=== PATIENT | male | born 1955 | race Hispanic/Latino ===

== ENCOUNTER 2025-07-05 17:42 | Inpatient (IN) | payer OTHER, MEDICARE ==
[~2025-07-05] VITALS: Ht 175.3 cm; Wt 87.3 kg
[2025-07-05] VITALS (20 sets, daily range): BP systolic 104–138; BP diastolic 53–109; PULSE 77–96; RESP 14–35; TEMP 98.8; O2SAT 96–97
--- NOTE | 2025-07-05 20:00 | HP ---
History of Present Illness Reason for Visit: transfer from [place] for pericardial effusion History of Present Illness Mr. Chowdhury is 70 year old male that was seen and examined today on 07/05/25. Patient is a good historian of personal health patient was transfered from [facility] after being accepted by Dr. Jeff Weir. At [facility] patient was diagnosed with pericardial effusion with tamponade. Patient is also hypotensive and requiring vasopressor support. Patient has a history of hypertension, Diabetes mellitius type2, and melanoma with metastasis, most recently on Pembrolizumab (last dose 06/24/25). Who presented with a generalized weakness/fatigue, of five weeks' duration. The symptoms began in the setting of immune therapy, and over the last five weeks progressively worsened. The symptoms were constant, occurred on a daily basis, and were present throughout the day. The symptoms were exacerbated by physical activity and not alleviated by anything. The symptoms culminated in a mechanical fall, which occurred on 07/04/2025, and prompted the patient to come to the hospital for further evaluation and treatment. In the emergency department the patient was found to be hyponatremic, and with a lactic acid of 4.24. He was admitted to the floor and within 24 hours decompensated and went into shock, requiring ionotropic/chronotropic support with IV norepinephrine and vasopressin. He was subsequently transferred to the ICU and underwent an echocardiogram which identified a moderate size pericardial effusion measuring 1.1-1.5 cm, the mitral valve inspiratory variation of 40% and early diastolic collapse of the right ventricle and the late diastolic collapse of the right atrium and a dilated IVC. The findings confirmed the diagnosis of cardiac tamponade, causing obstructive shock. Cardiology was consulted for treatment recommendations regarding this issue. At the time of Cardiology evaluation the patient continued to complaint of generalized weakness/fatigue but denied any other active complaints including headache, dizziness, syncope, chest pain, chest pressure, palpitations, shortness of breath, abdominal pain or lower extremity swelling/edema. Past Medical History ADDITIONAL PAST MEDICAL HISTORY: [Diabetes, hypertension, melanoma] SOCIAL HISTORY: [Negative for smoking, alcohol use, drug use. ] SURGICAL HISTORY: [IR PICC line placement] Review of Systems General: No Fever, No Chills, No Night Sweats, No Fatigue, No Malaise, No Appetite, No Other HEENT: No Head Aches, No Visual Changes, No Eye Pain, No Ear Pain, No Dysphasia, No Sinus Congestion, No Post Nasal Drip, No Sore Throat, No Other Pulmonary: No Dyspnea, No Cough, No Pleuritic Chest Pain, No Other Cardiovascular: Chest Pain; No: Palpitations, Orthopnea, Paroxysmal Noc. Dyspn ea, Edema, Lt Headedness, Other Gastrointestinal: No: Nausea, Vomiting, Abdominal Pain, Diarrhea, Constipation, Melena, Hematochezia, Other Genitourinary: No Dysuria, No Frequency, No Incontinence, No Hematuria, No Retention, No Other Musculoskeletal: No: other, neck pain, shoulder pain, arm pain, back pain, hand pain, leg pain, foot pain Skin: No Urticaria, No Rash, No Other Neurological: No: Weakness, Numbness, Incoordination, Change in speech, Confusion, Seizures, Other Allergies: Coded Allergies: No Known Drug Allergies (Unverified Allergy, Unknown, 07/05/25) Scheduled Amlodipine Besylate (Amlodipine Besylate), 1 TAB PO DAILY, (Reported) Atorvastatin Calcium (Lipitor), 40 MG PO DAILY, (Reported) Empagliflozin (Jardiance), 1 TAB PO DAILY, (Reported) Olmesartan Medoxomil (Olmesartan Medoxomil), 40 MG PO DAILY, (Reported) Semaglutide (Rybelsus), 7 MG PO DAILY, (Reported) Scheduled PRN Ondansetron (Ondansetron Odt), 1 TAB PO Q8hprn PRN for NAUSEA/VOMITING, (Reported) Exam General Appearance: Alert, Oriented X3, Cooperative, moderate distress, Other (Generally ill-appearing) HEENT: Atraumatic Respiratory: Other (Diminished air entry to bilateral lower lobes) Cardiovascular: Regular rate, Regular rhythm, Normal S1, Normal S2 Abdominal: Normal bowel sounds, Soft, No tenderness Extremities: No edema Skin: No significant lesion Neuro: Normal speech, Strength at 5/5 X4 ext, Sensation intact, Cranial nerves 3-12 NL Psych/Mental Status: Mental status NL, Mood NL, Thoughts/Content NL Assessment/Plan ASSESSMENT: [ Obstructive shock, POA Hypotension, POA Cardiac tamponade, POA Melanoma with metastasis, POA Diabetes mellitius type2 Hypertension] PLAN: [ Admit patient to intensive care unit. Place patient on telemetry monitoring. Patient will be followed by critical care team. Patient will be followed by cardiovascular surgery Service, Dr. Vizcarra. Patient will be followed by cardiology service, Dr. Marquis. Keep patient NPO. Check preprocedure labs, CBC, BMP, magnesium, phosphorus, PTT, UA, type and screen, EKG, CXR Requested for compact discs with imaging is to be uploaded to EMR Continue vasopressor support per critical Care recommendations Have patient follow up in the outpatient setting for management of his melanoma. Rhino Check hemoglobin A1c in a.m. Glucometer checks a.c. and HS 1800 ADA diet once patient is no longer NPO Humulin R sliding scale Avoid blood pressure medicine at this time given hypotension. GI prophylaxis, famotidine DVT prophylaxis, Raheem's and SCDs avoid anticoagulation at this time due to pending cardiovascular surgery evaluation. Critical Care Time: I spent ___51___ minutes of critical care time with the patient. I reviewed lab work, change the patient's medication, and coordinated protocol in the event of tachycardia or desaturation. The patient status remains unchanged ADVANCED CARE PLANNING 1. Which of the following were discussed? Hospice Care - Yes Therapeutic options - yes Advance Directives - Yes - patient states he does not have any advance directives in place at this time, however his sister, Molly Desai can make decisions for him if he becomes unable. Other discussions - patient wishes to remain a full code 2. Discussed with who? Patient 3. Voluntary nature of this service was explained to the patient? Yes 4. Amount of time spent - ___16 minutes____ 5. Reviewed by Physician? (if this service was performed by NPP) Yes This document was generated in part using voice recognition software, occasional wrong word or sound alike substitutions may have occurred due to the inherent limitations of voice recognition software. Read the chart carefully and recognize using context, where the substitutions have occurred. Although every effort was made to edit the content, keg inspector and typing errors may occur ATTESTATION BY PHYSICIAN I have seen and examined the patient. I reviewed the documentation, medical decision making, and treatment plan as noted by the mid-level provider above. I agree with the findings and plan of care. NEFTALI WINSTON PRESS SETTER Jul 05, 2025 20:00
[2025-07-05 20:35] LABS: IMMATURE GRANULOCYTE ABSOLUTE 0.07 K/uL (0-1); NUCLEATED RED BLOOD CELLS 0.0 % (0.0-0.19); PLATELET COUNT (AUTO) 202 K/uL (130-400); RED BLOOD CELL COUNT(AUTO) 3.97 MIL/uL (4.50-6.20); RED CELL DISTRIBUTION WIDTH 12.8 % (11.0-15.5); WHITE BLOOD COUNT (AUTO) 13.6 K/uL (4.8-10.8)
[2025-07-05 20:45] LABS: INR 1.25 (0.85-1.15)
[2025-07-05] MEDS: NOREPINEPHRIN 8MG/250ML NS 250 ML IV PRN (21:12)
[2025-07-05 21:19] LABS: PHOSPHORUS 8.0 mg/dL (2.5-4.9)
[2025-07-05 21:20] LABS: APPEARANCE,URINE CLOUDY (CLEAR); GLUCOSE, URINE (UA) >=1000 mg/dL (NEGATIVE); LEUKOCYTE ESTERASE ,URINE NEGATIVE Leu/uL (NEGATIVE); NITRATE,URINE NEGATIVE (NEGATIVE); OCCULT BLOOD,URINE SMALL (NEGATIVE)
[2025-07-05 21:21] LABS: ADD UA MICROSCOPIC YES
[2025-07-05 21:24] LABS: SQUAMOUS EPITHELIAL CELL,UR FEW /HPF (0-2)
--- NOTE | 2025-07-05 22:02 | NUR ---
Paged Steam Tunnel Feeder Paged Dr. Sampson Marquis for new consultation at 21:40. Pending call back.
--- NOTE | 2025-07-05 22:51 | CONS ---
[facility] CONSULTATION NOTE Date Patient Seen: Jul 05, 2025 Time of Visit: 22:51 Supervising Physician: Dr. Bailey Reason for Consultation: ICU management Primary Care Physician: PCP: (Cannot recall name) Outpatient Specialists: [ ] Inpatient Consults: [ ] PROBLEM LIST: Obstructive shock requiring vasopressor therapy POA. Hypotension Pericardial effusion with tamponade physiology per 2D echo done at [facility] POA. Hypertension. Diabetes mellitus type 2. Melanoma with metastasis most recently on Pembrolizumab (last dose 06/24/25) Anxiety. HPI: This is a 70-year-old male patient who has a past medical history that is significant for hypertension, diabetes mellitus type 2, anxiety and melanoma with metastasis most recently on Pembrolizumab (last dose 06/24/25). Per the sister who was present at the bedside, she made mention regarding worsening generalized weakness and fatigue over the past week. Per her report, the symptoms began in the setting of immune therapy for his melanoma. Also, she made mention that the patient was experiencing recurring falls at home with his last fall approximately 2 days ago. Considering the worsening functional decline, the patient was brought in to the emergency department for further evaluation and management of his condition. The patient was initially seen at [facility]. Workup there was significant for a pericardial effusion with tamponade physiology and obstructive shock requiring pressor therapy. The patient was transferred here to [facility] for further management of his condition and cardiothoracic surgery evaluation. Since admission, workup showed unremarkable vital signs. Laboratory data here showed a slightly increased WBC of 13.6 H&H and platelet count were stable. Chemistry panel showed a phosphorus of 8.0 and a mag of 2.10. Patient had a PT of 13.0, INR of 1.25 and a PTT of 29.9. Urinalysis showed cloudy urine with negative nitrates, negative leukocyte esterase and no bacteria. The patient was brought into the ICU and currently continues on vasopressor therapy with levo and vaso. No acute events since admission. No other complaint. PAST MEDICAL HX: see above PAST SURGICAL HX: noncontributory SOCIAL HISTORY: No tobacco, ETOH, or illicit drug use Coded Allergies: No Known Drug Allergies (Unverified Allergy, Unknown, 07/05/25) REVIEW OF SYSTEMS: 12 point ROS reviewed with patient. Pertinent positives mentioned above. Otherwise negative. PHYSICAL EXAM: GENERAL: alert, weak, awake oriented x 3 HEENT: EOMI, Sclera non icteric, moist mucosa NECK: Supple, no JVD, trachea midline LUNGS: Clear breath sounds bilaterally. No wheezes HEART: Regular rate and rhythm. Normal S1 and S2, without murmurs ABD: Abdomen soft, nontender. Bowel sounds present EXT: No clubbing cyanosis or edema NEURO: Alert and oriented to person, follows commands Vital Signs (last 8hr) Date Time Temp Pulse Resp B/P (MAP) Pulse Ox O2 Delivery O2 Flow Rate FiO2 07/05/25 22:15 80 28 111/56 (74) 96 07/05/25 22:00 83 27 135/109 (118) 95 60 07/05/25 21:45 94 21 129/63 (85) 96 07/05/25 21:30 83 19 128/65 (86) 94 07/05/25 21:15 80 18 117/56 (76) 95 07/05/25 21:12 123/67 07/05/25 21:00 80 29 117/67 (84) 95 60 07/05/25 20:45 79 28 123/67 (85) 96 07/05/25 20:30 93 20 123/60 (81) 97 07/05/25 20:15 79 24 119/65 (83) 95 07/05/25 20:00 98.8 96 28 112/56 (74) 96 60 07/05/25 20:00 98.8 N/C High Flow System 12.0 60 07/05/25 19:45 91 22 128/67 (87) 96 07/05/25 19:30 79 31 130/67 (88) 96 07/05/25 19:15 80 35 129/58 (81) 96 07/05/25 19:00 82 27 138/90 (106) 97 60 LABS: Hematology Labs: Test 07/05/25 20:20 Range/Units White Blood Count 13.6 H 4.8-10.8 K/uL Red Blood Count 3.97 L 4.50-6.20 MIL/uL Hemoglobin 11.7 L 14.0-18.0 g/dL Hematocrit 36.0 L 42-54 % Mean Corpuscular Volume 90.7 79-99 fL Mean Corpuscular Hemoglobin 29.5 27.0-33.0 pg Mean Corpuscular Hemoglobin Concent 32.5 32.0-36.0 g/dL Red Cell Distribution Width 12.8 11.0-15.5 % Platelet Count 202 130-400 K/uL Mean Platelet Volume 9.9 7.5-10.5 fL Immature Granulocyte % (Auto) 0.5 0-1 % Neutrophils (%) (Auto) 86.6 H 40.0-77.0 % Lymphocytes (%) (Auto) 7.7 L 21.0-51.0 % Monocytes (%) (Auto) 4.9 3.0-13.0 % Eosinophils (%) (Auto) 0.0 0.0-8.0 % Basophils (%) (Auto) 0.3 0.0-5.0 % Neutrophils # (Auto) 11.8 H 1.8-7.7 K/uL Lymphocytes # (Auto) 1.1 1.0-4.8 K/uL Monocytes # (Auto) 0.7 0.1-1.0 K/uL Eosinophils # (Auto) 0.00 0.00-0.70 K/uL Basophils # (Auto) 0.04 0.00-0.20 K/uL Absolute Immature Granulocyte (auto 0.07 0-1 K/uL Nucleated Red Blood Cells 0.0 0.0-0.19 % White Cell Morphology Comment See comments Chemistry Labs: Test 07/05/25 21:09 Range/Units Phosphorus Level 8.0 H 2.5-4.9 mg/dL Magnesium Level 2.10 1.80-2.40 mg/dL Coagulation Labs: Test 07/05/25 20:20 Range/Units Prothrombin Time 13.0 H 9.6-11.6 SEC Prothromb Time International Ratio 1.25 H 0.85-1.15 Activated Partial Thromboplast Time 29.9 26.3-35.5 SEC DIAGNOSTICS / RADIOLOGY RESULTS: [ ] PLAN Critical care consultation requested. Continue with vasopressor therapy and adjust as necessary to maintain MAP above 65 mmHg. Consult cardiothoracic surgery. Consult cardiology. Will monitor the patient's progress and response to management. Continue current pain management. Will repeat surveillance labs in the morning. Continue to provide general supportive care, GI and DVT prophylaxis. Further orders per attending MD and hospital course. NEURO: Minimize central acting medications as possible. Fall Precautions. Well lighted room through the day and minimize interruptions through the night to prevent acute delirium. PULMONARY: Supplemental 02 as needed Titrate Fio2 to keep Spo2 > or = 90% DuoNebs and CPT as needed IS hourly while awake for pulmonary hygiene Out of bed to chair as tolerated VAP Bundle Vent/BIPAP Settings: [ ] CARDIOVASCULAR: Follow hemodynamics. Titrate vasopressor to keep MAP >65 or systolic blood pressure >95mmHg DIPS: Levo and vaso. LINES: PIV's GI & NUTRITION: Continue nutritional support Aspirations precautions Prokinetic agents and laxatives as needed KIDNEYS & ELECTROLYTES: Strict monitoring of intake and output Daily weights Avoid nephrotoxic agents Monitor electrolytes and replace as needed Goal urine output of 30mL/hr or 0.5mL/kg/hr Urine output: [ ] Fluid Balance: [ ] ENDOCRINE: Maintain blood glucose between 100-180 at all times. Insulin sliding scale for blood glucose management INFECTIOUS DISEASE: Trend temperature. Wood-culture if febrile. Micro: [ ] Antibiotics: [ ] HEMATOLOGY & COAGULATION: Monitor H&H. Keep Hgb > 7 Transfuse 1 unit of PRBC for Hgb < 7 Transfuse 1 pack of platelets of platelets < 20, 000 Watch for any signs and symptoms of bleeding SKIN: Pressure ulcer prevention per facility protocol Rehab: PT/OT Prophylaxis: GI: [ ] DVT: [ ] Code Status: Full Resuscitation Disposition: ICU Other: I personally spent 40 minutes of critical care time in treatment of this patient. This includes patient management, time at bedside, time reviewing tests, labs, appropriate images and studies, documentation, and patient care coordination. This time excludes separately billable procedures. Case was discussed and seen with my supervising physician. The above plan was formulated and agreed upon. ADALID LARES NP Jul 05, 2025 22:51
[2025-07-05] MEDS ORDERED: OLME40TA18 PO (22:52)
[2025-07-05] MEDS ORDERED: ONDA-245 PO (23:09)
[2025-07-05] MEDS ORDERED: SEMA7TAB2 PO (23:19)
[2025-07-05] MEDS ORDERED: AMLO-258 PO (23:20)
[2025-07-05] MEDS ORDERED: ATOR40TA69 PO (23:21)
[2025-07-05] MEDS ORDERED: EMPA25TA PO (23:21)
[2025-07-06] VITALS (70 sets, daily range): BP systolic 96–149; BP diastolic 41–84; PULSE 77–96; RESP 17–41; TEMP 97.8–98.6; O2SAT 95–97
[2025-07-06] MEDS: VASOpressin 20 UNITS/ML 1ML Vi 20 UNITS in 0.9%NACL 100ML 99 ML IV PRN (00:51)
--- NOTE | 2025-07-06 02:29 | NUR ---
Radiology Discs Left [facility] radiology discs at the radiology department for upload at 00:30. Radiology department will drop off when doing AM rounds.
[2025-07-06 04:47] LABS: NUCLEATED RED BLOOD CELLS 0.0 % (0.0-0.19); PLATELET COUNT (AUTO) 223.0 K/uL (130-400); RED BLOOD CELL COUNT(AUTO) 3.91 MIL/uL (4.50-6.20); RED CELL DISTRIBUTION WIDTH 12.7 % (11.0-15.5); WHITE BLOOD COUNT (AUTO) 13.8 K/uL (4.8-10.8)
[2025-07-06 05:03] LABS: ASPARTATE AMINOTRANSFERASE 62.0 U/L (10-37); CREATININE 2.1 mg/dL (0.5-1.3); GLOMERULAR FILTR. RATE CALC 33.0 mL/min (>90); GLUCOSE,RANDOM 185.0 mg/dL (70-105); PHOSPHORUS 7.2 mg/dL (2.5-4.9); SODIUM SERUM 135.0 mmol/L (136-145); TOTAL PROTEIN, SERUM 6.5 g/dL (6.0-8.3); UREA NITROGEN, BLOOD 34.0 mg/dL (7-18)
[2025-07-06 07:22] LABS: ABG BASE EXCESS -9.4 mmol/L (-2.0-3.0); ABG HCO3 16.5 mmol/L (21.0-28.0); ABG OXYGEN SATURATION 96.2 % (94.0-98.0); ABG PCO2 36 mmHg (35-48); ABG PH 7.282 (7.350-7.450); CARBON MONOXIDE 0.3 % (0.5-1.5); DEVICE COMMENT LR; PO2, ARTERIAL BG 94.3 mmHg (83.0-108.0); TEMPERATURE, CELSIUS BG 37.0 CELSIUS (35.5-37.0); VENT MODE, BG OXIMIZER, CARLA (ROOM AIR)
--- NOTE | 2025-07-06 08:03 | PN ---
[facility] PROGRESS NOTE Date of Service: Jul 06, 2025 Time of Service: 07:59 SUBJECTIVE: 07/06 70-year-old male, history of hypertension, diabetes mellitus type 2, and melanoma with metastases, most recently on Pembrolizumab (last dose 06/24/25), transferred from [facility] after the patient was found to have moderate size pericardial effusion with tamponade, measuring 1.1-1.5 cm, the mitral valve inspiratory variation of 40% and early diastolic collapse of the right ventricle and the late diastolic collapse of the right atrium and a dilated IVC. Patient hypotensive, requiring vasopressor support. Consultation with Cardiology and Cardiothoracic surgeon requested, follow input and recommendations. REVIEW OF SYSTEMS CONSTITUTIONAL: Denies fevers, chills, or night sweats. No unintentional weight loss reported. NEUROLOGICAL: Denies headache, amaurosis fugax, motor weakness, sensory deficit, vertigo/spinning sensation, gait abnormalities, or tremors. ENT: No hearing loss, otalgia, otorrhea, rhinitis, rhinorrhea, hoarseness, or sore throat. CARDIOVASCULAR: Denies any exertional angina, dyspnea on exertion, orthopnea, paroxysmal nocturnal dyspnea, palpitations, life-threatening arrhythmias, claudication. PULMONARY: Denies any shortness of breath, cough, phlegm/sputum, hemoptysis, pleuritic chest pain. SLEEP: Denies morning headaches, daytime somnolence or napping. Denies difficulty falling asleep, staying asleep, waking from sleep. Denies knowledge of snoring. GASTROINTESTINAL: Denies any type of dysphagia to either liquids or solids. Denies nausea, vomiting, pyrosis, early satiety, abdominal pain, diarrhea, constipation, or changes in stool consistency or caliber. Denies coffee-ground emesis, hematemesis, hematochezia, or melanotic stools. GENITOURINARY: Denies frequency, urgency, nocturia, hematuria or incontinence (Storage/Irritative symptoms.) Low urinary stream, straining to void, urinary intermittency or hesitancy, splitting of the voiding stream, terminal dribbling. ENDOCRINOLOGIC: Denies polyuria, polydipsia, polyphagia or heat/cold intolerances. HEMATOLOGIC: Denies thrombophilia/previous clots, or coagulopathy/bleeding disorders. ONCOLOGIC: Denies personal history of malignancy. DERMATOLOGIC: Denies rashes or pruritus. PSYCHIATRIC: Denies any suicidal or homicidal ideation. Denies hallucinations. PHYSICAL EXAM GENERAL APPEARANCE: The patient is awake, alert, and oriented, in no acute cardiopulmonary distress. NEUROLOGICAL: Cranial nerves II-XII grossly intact. Motor is 5/5 in bilateral upper and lower extremities proximal to distal. No sensory deficits. HEENT: Face is symmetric. Pupils are equal and reactive. Extraocular movements are intact. NECK: Supple. No JVD. No thyromegaly. No submental, submandibular, pre- /postauricular, occipital or supraclavicular lymphadenopathy. CHEST: Normal chest expansion. No Telemetry. LUNGS: Absence of any rales, rhonchi or any wheezing. CARDIOVASCULAR: Regular. S1 and S2 normal. No appreciable rubs, murmurs or gallops. ABDOMEN: Soft, nontender, and nondistended. There is no rebound, voluntary guarding, or rigidity. : Deferred. No Orozco. EXTREMITIES: Non-edematous and not cyanotic. No clubbing. Good capillary refill. SKIN: No skin breakdown. Vital Signs (last 8hr) Date Time Temp Pulse Resp B/P (MAP) Pulse Ox O2 Delivery O2 Flow Rate FiO2 07/06/25 07:12 86 19 N/Cannula Oximizer Hi LPM 12.0 60 07/06/25 07:00 80 29 111/64 (80) 97 07/06/25 06:45 80 26 109/60 (76) 97 07/06/25 06:30 84 33 119/63 (81) 96 07/06/25 06:15 83 23 106/61 (76) 98 07/06/25 06:00 81 21 111/61 (78) 98 60 07/06/25 05:45 82 24 106/61 (76) 97 07/06/25 05:30 85 22 106/55 (72) 98 07/06/25 05:15 80 24 113/62 (79) 97 07/06/25 05:00 86 25 104/59 (74) 97 60 07/06/25 04:45 95 17 128/72 (90) 95 07/06/25 04:30 88 20 137/60 (85) 95 07/06/25 04:15 82 20 122/64 (83) 98 07/06/25 04:00 98.2 80 18 119/61 (80) 97 60 07/06/25 04:00 98.2 N/C High Flow System 12.0 60 07/06/25 04:00 96 N/C Oxymizer Hi LPM* 12 N/A 07/06/25 03:45 80 19 112/60 (77) 96 07/06/25 03:30 81 26 111/63 (79) 96 07/06/25 03:15 84 19 109/59 (76) 98 07/06/25 03:00 88 22 96/57 (70) 97 60 07/06/25 02:45 86 25 109/57 (74) 96 07/06/25 02:30 80 32 126/64 (84) 97 07/06/25 02:15 82 27 117/60 (79) 95 07/06/25 02:00 80 20 116/57 (76) 96 60 07/06/25 01:45 79 22 113/61 (78) 97 07/06/25 01:30 78 26 109/58 (75) 98 07/06/25 01:15 81 24 111/58 (75) 97 07/06/25 01:00 91 17 111/56 (74) 98 60 07/06/25 00:45 80 25 111/61 (78) 97 07/06/25 00:30 79 22 112/56 (74) 97 07/06/25 00:15 79 29 108/48 (68) 97 07/06/25 00:00 97 N/C Oxymizer Hi LPM* 12 N/A 07/06/25 00:00 98.6 77 23 106/53 (70) 96 60 07/06/25 00:00 98.6 N/C High Flow System 12.0 60 LABS: Laboratory: Test 07/06/25 07:20 07/06/25 04:13 07/05/25 21:01 07/05/25 20:20 Range/Units Blood Gas Specimen Type Arterial Arterial Blood pH 7.282 L 7.350-7.450 Arterial Blood Partial Pressure CO2 36 35-48 mmHg Arterial Blood Partial Pressure O2 94.3 83.0-108.0 mmHg Arterial Blood HCO3 16.5 L 21.0-28.0 mmol/L Arterial Blood Oxygen Saturation 96.2 94.0-98.0 % Arterial Blood Base Excess -9.4 L -2.0-3.0 mmol/L Hemoglobin (Blood Gas) 12.0 L 13.5-17.5 g/dL Sodium (Blood Gas) 130 L 136-145 MMOL/L Bedside Potassium (Blood Gas) 4.5 3.4-4.5 MMOL/L Bedside Chloride (Blood Gas) 102 98-107 MMOL/L Bedside Glucose (Blood Gas) 176 H 65-95 MG/DL Bedside Ionized Calcium (Blood Gas) 1.23 1.15-1.33 MMOL/L Bedside Lactic Acid (Blood Gas) 0.86 H 0.36-0.75 MMOL/L Blood Gas Temperature 37.0 35.5-37.0 CELSIUS Blood Gas Flow-by 12.00 0.00-15.00 L/min Blood Gas Vent Mode OXIMIZER, STEFAN ROOM AIR FiO2 68.0 % Blood Gas Specimen Comment LR White Blood Count 13.8 H 4.8-10.8 K/uL Red Blood Count 3.91 L 4.50-6.20 MIL/uL Hemoglobin 11.6 L 14.0-18.0 g/dL Hematocrit 35.2 L 42-54 % Mean Corpuscular Volume 90.0 79-99 fL Mean Corpuscular Hemoglobin 29.7 27.0-33.0 pg Mean Corpuscular Hemoglobin Concent 33.0 32.0-36.0 g/dL Red Cell Distribution Width 12.7 11.0-15.5 % Platelet Count 223 130-400 K/uL Mean Platelet Volume 9.8 7.5-10.5 fL Nucleated Red Blood Cells 0.0 0.0-0.19 % Sodium Level 135 L 136-145 mmol/L Potassium Level 4.8 3.5-5.1 mmol/L Chloride Level 100 L 101-111 mmol/L Carbon Dioxide Level 17 L 21-32 mmol/L Blood Urea Nitrogen 34 H 7-18 mg/dL Creatinine 2.1 H 0.5-1.3 mg/dL Glomerular Filtration Rate Calc 33 >90 mL/min Random Glucose 185 H 70-105 mg/dL Hemoglobin A1c 6.6 H 4.0-6.0 % Estimated Average Glucose (eAG) 143 H 70-126 mg/dL Total Calcium 8.8 8.5-10.1 mg/dL Phosphorus Level 7.2 H 2.5-4.9 mg/dL Magnesium Level 2.20 1.80-2.40 mg/dL Total Bilirubin 0.9 0.2-1.0 mg/dL Aspartate Amino Transf (AST/SGOT) 62 H 10-37 U/L Alanine Aminotransferase (ALT/SGPT) 55 12-78 U/L Alkaline Phosphatase 74 50-136 U/L Total Protein 6.5 6.0-8.3 g/dL Albumin 2.3 L 3.5-5.0 g/dL Urine Color YELLOW YELLOW Urine Appearance CLOUDY H CLEAR Urine pH 5.0 5.0-8.0 Urine Specific [place] 1.018 1.001-1.031 Urine Protein 20 H NEGATIVE mg/dL Urine Glucose (UA) >=1000 H NEGATIVE mg/dL Urine Ketones 20 H NEGATIVE mg/dL Urine Occult Blood SMALL H NEGATIVE Urine Nitrate NEGATIVE NEGATIVE Urine Bilirubin NEGATIVE NEGATIVE mg/dL Urine Urobilinogen 0.2 0.2-1.0 mg/dL Urine Leukocyte Esterase NEGATIVE NEGATIVE [place]/uL Urine RBC 11-25 H 0-1 /HPF Urine WBC 0-1 0-1 /HPF Urine Squamous Epithelial Cells FEW 0-2 /HPF Urine Bacteria None None Seen /HPF Immature Granulocyte % (Auto) 0.5 0-1 % Neutrophils (%) (Auto) 86.6 H 40.0-77.0 % Lymphocytes (%) (Auto) 7.7 L 21.0-51.0 % Monocytes (%) (Auto) 4.9 3.0-13.0 % Eosinophils (%) (Auto) 0.0 0.0-8.0 % Basophils (%) (Auto) 0.3 0.0-5.0 % Neutrophils # (Auto) 11.8 H 1.8-7.7 K/uL Lymphocytes # (Auto) 1.1 1.0-4.8 K/uL Monocytes # (Auto) 0.7 0.1-1.0 K/uL Eosinophils # (Auto) 0.00 0.00-0.70 K/uL Basophils # (Auto) 0.04 0.00-0.20 K/uL Absolute Immature Granulocyte (auto 0.07 0-1 K/uL White Cell Morphology Comment See comments Prothrombin Time 13.0 H 9.6-11.6 SEC Prothromb Time International Ratio 1.25 H 0.85-1.15 Activated Partial Thromboplast Time 29.9 26.3-35.5 SEC Current Medications Medications (Trade) Dose Ordered Sig/Dejah Route PRN Reason Start Time Stop Time Status Last Admin Dose Admin Acetaminophen (TYLenol 650MG SUPPOSITORY) 650 mg Q6H PRN RC MILD PAIN (1-3) 07/05/25 20:30 08/04/25 20:29 Hydralazine HCl (APRESOLine 20MG INJ) 10 mg Q6H PRN IV For:SBP above 160;DBP above 90 07/05/25 20:30 07/06/25 01:04 DC Insulin Human Regular (humuLIN R 100 UNIT/ML 3ML) INSULIN SLIDING SCAL... ACHS SQ 07/06/25 07:30 08/05/25 07:29 Morphine Sulfate (morPHINE 2MG SYG) 2 mg Q4H PRN IVP SEVERE PAIN (7-10) 07/05/25 20:30 07/12/25 20:29 Norepinephrine Bitartrate 250 ml @ 0 mls/hr AD PRN IV TITRATE 07/05/25 21:00 08/04/25 20:59 07/05/25 21:12 59.33 MLS/HR Ondansetron HCl (zoFRAN 4MG INJ) 4 mg Q6H PRN IV NAUSEA/VOMITING 07/05/25 20:30 08/04/25 20:29 Pantoprazole Sodium (PROTonix 40MG INJ) 40 mg DAILY IV 07/06/25 09:00 08/05/25 08:59 Vasopressin 20 units/Sodium Chloride 100 ml @ 0 mls/hr AD PRN IV TITRATE 07/05/25 21:00 08/04/25 20:59 07/06/25 00:51 9 MLS/HR DIAGNOSTICS / RADIOLOGY: [ ] ASSESSMENT: Obstructive shock requiring vasopressor therapy POA. Hypotension Pericardial effusion with tamponade physiology per 2D echo done at [facility] POA. Hypertension. Diabetes mellitus type 2. Melanoma with metastasis most recently on Pembrolizumab (last dose 06/24/25) Anxiety. PLAN: NEURO: Minimize central acting medications as possible. Fall Precautions. Well lighted room through the day and minimize interruptions through the night to prevent acute delirium. PULMONARY: Supplemental 02 as needed BiPAP as necessary, for respiratory distress Titrate Fio2 to keep Spo2 > or = 90% DuoNebs and CPT as needed IS hourly while awake for pulmonary hygiene prn Out of bed to chair as tolerated Maintain aspiration precautions at all times CARDIOVASCULAR: Follow hemodynamics. Vital signs per facility protocol GI & NUTRITION: Continue nutritional support Aspirations precautions Prokinetic agents and laxatives as needed KIDNEYS & ELECTROLYTES: Strict monitoring of intake and output Daily weights Avoid nephrotoxic agents Monitor electrolytes and replace as needed Goal urine output of 30mL/hr or 0.5mL/kg/hr Medications to be dosed according to renal function. Avoid contrast if possible ENDOCRINE: Maintain blood glucose between 100-180 at all times. Insulin sliding scale for blood glucose management Hypoglycemia and hyperglycemia protocol in place INFECTIOUS DISEASE: Trend temperature, WBC and procalcitonin level Follow cultures, deescalate antibiotics as soon as possible. Panculture if new onset fever HEMATOLOGY & COAGULATION: Monitor H&H. Keep Hgb > 7 Transfuse 1 unit of PRBC for Hgb < 7 Transfuse 1 pack of platelets of platelets < 20, 000 Watch for any signs and symptoms of bleeding SKIN: Pressure ulcer prevention per facility protocol Specialty mattress as needed ORTHO/REHAB Continue PT/OT PRN: MEDICATIONS Tylenol 650 mg po every 4 hrs for fever zofran 4 mg IV every 6 hrs for n/v Hydralazine 5 mg IV every 4 hrs systolic pressure > 160 bowel regiment: lactulose 20 gm PO BID PRN constipation Supportive measures: Continue GI and DVT prophylaxis Disposition: Pending improvement in clinical condition All questions answered time spent: > 35 min STEFANI SMILEY MD Jul 06, 2025 08:03
--- NOTE | 2025-07-06 08:15 | NUR ---
Paged dr broussard Message left with administrative assistant receptionist, did not get the name of the lady
--- NOTE | 2025-07-06 08:24 | NUR ---
dr broussard returned page at this informed about patient with episodes of confusion, on 2 vasopressors, and ABG results as per dr broussard patient to have icu management to correct acidosis keep patient npo and will contact cardiothoracic surgeon
--- NOTE | 2025-07-06 08:25 | NUR ---
recieved call from dr broussard voiced cardiothoracic surgeon has been made aware of patient status no new orders
[2025-07-06] MEDS: SODIUM BICARB 50MEQ 50ML VIAL IV ONE (08:34)
--- NOTE | 2025-07-06 08:36 | CONS ---
REASON FOR CONSULTATION: This is a 70-year-old gentleman, transferred from [place], with pericardial effusion. HISTORY OF PRESENT ILLNESS: A 70-year-old admitted to the hospital, was found to have a pericardial effusion and is recommended for drainage. I had the opportunity to review the films, review the medical record, and had discussed with the patient the indications for surgery as well as the potential complications of the operation including, but not limited to, postoperative bleeding, infection, stroke, and/or . He understands this as well as associated morbidity and mortality of procedure as it relates to his own comorbidities and wishes to proceed with pericardial window. PLAN: Continue antibiotics. Plan for pericardial window. TID: [id number] RECEIPT: [id number]
--- NOTE | 2025-07-06 09:15 | NUR ---
CONSWENT COLLECT FROM DAUGHTER DAYANA PURCELL AT BEDSIDE FOR PERICARDIAL WINDOW, PLACED IN CHART.
[2025-07-06] MEDS ORDERED: ETOMIDATE 20MG VIAL ONE (09:35)
--- NOTE | 2025-07-06 10:40 | HMCIMG ---
CHEST 1VW REASON: preop COMPARISON: Chest radiograph from 07/04/2025 is available. FINDINGS: The study demonstrate mild cardiomegaly. There is mild pulmonary venous congestion. There is a small granuloma seen in the left upper lung. There is suggestion of a small left-sided pleural effusion. There is a right-sided PIC catheter with tip in superior vena cava. The bony thorax demonstrate no gross of mammography. IMPRESSION: Cardiomegaly with mild interstitial pulmonary edema Small left-sided pleural effusion Right-sided PIC catheter with tip in superior vena cava.
--- NOTE | 2025-07-06 11:07 | NUR ---
Roscoe BRITT from OR came and took patient via bed to surgery patient is stabalized and vitals as charted patient is on 2 pressors; levophed/vasopressin both running at 0.03 patient is on 12L O2 oximizer
--- NOTE | 2025-07-06 11:08 | NUR ---
Dr powell rounded on patient dr powell was updated on patient status, saw patient as Roscoe Rn was taking patient via bed no new orders
--- NOTE | 2025-07-06 11:35 | PN ---
[facility] PROGRESS NOTE Date Patient Seen: Jul 06, 2025 Time of Visit: 11:32 Supervising Physician: Dr Bailey Primary Care Physician: PCP: (Cannot recall name) Outpatient Specialists: [ ] Inpatient Consults: [ ] PROBLEM LIST: Obstructive shock requiring vasopressor therapy POA. Hypotension Pericardial effusion with tamponade physiology per 2D echo done at [facility] POA. Hypertension. Diabetes mellitus type 2. Melanoma with metastasis most recently on Pembrolizumab (last dose 06/24/25) Anxiety INTERVAL HISTORY: Patient seen and examined, all labs imaging have been reviewed. Patient currently being prepped to be taken to the OR. Patient is confused, currently on mask at 12 L, continues on levo and vaso, INR is 1.25, patient's PH 7.28 and has received 100 and bicarb. Family updated at bedside. Anesthesia also in the room explaining procedure. All questions have been answered. Plan: Patient will be going to the OR, for a pericardial window We will follow the patient postoperatively Follow CT surgeon postop recs Telemetry Wean Pressors REVIEW OF SYSTEMS: 12 point ROS reviewed with patient. Pertinent positives mentioned above. Otherwise negative. PHYSICAL EXAM: GENERAL: alert, weak, awake oriented x 3 HEENT: EOMI, Sclera non icteric, moist mucosa NECK: Supple, no JVD, trachea midline LUNGS: Clear breath sounds bilaterally. No wheezes HEART: Regular rate and rhythm. Normal S1 and S2, without murmurs ABD: Abdomen soft, nontender. Bowel sounds present EXT: No clubbing cyanosis or edema NEURO: Alert and oriented to person, follows commands Vital Signs (last 8hr) Date Time Temp Pulse Resp B/P (MAP) Pulse Ox O2 Delivery O2 Flow Rate FiO2 07/06/25 11:11 105/61 07/06/25 09:45 82 33 112/62 (79) 96 07/06/25 09:30 83 28 115/52 (73) 95 07/06/25 09:15 84 26 113/61 (78) 96 07/06/25 09:00 83 27 120/66 (84) 97 07/06/25 08:45 82 25 111/58 (75) 94 07/06/25 08:30 85 19 115/60 (78) 94 07/06/25 08:15 84 24 113/57 (75) 97 07/06/25 08:00 96 N/C Oxymizer Hi LPM* 12 N/A 07/06/25 08:00 97.9 86 25 128/45 (72) 96 07/06/25 08:00 97.9 07/06/25 07:45 86 27 120/63 (82) 97 07/06/25 07:30 81 25 106/61 (76) 97 07/06/25 07:15 81 29 117/61 (79) 97 07/06/25 07:12 86 19 N/Cannula Oximizer Hi LPM 12.0 60 07/06/25 07:00 80 29 111/64 (80) 97 07/06/25 07:00 80 29 111/64 (80) 97 07/06/25 06:45 80 26 109/60 (76) 97 07/06/25 06:30 84 33 119/63 (81) 96 07/06/25 06:15 83 23 106/61 (76) 98 07/06/25 06:00 81 21 111/61 (78) 98 60 07/06/25 05:45 82 24 106/61 (76) 97 07/06/25 05:30 85 22 106/55 (72) 98 07/06/25 05:15 80 24 113/62 (79) 97 07/06/25 05:00 86 25 104/59 (74) 97 60 07/06/25 04:45 95 17 128/72 (90) 95 07/06/25 04:30 88 20 137/60 (85) 95 07/06/25 04:15 82 20 122/64 (83) 98 07/06/25 04:00 98.2 80 18 119/61 (80) 97 60 07/06/25 04:00 98.2 N/C High Flow System 12.0 60 07/06/25 04:00 96 N/C Oxymizer Hi LPM* 12 N/A 07/06/25 03:45 80 19 112/60 (77) 96 LABS: Hematology Labs: Test 07/06/25 04:13 07/05/25 20:20 Range/Units White Blood Count 13.8 H 4.8-10.8 K/uL Red Blood Count 3.91 L 4.50-6.20 MIL/uL Hemoglobin 11.6 L 14.0-18.0 g/dL Hematocrit 35.2 L 42-54 % Mean Corpuscular Volume 90.0 79-99 fL Mean Corpuscular Hemoglobin 29.7 27.0-33.0 pg Mean Corpuscular Hemoglobin Concent 33.0 32.0-36.0 g/dL Red Cell Distribution Width 12.7 11.0-15.5 % Platelet Count 223 130-400 K/uL Mean Platelet Volume 9.8 7.5-10.5 fL Nucleated Red Blood Cells 0.0 0.0-0.19 % Immature Granulocyte % (Auto) 0.5 0-1 % Neutrophils (%) (Auto) 86.6 H 40.0-77.0 % Lymphocytes (%) (Auto) 7.7 L 21.0-51.0 % Monocytes (%) (Auto) 4.9 3.0-13.0 % Eosinophils (%) (Auto) 0.0 0.0-8.0 % Basophils (%) (Auto) 0.3 0.0-5.0 % Neutrophils # (Auto) 11.8 H 1.8-7.7 K/uL Lymphocytes # (Auto) 1.1 1.0-4.8 K/uL Monocytes # (Auto) 0.7 0.1-1.0 K/uL Eosinophils # (Auto) 0.00 0.00-0.70 K/uL Basophils # (Auto) 0.04 0.00-0.20 K/uL Absolute Immature Granulocyte (auto 0.07 0-1 K/uL White Cell Morphology Comment See comments Chemistry Labs: Test 07/06/25 04:13 Range/Units Sodium Level 135 L 136-145 mmol/L Potassium Level 4.8 3.5-5.1 mmol/L Chloride Level 100 L 101-111 mmol/L Carbon Dioxide Level 17 L 21-32 mmol/L Blood Urea Nitrogen 34 H 7-18 mg/dL Creatinine 2.1 H 0.5-1.3 mg/dL Glomerular Filtration Rate Calc 33 >90 mL/min Random Glucose 185 H 70-105 mg/dL Hemoglobin A1c 6.6 H 4.0-6.0 % Estimated Average Glucose (eAG) 143 H 70-126 mg/dL Total Calcium 8.8 8.5-10.1 mg/dL Phosphorus Level 7.2 H 2.5-4.9 mg/dL Magnesium Level 2.20 1.80-2.40 mg/dL Total Bilirubin 0.9 0.2-1.0 mg/dL Aspartate Amino Transf (AST/SGOT) 62 H 10-37 U/L Alanine Aminotransferase (ALT/SGPT) 55 12-78 U/L Alkaline Phosphatase 74 50-136 U/L Total Protein 6.5 6.0-8.3 g/dL Albumin 2.3 L 3.5-5.0 g/dL Coagulation Labs: Test 07/05/25 20:20 Range/Units Prothrombin Time 13.0 H 9.6-11.6 SEC Prothromb Time International Ratio 1.25 H 0.85-1.15 Activated Partial Thromboplast Time 29.9 26.3-35.5 SEC DIAGNOSTICS / RADIOLOGY RESULTS: [ ] PLAN NEURO: Minimize central acting medications as possible. Fall Precautions. Well lighted room through the day and minimize interruptions through the night to prevent acute delirium. PULMONARY: Supplemental 02 as needed Titrate Fio2 to keep Spo2 > or = 90% DuoNebs and CPT as needed IS hourly while awake for pulmonary hygiene Out of bed to chair as tolerated VAP Bundle Vent/BIPAP Settings: [ ] CARDIOVASCULAR: Follow hemodynamics. Titrate vasopressor to keep MAP >65 or systolic blood pressure >95mmHg DIPS: Levo and vaso. LINES: PIV's GI & NUTRITION: Continue nutritional support Aspirations precautions Prokinetic agents and laxatives as needed KIDNEYS & ELECTROLYTES: Strict monitoring of intake and output Daily weights Avoid nephrotoxic agents Monitor electrolytes and replace as needed Goal urine output of 30mL/hr or 0.5mL/kg/hr Urine output: [ ] Fluid Balance: [ ] ENDOCRINE: Maintain blood glucose between 100-180 at all times. Insulin sliding scale for blood glucose management INFECTIOUS DISEASE: Trend temperature. Wood-culture if febrile. Micro: [ ] Antibiotics: [ ] HEMATOLOGY & COAGULATION: Monitor H&H. Keep Hgb > 7 Transfuse 1 unit of PRBC for Hgb < 7 Transfuse 1 pack of platelets of platelets < 20, 000 Watch for any signs and symptoms of bleeding SKIN: Pressure ulcer prevention per facility protocol Rehab: PT/OT Prophylaxis: GI: [ ] DVT: [ ] Code Status: Full Resuscitation Disposition: ICU Other: I personally spent 40 minutes of critical care time in treatment of this patient. This includes patient management, time at bedside, time reviewing tests, labs, appropriate images and studies, documentation, and patient care coordination. This time excludes separately billable procedures. Case was discussed and seen with my supervising physician. The above plan was formulated and agreed upon. JONO MANZO Jul 06, 2025 11:35
[2025-07-06] MEDS ORDERED: LIDOCAINE PF 100MG/5ML (2%) SYRINGE 5ML ONE (11:49)
--- NOTE | 2025-07-06 12:05 | HMCSR ---
APPROVED REPORT EXAM: Two-dimensional and M-mode echocardiogram with Doppler and color Doppler. Study Details: DM , HTN INDICATION ICD: pericardial effusion 2D Dimensions RVDd3.8 cmLVEF(%)73.1 (>50%)LVED Vol(simp.)135.8 mL IVSd0.9 (0.7-1.1cm)FS(%)42 %LVES Vol(simp.)47.9 mL LVDd5.0 (3.8-5.6cm)LA (2D)4.3 (1.6-4.0cm)LVEF(%, simp.)65 % PWd1.0 (0.7-1.1cm)Ao Root(2D)3.3 (2.0-3.7cm)LA ESV INDEX (BP)29.24 mL/m2 IVSs1.4 cmLVOT diam2.1 (1.8-2.4cm) LVDs2.9 (2.5-4.0cm)IVC diam2.6 cm PWs1.5 cm M-Mode Dimensions EPSS0.1 cm LA (MM)4.0 (1.6-4.0cm) Ao Root(MM)2.9 (2.0-3.7cm) Aortic Valve AoV Vmax1.7 m/Mariella Peak GR11.0 mmHgLVOT Vmax1.1 m/s AoV VTI0.3 mAo Mean GR6.5 mmHgLVOT VTI0.21 m YOANA (VMAX)2.36 cm2AVA (VTI) 2.6 cm2 Mitral Valve MV E Vmax87.2 cm/sDECEL Scfr543 ms MV A Vmax79.0 cm/sP 1/2 T58 ms E/A ratio1.1MVA (PHT)3.8 cm2 TDI E/E' Hhuzin79.4E/E' Pugnrip00.7 Medial E' Peak V7.68 cm/sLateral E' Peak V5.54 cm/s Pulmonary Valve PV Vmax1.0 m/sPV VTI0.22 mPV Mean GR2.7 mmHg PV Peak GR4.4 mmHg Left Ventricle The left ventricle is mildly dilated. Mild to moderate concentric left ventricular hypertrophy. LVEF is 60-65%. Stage II, diastolic dysfunction. Right Ventricle The right ventricle is normal size. The right ventricular systolic function is normal. Atria The left atrium is mildly dilated. The right atrium is severely dilated. Aortic Valve The aortic valve is mildly thickened. Aortic valve is trileaflet. No aortic regurgitation is present. There is no aortic valvular stenosis. Mitral Valve The mitral valve is normal in structure and function. There is no mitral valve regurgitation noted. T here is no mitral valve stenosis. Tricuspid Valve The tricuspid valve leaflets are mildly thickened. No tricuspid regurgitation. Pulmonic Valve The pulmonic valve is mildly thickened. There is no pulmonic valvular regurgitation. Great Vessels The aortic root is normal in size. The ascending aorta is normal in size. IVC is dilated and collapse s <50% with inspiration. Pericardium Small pericardial effusion. The diastolic compression of the right ventricle is suggestive of cardiac tamponade. Left pleural effusion. Conclusion Mild to moderate concentric left ventricular hypertrophy. LVEF is 60-65%. Stage II, diastolic dysfunction. Small pericardial effusion. The diastolic compression of the right ventricle is suggestive of cardiac tamponade.
--- NOTE | 2025-07-06 12:30 | NUR ---
Pt arrived from OR at this time patient alert patient on Non rebreather at 15L Patient with Left radial line present as well as a medistanial chest tube vitals as charted family at bedside
[2025-07-06 12:56] LABS: APPEARANCE BODY FLUID CLOUDY (CLEAR); COLOR,BODY FLUID RED (LT YELLOW); SPECIMENTYPE,BODY FLUID PERICARDIAL
[2025-07-06 12:57] LABS: PH, BODY FLUID 7.0; TOTAL VOLUME,BODY FLUID 35 mL
[2025-07-06 13:21] LABS: GLUCOSE,BODY FLUID 154 mg/dL (1-40); TOTAL PROTEIN,BODY FLUID 4.7 g/dL
--- NOTE | 2025-07-06 15:15 | PN ---
[facility] Cardiology Progress Note CARDIOLOGY PROGRESS NOTE JULY 06, 2025 Problems: 1. Pericardial effusion with tamponade requiring pressors status post emergent pericardial window 2. Metastatic melanoma 3. Diabetes mellitus type 2 4. Hypertension 5. Dyslipidemia Blood pressure is running 120-130 systolic. Heart rate is in the 90s. White count 97790 hemoglobin 11.6 platelet count [id number]. Potassium 4.8 BUN 34 creatinine 2.1. Chest x-ray shows cardiomegaly. The left costophrenic angle is obscured. The patient continues on insulin scale norepinephrine pantoprazole vasopressin. Preop echo showed moderate concentric LVH LV ejection fraction of 60-65% grade 2 diastolic left ventricular dysfunction small to moderate pericardial effusion with compression of the right ventricle in the subcostal views consistent with tamponade. The patient is still on pressors and we will titrate these off as tolerated. Family has noted some confusion postop. Nursing relates that he had some confusion prior to surgery but did receive some morphine prior to surgery. Coronary see no focal neurologic deficits he moves all extremities and follows commands. If symptoms persist as anesthesia wears off we will obtain a CT scan of the head. JONO HENDRIX MD Jul 06, 2025 15:14
--- NOTE | 2025-07-06 15:30 | NUR ---
dr. broussard at bedside, made aware of continued delirium ,hallucinations, as per dr. broussard if symptoms persists pt to have ct scan of head today.
[2025-07-06 15:46] LABS: BODY FLUID RBC 55676 /cu. mm.; BODY FLUID WBC 2229 /cu. mm.
--- NOTE | 2025-07-06 16:23 | NUR ---
DCP: INITIAL ASSESSMENT Patient lives alone. He has no home health but does have PHC with [facility] 25 hours a week. Patient has BPM at home. He is able to complete ADLs independently and drives. PCP is Dr. Jose Lafleur. Pharmacy is [facility] located on [address] in [place]. Patient voiced no safety concerns regarding returning home and states he has no difficulty with housing or buying food. DCP is home. Addendum: 07/06/25 at 1625 by ESTIVEN BROOKS SS Amended: Links added.
--- NOTE | 2025-07-06 16:25 | NUR ---
EMERGENCY CONTACTS DAYANA DARNELL (daughter) - [phone] Starr Loredo (daughter) - [phone]
[2025-07-06 16:41] LABS: BF LYMPHOCYTE 21 %; BF MACROPHAGE 10; BF NEUTROPHIL 69.0 %; BF TOTAL CELLS COUNTED 100
--- NOTE | 2025-07-06 17:08 | NUR ---
pt continues to argue with nonexistent person in room, per dr. broussard orders pt to have ct scan of head. ordered placed and family updated.
--- NOTE | 2025-07-06 19:02 | HMCIMG ---
EXAMINATION: CT Head Without IV contrast. CLINICAL HISTORY: Patient presents with delirium and hallucinations. TECHNIQUE: Axial computed tomography images of the head/brain without intravenous contrast. COMPARISON: Compared to prior MRI brain dated March 14, 2025. FINDINGS: BRAIN: Mild diffuse cerebral atrophy demonstrated by prominent cortical sulci and bilateral Sylvian fissures. Periventricular hypodensities concerning for chronic microangiopathic ischemic changes. No evidence of acute hemorrhage. No mass lesion. No CT evidence for acute territorial infarct. No midline shift or extra-axial collections. VENTRICLES: No hydrocephalus. ORBITS: The orbits are unremarkable. SINUSES AND MASTOIDS: The paranasal sinuses and mastoid air cells are clear. BONES: No fracture. SOFT TISSUES: Unremarkable. IMPRESSION: Chronic microangiopathic ischemic changes. Mild diffuse cerebral atrophy. No acute intracranial abnormality. /[place]
--- NOTE | 2025-07-06 20:27 | OP ---
DATE OF PROCEDURE: 07/06/2025 PREOPERATIVE DIAGNOSES: Metastatic melanoma, pericardial effusion, impending cardiac tamponade. PREOPERATIVE DIAGNOSES: Metastatic melanoma, pericardial effusion, impending cardiac tamponade. PROCEDURE PERFORMED: Pericardial window. SURGEON: Lito Vizcarra MD CNC MILLING MACHINIST: Tello. [facility] MANAGER FREELANCE: Sampson Marquis MD DISPOSITION: Stable. COMPLICATIONS: None. INDICATIONS: This a patient who was seen in [place] and was found with some difficulty breathing. An echocardiogram demonstrated some impending signs of cardiac tamponade. He was sent for a pericardial window. FINDINGS AT THE TIME OF SURGERY: 600 mL of fluid under pressure drained from the pericardium and the right pleura. The fluid sent for cytology, pericardial biopsy, and for culture. DRAINS: A #24 Carmelo. DESCRIPTION OF PROCEDURE IN DETAIL: With the patient in the supine position after the adequate induction of general anesthesia, preoperative intravenous antibiotics, percutaneous arterial and venous lines, surgeon directed timeout utilizing 2 patient identifiers followed by subxiphoid incision, dissection of the subxiphoid space. A generous rectangular portion of the pericardium was sent for biopsy, and the fluid was drained. A window was created to the right pleura, and then the tube was advanced from the pericardium through the window into the right chest. The wound was copiously irrigated with antibiotic solution and closed in layers with #1 Vicryl and 3-0 Monocryl. The patient was transferred in stable condition to the recovery room. TID: [id number] RECEIPT: [id number]
[2025-07-07] VITALS (18 sets, daily range): BP systolic 103–129; BP diastolic 42–68; PULSE 47–92; RESP 18–39; TEMP 97.9–98.5; O2SAT 92–97
[2025-07-07 03:58] LABS: IMMATURE GRANULOCYTE ABSOLUTE 0.06 K/uL (0-1); NUCLEATED RED BLOOD CELLS 0.0 % (0.0-0.19); PLATELET COUNT (AUTO) 198 K/uL (130-400); RED BLOOD CELL COUNT(AUTO) 3.44 MIL/uL (4.50-6.20); RED CELL DISTRIBUTION WIDTH 12.6 % (11.0-15.5); WHITE BLOOD COUNT (AUTO) 10.4 K/uL (4.8-10.8)
[2025-07-07 04:28] LABS: ASPARTATE AMINOTRANSFERASE 44.0 U/L (10-37); CREATININE 1.1 mg/dL (0.5-1.3); GLOMERULAR FILTR. RATE CALC 71.0 mL/min (>90); GLUCOSE,RANDOM 125.0 mg/dL (70-105); SODIUM SERUM 138.0 mmol/L (136-145); TOTAL PROTEIN, SERUM 6.1 g/dL (6.0-8.3); UREA NITROGEN, BLOOD 37.0 mg/dL (7-18)
--- NOTE | 2025-07-07 10:59 | HMCIMG ---
EXAM: CR Chest, 1 View. CLINICAL HISTORY: pp COMPARISON: Radiographs dated July 06, 2025 Findings: AP view of the chest is submitted. Right PICC terminates overlying the distal SVC. Mild bilateral perihilar and bibasilar airspace disease, unchanged. Small left effusion. No pneumothorax. Heart size is stable. Mild central pulmonary vascular congestion. IMPRESSION: 1. Bilateral perihilar and bibasilar airspace disease, unchanged, with small left pleural effusion and mild pulmonary vascular congestion. 2. Right PICC terminates in appropriate position overlying distal SVC. /[place]
--- NOTE | 2025-07-07 11:08 | PN ---
[facility] CARDIOLOGY PROGRESS NOTE Date Patient Seen: Jul 07, 2025 Time of Visit: 10:48 Interval History: This is a 70-year-old [place] male with a past medical history of hypertension, type 2 diabetes mellitus, melanoma with metastasis and more recent ly on pembrolizumab (last dose 06/24/2025) followed by Dr. Mae, initially presented to [facility] on 07/04/2025 with generalized weakness and fatigue of 5 days' duration. He sustained a mechanical fall on 07/04/2025 which prompted ER assessment. While at [facility], he developed hypotension requiring ICU transfer. He underwent a 2D echocardiogram on 07/05/2025 demonstrating a moderate size circumferential pericardial effusion with largest in diameter along the right ventricle free wall and measuring 2 cm. There was early diastolic collapse of the right ventricle and late diastolic collapse of the right atrium, the IVC was dilated and there was less than 50% inspiratory variation consistent with cardiac tamponade. He was transferred to [facility] for further management. The patient underwent a pericardial window with removal of 600 mL of fluid under pressure drained from the pericardium. Chest tube remains in place. He has developed confusion, possible delirium. Nursing reports he has not slept in [address] scan of the head 07/06/2025 demonstrated mild diffuse atrophy but no acute process. This morning, he is hemodynamically stable, intermittently confused and has sitter at the bedside and family is at the bedside. Serology from pericardiocentesis fluid is pending. Physical Examination: GENERAL: Confused, No acute distress. HEAD: Normal with no signs of head trauma. EYES: PERRLA, EOMI, conjunctiva and sclera normal. NECK: Supple without JVD. There is no tenderness, lymphadenopathy, or masses. No thyromegaly. Normal carotid upstrokes without bruits. LUNGS: Clear breath sounds anteriorly. No wheezes, or rhonchi. HEART: Normal rate and rhythm. Normal S1 and S2 without murmurs, gallop or rub. VASC: Peripheral pulses +2 bilaterally. EXT: No clubbing, cyanosis or edema. NEURO: Drowsy, opens his eyes but confused. No focal neurological deficits noted. Laboratory: Hematology Labs: Test 07/07/25 03:36 07/05/25 20:20 Range/Units White Blood Count 10.4 4.8-10.8 K/uL Red Blood Count 3.44 L 4.50-6.20 MIL/uL Hemoglobin 10.2 L 14.0-18.0 g/dL Hematocrit 30.2 L 42-54 % Mean Corpuscular Volume 87.8 79-99 fL Mean Corpuscular Hemoglobin 29.7 27.0-33.0 pg Mean Corpuscular Hemoglobin Concent 33.8 32.0-36.0 g/dL Red Cell Distribution Width 12.6 11.0-15.5 % Platelet Count 198 130-400 K/uL Mean Platelet Volume 9.8 7.5-10.5 fL Immature Granulocyte % (Auto) 0.6 0-1 % Neutrophils (%) (Auto) 78.8 H 40.0-77.0 % Lymphocytes (%) (Auto) 7.8 L 21.0-51.0 % Monocytes (%) (Auto) 12.7 3.0-13.0 % Eosinophils (%) (Auto) 0.0 0.0-8.0 % Basophils (%) (Auto) 0.1 0.0-5.0 % Neutrophils # (Auto) 8.2 H 1.8-7.7 K/uL Lymphocytes # (Auto) 0.8 L 1.0-4.8 K/uL Monocytes # (Auto) 1.3 H 0.1-1.0 K/uL Eosinophils # (Auto) 0.00 0.00-0.70 K/uL Basophils # (Auto) 0.01 0.00-0.20 K/uL Absolute Immature Granulocyte (auto 0.06 0-1 K/uL Nucleated Red Blood Cells 0.0 0.0-0.19 % White Cell Morphology Comment See comments Chemistry Labs: Test 07/07/25 03:36 07/06/25 20:24 07/06/25 04:13 Range/Units Sodium Level 138 136-145 mmol/L Potassium Level 4.2 3.5-5.1 mmol/L Chloride Level 103 101-111 mmol/L Carbon Dioxide Level 30 21-32 mmol/L Blood Urea Nitrogen 37 H 7-18 mg/dL Creatinine 1.1 0.5-1.3 mg/dL Glomerular Filtration Rate Calc 71 >90 mL/min Random Glucose 125 H 70-105 mg/dL Total Calcium 9.0 8.5-10.1 mg/dL Magnesium Level 2.20 1.80-2.40 mg/dL Total Bilirubin 0.6 # 0.2-1.0 mg/dL Aspartate Amino Transf (AST/SGOT) 44 H 10-37 U/L Alanine Aminotransferase (ALT/SGPT) 50 12-78 U/L Alkaline Phosphatase 68 50-136 U/L Total Protein 6.1 6.0-8.3 g/dL Albumin 2.1 L 3.5-5.0 g/dL Whole Blood Glucose 133 H 70-110 MG/DL Hemoglobin A1c 6.6 H 4.0-6.0 % Estimated Average Glucose (eAG) 143 H 70-126 mg/dL Phosphorus Level 7.2 H 2.5-4.9 mg/dL Coagulation Labs: Test 07/05/25 20:20 Range/Units Prothrombin Time 13.0 H 9.6-11.6 SEC Prothromb Time International Ratio 1.25 H 0.85-1.15 Activated Partial Thromboplast Time 29.9 26.3-35.5 SEC Diagnostics / Radiology: 2D echocardiogram 07/06/2025: Conclusion Mild to moderate concentric left ventricular hypertrophy. LVEF is 60-65%. Stage II, diastolic dysfunction. Small pericardial effusion. The diastolic compression of the right ventricle is suggestive of cardiac tamponade. Impression and Plan: Obstructive shock (initial presentation to [facility] 07/04/2025): Pericardial tamponade, status post pericardial window with removal of 600 mL of pericardial fluid on 07/06/[address] Lito Vizcarra: -continues with chest tube in place -serology/pericardial fluid analysis is currently pending Metastatic melanoma, currently on pembrolizumab: -we will continue to follow-up with Dr. Mae -per note ([place]), a prior PET scan demonstrated increased uptake in the right lower quadrant lymph nodes, likely follow-up as an outpatient for possible CT-guided biopsy Type 2 diabetes mellitus Hypertension PHYSICIAN ATTESTATION OF PHYSICIAN AGENT LICENSING CLERK DOCUMENTATION: I attest that I was physically present for the padron portions of the service and evaluated the patient with the Physician Alto Singer, and I reviewed and discussed the case with the Physician Alto Singer and made modifications to the Physician Alto Singer's findings and plans of care as documented above YOSSI ALEXANDRE [facility] Jul 07, 2025 11:08 BRITTANY MUHAMMAD MD Jul 07, 2025 12:53
--- NOTE | 2025-07-07 11:43 | PN ---
[facility] PROGRESS NOTE Date Patient Seen: Jul 07, 2025 Time of Visit: 11:39 Supervising Physician: Dr Franco Primary Care Physician: PCP: (Cannot recall name) Outpatient Specialists: [ ] Inpatient Consults: [ ] PROBLEM LIST: Obstructive shock requiring vasopressor therapy POA. Pericardial effusion with tamponade Status post pericardial window 07/06/2025 Hypotension Chronic Conditions: Hypertension. Diabetes mellitus type 2. Melanoma with metastasis most recently on Pembrolizumab (last dose 06/24/25) Anxiety INTERVAL HISTORY: Patient seen and examined, all labs imaging have been reviewed. Patient tolerated procedure well, chest x-ray is clear Patient remains confused, mittens, sitter at bedside, Patient on 9 L, good saturations Family at weaning area has been updated. Weaning pressors Plan: Follow CT surgeon postop recs Telemetry Wean Pressors Daily labs Monitor Hgb Sitter REVIEW OF SYSTEMS: 12 point ROS reviewed with patient. Pertinent positives mentioned above. Otherwise negative. PHYSICAL EXAM: GENERAL: alert, weak, awake oriented x 3 HEENT: EOMI, Sclera non icteric, moist mucosa NECK: Supple, no JVD, trachea midline LUNGS: Clear breath sounds bilaterally. No wheezes HEART: Regular rate and rhythm. Normal S1 and S2, without murmurs ABD: Abdomen soft, nontender. Bowel sounds present EXT: No clubbing cyanosis or edema NEURO: Alert and oriented to person, follows commands Vital Signs (last 8hr) Date Time Temp Pulse Resp B/P (MAP) Pulse Ox O2 Delivery O2 Flow Rate FiO2 07/07/25 10:00 84 20 124/46 95 N/C High Flow System 9.0 07/07/25 09:00 87 22 120/45 (70) 94 07/07/25 08:00 92 N/C Oxymizer Hi LPM* 9 N/A Non-Rebreather+ 07/07/25 08:00 98.4 87 24 114/44 (67) 92 07/07/25 07:00 91 20 116/47 (70) 92 07/07/25 06:42 91 24 N/Cannula Oximizer Hi LPM 8.0 52 07/07/25 04:00 94 N/C Oxymizer Hi LPM* 9 N/A Non-Rebreather+ 07/07/25 04:00 90 27 121/48 (72) 93 LABS: Hematology Labs: Test 07/07/25 03:36 07/05/25 20:20 Range/Units White Blood Count 10.4 4.8-10.8 K/uL Red Blood Count 3.44 L 4.50-6.20 MIL/uL Hemoglobin 10.2 L 14.0-18.0 g/dL Hematocrit 30.2 L 42-54 % Mean Corpuscular Volume 87.8 79-99 fL Mean Corpuscular Hemoglobin 29.7 27.0-33.0 pg Mean Corpuscular Hemoglobin Concent 33.8 32.0-36.0 g/dL Red Cell Distribution Width 12.6 11.0-15.5 % Platelet Count 198 130-400 K/uL Mean Platelet Volume 9.8 7.5-10.5 fL Immature Granulocyte % (Auto) 0.6 0-1 % Neutrophils (%) (Auto) 78.8 H 40.0-77.0 % Lymphocytes (%) (Auto) 7.8 L 21.0-51.0 % Monocytes (%) (Auto) 12.7 3.0-13.0 % Eosinophils (%) (Auto) 0.0 0.0-8.0 % Basophils (%) (Auto) 0.1 0.0-5.0 % Neutrophils # (Auto) 8.2 H 1.8-7.7 K/uL Lymphocytes # (Auto) 0.8 L 1.0-4.8 K/uL Monocytes # (Auto) 1.3 H 0.1-1.0 K/uL Eosinophils # (Auto) 0.00 0.00-0.70 K/uL Basophils # (Auto) 0.01 0.00-0.20 K/uL Absolute Immature Granulocyte (auto 0.06 0-1 K/uL Nucleated Red Blood Cells 0.0 0.0-0.19 % White Cell Morphology Comment See comments Chemistry Labs: Test 07/07/25 03:36 07/06/25 20:24 07/06/25 04:13 Range/Units Sodium Level 138 136-145 mmol/L Potassium Level 4.2 3.5-5.1 mmol/L Chloride Level 103 101-111 mmol/L Carbon Dioxide Level 30 21-32 mmol/L Blood Urea Nitrogen 37 H 7-18 mg/dL Creatinine 1.1 0.5-1.3 mg/dL Glomerular Filtration Rate Calc 71 >90 mL/min Random Glucose 125 H 70-105 mg/dL Total Calcium 9.0 8.5-10.1 mg/dL Magnesium Level 2.20 1.80-2.40 mg/dL Total Bilirubin 0.6 # 0.2-1.0 mg/dL Aspartate Amino Transf (AST/SGOT) 44 H 10-37 U/L Alanine Aminotransferase (ALT/SGPT) 50 12-78 U/L Alkaline Phosphatase 68 50-136 U/L Total Protein 6.1 6.0-8.3 g/dL Albumin 2.1 L 3.5-5.0 g/dL Whole Blood Glucose 133 H 70-110 MG/DL Hemoglobin A1c 6.6 H 4.0-6.0 % Estimated Average Glucose (eAG) 143 H 70-126 mg/dL Phosphorus Level 7.2 H 2.5-4.9 mg/dL Coagulation Labs: Test 07/05/25 20:20 Range/Units Prothrombin Time 13.0 H 9.6-11.6 SEC Prothromb Time International Ratio 1.25 H 0.85-1.15 Activated Partial Thromboplast Time 29.9 26.3-35.5 SEC DIAGNOSTICS / RADIOLOGY RESULTS: [ ] PLAN NEURO: Minimize central acting medications as possible. Fall Precautions. Well lighted room through the day and minimize interruptions through the night to prevent acute delirium. PULMONARY: Supplemental 02 as needed Titrate Fio2 to keep Spo2 > or = 90% DuoNebs and CPT as needed IS hourly while awake for pulmonary hygiene Out of bed to chair as tolerated VAP Bundle Vent/BIPAP Settings: [ ] CARDIOVASCULAR: Follow hemodynamics. Titrate vasopressor to keep MAP >65 or systolic blood pressure >95mmHg DIPS: Levo and vaso. LINES: PIV's GI & NUTRITION: Continue nutritional support Aspirations precautions Prokinetic agents and laxatives as needed KIDNEYS & ELECTROLYTES: Strict monitoring of intake and output Daily weights Avoid nephrotoxic agents Monitor electrolytes and replace as needed Goal urine output of 30mL/hr or 0.5mL/kg/hr Urine output: [ ] Fluid Balance: [ ] ENDOCRINE: Maintain blood glucose between 100-180 at all times. Insulin sliding scale for blood glucose management INFECTIOUS DISEASE: Trend temperature. Wood-culture if febrile. Micro: [ ] Antibiotics: [ ] HEMATOLOGY & COAGULATION: Monitor H&H. Keep Hgb > 7 Transfuse 1 unit of PRBC for Hgb < 7 Transfuse 1 pack of platelets of platelets < 20, 000 Watch for any signs and symptoms of bleeding SKIN: Pressure ulcer prevention per facility protocol Rehab: PT/OT Prophylaxis: GI: [ ] DVT: [ ] Code Status: Full Resuscitation Disposition: ICU Other: I personally spent 42 minutes of critical care time in treatment of this patient. This includes patient management, time at bedside, time reviewing tests, labs, appropriate images and studies, documentation, and patient care coordination. This time excludes separately billable procedures. Case was discussed and seen with my supervising physician. The above plan was formulated and agreed upon. JONO MANZO Jul 07, 2025 11:43
--- NOTE | 2025-07-07 13:32 | PN ---
[facility] PROGRESS NOTE Date of Service: Jul 07, 2025 Time of Service: 13:30 SUBJECTIVE: 07/06 70-year-old male, history of hypertension, diabetes mellitus type 2, and melanoma with metastases, most recently on Pembrolizumab (last dose 06/24/25), transferred from [facility] after the patient was found to have moderate size pericardial effusion with tamponade, measuring 1.1-1.5 cm, the mitral valve inspiratory variation of 40% and early diastolic collapse of the right ventricle and the late diastolic collapse of the right atrium and a dilated IVC. Patient hypotensive, requiring vasopressor support. Consultation with Cardiology and Cardiothoracic surgeon requested, follow input and recommendations. 07/07 70-year-old male, history of hypertension, diabetes mellitus type 2, and melanoma with metastases, most recently on Pembrolizumab (last dose 06/24/25), transferred from [facility] after the patient was found to have moderate size pericardial effusion with tamponade, measuring 1.1-1.5 cm, the mitral valve inspiratory variation of 40% and early diastolic collapse of the right ventricle and the late diastolic collapse of the right atrium and a dilated IVC. Patient hypotensive, requiring vasopressor support. Consultation with Cardiology and Cardiothoracic surgeon requested, underwent successful pericardial window 07/06/25, with the evacuation of 600 mL of fluid drained. At the time of my visit, comfortable, no acute events overnight per discussion with the RN. Chest tube in place. REVIEW OF SYSTEMS CONSTITUTIONAL: Denies fevers, chills, or night sweats. No unintentional weight loss reported. NEUROLOGICAL: Denies headache, amaurosis fugax, motor weakness, sensory deficit, vertigo/spinning sensation, gait abnormalities, or tremors. ENT: No hearing loss, otalgia, otorrhea, rhinitis, rhinorrhea, hoarseness, or sore throat. CARDIOVASCULAR: Denies any exertional angina, dyspnea on exertion, orthopnea, paroxysmal nocturnal dyspnea, palpitations, life-threatening arrhythmias, claudication. PULMONARY: Denies any shortness of breath, cough, phlegm/sputum, hemoptysis, pleuritic chest pain. SLEEP: Denies morning headaches, daytime somnolence or napping. Denies difficulty falling asleep, staying asleep, waking from sleep. Denies knowledge of snoring. GASTROINTESTINAL: Denies any type of dysphagia to either liquids or solids. Denies nausea, vomiting, pyrosis, early satiety, abdominal pain, diarrhea, constipation, or changes in stool consistency or caliber. Denies coffee-ground emesis, hematemesis, hematochezia, or melanotic stools. GENITOURINARY: Denies frequency, urgency, nocturia, hematuria or incontinence (Storage/Irritative symptoms.) Low urinary stream, straining to void, urinary intermittency or hesitancy, splitting of the voiding stream, terminal dribbling. ENDOCRINOLOGIC: Denies polyuria, polydipsia, polyphagia or heat/cold intolerances. HEMATOLOGIC: Denies thrombophilia/previous clots, or coagulopathy/bleeding disorders. ONCOLOGIC: Denies personal history of malignancy. DERMATOLOGIC: Denies rashes or pruritus. PSYCHIATRIC: Denies any suicidal or homicidal ideation. Denies hallucinations. PHYSICAL EXAM GENERAL APPEARANCE: The patient is awake, alert, and oriented, in no acute cardiopulmonary distress. NEUROLOGICAL: Cranial nerves II-XII grossly intact. Motor is 5/5 in bilateral upper and lower extremities proximal to distal. No sensory deficits. HEENT: Face is symmetric. Pupils are equal and reactive. Extraocular movements are intact. NECK: Supple. No JVD. No thyromegaly. No submental, submandibular, pre- /postauricular, occipital or supraclavicular lymphadenopathy. CHEST: Normal chest expansion. No Telemetry. LUNGS: Absence of any rales, rhonchi or any wheezing. CARDIOVASCULAR: Regular. S1 and S2 normal. No appreciable rubs, murmurs or gallops. ABDOMEN: Soft, nontender, and nondistended. There is no rebound, voluntary guarding, or rigidity. : Deferred. No Orozco. EXTREMITIES: Non-edematous and not cyanotic. No clubbing. Good capillary refill. SKIN: No skin breakdown. Vital Signs (last 8hr) Date Time Temp Pulse Resp B/P (MAP) Pulse Ox O2 Delivery O2 Flow Rate FiO2 07/07/25 12:30 96 N/C Oxymizer Hi LPM* 4 N/A Non-Rebreather+ 07/07/25 10:00 84 20 124/46 95 N/C High Flow System 9.0 07/07/25 09:00 87 22 120/45 (70) 94 07/07/25 08:00 92 N/C Oxymizer Hi LPM* 9 N/A Non-Rebreather+ 07/07/25 08:00 98.4 87 24 114/44 (67) 92 07/07/25 07:00 91 20 116/47 (70) 92 07/07/25 06:42 91 24 N/Cannula Oximizer Hi LPM 8.0 52 LABS: Laboratory: Test 07/07/25 12:04 07/07/25 03:36 07/06/25 12:00 07/06/25 07:20 Range/Units Whole Blood Glucose 104 70-110 MG/DL White Blood Count 10.4 4.8-10.8 K/uL Red Blood Count 3.44 L 4.50-6.20 MIL/uL Hemoglobin 10.2 L 14.0-18.0 g/dL Hematocrit 30.2 L 42-54 % Mean Corpuscular Volume 87.8 79-99 fL Mean Corpuscular Hemoglobin 29.7 27.0-33.0 pg Mean Corpuscular Hemoglobin Concent 33.8 32.0-36.0 g/dL Red Cell Distribution Width 12.6 11.0-15.5 % Platelet Count 198 130-400 K/uL Mean Platelet Volume 9.8 7.5-10.5 fL Immature Granulocyte % (Auto) 0.6 0-1 % Neutrophils (%) (Auto) 78.8 H 40.0-77.0 % Lymphocytes (%) (Auto) 7.8 L 21.0-51.0 % Monocytes (%) (Auto) 12.7 3.0-13.0 % Eosinophils (%) (Auto) 0.0 0.0-8.0 % Basophils (%) (Auto) 0.1 0.0-5.0 % Neutrophils # (Auto) 8.2 H 1.8-7.7 K/uL Lymphocytes # (Auto) 0.8 L 1.0-4.8 K/uL Monocytes # (Auto) 1.3 H 0.1-1.0 K/uL Eosinophils # (Auto) 0.00 0.00-0.70 K/uL Basophils # (Auto) 0.01 0.00-0.20 K/uL Absolute Immature Granulocyte (auto 0.06 0-1 K/uL Nucleated Red Blood Cells 0.0 0.0-0.19 % Sodium Level 138 136-145 mmol/L Potassium Level 4.2 3.5-5.1 mmol/L Chloride Level 103 101-111 mmol/L Carbon Dioxide Level 30 21-32 mmol/L Blood Urea Nitrogen 37 H 7-18 mg/dL Creatinine 1.1 0.5-1.3 mg/dL Glomerular Filtration Rate Calc 71 >90 mL/min Random Glucose 125 H 70-105 mg/dL Total Calcium 9.0 8.5-10.1 mg/dL Magnesium Level 2.20 1.80-2.40 mg/dL Total Bilirubin 0.6 # 0.2-1.0 mg/dL Aspartate Amino Transf (AST/SGOT) 44 H 10-37 U/L Alanine Aminotransferase (ALT/SGPT) 50 12-78 U/L Alkaline Phosphatase 68 50-136 U/L Total Protein 6.1 6.0-8.3 g/dL Albumin 2.1 L 3.5-5.0 g/dL Body Fluid Source PERICARDIAL Body Fluid Volume 35 mL Body Fluid Color RED H LT YELLOW Body Fluid pH 7.0 Body Fluid Supernatant Appearance CLOUDY H CLEAR Body Fluid WBC 2229 /cu. mm. Body Fluid RBC 65163 /cu. mm. Body Fluid Neutrophils 69.0 % Body Fluid Lymphocytes 21 % Body Fluid Macrophages (%) 10 Body Fluid Glucose 154 H 1-40 mg/dL Body Fluid Total Protein 4.7 g/dL Body Fluid Lactate Dehydrogenase 1833 U/L Body Fluid Amylase 28 U/L Blood Gas Specimen Type Arterial Arterial Blood pH 7.282 L 7.350-7.450 Arterial Blood Partial Pressure CO2 36 35-48 mmHg Arterial Blood Partial Pressure O2 94.3 83.0-108.0 mmHg Arterial Blood HCO3 16.5 L 21.0-28.0 mmol/L Arterial Blood Oxygen Saturation 96.2 94.0-98.0 % Arterial Blood Base Excess -9.4 L -2.0-3.0 mmol/L Hemoglobin (Blood Gas) 12.0 L 13.5-17.5 g/dL Sodium (Blood Gas) 130 L 136-145 MMOL/L Bedside Potassium (Blood Gas) 4.5 3.4-4.5 MMOL/L Bedside Chloride (Blood Gas) 102 98-107 MMOL/L Bedside Glucose (Blood Gas) 176 H 65-95 MG/DL Bedside Ionized Calcium (Blood Gas) 1.23 1.15-1.33 MMOL/L Bedside Lactic Acid (Blood Gas) 0.86 H 0.36-0.75 MMOL/L Blood Gas Temperature 37.0 35.5-37.0 CELSIUS Blood Gas Flow-by 12.00 0.00-15.00 L/min Blood Gas Vent Mode OXIMIZER, STEFAN ROOM AIR FiO2 68.0 % Blood Gas Specimen Comment LR Test 07/06/25 04:13 07/05/25 21:01 07/05/25 20:20 Range/Units Hemoglobin A1c 6.6 H 4.0-6.0 % Estimated Average Glucose (eAG) 143 H 70-126 mg/dL Phosphorus Level 7.2 H 2.5-4.9 mg/dL Urine Color YELLOW YELLOW Urine Appearance CLOUDY H CLEAR Urine pH 5.0 5.0-8.0 Urine Specific [place] 1.018 1.001-1.031 Urine Protein 20 H NEGATIVE mg/dL Urine Glucose (UA) >=1000 H NEGATIVE mg/dL Urine Ketones 20 H NEGATIVE mg/dL Urine Occult Blood SMALL H NEGATIVE Urine Nitrate NEGATIVE NEGATIVE Urine Bilirubin NEGATIVE NEGATIVE mg/dL Urine Urobilinogen 0.2 0.2-1.0 mg/dL Urine Leukocyte Esterase NEGATIVE NEGATIVE [place]/uL Urine RBC 11-25 H 0-1 /HPF Urine WBC 0-1 0-1 /HPF Urine Squamous Epithelial Cells FEW 0-2 /HPF Urine Bacteria None None Seen /HPF White Cell Morphology Comment See comments Prothrombin Time 13.0 H 9.6-11.6 SEC Prothromb Time International Ratio 1.25 H 0.85-1.15 Activated Partial Thromboplast Time 29.9 26.3-35.5 SEC Current Medications Medications (Trade) Dose Ordered Sig/Dejah Route PRN Reason Start Time Stop Time Status Last Admin Dose Admin Acetaminophen (TYLenol 650MG SUPPOSITORY) 650 mg Q6H PRN RC MILD PAIN (1-3) 07/05/25 20:30 08/04/25 20:29 Hydralazine HCl (APRESOLine 20MG INJ) 10 mg Q6H PRN IV For:SBP above 160;DBP above 90 07/05/25 20:30 07/06/25 01:04 DC Insulin Human Regular (humuLIN R 100 UNIT/ML 3ML) INSULIN SLIDING SCAL... ACHS SQ 07/06/25 07:30 08/05/25 07:29 Morphine Sulfate (morPHINE 2MG SYG) 2 mg Q4H PRN IVP SEVERE PAIN (7-10) 07/05/25 20:30 07/12/25 20:29 07/06/25 13:08 2 MG Norepinephrine Bitartrate 250 ml @ 0 mls/hr AD PRN IV TITRATE 07/05/25 21:00 08/04/25 20:59 07/06/25 11:11 0 MLS/HR Ondansetron HCl (zoFRAN 4MG INJ) 4 mg Q6H PRN IV NAUSEA/VOMITING 07/05/25 20:30 08/04/25 20:29 07/07/25 02:56 4 MG Pantoprazole Sodium (PROTonix 40MG INJ) 40 mg DAILY IV 07/06/25 09:00 08/05/25 08:59 07/06/25 08:34 40 MG Vasopressin 20 units/Sodium Chloride 100 ml @ 0 mls/hr AD PRN IV TITRATE 07/05/25 21:00 08/04/25 20:59 07/06/25 00:51 9 MLS/HR DIAGNOSTICS / RADIOLOGY: [ ] ASSESSMENT: Obstructive shock requiring vasopressor therapy POA. Hypotension Pericardial effusion with tamponade physiology per 2D echo done at [facility] POA. s/p successful pericardial window 07/06/25, with the evacuation of 600 mL of fluid drained. Hypertension. Diabetes mellitus type 2. Melanoma with metastasis most recently on Pembrolizumab (last dose 06/24/25) Anxiety. PLAN: NEURO: Minimize central acting medications as possible. Fall Precautions. Well lighted room through the day and minimize interruptions through the night to prevent acute delirium. PULMONARY: Supplemental 02 as needed BiPAP as necessary, for respiratory distress Titrate Fio2 to keep Spo2 > or = 90% DuoNebs and CPT as needed IS hourly while awake for pulmonary hygiene prn Out of bed to chair as tolerated Maintain aspiration precautions at all times CARDIOVASCULAR: Follow hemodynamics. Vital signs per facility protocol GI & NUTRITION: Continue nutritional support Aspirations precautions Prokinetic agents and laxatives as needed KIDNEYS & ELECTROLYTES: Strict monitoring of intake and output Daily weights Avoid nephrotoxic agents Monitor electrolytes and replace as needed Goal urine output of 30mL/hr or 0.5mL/kg/hr Medications to be dosed according to renal function. Avoid contrast if possible ENDOCRINE: Maintain blood glucose between 100-180 at all times. Insulin sliding scale for blood glucose management Hypoglycemia and hyperglycemia protocol in place INFECTIOUS DISEASE: Trend temperature, WBC and procalcitonin level Follow cultures, deescalate antibiotics as soon as possible. Panculture if new onset fever HEMATOLOGY & COAGULATION: Monitor H&H. Keep Hgb > 7 Transfuse 1 unit of PRBC for Hgb < 7 Transfuse 1 pack of platelets of platelets < 20, 000 Watch for any signs and symptoms of bleeding SKIN: Pressure ulcer prevention per facility protocol Specialty mattress as needed ORTHO/REHAB Continue PT/OT PRN: MEDICATIONS Tylenol 650 mg po every 4 hrs for fever zofran 4 mg IV every 6 hrs for n/v Hydralazine 5 mg IV every 4 hrs systolic pressure > 160 bowel regiment: lactulose 20 gm PO BID PRN constipation Supportive measures: Continue GI and DVT prophylaxis Disposition: Pending improvement in clinical condition All questions answered time spent: > 35 min STEFANI SMILEY MD Jul 07, 2025 13:32
--- NOTE | 2025-07-07 15:30 | NUR ---
pt alert, able to follow commands, restraints dc at this time. good capillary refill noted, bilateral radial pulses present, no distress noted. pt continues with 1:1 sitter at bedside, family at bedside.
--- NOTE | 2025-07-07 15:37 | NUR ---
report and care given to pina flood , all questions answered. pt alert and following commands, daughter at bedside and aware of pt transfer
--- NOTE | 2025-07-07 19:55 | NUR ---
Patient alert to name and . Patient is very drowsy. He is easily awoken with touch. Patient's respirations even and unlabored with the use of 4L of 02 via NC. Chest tube in place. Sitter at bedside.
--- NOTE | 2025-07-07 22:24 | PN ---
[facility] PROGRESS NOTE Date of Service: Jul 07, 2025 Time of Service: 22:24 SUBJECTIVE: 07/06 70-year-old male, history of hypertension, diabetes mellitus type 2, and melanoma with metastases, most recently on Pembrolizumab (last dose 06/24/25), transferred from [facility] after the patient was found to have moderate size pericardial effusion with tamponade, measuring 1.1-1.5 cm, the mitral valve inspiratory variation of 40% and early diastolic collapse of the right ventricle and the late diastolic collapse of the right atrium and a dilated IVC. Patient hypotensive, requiring vasopressor support. Consultation with Cardiology and Cardiothoracic surgeon requested, follow input and recommendations. 07/07 70-year-old male, history of hypertension, diabetes mellitus type 2, and melanoma with metastases, most recently on Pembrolizumab (last dose 06/24/25), transferred from [facility] after the patient was found to have moderate size pericardial effusion with tamponade, measuring 1.1-1.5 cm, the mitral valve inspiratory variation of 40% and early diastolic collapse of the right ventricle and the late diastolic collapse of the right atrium and a dilated IVC. Patient hypotensive, requiring vasopressor support. Consultation with Cardiology and Cardiothoracic surgeon requested, underwent successful pericardial window 07/06/25, with the evacuation of 600 mL of fluid drained. At the time of my visit, comfortable, no acute events overnight per discussion with the RN. Chest tube in place. REVIEW OF SYSTEMS CONSTITUTIONAL: Denies fevers, chills, or night sweats. No unintentional weight loss reported. NEUROLOGICAL: Denies headache, amaurosis fugax, motor weakness, sensory deficit, vertigo/spinning sensation, gait abnormalities, or tremors. ENT: No hearing loss, otalgia, otorrhea, rhinitis, rhinorrhea, hoarseness, or sore throat. CARDIOVASCULAR: Denies any exertional angina, dyspnea on exertion, orthopnea, paroxysmal nocturnal dyspnea, palpitations, life-threatening arrhythmias, claudication. PULMONARY: Denies any shortness of breath, cough, phlegm/sputum, hemoptysis, pleuritic chest pain. SLEEP: Denies morning headaches, daytime somnolence or napping. Denies difficulty falling asleep, staying asleep, waking from sleep. Denies knowledge of snoring. GASTROINTESTINAL: Denies any type of dysphagia to either liquids or solids. Denies nausea, vomiting, pyrosis, early satiety, abdominal pain, diarrhea, constipation, or changes in stool consistency or caliber. Denies coffee-ground emesis, hematemesis, hematochezia, or melanotic stools. GENITOURINARY: Denies frequency, urgency, nocturia, hematuria or incontinence (Storage/Irritative symptoms.) Low urinary stream, straining to void, urinary intermittency or hesitancy, splitting of the voiding stream, terminal dribbling. ENDOCRINOLOGIC: Denies polyuria, polydipsia, polyphagia or heat/cold intolerances. HEMATOLOGIC: Denies thrombophilia/previous clots, or coagulopathy/bleeding disorders. ONCOLOGIC: Denies personal history of malignancy. DERMATOLOGIC: Denies rashes or pruritus. PSYCHIATRIC: Denies any suicidal or homicidal ideation. Denies hallucinations. PHYSICAL EXAM GENERAL APPEARANCE: The patient is awake, alert, and oriented, in no acute cardiopulmonary distress. NEUROLOGICAL: Cranial nerves II-XII grossly intact. Motor is 5/5 in bilateral upper and lower extremities proximal to distal. No sensory deficits. HEENT: Face is symmetric. Pupils are equal and reactive. Extraocular movements are intact. NECK: Supple. No JVD. No thyromegaly. No submental, submandibular, pre- /postauricular, occipital or supraclavicular lymphadenopathy. CHEST: Normal chest expansion. No Telemetry. LUNGS: Absence of any rales, rhonchi or any wheezing. CARDIOVASCULAR: Regular. S1 and S2 normal. No appreciable rubs, murmurs or gallops. ABDOMEN: Soft, nontender, and nondistended. There is no rebound, voluntary guarding, or rigidity. : Deferred. No Orozco. EXTREMITIES: Non-edematous and not cyanotic. No clubbing. Good capillary refill. SKIN: No skin breakdown. Vital Signs (last 8hr) Date Time Temp Pulse Resp B/P (MAP) Pulse Ox O2 Delivery O2 Flow Rate FiO2 07/07/25 20:00 97 Nasal Cannula* 4 36 07/07/25 19:00 98.1 47 18 115/59 97 Room Air 07/07/25 18:33 84 24 N/Cannula Oximizer Hi LPM 4.0 36 07/07/25 15:40 95 Nasal Cannula* 4 36 07/07/25 15:39 87 20 125/68 96 N/C High Flow System 4.0 LABS: Laboratory: Test 07/07/25 19:37 07/07/25 03:36 07/06/25 12:00 07/06/25 07:20 Range/Units Whole Blood Glucose 89 70-110 MG/DL White Blood Count 10.4 4.8-10.8 K/uL Red Blood Count 3.44 L 4.50-6.20 MIL/uL Hemoglobin 10.2 L 14.0-18.0 g/dL Hematocrit 30.2 L 42-54 % Mean Corpuscular Volume 87.8 79-99 fL Mean Corpuscular Hemoglobin 29.7 27.0-33.0 pg Mean Corpuscular Hemoglobin Concent 33.8 32.0-36.0 g/dL Red Cell Distribution Width 12.6 11.0-15.5 % Platelet Count 198 130-400 K/uL Mean Platelet Volume 9.8 7.5-10.5 fL Immature Granulocyte % (Auto) 0.6 0-1 % Neutrophils (%) (Auto) 78.8 H 40.0-77.0 % Lymphocytes (%) (Auto) 7.8 L 21.0-51.0 % Monocytes (%) (Auto) 12.7 3.0-13.0 % Eosinophils (%) (Auto) 0.0 0.0-8.0 % Basophils (%) (Auto) 0.1 0.0-5.0 % Neutrophils # (Auto) 8.2 H 1.8-7.7 K/uL Lymphocytes # (Auto) 0.8 L 1.0-4.8 K/uL Monocytes # (Auto) 1.3 H 0.1-1.0 K/uL Eosinophils # (Auto) 0.00 0.00-0.70 K/uL Basophils # (Auto) 0.01 0.00-0.20 K/uL Absolute Immature Granulocyte (auto 0.06 0-1 K/uL Nucleated Red Blood Cells 0.0 0.0-0.19 % Sodium Level 138 136-145 mmol/L Potassium Level 4.2 3.5-5.1 mmol/L Chloride Level 103 101-111 mmol/L Carbon Dioxide Level 30 21-32 mmol/L Blood Urea Nitrogen 37 H 7-18 mg/dL Creatinine 1.1 0.5-1.3 mg/dL Glomerular Filtration Rate Calc 71 >90 mL/min Random Glucose 125 H 70-105 mg/dL Total Calcium 9.0 8.5-10.1 mg/dL Magnesium Level 2.20 1.80-2.40 mg/dL Total Bilirubin 0.6 # 0.2-1.0 mg/dL Aspartate Amino Transf (AST/SGOT) 44 H 10-37 U/L Alanine Aminotransferase (ALT/SGPT) 50 12-78 U/L Alkaline Phosphatase 68 50-136 U/L Total Protein 6.1 6.0-8.3 g/dL Albumin 2.1 L 3.5-5.0 g/dL Body Fluid Source PERICARDIAL Body Fluid Volume 35 mL Body Fluid Color RED H LT YELLOW Body Fluid pH 7.0 Body Fluid Supernatant Appearance CLOUDY H CLEAR Body Fluid WBC 2229 /cu. mm. Body Fluid RBC 44690 /cu. mm. Body Fluid Neutrophils 69.0 % Body Fluid Lymphocytes 21 % Body Fluid Macrophages (%) 10 Body Fluid Glucose 154 H 1-40 mg/dL Body Fluid Total Protein 4.7 g/dL Body Fluid Lactate Dehydrogenase 1833 U/L Body Fluid Amylase 28 U/L Blood Gas Specimen Type Arterial Arterial Blood pH 7.282 L 7.350-7.450 Arterial Blood Partial Pressure CO2 36 35-48 mmHg Arterial Blood Partial Pressure O2 94.3 83.0-108.0 mmHg Arterial Blood HCO3 16.5 L 21.0-28.0 mmol/L Arterial Blood Oxygen Saturation 96.2 94.0-98.0 % Arterial Blood Base Excess -9.4 L -2.0-3.0 mmol/L Hemoglobin (Blood Gas) 12.0 L 13.5-17.5 g/dL Sodium (Blood Gas) 130 L 136-145 MMOL/L Bedside Potassium (Blood Gas) 4.5 3.4-4.5 MMOL/L Bedside Chloride (Blood Gas) 102 98-107 MMOL/L Bedside Glucose (Blood Gas) 176 H 65-95 MG/DL Bedside Ionized Calcium (Blood Gas) 1.23 1.15-1.33 MMOL/L Bedside Lactic Acid (Blood Gas) 0.86 H 0.36-0.75 MMOL/L Blood Gas Temperature 37.0 35.5-37.0 CELSIUS Blood Gas Flow-by 12.00 0.00-15.00 L/min Blood Gas Vent Mode OXIMIZER, STEFAN ROOM AIR FiO2 68.0 % Blood Gas Specimen Comment LR Test 07/06/25 04:13 Range/Units Hemoglobin A1c 6.6 H 4.0-6.0 % Estimated Average Glucose (eAG) 143 H 70-126 mg/dL Phosphorus Level 7.2 H 2.5-4.9 mg/dL Current Medications Medications (Trade) Dose Ordered Sig/Dejah Route PRN Reason Start Time Stop Time Status Last Admin Dose Admin Acetaminophen (TYLenol 650MG SUPPOSITORY) 650 mg Q6H PRN RC MILD PAIN (1-3) 07/05/25 20:30 08/04/25 20:29 Enoxaparin Sodium (Lovenox) 30 mg DAILY SQ 07/08/25 09:00 08/07/25 08:59 Hydralazine HCl (APRESOLine 20MG INJ) 10 mg Q6H PRN IV For:SBP above 160;DBP above 90 07/05/25 20:30 07/06/25 01:04 DC Insulin Human Regular (humuLIN R 100 UNIT/ML 3ML) INSULIN SLIDING SCAL... ACHS SQ 07/06/25 07:30 08/05/25 07:29 Morphine Sulfate (morPHINE 2MG SYG) 2 mg Q4H PRN IVP SEVERE PAIN (7-10) 07/05/25 20:30 07/12/25 20:29 07/06/25 13:08 2 MG Norepinephrine Bitartrate 250 ml @ 0 mls/hr AD PRN IV TITRATE 07/05/25 21:00 08/04/25 20:59 07/06/25 11:11 0 MLS/HR Ondansetron HCl (zoFRAN 4MG INJ) 4 mg Q6H PRN IV NAUSEA/VOMITING 07/05/25 20:30 08/04/25 20:29 07/07/25 02:56 4 MG Pantoprazole Sodium (PROTonix 40MG INJ) 40 mg DAILY IV 07/06/25 09:00 08/05/25 08:59 07/06/25 08:34 40 MG Vasopressin 20 units/Sodium Chloride 100 ml @ 0 mls/hr AD PRN IV TITRATE 07/05/25 21:00 08/04/25 20:59 07/06/25 00:51 9 MLS/HR DIAGNOSTICS / RADIOLOGY: [ ] ASSESSMENT: Obstructive shock requiring vasopressor therapy POA. Hypotension Pericardial effusion with tamponade physiology per 2D echo done at [facility] POA. s/p successful pericardial window 07/06/25, with the evacuation of 600 mL of fluid drained. Hypertension. Diabetes mellitus type 2. Melanoma with metastasis most recently on Pembrolizumab (last dose 06/24/25) Anxiety. PLAN: NEURO: Minimize central acting medications as possible. Fall Precautions. Well lighted room through the day and minimize interruptions through the night to prevent acute delirium. PULMONARY: Supplemental 02 as needed BiPAP as necessary, for respiratory distress Titrate Fio2 to keep Spo2 > or = 90% DuoNebs and CPT as needed IS hourly while awake for pulmonary hygiene prn Out of bed to chair as tolerated Maintain aspiration precautions at all times CARDIOVASCULAR: Follow hemodynamics. Vital signs per facility protocol GI & NUTRITION: Continue nutritional support Aspirations precautions Prokinetic agents and laxatives as needed KIDNEYS & ELECTROLYTES: Strict monitoring of intake and output Daily weights Avoid nephrotoxic agents Monitor electrolytes and replace as needed Goal urine output of 30mL/hr or 0.5mL/kg/hr Medications to be dosed according to renal function. Avoid contrast if possible ENDOCRINE: Maintain blood glucose between 100-180 at all times. Insulin sliding scale for blood glucose management Hypoglycemia and hyperglycemia protocol in place INFECTIOUS DISEASE: Trend temperature, WBC and procalcitonin level Follow cultures, deescalate antibiotics as soon as possible. Panculture if new onset fever HEMATOLOGY & COAGULATION: Monitor H&H. Keep Hgb > 7 Transfuse 1 unit of PRBC for Hgb < 7 Transfuse 1 pack of platelets of platelets < 20, 000 Watch for any signs and symptoms of bleeding SKIN: Pressure ulcer prevention per facility protocol Specialty mattress as needed ORTHO/REHAB Continue PT/OT PRN: MEDICATIONS Tylenol 650 mg po every 4 hrs for fever zofran 4 mg IV every 6 hrs for n/v Hydralazine 5 mg IV every 4 hrs systolic pressure > 160 bowel regiment: lactulose 20 gm PO BID PRN constipation Supportive measures: Continue GI and DVT prophylaxis Disposition: Pending improvement in clinical condition All questions answered time spent: > 35 min LIBRADO FREED MD Jul 07, 2025 22:24
--- NOTE | 2025-07-07 22:28 | PN ---
[facility] PROGRESS NOTE Date Patient Seen: Jul 07, 2025 Time of Visit: 13:00 Supervising Physician: [Cabrera Franco MD ] Primary Care Physician: PCP: (Cannot recall name) Outpatient Specialists: [ ] Inpatient Consults: [ ] PROBLEM LIST: Obstructive shock requiring vasopressor therapy POA. Pericardial effusion with tamponade physiology, s/p pericardial window on 07/06/25 POD#1 (600 mL drained) Acute delirium, likely ICU-induced History of mechanical fall (07/07) Hypoalbuminemia / protein-calorie malnutrition (albumin 2.1) Chronic Conditions: Hypertension. Diabetes mellitus type 2. Melanoma with metastasis most recently on Pembrolizumab (last dose 06/24/25) Anxiety INTERVAL HISTORY: Patient seen and examined, all labs imaging have been reviewed. POD#1 s/p pericardial window and right pleural drainage by Dr. Vizcarra. Approximately 600 mL was removed intraoperatively; chest tube output has been 60 mL overnight, 110 mL total post-procedure. The patient experienced an acute episode of delirium characterized by agitation, visual hallucinations, and attempts to pull IV lines. His daughter reported he had not slept for the past 4 days, which likely contributed. No sedatives were administered; a 1:1 sitter was placed. Per sitter, he has since been resting and sleeping calmly since 9:00 AM. Hemodynamically, the patient remained stable overnight. Norepinephrine and vasopressin were discontinued. Arterial line has been removed. He is currently on high-flow nasal cannula with SpO2 95%. No new infectious concerns. Pericardial fluid Gram stain and anaerobic culture remain negative at 24 hours; blood cultures (07/05) remain negative. Laboratory data: WBC 10.4, hemoglobin 10.2, electrolytes within normal limits, BUN 37, creatinine improved to 1.1 (from 2.1), AST 44, albumin 2.1. Given stability, the patient is being considered for downgrade to PCCU. sina paul at bedside, Plan: Follow CT surgeon postop recs Telemetry Daily labs Monitor Hgb Sitter Downgrade to PCCU REVIEW OF SYSTEMS: 12 point ROS reviewed with patient. Pertinent positives mentioned above. Otherwise negative. PHYSICAL EXAM: GENERAL: Elderly male, resting in bed, calm, sitter at bedside. HEENT: EOMI, Sclera non icteric, moist mucosa NECK: Supple, no JVD, trachea midline LUNGS: Clear breath sounds bilaterally. No wheezes HEART: Regular rate and rhythm. Normal S1 and S2, without murmurs ABD: Abdomen soft, nontender. Bowel sounds present EXT: No clubbing cyanosis or edema Vital Signs (last 8hr) Date Time Temp Pulse Resp B/P (MAP) Pulse Ox O2 Delivery O2 Flow Rate FiO2 07/07/25 20:00 97 Nasal Cannula* 4 36 07/07/25 19:00 98.1 47 18 115/59 97 Room Air 07/07/25 18:33 84 24 N/Cannula Oximizer Hi LPM 4.0 36 07/07/25 15:40 95 Nasal Cannula* 4 36 07/07/25 15:39 87 20 125/68 96 N/C High Flow System 4.0 LABS: Hematology Labs: Test 07/07/25 03:36 Range/Units White Blood Count 10.4 4.8-10.8 K/uL Red Blood Count 3.44 L 4.50-6.20 MIL/uL Hemoglobin 10.2 L 14.0-18.0 g/dL Hematocrit 30.2 L 42-54 % Mean Corpuscular Volume 87.8 79-99 fL Mean Corpuscular Hemoglobin 29.7 27.0-33.0 pg Mean Corpuscular Hemoglobin Concent 33.8 32.0-36.0 g/dL Red Cell Distribution Width 12.6 11.0-15.5 % Platelet Count 198 130-400 K/uL Mean Platelet Volume 9.8 7.5-10.5 fL Immature Granulocyte % (Auto) 0.6 0-1 % Neutrophils (%) (Auto) 78.8 H 40.0-77.0 % Lymphocytes (%) (Auto) 7.8 L 21.0-51.0 % Monocytes (%) (Auto) 12.7 3.0-13.0 % Eosinophils (%) (Auto) 0.0 0.0-8.0 % Basophils (%) (Auto) 0.1 0.0-5.0 % Neutrophils # (Auto) 8.2 H 1.8-7.7 K/uL Lymphocytes # (Auto) 0.8 L 1.0-4.8 K/uL Monocytes # (Auto) 1.3 H 0.1-1.0 K/uL Eosinophils # (Auto) 0.00 0.00-0.70 K/uL Basophils # (Auto) 0.01 0.00-0.20 K/uL Absolute Immature Granulocyte (auto 0.06 0-1 K/uL Nucleated Red Blood Cells 0.0 0.0-0.19 % Chemistry Labs: Test 07/07/25 19:37 07/07/25 03:36 07/06/25 04:13 Range/Units Whole Blood Glucose 89 70-110 MG/DL Sodium Level 138 136-145 mmol/L Potassium Level 4.2 3.5-5.1 mmol/L Chloride Level 103 101-111 mmol/L Carbon Dioxide Level 30 21-32 mmol/L Blood Urea Nitrogen 37 H 7-18 mg/dL Creatinine 1.1 0.5-1.3 mg/dL Glomerular Filtration Rate Calc 71 >90 mL/min Random Glucose 125 H 70-105 mg/dL Total Calcium 9.0 8.5-10.1 mg/dL Magnesium Level 2.20 1.80-2.40 mg/dL Total Bilirubin 0.6 # 0.2-1.0 mg/dL Aspartate Amino Transf (AST/SGOT) 44 H 10-37 U/L Alanine Aminotransferase (ALT/SGPT) 50 12-78 U/L Alkaline Phosphatase 68 50-136 U/L Total Protein 6.1 6.0-8.3 g/dL Albumin 2.1 L 3.5-5.0 g/dL Hemoglobin A1c 6.6 H 4.0-6.0 % Estimated Average Glucose (eAG) 143 H 70-126 mg/dL Phosphorus Level 7.2 H 2.5-4.9 mg/dL DIAGNOSTICS / RADIOLOGY RESULTS: [place] [address] IMAGING REPORT Signed PATIENT: LEXI CUELLAR MR#: [id number] : 1955 SEX: M AGE: 70 LOCATION: [facility] ORDER 9 STATUS: ADM IN REPORT#: [id number] SERVICE 9 REASON: pp ORDERING PHYSICIAN: JONO MANZO PROCEDURE: CXR1VW - CHEST 1VW EXAM: CR Chest, 1 View. CLINICAL HISTORY: pp COMPARISON: Radiographs dated July 06, 2025 Findings: AP view of the chest is submitted. Right PICC terminates overlying the distal SVC. Mild bilateral perihilar and bibasilar airspace disease, unchanged. Small left effusion. No pneumothorax. Heart size is stable. Mild central pulmonary vascular congestion. IMPRESSION: 1. Bilateral perihilar and bibasilar airspace disease, unchanged, with small left pleural effusion and mild pulmonary vascular congestion. 2. Right PICC terminates in appropriate position overlying distal SVC. /[place] DICTATED BY: INNA PERAZA Jr., MD DATE: 07/07/251157 ELECTRONICALLY SIGNED BY: INNA PERAZA Jr., MD DATE: 07/07/251157 [place] [address] IMAGING REPORT Signed PATIENT: LEXI CUELLAR MR#: [id number] : 1955 SEX: M AGE: 70 LOCATION: [facility] ORDER 10 STATUS: ADM IN REPORT#: [id number] SERVICE 170 REASON: delirium/hallucinations ORDERING PHYSICIAN: JONO HENDRIX MD PROCEDURE: HEAD WO - CT HEAD/BRAIN W/O CONTRAST EXAMINATION: CT Head Without IV contrast. CLINICAL HISTORY: Patient presents with delirium and hallucinations. TECHNIQUE: Axial computed tomography images of the head/brain without intravenous contrast. COMPARISON: Compared to prior MRI brain dated March 14, 2025. FINDINGS: BRAIN: Mild diffuse cerebral atrophy demonstrated by prominent cortical sulci and bilateral Sylvian fissures. Periventricular hypodensities concerning for chronic microangiopathic ischemic changes. No evidence of acute hemorrhage. No mass lesion. No CT evidence for acute territorial infarct. No midline shift or extra-axial collections. VENTRICLES: No hydrocephalus. ORBITS: The orbits are unremarkable. SINUSES AND MASTOIDS: The paranasal sinuses and mastoid air cells are clear. BONES: No fracture. SOFT TISSUES: Unremarkable. IMPRESSION: Chronic microangiopathic ischemic changes. Mild diffuse cerebral atrophy. No acute intracranial abnormality. /[place] DICTATED BY: INNA PERAZA Jr., MD DATE: 07/06/252000 ELECTRONICALLY SIGNED BY: INNA PERAZA Jr., MD DATE: 07/06/252000 PLAN NEURO: Minimize central acting medications as possible. Fall Precautions. Well lighted room through the day and minimize interruptions through the night to prevent acute delirium. PULMONARY: Supplemental 02 as needed Titrate Fio2 to keep Spo2 > or = 90% DuoNebs and CPT as needed IS hourly while awake for pulmonary hygiene Out of bed to chair as tolerated CARDIOVASCULAR: Follow hemodynamics. Titrate vasopressor to keep MAP >65 or systolic blood pressure >95mmHg Monitor for recurrent effusion, bleeding, or arrhythmia. DIPS: No drips. LINES: PIV's GI & NUTRITION: Continue nutritional support Aspirations precautions Prokinetic agents and laxatives as needed KIDNEYS & ELECTROLYTES: Strict monitoring of intake and output Daily weights Avoid nephrotoxic agents Monitor electrolytes and replace as needed Goal urine output of 30mL/hr or 0.5mL/kg/hr. ENDOCRINE: Maintain blood glucose between 140-180 at all times. Insulin sliding scale for blood glucose management INFECTIOUS DISEASE: Trend temperature. Wood-culture if febrile. Antibiotics: None HEMATOLOGY & COAGULATION: Monitor H&H. Keep Hgb > 7 Transfuse 1 unit of PRBC for Hgb < 7 Transfuse 1 pack of platelets of platelets < 20, 000 Watch for any signs and symptoms of bleeding SKIN: Pressure ulcer prevention per facility protocol Rehab: PT/OT GI prophylaxis: Protonix 40 mg daily. Code Status: Full Resuscitation Disposition: PCCU Case was discussed and seen with my supervising physician. The above plan was formulated and agreed upon. ATTESTATION BY PHYSICIAN I have seen and examined the patient. I reviewed the documentation, medical decision making, and treatment plan as noted by the resident provider above. I agree with the findings and plan of care. Cabrera Franco MD, MANALI MD Jul 07, 2025 22:28
[2025-07-08] VITALS (11 sets, daily range): BP systolic 98–131; BP diastolic 59–67; PULSE 80–88; RESP 18–22; TEMP 98.5–98.9; O2SAT 92–96
[2025-07-08 03:41] LABS: IMMATURE GRANULOCYTE ABSOLUTE 0.02 K/uL (0-1); NUCLEATED RED BLOOD CELLS 0.0 % (0.0-0.19); PLATELET COUNT (AUTO) 201 K/uL (130-400); RED BLOOD CELL COUNT(AUTO) 3.60 MIL/uL (4.50-6.20); RED CELL DISTRIBUTION WIDTH 12.5 % (11.0-15.5); WHITE BLOOD COUNT (AUTO) 6.8 K/uL (4.8-10.8)
[2025-07-08 04:03] LABS: ASPARTATE AMINOTRANSFERASE 42.0 U/L (10-37); CREATININE 0.6 mg/dL (0.5-1.3); GLOMERULAR FILTR. RATE CALC 103.0 mL/min (>90); GLUCOSE,RANDOM 87.0 mg/dL (70-105); SODIUM SERUM 140.0 mmol/L (136-145); TOTAL PROTEIN, SERUM 5.9 g/dL (6.0-8.3); UREA NITROGEN, BLOOD 25.0 mg/dL (7-18)
--- NOTE | 2025-07-08 05:18 | NUR ---
orders Electrolyte replacement protocol orders given by Melissa Barry.
[2025-07-08] MEDS ORDERED: PoTASSium chl 10% ELIXIR 20MEQ 20 MEQ/15 ML UDCUP PO PRN (05:30)
[2025-07-08] MEDS: MAGNESIUM 2GM PREMIX 50ML 50 ML IV PRN (05:43)
--- NOTE | 2025-07-08 06:41 | PN ---
HISTORY OF PRESENT ILLNESS: This is a 70-year-old gentleman admitted to the hospital 2 days ago with metastatic melanoma and a potential malignant effusion and impending cardiac tamponade, underwent pericardial window yesterday. The patient is breathing comfortably this morning. OBJECTIVE: VITAL SIGNS: medical record. ABDOMEN: On physical examination, mini subxiphoid incision is healing. No hernias. No drainage. Chest tube in place, 110 mL over 24 hours. ASSESSMENT: Metastatic melanoma. * Oncology. Continue treatment as per Oncology recommendations. * Cardiac tamponade. This was drained. He has decreased heart sounds. Chest tube to suction. * Fluid overload, Lasix 20 mg once a day. * DVT prophylaxis. Initiate Lovenox and SCDs while in bed. TID: [id number] RECEIPT: [id number]
[2025-07-08] MEDS: ENOXAPARIN SODIUM 30 MG/0.3 ML SQ SCH (09:07)
--- NOTE | 2025-07-08 11:29 | PN ---
[facility] PROGRESS NOTE Date Patient Seen: Jul 08, 2025 Time of Visit: 11:26 Supervising Physician: Dr Tate Primary Care Physician: PCP: (Cannot recall name) Outpatient Specialists: [ ] Inpatient Consults: [ ] PROBLEM LIST: Obstructive shock requiring vasopressor therapy POA. Pericardial effusion with tamponade physiology, s/p pericardial window on 07/06/25 Acute delirium, likely ICU-induced History of mechanical fall (07/07) Hypoalbuminemia / protein-calorie malnutrition (albumin 2.1) Chronic Conditions: Hypertension. Diabetes mellitus type 2. Melanoma with metastasis most recently on Pembrolizumab (last dose 06/24/25) Anxiety INTERVAL HISTORY: Patient seen and examined, all labs imaging have been reviewed. Postop on pericardial window, patient with 40 cc out overnight, he is more alert, mittens have been removed, continues with sitter at bedside Following commands at times No distress, no obvious signs of discomfort Hemoglobin 10.5, platelets 200, INR 1.25, FABRICIO resolved, remains on 4 L nasal cannula Plan: Follow CT surgeon postop recs Telemetry Daily labs Monitor Hgb Sitter INOs REVIEW OF SYSTEMS: 12 point ROS reviewed with patient. Pertinent positives mentioned above. Otherwise negative. PHYSICAL EXAM: GENERAL: Elderly male, resting in bed, calm, sitter at bedside. HEENT: EOMI, Sclera non icteric, moist mucosa NECK: Supple, no JVD, trachea midline LUNGS: Clear breath sounds bilaterally. No wheezes HEART: Regular rate and rhythm. Normal S1 and S2, without murmurs ABD: Abdomen soft, nontender. Bowel sounds present EXT: No clubbing cyanosis or edema Vital Signs (last 8hr) Date Time Temp Pulse Resp B/P (MAP) Pulse Ox O2 Delivery O2 Flow Rate FiO2 07/08/25 10:52 81 22 N/Cannula Oximizer Hi LPM 4.0 36 07/08/25 08:16 98.8 82 20 125/67 95 Nasal Cannula 4.0 07/08/25 06:53 80 22 N/Cannula Oximizer Hi LPM 4.0 36 LABS: Hematology Labs: Test 07/08/25 03:21 Range/Units White Blood Count 6.8 # 4.8-10.8 K/uL Red Blood Count 3.60 L 4.50-6.20 MIL/uL Hemoglobin 10.5 L 14.0-18.0 g/dL Hematocrit 32.1 L 42-54 % Mean Corpuscular Volume 89.2 79-99 fL Mean Corpuscular Hemoglobin 29.2 27.0-33.0 pg Mean Corpuscular Hemoglobin Concent 32.7 32.0-36.0 g/dL Red Cell Distribution Width 12.5 11.0-15.5 % Platelet Count 201 130-400 K/uL Mean Platelet Volume 9.4 7.5-10.5 fL Immature Granulocyte % (Auto) 0.3 0-1 % Neutrophils (%) (Auto) 62.0 40.0-77.0 % Lymphocytes (%) (Auto) 21.4 21.0-51.0 % Monocytes (%) (Auto) 13.6 H 3.0-13.0 % Eosinophils (%) (Auto) 2.1 0.0-8.0 % Basophils (%) (Auto) 0.6 0.0-5.0 % Neutrophils # (Auto) 4.2 1.8-7.7 K/uL Lymphocytes # (Auto) 1.5 1.0-4.8 K/uL Monocytes # (Auto) 0.9 0.1-1.0 K/uL Eosinophils # (Auto) 0.14 0.00-0.70 K/uL Basophils # (Auto) 0.04 0.00-0.20 K/uL Absolute Immature Granulocyte (auto 0.02 0-1 K/uL Nucleated Red Blood Cells 0.0 0.0-0.19 % Chemistry Labs: Test 07/08/25 11:19 07/08/25 03:21 Range/Units Whole Blood Glucose 74 70-110 MG/DL Sodium Level 140 136-145 mmol/L Potassium Level 3.5 3.5-5.1 mmol/L Chloride Level 103 101-111 mmol/L Carbon Dioxide Level 33 H 21-32 mmol/L Blood Urea Nitrogen 25 H 7-18 mg/dL Creatinine 0.6 0.5-1.3 mg/dL Glomerular Filtration Rate Calc 103 >90 mL/min Random Glucose 87 70-105 mg/dL Total Calcium 8.7 8.5-10.1 mg/dL Magnesium Level 1.70 L 1.80-2.40 mg/dL Total Bilirubin 0.7 0.2-1.0 mg/dL Aspartate Amino Transf (AST/SGOT) 42 H 10-37 U/L Alanine Aminotransferase (ALT/SGPT) 48 12-78 U/L Alkaline Phosphatase 68 50-136 U/L Total Protein 5.9 L 6.0-8.3 g/dL Albumin 2.0 L 3.5-5.0 g/dL DIAGNOSTICS / RADIOLOGY RESULTS: [ ] PLAN NEURO: Minimize central acting medications as possible. Fall Precautions. Well lighted room through the day and minimize interruptions through the night to prevent acute delirium. PULMONARY: Supplemental 02 as needed Titrate Fio2 to keep Spo2 > or = 90% DuoNebs and CPT as needed IS hourly while awake for pulmonary hygiene Out of bed to chair as tolerated CARDIOVASCULAR: Follow hemodynamics. Titrate vasopressor to keep MAP >65 or systolic blood pressure >95mmHg Monitor for recurrent effusion, bleeding, or arrhythmia. DIPS: No drips. LINES: PIV's GI & NUTRITION: Continue nutritional support Aspirations precautions Prokinetic agents and laxatives as needed KIDNEYS & ELECTROLYTES: Strict monitoring of intake and output Daily weights Avoid nephrotoxic agents Monitor electrolytes and replace as needed Goal urine output of 30mL/hr or 0.5mL/kg/hr. ENDOCRINE: Maintain blood glucose between 140-180 at all times. Insulin sliding scale for blood glucose management INFECTIOUS DISEASE: Trend temperature. Wood-culture if febrile. Antibiotics: None HEMATOLOGY & COAGULATION: Monitor H&H. Keep Hgb > 7 Transfuse 1 unit of PRBC for Hgb < 7 Transfuse 1 pack of platelets of platelets < 20, 000 Watch for any signs and symptoms of bleeding SKIN: Pressure ulcer prevention per facility protocol Rehab: PT/OT GI prophylaxis: Protonix 40 mg daily. Code Status: Full Resuscitation Disposition: PCCU Critical care time 38 minutes, excludes any time spent with procedures or education. Case was discussed and seen with my supervising physician. The above plan was formulated and agreed upon. JONO MANZO Jul 08, 2025 11:29
--- OUTSIDE RECORDS SUMMARY | 2025-07-08 13:33 | XMS | Summary of Care ---
Author Author [facility] Organization [facility] Address Unknown Phone Unavailable Care Team Providers Care As[employer]er [employer] Name Role Phone Lexi Lafleur MD PCP Reason for Referral * (Routine) - Incomplete Specialty Diagnoses / Procedures Referred By Contac t Referred To Contact Radiology Procedures IR PICC Consult to Interventional Radiology Anna Fields PA [address] [facility] [address] [place] [address] Referral ID Status Reason Start Date Expiration Date V isits Requested Visits Authorized [id number] Incomplete 07/05/2025 07/05/2026 1 1 * (Routine) - Incomplete Specialty Diagnoses / Procedures Referred By Contac t Referred To Contact Procedures Echocardiogram Complete Echocardiogram Complete Bakari Kline MD [facility] [address], [address] [place] [address] Referral ID Status Reason Start Date Expiration Date V isits Requested Visits Authorized [id number] Incomplete 07/05/2025 07/05/2026 1 1 * MRI/CAT/PET Scan (Routine) - New Request Specialty Diagnoses / Procedures Referred By Contac t Referred To Contact Radiology Procedures CT Abdomen Pelvis without Oral or IV Contrast Ibrahima Good IV, MD [address] [facility] [address] [place] [address] Referral ID Status Reason Start Date Expiration Date V isits Requested Visits Authorized [id number] New Request 07/04/2025 07/04/2026 1 1 * (Emergency) - Incomplete Specialty Diagnoses / Procedures Referred By Contac t Referred To Contact Procedures Oxygen Therapy 94% Nixon Grimes NP [address] [place] [address] Referral ID Status Reason Start Date Expiration Date V isits Requested Visits Authorized [id number] Incomplete 07/04/2025 07/04/2026 1 1 Reason for Visit * Reason Comments Chest Pain * Auth/Cert (Routine) Specialty Diagnoses / Procedures Referred By Contac t Referred To Contact Diagnoses Dehydration Hypochloremia Hyponatremia Failure to thrive in adult History of immunotherapy Procedures . Referral ID Status Reason Start Date Expiration Date Visits Re quested Visits Authorized [id number] 1 1 Encounter Details Date Type Department Care Team (Latest Contact Info) Description 07/04/2025 12:55 PM CDT - 07/05/2025 6:10 PM CDT Hospital Encounter [facility] [address] [place] [address] Brandon Wadsworth, DO [address] [place] [address] Junito Daley, DO [address] [place] [address] Ibrahima Good IV, MD [address] [facility] [address] [place], [place] [id number] Luis Miguel Bass MD [address] [facility] [address] [place], [place] [id number] Nixon Grimes, OVIDIO [address] [place], [place] [id number] Hu Foster RN Webster, Tanya, Al Espinoza, Hortencia Ellison, BALWINDER Bishop, Benoit Wray, Mario Puri MD [address], [address] [place], [place] [id number] Eduardo Manuel MD [address] [id number] Ashwini Galeana RN Ghaddar, Habib M, MD [address] [facility], [address] [place], [place] [id number] Hyponatremia (Primary Dx); Hypochloremia; Dehydration; Failure to thrive in adult; History of immunotherapy Discharge Disposition: Short Term Hospital Allergies No known active allergiesdocumented as of this encounter (statuses as of 07/08/2025) Medications Medication Sig Dispensed Refills Start Date End Date Status methylPREDNISolon e Na Suc, PF, (SOLU-Medrol) 125 MG SOLR Infuse 0.96 mL (60 mg total) daily for 30 days 28.8 mL 07/06/2025 08/05/2025 Active amLODIPine (NORVASC) 10 MG tablet Take 1 tablet (10 mg total) by mouth daily 07/05/2025 Discontinued( Stop Taking at Discharge) Semaglutide (Rybelsus) 7 MG TABS Take by mouth 07/05/2025 Discontinue d( Stop Taking at Discharge) atorvastatin (LIPITOR) 40 MG tablet Take 1 tablet (40 mg total) by mouth daily 07/05/2025 Discontinued( Stop Taking at Discharge) olmesartan (BENICAR) 40 MG tablet Take 1 tablet (40 mg total) by mouth daily 07/05/2025 Discontinued( Stop Taking at Discharge) ondansetron (ZOFRAN) 8 MG tablet Take by mouth every 8 (eight) hours as needed for nausea or vomiting 07/05/2025 Discontinued( Stop Taking at Discharge) empagliflozin (Jardiance) 25 MG TABS Take 1 tablet (25 mg total) by mouth Every morning 07/05/2025 Discontinued( Stop Taking at Discharge) documented as of this encounter (statuses as of 07/08/2025) Active Problems Problem Noted Date Diagnosed Date Acute hyponatremia 07/05/2025 Hyponatremia 07/04/2025 documented as of this encounter (statuses as of 07/08/2025) Social History Tobacco Use Types Packs/Day Years Used Date Smoking Tobacco: Never Smokeless Tobacco: Never Tobacco Cessation:Counseling Given: Not Answered Alcohol Use Standard Drinks/Week Comments Never 0 (1 standard drink = 0.6 oz pur e alcohol) B1300 Health Literacy Answer Date Recor ded How often do you need to hav e someone help you when you read instructions, pamphlets, or other written material from your doctor or pharmacy? Rarely 07/04/2025 [employer] Answer Date Recorded In the past 12 months has [employer], [employer], or water [employer] threatened to shut off services in your home? No 07/04/2025 Humiliation, Afraid, Rape, and Kick questionnair e Answer Date Recorded Within the last year, have y ou been afraid of your partner or ex-partner? No 07/04/2025 Within the last year, have y ou been humiliated or emotionally abused in other ways by your partner or ex-partner? No Within the last year, have y ou been kicked, hit, slapped, or otherwise physically hurt by your partner or ex-partner? No 07/04/2025 Within the last year, have y ou been raped or forced to have any kind of sexual activity by your partner or ex-partner? No 07/04/2025 Social Connection and Isolat ion Panel [NHANES] Answer Date Recorded In a typical week, how many times do you talk on the phone with family, friends, or neighbors? More than three times a week 07/04/2025 How often do you get togethe r with friends or relatives? More than three times a week 07/04/2025 How often do you attend [facility] or worship services? More than 4 times per year 07/04/2025 Do you belong to any clubs o r organizations such as jewish groups, unions, fraternal or athletic groups, or school groups? No 07/04/2025 How often do you attend meet ings of the clubs or organizations you belong to? More than 4 times per year 07/04/2025 Are you , , di vorced, , never , or living with a partner? Patient declined 07/04/2025 AUDIT-C Answer Date Recorded Q1: How often do you have a drink containing alcohol? Never 07/04/2025 Q2: How many drinks containi ng alcohol do you have on a typical day when you are drinking? Patient does not drink Q3: How often do you have si x or more drinks on one occasion? Never 07/04/2025 Overall Financial Resource Strain (CARDIA) Answe r Date Recorded How hard is it for you to pa y for the very basics like food, housing, medical care, and heating? Not hard at all 07/04/2025 PHQ-2 Answer Date Recorded PHQ 2 Total 0 07/04/2025 [facility] - Occupational Stress Questionnaire Answer Date Recorded Do you feel stress - tense, restless, nervous, or anxious, or unable to sleep at night because your mind is troubled all the time - these days? To some extent 07/04/2025 Exercise Vital Sign Answer Date Recorde d On average, how many days pe r week do you engage in moderate to strenuous exercise (like a brisk walk)? 0 days 07/04/2025 On average, how many minutes do you engage in exercise at this level? 0 min 07/04/2025 Hunger Vital Sign Answer Date Recorded Within the past 12 months, y ou worried that your food would run out before you got the money to buy more. Never true 07/04/20 25 Within the past 12 months, t he food you bought just didn't last and you didn't have money to get more. Never true 07/04/2025 PRAPARE - Transportation Answer Date Re corded In the past 12 months, has l ack of transportation kept you from medical appointments or from getting medications? No 06/15 In the past 12 months, has l ack of transportation kept you from meetings, work, or from getting things needed for daily living? No 07/04/2025 Housing Stability Vital Sign Answer Hai e Recorded In the last 12 months, was t here a time when you were not able to pay the mortgage or rent on time? No 07/04/2025 In the past 12 months, how m any times have you moved where you were living? 0 07/04/2025 At any time in the past 12 m [facility], were you homeless or living in a assisted (including now)? No 07/04/2025 Sex and Gender Information Value Date Recorded Sex Assigned at Not on file Gender Identity Not on file Sexual Orientation Not on file documented as of this encounter Last Filed Vital Signs Vital Sign Reading Time Taken Comments Blood Pressure 118/64 07/05/2025 6:00 PM CDT Pulse 77 07/05/2025 6:00 PM CDT Temperature 37.1 °C (98.8 °F) 07/05/2025 4:00 PM C DT Respiratory Rate 20 07/05/2025 6:00 PM CDT Oxygen Saturation 97% 07/05/2025 6:00 PM CDT Inhaled Oxygen Concentration - - Weight 88.2 kg (194 lb 7.1 oz) 07/05/2025 2:00 AM CDT Height 162.6 cm (5' 4") 07/05/2025 11:00 AM CDT Body Mass Index 33.38 07/05/2025 2:00 AM CDT documented in this encounter Progress Notes * Ibrahima Good IV, MD - 07/05/2025 1:26 PM CDT Images from the original note were not included. [facility] [address] [place] [id number] Loc PROGRESS NOTE Name: Lexi Loredo : 1955 Acct: [id number] Age: 70 y.o. Admit Date: 07/04/2025 12:55 PM Sex: male Attending: Ibrahima Good IV, MD Location: [facility] Length of Stay: 1 Date of service: 07/05/2025 Subjective Patient became hypotensive overnight. He developed shock with lactic acidosis and leukocytosis. Current Medications: Scheduled Meds atorvastatin 40 mg Oral HS diclofenac sodium Topical QID docusate sodium 100 mg Oral BID insulin lispro 1-6 Units (Low) Subcutaneous With meals & nightly methylPREDNISolone (SOLU-Medrol) PF injection 60 mg Intravenous Daily [START ON 07/06/2025] multivitamin 1 tablet Oral Daily pantoprazole 40 mg Intravenous QAM AC senna 1 tablet Oral BID sodium chloride 1 g Oral TID with meals [START ON 07/06/2025] thiamine 200 mg Oral Daily Infusing Meds NORepinephrine 0.01-1 mcg/kg/min 0.52 mcg/kg/min (07/05/25 1312) vasopressin 0.01-0.03 Units/min 0.03 Units/min (07/05/25 0431) PRN Meds acetaminophen, 650 mg, Q4H PRN dextrose, 50 mL, Q15 Min PRN Or dextrose, 250 mL, Q15 Min PRN Or glucagon (rDNA), 1 mg, Daily PRN glucose, 15 grams of glucose, Q15 Min PRN midodrine, 20 mg, TID PRN ondansetron, 4 mg, Q4H PRN Objective Vitals Current 24 Hour Min / Max Temp 98.4 °F (36.9 °C) Temp Min: 97.6 °F (36.4 °C) Max: 100.5 °F (38.1 °C) BP (!) 109/53 BP Min: 58/33 Max: 118/72 Pulse 84 Pulse Min: 74 Max: 97 Resp 28 Resp Min: 13 Max: 34 SpO2 91 % SpO2 Min: 83 % Max: 96 % Weight 88.2 kg (194 lb 7.1 oz) Initial Weight 88.2 kg (194 lb 7.1 oz) Body mass index is 33.38 kg/m². Intake / Output I/O 07/03 0707/04 0700 07/04 0707/05 0707/05 0707/06 0700 P.O. 310 I.V. (mL/kg) 1954.3 (22.2) IV Piggyback 200 Total Intake(mL/kg) 2464.3 (27.9) Urine (mL/kg/hr) 400 Emesis/NG output 0 Other 0 Stool 0 Total Output 400 Net +2064.3 Unmeasured Stool Occurrence 0 x Vent Settings Physical Examination Physical Exam: General: Alert, cooperative, no distress HEENT: Normocephalic, atraumatic Neck: Normal range of motion, supple. No tenderness, no JVD, no lymphadenopathy. Respiratory: Rate normal. No respiratory distress. No retractions. Normal air flow. No wheezes, rhonchi, or rales. Heart: Regular rate and rhythm, normal S1,S2, no gallops, no murmurs no rubs. Abdomen: Soft. No tenderness . No guarding. No rebound. Bowel sounds normal. No masses. No pulsatile masses Musculoskeletal: Intact distal pulses, no tenderness, no cyanosis Skin: no rash or open wounds Extremities: no edema. Bilateral pedal pulse +2 Neurologic: Alert & oriented x 3, normal motor and sensory function, no focal deficits Select Labs (last 7 days): ABG Anemia CBC Results from last 7 days Lab Units 07/05/25 0503 07/04/25 1331 WBC AUTO 10*3/uL 15.71* 10.79* RBC AUTO 10*6/uL 3.90* 4.06* HEMOGLOBIN g/dL 11.4* 11.9* HEMATOCRIT % 36.0* 35.6* MCV fL 92.3 87.7 MCH pg 29.2 29.3 MCHC g/dL 31.7* 33.4 RDW % 12.5 11.8 PLATELETS AUTO 10*3/uL 223 205 MPV fL 10.1 9.2 NEUTROPHILS RELATIVE % -- 48.7 LYMPHOCYTES RELATIVE % -- 21.5 MONOCYTES RELATIVE % -- 18.2 EOSINOPHILS RELATIVE % -- 10.4 BASOPHILS RELATIVE % -- 1.0 NEUTROS ABS 10*3/uL -- 5.3 LYMPHS ABS AUTO 10*3/uL -- 2.3 MONOS ABS AUTO 10*3/uL -- 2.0* EOS ABS AUTO 10*3/uL -- 1.1* BASOS ABS AUTO 10*3/uL -- 0.1 CMP Results from last 7 days Lab Units 07/05/25 0843 07/05/25 0503 07/05/25 0459 07/04/25 1331 SODIUM mmol/L -- -- 125* 129* POTASSIUM mmol/L -- -- 4.5 4.0 CHLORIDE mmol/L -- -- 92* 94* CO2 mmol/L -- -- 18.1* 27.5 BUN mg/dL -- -- 25.0* 21.0 CREATININE mg/dL -- -- 2.17* 1.18 BUN / CREAT RATIO -- -- 11.5 -- GLOMERULAR FILTRATION RATE mL/min/1.73m*2 -- -- 31.6* 65.6* AST U/L -- -- 26 -- ALT U/L -- -- 16 -- ALK PHOS U/L -- -- 91 -- ALBUMIN g/dL -- -- 2.5* -- PHOSPHORUS mg/dL -- -- 6.1* -- MAGNESIUM mg/dL -- -- 1.80 -- BILIRUBIN TOTAL mg/dL -- -- 2.0* -- CALCIUM UA mg/dL -- -- 8.6 8.9 LACTATE mmol/L 3.81* 4.24* -- -- Results from last 7 days Lab Units 07/05/25 04507/04/25201507/04/25 1331 POC GLUCOSE mg/dL -- 102 -- GLUCOSE mg/dL 145* -- 92 Cardiac Results from last 7 days Lab Units 07/05/25 0459 07/04/25 1650 07/04/25 1331 HS TROPONIN I ng/L 54 8 8 Coagulation Thyroid Function / HGBA1C Results from last 7 days Lab Units 07/05/25 0503 HEMOGLOBIN A1C % 6.4* Urine Micro No results found for: "BLOODCX", "CATHETERCX", "CLOSTD", "GRAMSTAIN", "MRSACULTURE", "RESPCULTURE","SPUTUMCULTUR", "URINECX" Imaging X-ray Knee 1 or 2 View Right Result Date: 07/05/2025 Degenerative changes with no significant acute abnormalities. CT Abdomen Pelvis without Oral or IV Contrast Result Date: 07/04/2025 Nonspecific right lower quadrant mesenteric inflammatory process having a nodular appearance as mentioned above. Suspect mild duodenal sweep duodenitis. X-ray Chest 1 View Result Date: 07/04/2025 Suspect no significant acute cardiopulmonary disease. Hospital Problem List: Patient Active Problem List Diagnosis Hyponatremia Acute hyponatremia Assessment/Plan Admit to Inpatient Ordered at: 07/05/25 0833 Indication(s): Hypotension Reason for Inpatient Admission: Other Inpatient Stay Expected Due to: SS (Severity of Signs/Symptoms) Estimated length of stay (Inpatient stay is appropriate when the patient is expected to require a stay in the hospital that crosses at least 2 midnights.): 3-4 days Level of Care: ICU Continued inpatient stay expected due to: CM (Current Medical Needs) Assessment: Obstructive shock due to cardiac tamponade, POA Leukocytosis, POA Lactic acidosis, POA Acute kidney injury, prerenal, POA SIRS with the acute organ dysfunction, POA Chest pain likely due to costochondritis, ACS rule out, POA Hyponatremia, POA Acute Duodenitis, POA Nausea with decreased oral intake, POA Dehydration, POA Pericardial effusion, POA Diabetes mellitus, POA Hypertension, POA Stage IV melanoma, POA Plan: ID: Monitor off antibiotics for signs of infection, we will consider IV antibiotics empirically Trend WBCs Neuro: Daily assessment and monitoring of mental status for any changes Continue Zofran p.r.n. for nausea Cardio: Continue norepinephrine and vasopressin, wean as tolerated Map goal greater than 65 mm Hg Follow up echo Monitor heart rate and rhythm Follow up with Cardiology, case discussed today, appreciate assistance -transferred to [facility] for CT surgery evaluation Pulmo: O2 therapy as needed GI: GI prophylaxis not needed Heart healthy diet with consistent carbohydrate Labs monitoring and as needed Replace electrolytes as needed Trend a.m. BMP Endo: Glucose checks with ISS Integ/Rheum: Monitor for any skin breakdown MS: Voltaren cream for costochondritis Out of bed as tolerated and ambulate Fall precautions Yaya/Onco: DVT prophylaxis with SCDs only for now Monitor for any signs symptoms of bleeding while on blood thinners Others: Advanced Care Planning: Which of The Following Were Discussed: Advance Directives: Full code Other Discussions: Discussed With : Patient Voluntary Nature Of This Service Was Explained To The Patient? Yes Amount Of critical care Time Spent: Greater than 30 minutes Author: Ibrahima Good IV, MD documented in this encounter H&P Notes * Ibrahima Good IV, MD - 07/04/2025 5:34 PM CDT Images from the original note were not included. [address] [address] Loc HISTORY & PHYSICAL Name: Lexi Loredo : 1955 Acct: [id number] Age: 70 y.o. Admit Date: 07/04/2025 12:55 PM Sex: male Attending: Junito Daley DO;Ibrahima Anders PCP: Lexi Lafleur MD Location: [facility] Information Obtained from: patient and spouse Chief Complaint Patient presents with Chest Pain History of Present Illness Lexi Loredo is a 70 y.o. male past medical history significant for diabetes mellitus, hypertension and stage 4 melanoma presents to emergency department due to chest pain worse with taking a deep breath. The patient has also been experiencing severe nausea with decreased appetite. While in the emergency department high sensitivity troponin was [address] elevation. Patient reports chest pain is worse with deep breathing characterized as feeling his sternal bones rubbing. BNPdemonstrated hyponatremia in the decision was made to admit the patient for dehydration. We will also rule out ACS even though chest pain is characteristic of costochondritis given the borderline ST- elevation on EKG Patient History Medical: Past Medical History: Diagnosis Date Diabetes mellitus ([facility]) Hypertension Melanoma ([facility]) Surgical: History reviewed. No pertinent surgical history. Family: History reviewed. No pertinent family history. No family status information on file. Social: reports that he has never smoked. He has never used smokeless tobacco. He reports that he does not drink alcohol and does not use drugs. Prescriptions Prior to Arrival (Not in a hospital admission) Allergies No Known Allergies Review of Systems ROS: Constitutional: Negative for fever and chills. HENT: Negative for sore throat and rhinorrhea. Eyes: Negative for pain and redness. Respiratory: Negative for cough and SOB. Cardiovascular: As per HPI Gastrointestinal: Negative for nausea and vomiting. Genitourinary: Negative for dysuria and hematuria. Musculoskeletal: Negative for acute back or neck pain. Skin: Negative for rash and pruritus. Neurological: Negative for acute numbness or weakness. Physical Examination Physical Exam: General: Alert, cooperative, no distress. HEENT: Normocephalic, atraumatic Neck: Normal range of motion, supple. No tenderness, no JVD, no lymphadenopathy. Respiratory: Rate normal. No respiratory distress. No retractions. Normal air flow. No wheezes, rhonchi, or rales. Heart: Regular rate and rhythm, normal S1,S2, no gallops, no murmurs no rubs., chest pain reproducible with palpation Abdomen: Soft. No tenderness . No guarding. No rebound. Bowel sounds normal. No masses. No pulsatile masses Musculoskeletal: Intact distal pulses, no tenderness, no cyanosis Skin: no rash or open wounds Extremities: no edema. Bilateral pedal pulse +2 Neurologic: Alert & oriented x 3, normal motor and sensory function, no focal deficits Vitals Current 24 Hour Min / Max Temp 98.5 °F (36.9 °C) Temp Min: 98.5 °F (36.9 °C) Max: 100.5 °F (38.1 °C) BP (!) 107/57 BP Min: 97/37 Max: 107/57 Pulse 97 Pulse Min: 83 Max: 97 Resp 21 Resp Min: 15 Max: 28 SpO2 91 % SpO2 Min: 91 % Max: 95 % Weight 88.2 kg (194 lb 7.1 oz) Initial Weight 88.2 kg (194 lb 7.1 oz) Body mass index is 33.38 kg/m². Current Medications: Scheduled Meds atorvastatin 40 mg Oral HS docusate sodium 100 mg Oral BID enoxaparin (LOVENOX) injection 40 mg Subcutaneous Q24H MELISSA insulin lispro 1-6 Units (Low) Subcutaneous With meals & nightly senna 1 tablet Oral BID Infusing Meds lactated Ringer's 100 mL/hr 100 mL/hr (07/04/25 1652) sodium chloride 125 mL/hr 125 mL/hr (07/04/25 1540) PRN Meds acetaminophen, 650 mg, Q4H PRN dextrose, 50 mL, Q15 Min PRN Or dextrose, 250 mL, Q15 Min PRN Or glucagon (rDNA), 1 mg, Daily PRN glucose, 15 grams of glucose, Q15 Min PRN ondansetron, 4 mg, Q4H PRN Intake / Output I/O None Vent Settings Select Labs (last 7 days): ABG Anemia CBC Results from last 7 days Lab Units 07/04/25 1331 WBC AUTO 10*3/uL 10.79* RBC AUTO 10*6/uL 4.06* HEMOGLOBIN g/dL 11.9* HEMATOCRIT % 35.6* MCV fL 87.7 MCH pg 29.3 MCHC g/dL 33.4 RDW % 11.8 PLATELETS AUTO 10*3/uL 205 MPV fL 9.2 NEUTROPHILS RELATIVE % 48.7 LYMPHOCYTES RELATIVE % 21.5 MONOCYTES RELATIVE % 18.2 EOSINOPHILS RELATIVE % 10.4 BASOPHILS RELATIVE % 1.0 NEUTROS ABS 10*3/uL 5.3 LYMPHS ABS AUTO 10*3/uL 2.3 MONOS ABS AUTO 10*3/uL 2.0* EOS ABS AUTO 10*3/uL 1.1* BASOS ABS AUTO 10*3/uL 0.1 CMP Results from last 7 days Lab Units 07/04/25 1331 SODIUM mmol/L 129* POTASSIUM mmol/L 4.0 CHLORIDE mmol/L 94* CO2 mmol/L 27.5 BUN mg/dL 21.0 CREATININE mg/dL 1.18 GLOMERULAR FILTRATION RATE mL/min/1.73m*2 65.6* CALCIUM UA mg/dL 8.9 Results from last 7 days Lab Units 07/04/25 1331 GLUCOSE mg/dL 92 Cardiac Results from last 7 days Lab Units 07/04/25 1650 07/04/25 1331 HS TROPONIN I ng/L 8 8 Coagulation Drug Tox Screen Thyroid Function / HGBA1C Urine Imaging CT Abdomen Pelvis without Oral or IV Contrast Result Date: 07/04/2025 CLINICAL HISTORY:70-year-old male with generalized weakness. FINDINGS:CT scan of the abdomen and pelvis: The partially imaged lung bases shows minimal parenchymal scarring. In the partially imaged heart base there is minimal pericardial effusion. There is a nonspecific fluid-filled distended stomach. There is a punctate gallbladder stone. The remaining major intra-abdominal organs appear unremarkable. The visualized bowel appears unremarkable except for suspected possible mild duodenitis involving the second portion of the duodenal sweep. The appendix appears normal and there are small scattered mesenteric lymph nodes in there is a right lower quadrant 2.0 cm nodular lesion with surroundinginflammatory changes/mesenteric stranding with neighboring apparent tiny lymph nodes. This may represent an inflamed right lower quadrant lymph node but a carcinoid lesion cannot be completely excluded. Perhaps if necessary surgical evaluation may BE helpful. In the CT scan of the pelvis the bladder appear unremarkable so was the prostate and seminal vesicles. Reconstructed sagittal images of the lumbar spine show scattered degenerative changes. Nonspecific right lower quadrant mesenteric inflammatory process having a nodular appearance as mentioned above. Suspect mild duodenal sweep duodenitis. X-ray Pelvis 1 View Result Date: 07/04/2025 CLINICAL HISTORY:70-year-old male status post fall. FINDINGS:AP view of the pelvis: The osseous structures of the pelvis appear unremarkable and so does the hip joints with no significant surroundingacute abnormalities. X-ray Chest 1 View Result Date: 07/04/2025 CLINICAL HISTORY:70-year-old male with chest pain. FINDINGS: Single view of the chest: There is apparent cardiomegaly but this may be due to projectional magnification artifact in this AP view. The lungs are otherwise clear a possible left upper lobe calcified granuloma. This is projected over the clavicle and the left third rib and can also represent a benign bone island. There are no prior studies for comparison. Suspect no significant acute cardiopulmonary disease. Hospital Problem List: Principal Problem: Hyponatremia Assessment Assessment: Chest pain likely due to costochondritis, ACS rule out, POA Hyponatremia, POA Acute Duodenitis, POA Nausea with decreased oral intake, POA Dehydration, POA Pericardial effusion, POA Diabetes mellitus, POA Hypertension, POA Stage IV melanoma, POA new Plan: ID: Start Zosyn empirically Trend WBCs Neuro: Daily assessment and monitoring of mental status for any changes Start Zofran p.r.n. for nausea Cardio: Repeat troponin and tank processor heart rate and rhythm Hold home BP meds for now Pulmo: O2 therapy as needed GI: GI prophylaxis not needed Heart healthy diet with consistent carbohydrate Renal/Uro: I agree with LR bolus Continue IV hydration with LR Labs monitoring and as needed Replace electrolytes as needed Trend a.m. BMP Endo: Glucose checks with ISS Integ/Rheum: Monitor for any skin breakdown MS: Voltaren cream for costochondritis Out of bed as tolerated and ambulate Fall precautions Yaya/Onco: DVT prophylaxis with enoxaparin heparin Monitor for any signs symptoms of bleeding while on blood thinners Others: Advanced Care Planning: Which of The Following Were Discussed: Advance Directives: Full code DNR Other Discussions: Discussed With : Patient Voluntary Nature Of This Service Was Explained To The Patient? Yes Amount Of Time Spent: Greater than 55 minutes Author: Ibrahima Good IV, MD documented in this encounter Consult Notes * Abel Menendez MD - 07/05/2025 12:41 PM CDT Images from the original note were not included. [place] [id number] [facility] [id number] Loc HEMATOLOGY/ONCOLOGY CONSULTATION Name: Lexi Loredo : 1955 Acct: [id number] Age: 70 y.o. Admit Date: 07/04/2025 12:55 PM Sex: male Attending: Luis Miguel Bass MD PCP: Lexi Lafleur MD Location: [facility] Referring Physician: Luis Miguel Bass MD Reason for Consultation: Metastatic melanoma History of Present Illness Lexi Loredo is a 70 y.o. male 70-year-old man with a history of mcg-faeuysa-ltplefcns diabetes mellitus and hypertension who noticed a change in the color to a mole he had on the right anterior cervical neck. He had a shave biopsy on 02/12/2025 confirming the presence of melanoma with a Breslow thickness of at least 1.1 mm with involvement of the deep margin. The mitotic rate was 3/mm². Therewas evidence of ulceration and tumor regression. PET scan showed a metabolically active lymph nodein the right parotid space as well as a lymph node in the right lower quadrant of the abdomen. He was started on systemic therapy with pembrolizumab on 04/01/2025. He has received five cycles of pemb rolizumab with the last one being on 06/24/2025. PET scan 07/03/2025: 1. The previously seen FDG-avid right lower quadrant mesenteric node has increased in size and demonstrates increasing FDG uptake. There is also surrounding inflammatory change in the adjacent fat. This is suspicious for malignancy although could be an inflammatory process. Histologic sampling should be strongly considered. There are several additional smaller nodes in the right lower quadrant that are not FDG-avid and remain indeterminate. 2. There are FDG-avid intraparotid nodules bilaterally that are indeterminate. These could be primary parotid neoplasms or potentially metastatic disease. 3. There are tiny bilateral cervical level II nodes that are mildly FDG-avid and were previously non-FDG avid. These are indeterminate and could be reactive or metastatic. 4. The skin uptake of anterior right sheppard on previous exam has resolved. The patient was admitted to ICU 07/04/2025 after complaints of chest pain and shortness of breath, apparently in the ER, troponin was high at [address] elevation, he was found to have hyponatremia with a sodium of 125, apparently he also had two syncopal episodes at home before hospitalization. A CT of the abdomen and pelvis showed a nonspecific right lower quadrant inflammatory process, likely the mesenteric lymph node described in the PET scan, there was also evidence of a pericardial effusion. The patient is currently feeling well. He voices no complaints. Patient History Medical: Past Medical History: Diagnosis Date Diabetes mellitus (CMS/HCC) Hypertension Melanoma (CMS/HCC) Surgical: History reviewed. No pertinent surgical history. Family: History reviewed. No pertinent family history. No family status information on file. Social: reports that he has never smoked. He has never used smokeless tobacco. He reports that he does not drink alcohol and does not use drugs. Prescriptions Prior to Arrival Medications Prior to Admission Medication Sig Dispense Refill Last Dose amLODIPine (NORVASC) 10 MG tablet Take 1 tablet (10 mg total) by mouth daily 07/03/2025 empagliflozin (Jardiance) 25 MG TABS Take 1 tablet (25 mg total) by mouth Every morning 07/04/2025 Semaglutide (Rybelsus) 7 MG TABS Take by mouth 07/04/2025 atorvastatin (LIPITOR) 40 MG tablet Take 1 tablet (40 mg total) by mouth daily olmesartan (BENICAR) 40 MG tablet Take 1 tablet (40 mg total) by mouth daily ondansetron (ZOFRAN) 8 MG tablet Take by mouth every 8 (eight) hours as needed for nausea or vomiting Allergies No Known Allergies Review of Systems ROS: Constitutional: Negative for fever, chills or night sweats. HENT: Negative for sinus tenderness, sore throat and rhinorrhea. Eyes: Negative for pain and redness. Respiratory: Negative for cough, hemoptysis and SOB. Cardiovascular: Negative for chest pain and palpitations. Gastrointestinal: Negative for nausea, vomiting, diarrhea constipation and abdominal pain. Genitourinary: Negative for dysuria and hematuria. Musculoskeletal: Negative for acute back or neck pain. Skin: Negative for rash, pruritus or echymosis. Neurological: Negative for numbness, tingling or focal weakness. Physical Examination Physical Exam: General: Alert, cooperative, no distress. HEENT: Normocephalic, atraumatic, bilateral external ears normal, PERRLA, conjunctiva/corneas clear, mucous membranes normal limits, oropharynx moist, no oral exudates. Neck: Normal range of motion, supple. No tenderness, no JVD, no lymphadenopathy. Respiratory: Rate normal. No respiratory distress. No retractions. Normal air flow. No wheezes, rhonchi, or rales. Heart: Regular rate and rhythm, normal S1,S2, no gallops, no murmurs no rubs. Abdomen: Soft. No tenderness . No guarding. No rebound. GI: Bowel sounds normal, soft, no tenderness, no masses, no hepatosplenomegaly. Musculoskeletal: Intact distal pulses, no tenderness, no cyanosis Skin: no rash, petechiae or echymosis. Extremities: no edema, clubbing or cyanosis. Bilateral pedal pulse +2 Lymph nodes: No cervical, supraclavicular, axillary or inguinal lymphadenopathy. Neurologic: Alert & oriented x 3, CN 2-12 grossly itnact, normal motor and sensory function, no focal deficits Vitals Current 24 Hour Min / Max Temp 98.4 °F (36.9 °C) Temp Min: 97.6 °F (36.4 °C) Max: 100.5 °F (38.1 °C) BP (!) 109/53 BP Min: 58/33 Max: 118/72 Pulse 84 Pulse Min: 74 Max: 97 Resp 28 Resp Min: 13 Max: 34 SpO2 91 % SpO2 Min: 83 % Max: 96 % Weight 88.2 kg (194 lb 7.1 oz) Initial Weight 88.2 kg (194 lb 7.1 oz) Body mass index is 33.38 kg/m². Current Medications: Scheduled Meds atorvastatin 40 mg Oral HS diclofenac sodium Topical QID docusate sodium 100 mg Oral BID insulin lispro 1-6 Units (Low) Subcutaneous With meals & nightly methylPREDNISolone (SOLU-Medrol) PF injection 60 mg Intravenous Daily [START ON 07/06/2025] multivitamin 1 tablet Oral Daily pantoprazole 40 mg Intravenous QAM AC senna 1 tablet Oral BID sodium chloride 0.9% 1,000 mL Intravenous Once sodium chloride 1 g Oral TID with meals [START ON 07/06/2025] thiamine 200 mg Oral Daily Infusing Meds NORepinephrine 0.01-1 mcg/kg/min 0.55 mcg/kg/min (07/05/25 1130) vasopressin 0.01-0.03 Units/min 0.03 Units/min (07/05/25 0431) PRN Meds acetaminophen, 650 mg, Q4H PRN dextrose, 50 mL, Q15 Min PRN Or dextrose, 250 mL, Q15 Min PRN Or glucagon (rDNA), 1 mg, Daily PRN glucose, 15 grams of glucose, Q15 Min PRN midodrine, 20 mg, TID PRN ondansetron, 4 mg, Q4H PRN Intake / Output I/O 07/03 0707/04 0707/04 0707/05 0707/05 0707/06 0700 P.O. 310 I.V. (mL/kg) 1954.3 (22.2) IV Piggyback 200 Total Intake(mL/kg) 2464.3 (27.9) Urine (mL/kg/hr) 400 Emesis/NG output 0 Other 0 Stool 0 Total Output 400 Net +2064.3 Unmeasured Stool Occurrence 0 x [facility] (last 7 days): Anemia CBC Results from last 7 days Lab Units 07/05/25 0503 07/04/25 1331 WBC AUTO 10*3/uL 15.71* 10.79* RBC AUTO 10*6/uL 3.90* 4.06* HEMOGLOBIN g/dL 11.4* 11.9* HEMATOCRIT % 36.0* 35.6* MCV fL 92.3 87.7 MCH pg 29.2 29.3 MCHC g/dL 31.7* 33.4 RDW % 12.5 11.8 PLATELETS AUTO 10*3/uL 223 205 MPV fL 10.1 9.2 NEUTROPHILS RELATIVE % -- 48.7 LYMPHOCYTES RELATIVE % -- 21.5 MONOCYTES RELATIVE % -- 18.2 EOSINOPHILS RELATIVE % -- 10.4 BASOPHILS RELATIVE % -- 1.0 NEUTROS ABS 10*3/uL -- 5.3 LYMPHS ABS AUTO 10*3/uL -- 2.3 MONOS ABS AUTO 10*3/uL -- 2.0* EOS ABS AUTO 10*3/uL -- 1.1* BASOS ABS AUTO 10*3/uL -- 0.1 CMP Results from last 7 days Lab Units 07/05/25 0843 07/05/25 0503 07/05/25 0459 07/04/25 1331 SODIUM mmol/L -- -- 125* 129* POTASSIUM mmol/L -- -- 4.5 4.0 CHLORIDE mmol/L -- -- 92* 94* CO2 mmol/L -- -- 18.1* 27.5 BUN mg/dL -- -- 25.0* 21.0 CREATININE mg/dL -- -- 2.17* 1.18 BUN / CREAT RATIO -- -- 11.5 -- GLOMERULAR FILTRATION RATE mL/min/1.73m*2 -- -- 31.6* 65.6* AST U/L -- -- 26 -- ALT U/L -- -- 16 -- ALK PHOS U/L -- -- 91 -- ALBUMIN g/dL -- -- 2.5* -- PHOSPHORUS mg/dL -- -- 6.1* -- MAGNESIUM mg/dL -- -- 1.80 -- BILIRUBIN TOTAL mg/dL -- -- 2.0* -- CALCIUM UA mg/dL -- -- 8.6 8.9 LACTATE mmol/L 3.81* 4.24* -- -- Results from last 7 days Lab Units 07/05/25 0459 07/04/25201507/04/25 1331 POC GLUCOSE mg/dL -- 102 -- GLUCOSE mg/dL 145* -- 92 Cardiac Results from last 7 days Lab Units 07/05/25 0459 07/04/25 1650 07/04/25 1331 HS TROPONIN I ng/L 54 8 8 Coagulation Thyroid Function / HGBA1C Results from last 7 days Lab Units 07/05/25 0503 HEMOGLOBIN A1C % 6.4* Urine Micro No results found for: "BLOODCX", "CATHETERCX", "CLOSTD", "GRAMSTAIN", "MRSACULTURE", "RESPCULTURE","SPUTUMCULTUR", "URINECX" Imaging X-ray Knee 1 or 2 View Right Result Date: 07/05/2025 CLINICAL HISTORY:70-year-old male with right knee pain and swelling. FINDINGS:Multiple views of right knee: There is mild diffuse right knee osteoarthritis with no suspicious osseous lesions or fractures. There is anterior located distal right thigh subcutaneous small metallic foreign body. Degenerative changes with no significant acute abnormalities. CT Abdomen Pelvis without Oral or IV Contrast Result Date: 07/04/2025 CLINICAL HISTORY:70-year-old male with generalized weakness. FINDINGS:CT scan of the abdomen and pelvis: The partially imaged lung bases shows minimal parenchymal scarring. In the partially imaged heart base there is minimal pericardial effusion. There is a nonspecific fluid-filled distended stomach. There is a punctate gallbladder stone. The remaining major intra-abdominal organs appear unremarkable. The visualized bowel appears unremarkable except for suspected possible mild duodenitis involving the second portion of the duodenal sweep. The appendix appears normal and there are small scattered mesenteric lymph nodes in there is a right lower quadrant 2.0 cm nodular lesion with surroundinginflammatory changes/mesenteric stranding with neighboring apparent tiny lymph nodes. This may represent an inflamed right lower quadrant lymph node but a carcinoid lesion cannot be completely excluded. Perhaps if necessary surgical evaluation may BE helpful. In the CT scan of the pelvis the bladder appear unremarkable so was the prostate and seminal vesicles. Reconstructed sagittal images of the lumbar spine show scattered degenerative changes. Nonspecific right lower quadrant mesenteric inflammatory process having a nodular appearance as mentioned above. Suspect mild duodenal sweep duodenitis. X-ray Pelvis 1 View Result Date: 07/04/2025 CLINICAL HISTORY:70-year-old male status post fall. FINDINGS:AP view of the pelvis: The osseous structures of the pelvis appear unremarkable and so does the hip joints with no significant surroundingacute abnormalities. X-ray Chest 1 View Result Date: 07/04/2025 CLINICAL HISTORY:70-year-old male with chest pain. FINDINGS: Single view of the chest: There is apparent cardiomegaly but this may be due to projectional magnification artifact in this AP view. The lungs are otherwise clear a possible left upper lobe calcified granuloma. This is projected over the clavicle and the left third rib and can also represent a benign bone island. There are no prior studies for comparison. Suspect no significant acute cardiopulmonary disease. Hospital Problem List: Principal Problem: Hyponatremia Active Problems: Acute hyponatremia Assessment Metastatic melanoma, PET scan showing increased uptake in the right lower quadrant lymph node, unclear if this is pseudo progression or a different process. Aside from that, overall his metastatic disease has remained stable on pembrolizumab. Hyponatremia. Hypotension Syncopal episodes per history Pericardial effusion Plan A 2D echo will be done stat as per ICU team to exclude tamponade given the pericardial effusion andpresentation. Would recommend a CT chest angiogram to exclude a pulmonary embolism. Obtain random cortisol level and TSH as this patient has hyponatremia on pembrolizumab which can cause hypothyroidism and hypoadrenalism both known causes of hyponatremia. Given the questionable response in the mesenteric lymph node, recommend a CT- guided biopsy to make sure this is not a different malignancy/process, this could be arranged when he is more stable or even as outpatient. Continue hydration and pressor support as instituted. Thank you for allowing me to participate in the care of Lexi Loredo. Author: Abel Menendez MD * Eduardo Manuel MD - 07/05/2025 7:55 AM CDT Images from the original note were not included. [address] [address] Loc CRITICAL CARE/PULMONOLOGY CONSULTATION NOTE: Name: Lexi Loredo : 1955 Acct: [id number] Age: 70 y.o. Admit Date: 07/04/2025 12:55 PM Sex: male Attending: Luis Miguel Bass MD Location: [facility] Length of Stay: 1 Reason for Consult: hypotension Requesting Provider: Ibrahima Good IV, MD Patient is a 70 y.o. Male with past medical history of diabetes mellitus hypertension, stage IV melanoma (diagnosed months ago)on immunotherapy. Patient presented to the ED due to chest pain worse with taking deep breath ,and a syncopal episode prior to presentation. There was also associated severe nausea and decreased appetite days preceding this Patient had 5th session of immunotherapy on 06/25. There is no associated vomiting, diarrhea, fever, seizures and lethargy. On arrival to the ED initial BP was 106/49, pulse-83, SPO2-95% and T-37.3 BMP revealed sodium of 129, K-4.0 Cr-1.18, WBC_10.79, hb-11.9, PLT- 205, Patient was given 1.5L of normal saline. Initial ECG done showed borderline ST elevation in the lateral leads, Troponin levels was normal, with elevated lactic acid. CT scan done showed non specific right lower quadrant mesenteric inflammatory process having a nodular appearance Patient BP kept dropping despite 1.5L of normal saline and was transferred to the ICU for pressor support. Subjective Patient remained hypotensive overnight. Patient has occasional mild pleuritic chest pain. There isno palpitation, occasional shortness of breath, no fevers, no vomiting or diarrhea, no dizziness. MAP has been between 56-75, MAP currently 56, rr-24cpm, pulse-82bpm, SPO2-93% Patient still on pressors with with Levophed and vasopressin, MAP <65 Bed side POCUS showed some pericardial effusion and an echocardiography requested to rule out tamponade ( patient has refractory hypotension, distant heart sounds and distended neck vein) Interventions: DOA: 07/04/2025 Review of Systems HENT: Negative for congestion, dental problem, facial swelling, hearing loss, rhinorrhea and sore throat. Eyes: Negative for pain, discharge and itching. Endocrine: Negative for heat intolerance, polydipsia and polyphagia. Cardiovascular, positive for occasional pleuritic chest pain and mild dyspnea Respiratory; no cough, no PND, no Orthopnea Genitourinary: Negative for dysuria, enuresis and flank pain. Musculoskeletal: Negative for arthralgias, has right knee pain and swelling Skin: Negative Neurological: Negative for dizziness, facial asymmetry, speech difficulty, light-headedness, numbness and headaches. Hematological: Negative for adenopathy. Psychiatric/Behavioral: Negative for agitation. The patient is not nervous Past Medical History Past Medical History: Diagnosis Date Diabetes mellitus (CMS/HCC) Hypertension Melanoma (CMS/HCC) Family History History reviewed. No pertinent family history. No family status information on file. Past Surgical History History reviewed. No pertinent surgical history. Social History reports that he has never smoked. He has never used smokeless tobacco. He reports that he does not drink alcohol and does not use drugs. Prescriptions Prior to Arrival Medications Prior to Admission Medication Sig Dispense Refill Last Dose amLODIPine (NORVASC) 10 MG tablet Take 1 tablet (10 mg total) by mouth daily 07/03/2025 empagliflozin (Jardiance) 25 MG TABS Take 1 tablet (25 mg total) by mouth Every morning 07/04/2025 Semaglutide (Rybelsus) 7 MG TABS Take by mouth 07/04/2025 atorvastatin (LIPITOR) 40 MG tablet Take 1 tablet (40 mg total) by mouth daily olmesartan (BENICAR) 40 MG tablet Take 1 tablet (40 mg total) by mouth daily ondansetron (ZOFRAN) 8 MG tablet Take by mouth every 8 (eight) hours as needed for nausea or vomiting Outpatient Medications Reviewed Current Medications: Scheduled Meds atorvastatin 40 mg Oral HS calcium gluconate 2 g Intravenous Once diclofenac sodium Topical QID docusate sodium 100 mg Oral BID enoxaparin (LOVENOX) injection 40 mg Subcutaneous Q24H MELISSA insulin lispro 1-6 Units (Low) Subcutaneous With meals & nightly piperacillin-tazobactam (ZOSYN) IV 3.375 g Intravenous Q8H senna 1 tablet Oral BID Infusing Meds NORepinephrine 0.01-1 mcg/kg/min 0.55 mcg/kg/min (07/05/25 0783) sodium chloride 125 mL/hr Stopped (07/04/25 1651) sodium chloride 125 mL/hr 125 mL/hr (07/05/25 0752) vasopressin 0.01-0.03 Units/min 0.03 Units/min (07/05/25 0431) PRN Meds acetaminophen, 650 mg, Q4H PRN dextrose, 50 mL, Q15 Min PRN Or dextrose, 250 mL, Q15 Min PRN Or glucagon (rDNA), 1 mg, Daily PRN glucose, 15 grams of glucose, Q15 Min PRN midodrine, 20 mg, TID PRN ondansetron, 4 mg, Q4H PRN Medications Reviewed Physical Exam Vitals: Temp 98.8 °F (37.1 °C) Temp Min: 97.6 °F (36.4 °C) Max: 100.5 °F (38.1 °C) BP (!) 107/59 BP Min: 58/33 Max: 118/72 Pulse 89 Pulse Min: 74 Max: 97 Resp 18 Resp Min: 15 Max: 34 SpO2 91 % SpO2 Min: 89 % Max: 96 % Weight 88.2 kg (194 lb 7.1 oz) Initial Weight 88.2 kg (194 lb 7.1 oz) Body mass index is 33.38 kg/m². General: Alert, cooperative, no distress. HEENT: Normocephalic, atraumatic Neck: Normal range of motion, supple. No tenderness, distended right internal Jugular vein, no lymphadenopathy. Respiratory: Rate normal. No respiratory distress. No retractions. Normal air flow. No wheezes, rhonchi, or rales. Heart: Regular rate and rhythm, muffled heart sounds S1,S2, no gallops, no murmurs, chest pain reproducible with palpation, has a pleural/pericardial rub Abdomen: Soft. No tenderness . No guarding. No rebound. Bowel sounds normal. No masses. No pulsatile masses Musculoskeletal: Intact distal pulses, no tenderness, no cyanosis Skin: no rash or open wounds Extremities: no edema. Bilateral pedal pulse +2 Neurologic: Alert & oriented x 3, normal motor and sensory function, no focal deficit Laboratory and Objective Data: ABG: CBC: Results from last 7 days Lab Units 07/05/25 0503 07/04/25 1331 WBC AUTO 10*3/uL 15.71* 10.79* RBC AUTO 10*6/uL 3.90* 4.06* HEMOGLOBIN g/dL 11.4* 11.9* HEMATOCRIT % 36.0* 35.6* MCV fL 92.3 87.7 MCH pg 29.2 29.3 MCHC g/dL 31.7* 33.4 RDW % 12.5 11.8 PLATELETS AUTO 10*3/uL 223 205 MPV fL 10.1 9.2 NEUTROPHILS RELATIVE % -- 48.7 LYMPHOCYTES RELATIVE % -- 21.5 MONOCYTES RELATIVE % -- 18.2 EOSINOPHILS RELATIVE % -- 10.4 BASOPHILS RELATIVE % -- 1.0 NEUTROS ABS 10*3/uL -- 5.3 LYMPHS ABS AUTO 10*3/uL -- 2.3 MONOS ABS AUTO 10*3/uL -- 2.0* EOS ABS AUTO 10*3/uL -- 1.1* BASOS ABS AUTO 10*3/uL -- 0.1 CMP: Results from last 7 days Lab Units 07/05/25 0503 07/05/25 0459 07/04/25 1331 SODIUM mmol/L -- 125* 129* POTASSIUM mmol/L -- 4.5 4.0 CHLORIDE mmol/L -- 92* 94* CO2 mmol/L -- 18.1* 27.5 BUN mg/dL -- 25.0* 21.0 CREATININE mg/dL -- 2.17* 1.18 BUN / CREAT RATIO -- 11.5 -- GLOMERULAR FILTRATION RATE mL/min/1.73m*2 -- 31.6* 65.6* AST U/L -- 26 -- ALT U/L -- 16 -- ALK PHOS U/L -- 91 -- ALBUMIN g/dL -- 2.5* -- PHOSPHORUS mg/dL -- 6.1* -- MAGNESIUM mg/dL -- 1.80 -- BILIRUBIN TOTAL mg/dL -- 2.0* -- CALCIUM UA mg/dL -- 8.6 8.9 LACTATE mmol/L 4.24* -- -- Results from last 7 days Lab Units 07/05/25 0459 07/04/25201507/04/25 1331 POC GLUCOSE mg/dL -- 102 -- GLUCOSE mg/dL 145* -- 92 Cardiac: Results from last 7 days Lab Units 07/05/25 0459 07/04/25 1650 07/04/25 1331 HS TROPONIN I ng/L 54 8 8 Coagulations: UA: Micro: No results found for: "BLOODCX", "CATHETERCX", "CLOSTD", "GRAMSTAIN", "MRSACULTURE", "RESPCULTURE","SPUTUMCULTUR", "URINECX" Labs Reviewed Respiratory Imaging Results CT Abdomen Pelvis without Oral or IV Contrast Result Date: 07/04/2025 Nonspecific right lower quadrant mesenteric inflammatory process having a nodular appearance as mentioned above. Suspect mild duodenal sweep duodenitis. X-ray Chest 1 View Result Date: 07/04/2025 Suspect no significant acute cardiopulmonary disease. Imaging Results Reviewed Assessment & Plan In Hospital Diagnoses: Principal Problem: Hyponatremia Problem List Acute Problems Hyponatremia, POA Dehydration from decreased oral intake Obstructive shock likely from cardiac tamponade Acute kidney injury likely from pre-renal cause Pericardial effusion,likely malignant Acute Duodenitis, POA Nausea with decreased oral intake, POA Lactic acidosis leucocytosis Chronic Problems Diabetes mellitus, POA Hypertension, POA Stage IV melanoma, POA Plan: Neuro: Daily assessment and monitoring of mental status for any changes Fall precautions Cardio: Cardiology review Echocardiography now to rule out cardiac tamponade Repeat troponin and tank processor heart rate and BP closely. Respiratory: O2 therapy as needed Keep SPO2 above 94% GI: Heart healthy diet Renal/Uro: Replace electrolytes as needed BMP Q 6hr Oral sodium tablet 1g tid Endo: Glucose checks with ISS To do serum TSH, free T4, free T3, cortisol Integ/Rheum: Monitor for any skin breakdown MS: Out of bed as tolerated and ambulate Fall precautions X ray of right knee Yaya/Onco: Hold enoxaparin- fluid in the heart could be blood , also patient may require surgical procedure after echocardiography ID Discontinue Zosyn Trend WBCs CRITICAL CARE TIME: 37 Minutes. Excluding time dedicated to other procedures. Eduardo Manuel MD PGY- 1 Internal Medicine Resident I have examined the patient and discussed the case with attending physician Shai Martin MD Please note that the chart has been partially dictated and there may be clerical errors. The note may not reflect the data known because of improper importation. Associated attestation - Mario Coats MD - 07/06/2025 9:47 AM PDT Pulmonary and Critical Care Physician Attestation: I was present with the resident during the History and Physical exam and I have reviewed the resident's note. This case was discussed with the resident and I agree with the History and Physical exam and medical decision making as documented above. Additions/exceptions/observations were directly added to the notes Electronically signed: Mario Ruiz MD 07/06/25 documented in this encounter Nursing Notes * Ashwini Galeana RN - 07/05/2025 5:55 PM CDT Report called and given to Denise BRITT at [facility], care endorsed. Patient currently infusing levophed at 0.33 mcg/kg/min, and vasopressin at 0.03mcg/min. rn made aware of medications and procedures given. Family made aware of transfer. Awaiting ambulance transfer. * Tate Ascencio RN - 07/05/2025 5:44 PM CDT [facility] called and they will have a unit arrive within 10-15 min. * Hillary Lebron RN - 07/05/2025 5:30 PM CDT Received a call from VALENTINE Elkins at [facility] [place] with MOT info - pt accepted at [facility] by Dr. Jeff Weir. * Hillary Lebron RN - 07/05/2025 5:00 PM CDT Received a call from VALENTINE Elkins at [facility] Good [facility] call Dr. Weir at [phone] Good, said to text him Dr. Weir's number. * Ashwini Galeana RN - 07/05/2025 4:[address] Higginbotham at bedside speaking with daughter and patient. stating [facility] Marquis for a potential pericardial effusion drainage. Dr Shawn mccoy under hospital care aware. [facility] made aware as well. Pending transfer order and acceptance information. * Hillary Lebron RN - 07/05/2025 3:59 PM CDT 1552 Received a call from [facility]ULIK Ybarra ICU and Dr. Higginbotham, athlete manager to initiate a transfer to [facility] due to a large pericardial effusion for pericardial window - has spoken to Dr. Jono Marquis who will be the accepting athlete manager and CT surgeon. 1555 Called [facility] to initiate transfer, spoke to Smaantha Santiago, - gave info; wants face sheet and clinicals to be faxed to [phone]. 1558 Called ICU, spoke to MAULIK Ybarra to fax needed info. * Cielo West RN - 07/05/2025 4:23 AM CDT Vaso ordered & requested from pharmacy * Cielo West RN - 07/05/2025 4:20 AM CDT Spoke to EMILIANO Castillo--re: increasing levo substantially; MAPs remain between 50-55; using PIV's; and pt complaining of pain at IV sites; new IV's started and gtts changed to new lines; EMILIANO Castillo ordered for a PICC line in am by IR if possible; explained procedure to Daughter Starr who then agreed to sign consent. * Cielo West RN - 07/05/2025 2:00 AM CDT Rec'd pt from tele floor, awake, alert & able to voice concerns. With increased SOB, O2 via N/Cat 6 LPM. Bathed upon arrival to floor, BP low, afebrile. Explained importance of accurate I & O's; 16 Fr. sandoval catheter inserted as ordered, 400 cc of clear yellow urine noted. 2 new PIV's established for meds to be given. NS infusing at 125 cc/hr, Levo started upon arrival to floor. Gary Clements at bedside, update given. No concerns voiced. Call light explained, enc to call should needs arise. Bed in lowest position, call light and bedside table within reach. * Benoit Bishop RN - 07/05/2025 1:30 AM CDT Patient care endorsed to ICU nurse - Cielo Veras via bedside report. documented in this encounter ED Notes * Hu Foster RN - 07/04/2025 5:48 PM CDT Patient is alert and oriented x4, breathing is easy and unlabored at this time, denies distress andis able to answer questions with no difficulty. Patient and daughter Tameka informed of being admitted to room 532. Patient and tameka verbalized understanding with no questions or concerns at this time. Patient leaving the unit via bed with [facility]. * Nixon Grimes NP - 07/04/2025 2:01 PM CDT [facility] [address] [facility] [address] HISTORY OF PRESENT ILLNESS HPI: 70-year-old male brought in via EMS for lightheadedness, poor appetite, generalized body weakness and a ground level fall. As per daughter patient has stood up from the chair to go to the bathroom felt dizzy and was let down to the floor by daughter. After the fall patient states he had chest pain. On arrival patient denies any chest pain, short of breath, nausea, vomiting or diarrhea. Past Medical History: Diagnosis Date Diabetes mellitus ([facility]) Hypertension Melanoma ([facility]) History reviewed. No pertinent surgical history. Social History Tobacco Use Smoking status: Never Smokeless tobacco: Never Substance Use Topics Alcohol use: Never Drug use: Never History reviewed. No pertinent family history. Allergies: He has No Known Allergies. Review of Systems ROS: Const: No fever, no chill, no weakness, no malaise HENT: No sore throat, no rhinorrhea, Eyes: No pain, no discharge Resp: No cough, no SOB CV: No chest pain, no palpitations, no orthopnea, no syncope GI: No pain, no nausea, no vomiting, no diarrhea, no constipation : No dysuria, no hematuria MSK: No back pain, no neck pain Skin: No rash, no itchiness Neuro: No numbness, no weakness Physical Examination Physical Exam: ED Triage Vitals [07/04/25 1301] Vital Signs Group Temperature 99.1 °F (37.3 °C) Temp Source Oral Heart Rate 83 Heart Rate Source Monitor Resp 28 SpO2 95 % BP (!) 106/49 Systolic BP Percentile Diastolic BP Percentile MAP (mmHg) 69 BP Location Right arm BP Method Automatic Patient Position Sitting ETCO2 (mmHg) BP (!) 104/33 | Pulse 87 | Temp 99.1 °F (37.3 °C) (Oral) | Resp 20 | Ht 5' 4" (1.626 m) | Wt88.2 kg (194 lb 7.1 oz) | SpO2 91% | BMI 33.38 kg/m² General: Cooperative, NAD HEENT: Normocephalic, atraumatic, PERRLA, conjunctiva/corneas clear, mucous membranes moist Neck: Normal range of motion, supple. No tenderness, no lymphadenopathy. Chest/axilla: Normal chest wall appearance and motion. Nontender with no deformity. No lesions are appreciated. Respiratory: No respiratory distress. No retractions. Normal air flow. No wheezes, rhonchi, or rales. Cardiovascular: Regular rate and rhythm, normal S1/S2, no gallops, no murmurs no rubs. Abdomen: Bowel sounds normal, soft, no tenderness, no masses, no guarding, no rebound. : Deferred. MSK: Intact distal pulses, no edema, no tenderness, no cyanosis. Skin: Warm, dry with normal turgor. Normal color with no rashes, no lesions, and no evidence of cellulitis. Neuro: Awake and alert, GCS 15: Oriented to person, place, time, and situation. Cranial nerves XI to XII grossly intact. Motor strength 5 out of 5 in all extremities. Sensory grossly intact. Psych: Behavior, mood and affect are within normal limits. No suicidal homicidal ideations Review of results Lab results: Labs & imaging studies/reports reviewed independently by me. Labs Reviewed CBC W/ AUTO DIFF - Abnormal Result Value WBC 10.79 (*) RBC 4.06 (*) Hemoglobin 11.9 (*) Hematocrit 35.6 (*) MCV 87.7 MCH 29.3 MCHC 33.4 RDW 11.8 Platelets 205 MPV 9.2 NRBC 0.0 Neutrophils (Relative) 48.7 Lymphocytes (Relative) 21.5 Monocytes (Relative) 18.2 Eosinophils (Relative) 10.4 Basophils (Relative) 1.0 Neutrophils (Absolute) 5.3 Lymphocytes (Absolute) 2.3 Monocytes (Absolute) 2.0 (*) Eosinophils (Absolute) 1.1 (*) Basophils (Absolute) 0.1 BASIC METABOLIC PANEL - Abnormal Sodium 129 (*) Potassium 4.0 Chloride 94 (*) CO2 27.5 BUN 21.0 Creatinine 1.18 Glucose 92 Calcium 8.9 Glomerular Filtration Rate 65.6 (*) Anion Gap 7.5 TROPONIN I - Normal HS Troponin I 8 Narrative: High-sensitivity Troponin I (hsTnI) assay can reliably detect low troponin concentrations relative to conventional troponin assays. It is the preferred marker of myocardial necrosis as recommended bythe Fourth [place] Definition of Myocardial Infarction Guidelines. The diagnosis of acute myocardial infarction (AMI) is made based on a rise or fall of troponin withat least one measurement exceeding the laboratory's upper limit of normal(indicating myocardial injury), in the context of reasonable suspicion for coronary ischemia (e.g. typical symptoms, changes on ECG, evidence for loss of myocardial function or demonstration of obstructive coronary artery disease). NOTE: Although abnormal hsTnI values reflect INJURY to myocardial cells, an elevated hsTnI does notindicate the CAUSE of injury (i.e. ischemia versus non- ischemic disease). In some cases, myocardial injury is chronic and relatively stable such that hsTnI values remain elevated but do not change substantially over hours to days (examples include chronic kidney disease, heart failure or advanced patient age). When determining whether there has been a significant rise or fall of troponin on serial sampling, absolute change in troponin concentration has greater diagnostic accuracy for AMI than relative change criteria. A change of >7 ng/L over a 2-hour interval or a change of >10 ng/L over a 3-hour interval is suggested as a significant change. If the initial hsTnI is below or slightly above the 99th percentile upper reference limit, a 50% change from the baseline is considered significant. Ifthe initial hsTnI is above the 99th percentile upper reference limit, a 20% change from the baseline value is considered significant. Imaging Results X-ray Pelvis 1 View (In process) Result time 07/04/25 14:02:43 X-ray Chest 1 View (In process) Result time 07/04/25 14:06:45 EKGs was done at 1:02 p.m.. Sinus rhythm, anteroseptal infarct age undetermined, borderline ST elevation, no STEMI interpreted by ER MD Procedures Procedures COURSE/MEDICAL DECISION MAKING 1. Hyponatremia 2. Hypochloremia 3. Dehydration 4. Failure to thrive in adult 5. History of immunotherapy This dictation was prepared using [employer] voice recognition software. As a result, errors may occur. When identified, these errors have been corrected. While every attempt is made to correct errors during dictation, errors may still exist. MDM: 70-year-old male brought in via EMS for lightheadedness, poor appetite, generalized body weakness and a ground level fall. As per daughter patient has stood up from the chair to go to the bathroom felt dizzy and was led down to the floor by daughter. After the fall patient states he had chest pain. On arrival patient denies any chest pain, short of breath, nausea, vomiting or diarrhea. Daughter states patient has a history of melanoma lung, last immunotherapy was 06/25, states it is then patient has been with decreased appetite, does not want to eat or drink anything, and generalized weakness. CBC shows white count of 10, normocytic anemia hemoglobin is 11 and hematocrit is 35, no thrombocytopenia. Chemistry shows hyponatremia at 1:29 a.m., hypochloremia at 94, normal kidney function. Troponin is negative. EKGs did not show any reciprocal changes or ST elevations. Patient will be admitted for hyponatremia, dehydration. Spoke to Dr. Good Differential diagnosis: Rationale: Tests considered and ordered secondary to shared decision making include: labs, ECG and radiology Previous outside records reviewed: Old ER visits. Risk of complication and/or morbidity or mortality of patient management: None Medications-Per medication reconciliation Need for hospitalization: Patient does meet criteria for hospitalization. Need for emergency major/minor surgery: No There are no social concerns with this patient. Prescription drug management Prescriptions will include symptomatic care Patient's prior external medical records from other ER visits were reviewed by me as indicated. Prior testing and results from previous visits were reviewed. Prior tests were taken into account with medical decision making and resource utilization, independent historian/historians were used to obtain complete medical history. I independently interpreted the test that were performed, results were reviewed by me and considered findings on radiology if ordered. Medical management and examination interpretation discussions were had by me with other qualified healthcare professionals as indicated for the patient's care. Final diagnoses: Hyponatremia Hypochloremia Dehydration Failure to thrive in adult History of immunotherapy New Prescriptions No medications on file ED Diagnosis Problem List Items Addressed This Visit None Visit Diagnoses Hyponatremia - Primary Hypochloremia Dehydration Failure to thrive in adult History of immunotherapy ED Course: Lexi Loredo presented [facility] Emergency Department by [facility] ([id number]) for evaluation. I reviewed the nursing notes. ED Disposition Admit Nixon Grimes NP 07/04/25 1407 Associated attestation - Junito Daley DO - 07/04/2025 2:31 PM PDT I performed a substantive portion of the visit. I have reviewed and personally made and approve the management plan that is documented in the notes by myself with JUDSON/resident. I acknowledged full responsibility for the patient's management plan. documented in this encounter Miscellaneous Notes * Occupational Therapy - Meena Roca OT - 07/05/2025 3:20 PM CDT 07/05/25 1405 Precautions Fall Precautions Yes Additional Comments Dx- hyponatremia Home Living Type of Home House Home Layout One level Number of stairs to enter Home 3 Bathroom Shower/Tub Tub/shower unit Bathroom Toilet Standard Home Equipment None Prior Function Level of George Modified independent Lives With Alone Receives Help From Family ADL Assistance Independent Homemaking Assistance Needs assistance Comments pt has provider care as needed Current ADL Where Assessed Edge of bed Eating Assistance Supervision Grooming Assistance Minimal assist Bathing Assistance Maximum assist UE Dressing Assistance Maximum assist LE Dressing Assistance Maximum assist Functional Transfers Toilet Transfers Not tested (pt reporting R knee pain) Activity Tolerance Endurance Tolerates 10 - 20 min activity with multiple rests Pain Assessment Pain Assessment 0-10 Pain Score 8 Pain Type Acute pain Pain Location Knee Pain Orientation Right Vision-Basic Assessment Current Vision No visual deficits Hearing Hearing Intact Cognition Overall Cognitive Status WFL Orientation Level Oriented X4 Communication Primary Language Spoken French Sensation Light Touch No apparent deficits Coordination Coordination WFL Coordination - Other Gross Motor WFL Fine Motor WFL RUE Assessment RUE Assessment (AROM WFL 3/5 MMT) LUE Assessment LUE Assessment (L shoulder AROM deficits with pain, elbow/wrist/hand WFL) Lower Extremity Assessment Lower Extremity Assessment (R knee limited by pain) Bed Mobility Rolling Maximum assist Modified Nye Scale Modified Nye Scale 4 Assessment Assessment Decreased ADL status;Decreased UE ROM;Decreased UE strength;Decreased endurance;Decreased functional transfer;Decreased high-level ADLs (R knee pain) Prognosis Good;With continued OT s/p acute discharge OT Goals ADL's - Pt. will be able to perform meal task: Supervision ADL's - Pt. will be able to perform grooming: Supervision ADL's - Pt. will be able to perform UB dressing: Supervision ADL's - Pt. will be able to perform LB dressing: Supervision ADL's - Pt. will be able to perform toileting: Supervision ADL's - Pt. will be able to perform bathing: Supervision Bed Mobility/Functional Transfers - Pt. will be able to perform toilet transfer: Supervision Bed Mobility/Functional Transfers - Pt. will be able to perform shower/tub transfer: Supervision Precautions/Educations - Pt will recall precautions: Supervision Precautions/Educations - Pt will return demonstration of home exercise program: Supervision Plan Treatment/Interventions ADL retraining;Functional transfer training;UE strengthening/ROM;Endurance training;Patient/family training;Neuromuscular reeducation;Fine/gross motor;Therapeutic exercise;Therapeutic activity OT Frequency 1-2x/wk Recommendation Recommendation Post-acute care Mi15 Pt report being independent with ADLs and mobility prior to admission without use of AD. Today, he presents with endurance deficits, L shoulder AROM and R knee pain. Attempt made to transition pt to sitting EOB, however he is unable to tolerate any movement to L knee. Pt having difficulty rolling in bed to perform ADLs at bed level due to pain. He is repositioned in supine at session end with allneeds met. He continues to benefit from skilled OT services at this time. * Discharge Planning - Vanessa Rowley - 07/05/2025 2:24 PM CDT 07/05/25 1424 Ongoing Discharge Planning DC Planning Charting type Admission/Initial Living Arrangements Alone Patient Arrived From? Private residence Usual Residence Private residence Support Systems Children Assistance Needed Patient was independent with ADL's prior to hospitalization Current Residence Private residence # of Steps at Residence x3 to front and back entrances Home Care Services No Patient expects to be discharged to: Private residence Referral to Discharge Planning/Case Management Discharge Planning Complete Supporting Self-Management Post Stroke Education and post-acute services information provided. CM met with patient's daughter, Tameka Fisher, Patient's preferred language: French Marital status: Children: x2 daughters, both living in the [facility] area Patient lives alone in a single level home in [place] PLOF: Patient was independent with ADL's prior to hospitalization HH: none PAS: [facility] 25hrs/7day plan ADC: none DME: none PCP: Dr. Servin Preferred pharmacy: [facility] on [address] Patient is a [place] Resident Benefits: SSI $894 and Food stamps $159 MPOA: none but his daughter Tameka is his emergency contact Transportation: will be provided by Tameka JOHN Plan: will go live with his sister but family is open for rehab if recommended. * Physical Therapy - Cabrera Yao PT - 07/05/2025 12:21 PM CDT Patient having a Echocardiogram study at this time. PT Evaluation deferred. * Nutrition - Isabelle Salazar RD - 07/05/2025 11:56 AM CDT Nutrition Assessment Name: Lexi Loredo Sex: male Age: 70 y.o. Location: [facility] Room: [address] Admission Date: 07/04/2025 LOS: 1 Reason for the Assessment: Initial assessment, High risk screen Medical Diagnosis: Patient Active Problem List Diagnosis Hyponatremia Acute hyponatremia Medical History: Past Medical History: Diagnosis Date Diabetes mellitus (CMS/HCC) Hypertension Melanoma (CMS/HCC) Surgical History: History reviewed. No pertinent surgical history. 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 Noted with electrolyte depletions and dehydration with hyponatremia and hypochloremia. Patient with history of immunotherapy. Suspect possible B-vitamin depletion as well due to water-soluble vitamin deficiencies in severely dehydrated patients. Will place a multivitamin tablet as well as one-time dose of 200 mg thiamine for replenishment of water-soluble vitamins, which may risk nausea andpoor intake if not supplemented. Nutrition Assessment: Biochemical Data: Labs: Results from last 7 days Lab Units 07/04/25 13307/05/25 0459 SODIUM mmol/L 129* 125* POTASSIUM mmol/L 4.0 4.5 CHLORIDE mmol/L 94* 92* CO2 mmol/L 27.5 18.1* BUN mg/dL 21.0 25.0* CREATININE mg/dL 1.18 2.17* CALCIUM UA mg/dL 8.9 8.6 MAGNESIUM mg/dL -- 1.80 PHOSPHORUS mg/dL -- 6.1* Results from last 7 days Lab Units 07/04/25 1331 07/04/25201507/05/25 0459 POC GLUCOSE mg/dL -- 102 -- GLUCOSE mg/dL 92 -- 145* Hgb A1c Date Value Ref Range Status 07/05/2025 6.4 (H) 4.0 - 5.6 % Final Medications: Scheduled Meds: atorvastatin 40 mg Oral HS calcium gluconate 2 g Intravenous Once diclofenac sodium Topical QID docusate sodium 100 mg Oral BID enoxaparin (LOVENOX) injection 40 mg Subcutaneous Q24H [facility] insulin lispro 1-6 Units (Low) Subcutaneous With meals & nightly piperacillin-tazobactam (ZOSYN) IV 3.375 g Intravenous Q8H senna 1 tablet Oral BID Continuous Infusions: NORepinephrine 0.01-1 mcg/kg/min 0.55 mcg/kg/min (07/05/25 1130) sodium chloride 125 mL/hr Stopped (07/04/25 1651) sodium chloride 125 mL/hr 125 mL/hr (07/05/25 0752) vasopressin 0.01-0.03 Units/min 0.03 Units/min (07/05/25 0431) PRN Meds:. acetaminophen dextrose OR dextrose OR glucagon (rDNA) glucose midodrine ondansetron Nutrition-Focused Physical Findings: Appearance: Skin: Edema: Nutrition Focused Physical Exam: Not assessed Anthropometric Measurements: Height: 5' 4" (162.6 cm) Admission Weight: 88.2 kg (194 lb 7.1 oz) Usual Body Weight: Current Weight: 88.2 kg (194 lb 7.1 oz) [place] Body Weight: IBW %: BMI (kg/m2): 33.4 BMI CLASS: Normal weight (for advanced age) Weight Change During Admission: 0 kg Recent Weight History: Estimated Nutrient Requirements: Calculating Weight Type of weight Per kg Total Calories (kcal) 88.2 kg (194 lb 7.1 oz) Actual 1764 - 2205 Protein (g) 88.2 kg (194 lb 7.1 oz) Actual 1.2 - 2.0 106 - 176 Fluid (mL) 88.2 kg (194 lb 7.1 oz) Actual 1764 - 2205 Food/Nutrition-Related History Diet Prior to Admission: Cultural/Ethnic/Yazdanism Preferences: Food Allergies/Intolerances: Diet Preferences: Difficulty Chewing/Swallowing: Unable to assess Dentition: Current Dietary Intake: Current Appetite: Unable to assess Diet order: Diet Orders Diet Heart Healthy; None; 60gm Standard Diet Average Meal Intake (%): Intake Provides: Intake Meeting Nutrition Needs: Diet Appropriate: No Current Output: GI symptoms: Nausea Last BM: Intake/Output Summary (Last 24 hours) at 07/05/2025 1156 Last data filed at 07/05/2025 0602 Gross per 24 hour Intake 2464.26 ml Output 400 ml Net 2064.26 ml Net IO Since Admission: 2,064.26 mL [07/05/25 1156] Additional Comments: Nutrition Diagnosis: Nutrition Risk: Moderate Nutrition Problem: Dehydration with electrolyte depletions related to nausea and chronic disease asevidenced by sodium of 125 mmol/L, chloride of 92 mmol/L, and lactic acid of 3.81 mmol/L, and urinesodium of 13 mmol/L Status: Initial diagnosis Malnutrition Identified: no (dehydration; electrolyte depletions) Nutrition Intervention: Nutrition Education: Is education indicated: no Status: Recommendations: Consider Clear Liquid diet at this time until patient's hydration levels are up to par Placed broth and low-sugar electrolyte drinks with meals to rehydrate lost electrolytes from dehydration Placed multivitamin tablet for B-vitamins and one-time high-dosage of 200 mg thiamine due to suspected deficiencies Nutrition Monitoring/Evaluation: Patient goals: Screen and assess ICU patients within 48 hours of admission. Rehydrate patients admitted with electrolyte depletions or supplement nutrients found deficient or with s/s of deficiencies. Monitor: labs RD to follow-up on 07/09/25 or PRN unless discharged Author: Isabelle Salazar RDN LD * Plan of Care - Ashwini Galeana RN - 07/05/2025 11:49 AM CDT Problem: Pain Goal: Patient's pain/discomfort is manageable Description: Assess and monitor patient's pain using appropriate pain scale. Collaborate with interdisciplinary team and initiate plan and interventions as ordered. Re-assess patient's pain level 30 - 60 minutes after pain management intervention. Outcome: Progressing Problem: Safety Goal: Patient will be injury free during hospitalization Description: Assess and monitor vitals signs, neurological status including level of consciousness and orientation. Assess patient's risk for falls and implement fall prevention plan of care and interventions per hospital policy. Ensure arm band on, uncluttered walking paths in room, adequate room lighting, call light and overbed table within reach, bed in low position, wheels locked, side rails up per policy, and non-skid footwear provided. Outcome: Progressing Problem: Daily Care Goal: Daily care needs are met Description: Assess and monitor ability to perform self care and identify potential discharge needs. Outcome: Progressing Problem: Psychosocial Needs Goal: Demonstrates ability to cope with hospitalization/illness Description: Assess and monitor patients ability to cope with his/her illness. Outcome: Progressing Goal: Collaborate with patient/family/caregiver to identify patient specific goals for this hospitalization Outcome: Progressing Problem: Discharge Barriers Goal: Patient's discharge needs are met Description: Collaborate with interdisciplinary team and initiate plans and interventions as needed. Outcome: Progressing * Speech Language Pathology - Kathi Disla CCC-PAN DEVULCANIZER - 07/05/2025 9:13 AM CDT SPEECH PATHOLOGY IN-PATIENT BEDSIDE SWALLOW EVALUATION Patient Name: Lexi Loredo Location: MI15/MI15-01 : 1955 AGE: 70 y.o. CSN: [id number] ATTENDING: Luis Miguel Bass MD ADMIT DATE/TIME: 07/04/2025 12:55 PM. ADMISSION DIAGNOSIS: Dehydration [E86.0] Hypochloremia [E87.8] Hyponatremia [E87.1] Failure to thrive in adult [R62.7] History of immunotherapy [Z92.89] Acute hyponatremia [E87.1] PRIMARY INSURANCE: Payor: [employer] SR / Plan: [employer] [facility]PLETE (DSNP) / Product Type: *No Product type* / DATE OF SERVICE: 07/05/2025 PAST MEDICAL HISTORY: Past Medical History: Diagnosis Date Diabetes mellitus (CMS/HCC) Hypertension Melanoma ([facility] [facility] L[facility] Patient Active Problem List Diagnosis Hyponatremia Acute hyponatremia PRIOR FUNCTIONAL LEVEL: The patient was on a regular diet and thin liquids with poor PO interest and intake secondary to persistent nausea. ALLERGIES: No Known Allergies CURRENT DIET: Diet Orders Diet Heart Healthy; None; 60gm Standard Diet PAIN ASSESSMENT: Pain Assessment: No/denies pain Pain Score: 0 Pain Type: Acute pain Pain Location: Abdomen Pain Orientation: Mid Pain Descriptors: Aching Pain Frequency: Constant/continuous Pain Intervention(s): Distraction, Emotional support, Rest, Relaxation technique Result of Injury: No Work-Related Injury: No SUBJECTIVE The patient was referred for bedside swallow assessment secondary to impaired swallow function. ORAL-MOTOR FUNCTION The patient with facial symmetry, fair dentition with fair lingual and labial strength and ROM. CONSISTENCIES GIVEN The patient was given tspn amounts of thin and thick puree, soft chopped solids, regular solids andthin liquids via spoon, cup and straw. SWALLOW FUNCTION BY CONSISTENCIES The patient demonstrated fair bolus acceptance via spoon, cup and straw with no significant anterior oral spillage observed. Patient with fair bolus manipulation, formation and posterior propulsion with no significant oral residue post swallow. Patient with timely pharyngeal swallow response with fair hyolaryngeal excursion upon palpation with no overt s/s of aspiration observed. OTHER OBSERVATIONS/COMMENTS: Patient's daughter present for assessment. SUMMARY/IMPRESSIONS The patient demonstrated functional oral and pharyngeal swallow mechanism with no overt s/s of aspiration observed. Patient did demonstrate poor PO interest, fatigue with deglutition with limited PO trials on today's assessment secondary to lack of full patient cooperation. RECOMMENDATION 1. PO soft and bite sized solids and thin liquids 2. Aspiration precautions 3. Consider scheduled nausea meds 30 mins prior to meals to aid in improved PO tolerance and intake. PLAN No skilled ST warranted at this time. * Plan of Care - Benoit Bishop RN - 07/04/2025 9:10 PM CDT Problem: Pain Goal: Patient's pain/discomfort is manageable Description: Assess and monitor patient's pain using appropriate pain scale. Collaborate with interdisciplinary team and initiate plan and interventions as ordered. Re-assess patient's pain level 30 - 60 minutes after pain management intervention. 07/04/20252302 by Benoit Bishop RN Outcome: Progressing 07/04/20252302 by Benoit Bishop RN Outcome: Progressing Problem: Safety Goal: Patient will be injury free during hospitalization Description: Assess and monitor vitals signs, neurological status including level of consciousness and orientation. Assess patient's risk for falls and implement fall prevention plan of care and interventions per hospital policy. Ensure arm band on, uncluttered walking paths in room, adequate room lighting, call light and overbed table within reach, bed in low position, wheels locked, side rails up per policy, and non-skid footwear provided. 07/04/20252302 by Benoit Bishop RN Outcome: Progressing 07/04/20252302 by Benoit Bishop RN Outcome: Progressing Problem: Daily Care Goal: Daily care needs are met Description: Assess and monitor ability to perform self care and identify potential discharge needs. 07/04/20252302 by Benoit Bishop RN Outcome: Progressing 07/04/20252302 by Benoit Bishop RN Outcome: Progressing Problem: Psychosocial Needs Goal: Demonstrates ability to cope with hospitalization/illness Description: Assess and monitor patients ability to cope with his/her illness. 07/04/20252302 by Benoit Bishop RN Outcome: Progressing 07/04/20252302 by Benoit Bishop RN Outcome: Progressing Goal: Collaborate with patient/family/caregiver to identify patient specific goals for this hospitalization 07/04/20252302 by Benoit Bishop RN Outcome: Progressing 07/04/20252302 by Benoit Bishop RN Outcome: Progressing Problem: Discharge Barriers Goal: Patient's discharge needs are met Description: Collaborate with interdisciplinary team and initiate plans and interventions as needed. 07/04/20252302 by Benoit Bishop RN Outcome: Progressing 07/04/20252302 by Benoit Bishop RN Outcome: Progressing Problem: Language Barriers: Goal: Patient uses a form of communication to get needs met and to relate effectively with people and his/her environment Description: Assess the patient's preferred language and provide documentation in the patient's preferred language and ensure the patient fully understands written words, pictures and gestures. Request translation assistance as needed. 07/04/20252302 by Benoit Bishop RN Outcome: Progressing 07/04/20252302 by Benoit Bishop RN Outcome: Progressing Problem: Nutrition: Goal: Maintain optimal nutritional status 07/04/20252302 by Benoit Bishop RN Outcome: Progressing 07/04/20252302 by Benoit Bishop RN Outcome: Progressing Goal: Nutrient intakes >75% of estimated needs 07/04/20252302 by Benoit Bishop RN Outcome: Progressing 07/04/20252302 by Benoit Bishop RN Outcome: Progressing Problem: Cognitive: Goal: Expressions of a comfortable level of knowledge will increase 07/04/20252302 by Benoit Bishop RN Outcome: Progressing 07/04/20252302 by Benoit Bishop RN Outcome: Progressing Goal: Verbalization of understanding the information provided will improve 07/04/20252302 by Benoit Bishop RN Outcome: Progressing 07/04/20252302 by Benoit Bishop RN Outcome: Progressing Problem: Coping: Goal: Family members' participation in the patient's care will improve 07/04/20252302 by Benoit Bishop RN Outcome: Progressing 07/04/20252302 by Benoit Bishop RN Outcome: Progressing Goal: Ability to identify appropriate support needs will improve 07/04/20252302 by Benoit Bishop RN Outcome: Progressing 07/04/20252302 by Benoit Bishop RN Outcome: Progressing Goal: Participation discharge planning will improve 07/04/20252302 by Benoit Bishop RN Outcome: Progressing 07/04/20252302 by Benoit Bishop RN Outcome: Progressing Problem: Health Behavior: Goal: Identification of resources available to assist in meeting health care needs will improve 07/04/20252302 by Benoit Bishop RN Outcome: Progressing 07/04/20252302 by Benoit Bishop RN Outcome: Progressing Problem: Activity: Goal: Mobility will improve 07/04/20252302 by Benoit Bishop RN Outcome: Progressing 07/04/20252302 by Benoit Bishop RN Outcome: Progressing Problem: Cognitive: Goal: Understanding of ways to prevent future skin breakdown will improve 07/04/20252302 by Benoit Bishop RN Outcome: Progressing 07/04/20252302 by Benoit Bishop RN Outcome: Progressing Goal: Ability to identify appropriate dietary choices will improve 07/04/20252302 by Benoit Bishop RN Outcome: Progressing 07/04/20252302 by Benoit Bishop RN Outcome: Progressing Goal: Knowledge of disease or condition will improve Description: as evidence by teach back 07/04/20252302 by Benoit Bishop RN Outcome: Progressing 07/04/20252302 by Benoit Bishop RN Outcome: Progressing Goal: Recognition and reporting of significant signs and symptoms will improve 07/04/20252302 by Benoit Bishop RN Outcome: Progressing 07/04/2025 230 by Benoit Bishop RN Outcome: Progressing Problem: Nutritional: Goal: Dietary intake will improve 07/04/20252302 by Benoit Bishop RN Outcome: Progressing 07/04/2025 230 by Benoit Bishop RN Outcome: Progressing Goal: Fluid intake will improve 07/04/20252302 by Benoit Bishop RN Outcome: Progressing 07/04/20252302 by Benoit Bishop RN Outcome: Progressing Goal: Nutritional status will improve 07/04/20252302 by Benoit Bishop RN Outcome: Progressing 07/04/20252302 by Benoit Bishop RN Outcome: Progressing Goal: Intake to meet 100% of needs 07/04/20252302 by Benoit Bishop RN Outcome: Progressing 07/04/20252302 by Benoit Bishop RN Outcome: Progressing Problem: Skin Integrity: Goal: Ability to demonstrate warm and dry skin will improve 07/04/20252302 by Benoit Bishop RN Outcome: Progressing 07/04/20252302 by Benoit Bishop RN Outcome: Progressing Goal: Risk for impaired skin integrity will decrease 07/04/20252302 by Benoit Bishop RN Outcome: Progressing 07/04/20252302 by Benoit Bishop RN Outcome: Progressing Goal: Circulation will improve to fullest extent possible 07/04/20252302 by Benoit Bishop RN Outcome: Progressing 07/04/20252302 by Benoit Bishop RN Outcome: Progressing Goal: Tissure exposure to pressure will be decreased 07/04/20252302 by Benoit Bishop RN Outcome: Progressing 07/04/20252302 by Benoit Bishop RN Outcome: Progressing Goal: Tissue exposure to shear will be decreased 07/04/20252302 by Benoit Bishop RN Outcome: Progressing 07/04/20252302 by Benoit Bishop RN Outcome: Progressing Goal: Tissue exposure to friction will be decreased 07/04/20252302 by Benoit Bishop RN Outcome: Progressing 07/04/20252302 by Benoit Bishop RN Outcome: Progressing Goal: Skin exposure to moisture will be decreased 07/04/20252302 by Benoit Bishop RN Outcome: Progressing 07/04/20252302 by Benoit Bishop RN Outcome: Progressing Goal: Signs of wound healing will improve 07/04/20252302 by Benoit Bishop RN Outcome: Progressing 07/04/20252302 by Benoit Bishop RN Outcome: Progressing Problem: S/S Infection Goal: Patient will demonstrate no S&S of acute infection, WBC will be WNL 07/04/20252302 by Benoit Bishop RN Outcome: Progressing 07/04/20252302 by Benoit Bishop RN Outcome: Progressing Goal: Pt will demonstrate appropriate hygienic measures such as hand washing, oral care and perineal care by discharge Description: Pt will demonstrate appropriate hygienic measures such as hand washing, oral care and perineal care by discharge. 07/04/20252302 by Benoit Bishop RN Outcome: Progressing 07/04/20252302 by Benoit Bishop RN Outcome: Progressing Goal: Patient will remain free of infection, as evidence by normal vital signs and absence of signsand symptoms infection Description: Patient will remain free of infection, as evidence by normal vital signs and absence of signs and Symptoms of infection 07/04/20252302 by Benoit Bishop RN Outcome: Progressing 07/04/20252302 by Benoit Bishop RN Outcome: Progressing Goal: Early recognition of infection to allow for prompt treatment 07/04/20252302 by Benoit Bishop RN Outcome: Progressing 07/04/20252302 by Benoit Bishop RN Outcome: Progressing Goal: The patient will be able to verbalize S&S of infection and interventions Description: The patient will be able to verbalize S&S of infection and interventions, that must be followed to remain infection free. 07/04/2025 230 by Benoit Bishop RN Outcome: Progressing 07/04/2025 2303 by Benoit Bishop RN Outcome: Progressing * Plan of Care - Al Gonzalez RN - 07/04/2025 6:23 PM CDT Problem: Pain Goal: Patient's pain/discomfort is manageable Description: Assess and monitor patient's pain using appropriate pain scale. Collaborate with interdisciplinary team and initiate plan and interventions as ordered. Re-assess patient's pain level 30 - 60 minutes after pain management intervention. Outcome: Progressing Problem: Safety Goal: Patient will be injury free during hospitalization Description: Assess and monitor vitals signs, neurological status including level of consciousness and orientation. Assess patient's risk for falls and implement fall prevention plan of care and interventions per hospital policy. Ensure arm band on, uncluttered walking paths in room, adequate room lighting, call light and overbed table within reach, bed in low position, wheels locked, side rails up per policy, and non-skid footwear provided. Outcome: Progressing Problem: Daily Care Goal: Daily care needs are met Description: Assess and monitor ability to perform self care and identify potential discharge needs. Outcome: Progressing Problem: Psychosocial Needs Goal: Demonstrates ability to cope with hospitalization/illness Description: Assess and monitor patients ability to cope with his/her illness. Outcome: Progressing Goal: Collaborate with patient/family/caregiver to identify patient specific goals for this hospitalization Outcome: Progressing Problem: Discharge Barriers Goal: Patient's discharge needs are met Description: Collaborate with interdisciplinary team and initiate plans and interventions as needed. Outcome: Progressing Problem: Language Barriers: Goal: Patient uses a form of communication to get needs met and to relate effectively with people and his/her environment Description: Assess the patient's preferred language and provide documentation in the patient's preferred language and ensure the patient fully understands written words, pictures and gestures. Request translation assistance as needed. Outcome: Progressing Problem: Nutrition: Goal: Maintain optimal nutritional status Outcome: Progressing Goal: Nutrient intakes >75% of estimated needs Outcome: Progressing Problem: Cognitive: Goal: Expressions of a comfortable level of knowledge will increase Outcome: Progressing Goal: Verbalization of understanding the information provided will improve Outcome: Progressing Problem: Coping: Goal: Family members' participation in the patient's care will improve Outcome: Progressing Goal: Ability to identify appropriate support needs will improve Outcome: Progressing Goal: Participation discharge planning will improve Outcome: Progressing Problem: Health Behavior: Goal: Identification of resources available to assist in meeting health care needs will improve Outcome: Progressing * ED Triage Note - Ruby Kelsey RN - 07/04/2025 12:58 PM CDT Brought in by EMS from residence, h/o st 4 melanoma, complain of chest pain, patient on immunotheraphy documented in this encounter Plan of Treatment Not on file documented as of this encounter Procedures Procedure Name Priority Date/Time Associated Diagnosis Comments POCT GLUCOSE Routine 07/05/2025 4:27 PM CDT LACTATE FOR SECOND REFLEX STAT 07/05/2025 2:58 PM CDT TSH Routine 07/05/2025 2:58 PM CDT CORTISOL Routine 07/05/2025 2:58 PM CDT ECHOCARDIOGRAM COMPLETE ([id number]) Routine 07/05/2025 12:30 PM CDT SODIUM, URINE, RANDOM Routine 07/05/2025 11:18 AM CDT OSMOLALITY, URINE Routine 07/05/2025 11: 18 AM CDT IR PICC Routine 07/05/2025 10:26 AM CDT XR KNEE 1 OR 2 VIEW RIGHT Routine 07/05/2025 8:52 AM CDT LACTATE FOR REFLEX STAT 07/05/2025 8 :43 AM CDT ECG 12-LEAD STAT 07/05/2025 5:48 AM CDT CALCIUM IONIZED,ROUTINE Routine 07/05/20 5:03 AM CDT CBC, NO DIFF Routine 07/05/2025 5:03 AM CDT LACTIC ACID, W/ REFLEX STAT 5:03 AM CDT HEMOGLOBIN A1C Add-On 07/05/2025 5:03 AM CDT TROPONIN I STAT 07/05/2025 4:59 AM CDT PHOSPHORUS Add-On 07/05/2025 4:59 AM CDT OSMOLALITY Routine 07/05/2025 4:59 AM CDT MAGNESIUM, SERUM Routine 07/05/2025 4:5 9 AM CDT COMPREHENSIVE METABOLIC PANEL Routine 07/05/2025 4:59 AM CDT POCT GLUCOSE Routine 07/04/2025 8:16 PM CDT ECG 12-LEAD STAT 07/04/2025 6:[address] ABDOMEN PELVIS WO ORAL OR IV CONTRAST STAT 07/04/2025 5:14 PM CDT TROPONIN I STAT 07/04/2025 4:50 PM CDT XR PELVIS 1 VIEW STAT 07/04/2025 2:0 8 PM CDT XR CHEST 1 VIEW STAT 07/04/2025 1:46 PM CDT TROPONIN I STAT 07/04/2025 1:31 PM CDT CBC W/ AUTO DIFF STAT 07/04/2025 1:3 1 PM CDT BASIC METABOLIC PANEL STAT 07/04/2025 1:31 PM CDT OXYGEN THERAPY STAT 07/04/2025 1:16 PM CDT ECG 12-LEAD STAT 07/04/2025 1:02 PM CDT documented in this encounter Results * (ABNORMAL) POCT Glucose (07/05/2025 4:27 PM CDT) [facility] POC Glucose 176(H) 70 - 110 mg/dL 07/05/2025 4:30 PM CDT [facility] Comment: Ashwini Galeana Reference Range valid for Fasting Glucose Samples Blood 07/05/2025 4:2 7 PM CDT 07/05/2025 4:30 PM CDT Ibrahima Good IV, MD POINT OF CARE TEST O RDERABLES [facility] [address] [place] [address] [id number] * TSH (07/05/2025 2:58 PM CDT) [facility] TSH 1.070 0.400 - 4.500 uIU/mL 07/05/2025 3:28 PM CDT [facility] Blood Line / Unknown 07/05/2025 2 :58 PM CDT 07/05/2025 3:01 PM CDT Bakari Kline MD LAB BLOOD ORDERABLES [facility] [address] [place] [phone] * Cortisol (07/05/2025 2:58 PM CDT) [facility] CORTISOL 20.78 2 - 25 ug/dL 07/05/2025 3:42 PM CDT [facility] Blood Line / Unknown 07/05/2025 2 :58 PM CDT 07/05/2025 3:01 PM CDT Bakari Kline MD LAB BLOOD ORDERABLES [facility] [address] [address] * (ABNORMAL) Lactic acid, plasma (07/05/2025 2:58 PM CDT) Lactic Acid 4.25(HH) 0 - 2 mmol/L 07/05/2025 3:32 PM CDT [facility] Blood Line / Unknown 07/05/2025 2 :58 PM CDT 07/05/2025 3:01 PM CDT Bakari Kline MD LAB BLOOD ORDERABLES Performing Organization Address City/[facility] Co de Phone Number [facility] [address] [address] * ECHOCARDIOGRAM COMPLETE ([id number]) (07/05/2025 12:30 PM CDT) Anatomical Region Laterality Modality Echocardiogram 07/05/2025 4:4 2 PM CDT Narrative 07/05/2025 4:42 PM CDT APPROVED REPORT Conclusion The cardiac chambers are normal in size. Mild concentric left ventricular hypertrophy. No regional wall motion abnormalities seen on obtained views. The left ventricular systolic function is normal. LVEF is 55-60%. Grade II (pseudo-normal) diastolic dysfunction. Trace mitral regurgitation. Trace tricuspid regurgitation. PASP is 25mmHg. Moderate size, circumferential pericardial effusion. The effusion is largest in diameter along the right ventricle free wall and measures 2.0cm. Mitral valve inspiratory variation: 46%. Tricuspid valve inspiratory variation: 62%. There is early diastolic collapse of the right ventricle and late diastolic collapse of the right atrium. The IVC is dilated and there is <50% inspiratory variation. The findings indicate cardiac tamponade. The ICU team has been made aware of the findings. EXAM: Comprehensive 2D, Doppler, and color-flow Echocardiogram Rhythm: NSR Indications: SOB/ ACS Left Ventricle The left ventricle is normal in size. The left ventricular systolic function is normal. Mild concentric left ventricular hypertrophy. No regional wall motion abnormalities seen on obtained views. Grade II (pseudo-normal) diastolic dysfunction. LVEF is 55-60%. Right Ventricle Normal right ventricle size. Normal right ventricle systolic function. Atria The left atrium is normal in size. The right atrium is normal in size. Aortic Valve Aortic valve is trileaflet. There is no aortic valvular stenosis. No aortic regurgitation is present. Mitral Valve The mitral valve is normal in structure and function. No evidence of mitral valve stenosis. Trace mitral regurgitation. Tricuspid Valve Tricuspid valve is grossly normal in structure and function. Trace tricuspid regurgitation. RVSP is 10mmHg. Pulmonic Valve Pulmonic valve is not well visualized. Great Vessels The aortic root is normal in size. Dilated IVC with diminished collapse consistent with elevated RA pressure estimate of 15 mmHg. Pericardium Moderate size, circumferential pericardial effusion. The effusion is largest in diameter along the right ventricle free wall and measures 2.0cm. Mitral valve inspiratory variation: 46%. Tricuspid valve inspiratory variation: 62%. There is early diastolic collapse of the right ventricle and late diastolic collapse of the right atrium. 2D Dimensions IVSd 1.1 cm M: 0.6-1.2 LVEF (Teich) 59.6 % PWd 1.1 cm M: 0.6 - 1.2 LVDd 5.1 cm M: 4.2 - 5.9 LVDs 3.5 cm M: 2.5 - 4.0 Left Atrium 3.9 cm M: 3.0 - 4.0 LVOT 2.0 cm (M/F) 1.5-2.5 IVC 2.7 cm LV Diastology MED E' 6.1 (< 7 cm/sec) E'/MED E' Ratio 13.4 (>14) LAT E' 3.9 (<10 cm/sec) E/LAT E' Ratio 21.1 (>14) Aortic Valve AoV Vmax 1.3 m/s Ao Peak GR 7.3 mmHg AoV VTI 0.2 m Ao Mean GR 4.0 mmHg Mitral Valve MV A Velocity 59.77 (40-130 cm/s) MV Decel. Time 261.90 (160-240 ms) MV PHT 75.95 ms MVA PHT 2.9 cm2 Tricuspid Valve TR P. Velocity 161.02 cm/s TR Peak Gr 10.4 mmHg Procedure Note Jono Higginbotham MD - 07/05/2025 APPROVED REPORT Conclusion The cardiac chambers are normal in size. Mild concentric left ventricular hypertrophy. No regional wall motion abnormalities seen on obtained views. The left ventricular systolic function is normal. LVEF is 55-60%. Grade II (pseudo-normal) diastolic dysfunction. Trace mitral regurgitation. Trace tricuspid regurgitation. PASP is 25mmHg. Moderate size, circumferential pericardial effusion. The effusion islargest in diameter along the right ventricle free wall and measures2.0cm. Mitral valve inspiratory variation: 46%. Tricuspid valveinspiratory variation: 62%. There is early diastolic collapse of the rightventricle and late diastolic collapse of the right atrium. The IVC isdilated and there is <50% inspiratory variation. The findings indicatecardiac tamponade. The ICU team has been made aware of the findings. EXAM: Comprehensive 2D, Doppler, and color-flow Echocardiogram Rhythm: NSR Indications: SOB/ ACS Left Ventricle The left ventricle is normal in size. The left ventricular systolicfunction is normal. Mild concentric left ventricular hypertrophy. Noregional wall motion abnormalities seen on obtained views. Grade II(pseudo-normal) diastolic dysfunction.LVEF is 55-60%. Right Ventricle Normal right ventricle size. Normal right ventricle systolic function. Atria The left atrium is normal in size. The right atrium is normal in size. Aortic Valve Aortic valve is trileaflet. There is no aortic valvular stenosis. Noaortic regurgitation is present. Mitral Valve The mitral valve is normal in structure and function. No evidence ofmitral valve stenosis. Trace mitral regurgitation. Tricuspid Valve Tricuspid valve is grossly normal in structure and function. Tracetricuspid regurgitation. RVSP is 10mmHg. Pulmonic Valve Pulmonic valve is not well visualized. Great Vessels The aortic root is normal in size. Dilated IVC with diminished collapseconsistent with elevated RA pressure estimate of 15 mmHg. Pericardium Moderate size, circumferential pericardial effusion. The effusion islargest in diameter along the right ventricle free wall and measures2.0cm. Mitral valve inspiratory variation: 46%. Tricuspid valveinspiratory variation: 62%. There is early diastolic collapse of the rightventricle and late diastolic collapse of the right atrium. 2D Dimensions IVSd 1.1 cm M: 0.6-1.2 LVEF (Teich) 59.6 % PWd 1.1 cm M: 0.6 - 1.2 LVDd 5.1 cm M: 4.2 - 5.9 LVDs 3.5 cm M: 2.5 - 4.0 Left Atrium 3.9 cm M: 3.0 - 4.0 LVOT 2.0 cm (M/F) 1.5-2.5 IVC 2.7 cm LV Diastology MED E' 6.1 (< 7 cm/sec) E'/MED E' Ratio 13.4 (>14) LAT E' 3.9 (<10 cm/sec) E/LAT E' Ratio 21.1 (>14) Aortic Valve AoV Vmax 1.3 m/s Ao Peak GR 7.3 mmHg AoV VTI 0.2 m Ao Mean GR 4.0 mmHg Mitral Valve MV A Velocity 59.77 (40-130 cm/s) MV Decel. Time 261.90 (160-240 ms) MV PHT 75.95 ms MVA PHT 2.9 cm2 Tricuspid Valve TR P. Velocity 161.02 cm/s TR Peak Gr 10.4 mmHg Bakari Kline MD CV ECHO ORDERABLES * (ABNORMAL) Sodium, urine, random (07/05/2025 11:18 AM CDT) Sodium Urine Random 13(L) 28 - 272 mmol/L 07/05/2025 11:49 AM CDT [facility] Urine Urine specimen obtained by clean catch procedure / Unknown Collection / Unknown 07/05/2025 11:18 AM CDT 07/05/2025 11:36 AM CDT Bakari Kline MD URINE ORDERABLES [facility] [address] [place] [phone] * Osmolality, urine (07/05/2025 11:18 AM CDT) Osmolality, Ur 359 50 - 1,200 mOsm/kg 07/05/2025 11:49 AM CDT [facility] Urine Urine specimen obtained by clean catch procedure / Unknown Collection / Unknown 07/05/2025 11:18 AM CDT 07/05/2025 11:36 AM CDT Bakari Kline MD URINE ORDERABLES [facility] [address] [address] * IR PICC (07/05/2025 10:26 AM CDT) Anatomical Region Laterality Modality Chest N/A Radiographic Jnana ging 07/05/2025 1:3 9 PM CDT Impressions 07/05/2025 1:39 PM CDT SUCCESSFUL PICC LINE CATHETER PLACEMENT. Narrative 07/05/2025 1:39 PM CDT CLINICAL HISTORY: 70-year-old male presents for IV access/antibiotic therapy. FINDINGS: After explaining the procedure to the patient along with the risks and complications, an informed consent was obtained. Following written informed consent the patient was placed in the supine position in the fluoroscopic suite and the right arm was prepped and draped in the usual sterile fashion. Under sonographic guidance anterior wall puncture of the target vein was performed with a micropuncture needle. Following the insertion of a 0.018 inch guidewire, the needle was exchanged for a peel-away sheath. A PICC line catheter was placed through the peel-away sheath and manipulated into the superior vena cava using fluoroscopic guidance. The catheter is 38 cm in length. The peel-away sheath was removed and the catheter was flushed and then sutured to the skin using 2 separate 3-0 silk sutures. The patient tolerated the procedure well and without complications. Post procedure chest x-ray was taken to confirm placement/position. Procedure Note Jacinto Howell DO - 07/05/2025 CLINICAL HISTORY: 70-year-old male presents for IV access/antibiotictherapy. FINDINGS: After explaining the procedure to the patient along with therisks and complications, an informed consent was obtained. Following written informed consent the patient was placed in the supineposition in the fluoroscopic suite and the right arm was prepped anddraped in the usual sterile fashion. Under sonographic guidance anterior wall puncture of the target vein wasperformed with a micropuncture needle. Following the insertion of a 0.018inch guidewire, the needle was exchanged for a peel-away sheath. A PICCline catheter was placed through the peel-away sheath and manipulated intothe superior vena cava using fluoroscopic guidance. The catheter is 38 cmin length. The peel-away sheath was removed and the catheter was flushedand then sutured to the skin using 2 separate 3-0 silk sutures. Thepatient tolerated the procedure well and without complications. Post procedure chest x-ray was taken to confirm placement/position. IMPRESSION SUCCESSFUL PICC LINE CATHETER PLACEMENT. Anna CUMMINGS IMG IR ORDER KATHY * X-ray Knee 1 or 2 View Right (07/05/2025 8:52 AM CDT) Anatomical Region Laterality Modality Knee Right Radiographic Janna ging 07/05/2025 10:4 7 AM CDT Impressions 07/05/2025 10:48 AM CDT Degenerative changes with no significant acute abnormalities. Narrative 07/05/2025 10:48 AM CDT CLINICAL HISTORY:70-year-old male with right knee pain and swelling. FINDINGS:Multiple views of right knee: There is mild diffuse right knee osteoarthritis with no suspicious osseous lesions or fractures. There is anterior located distal right thigh subcutaneous small metallic foreign body. Procedure Note Jacinto Howell DO - 07/05/2025 CLINICAL HISTORY:70-year-old male with right knee pain and swelling. FINDINGS:Multiple views of right knee: There is mild diffuse right knee osteoarthritis with no suspicious osseouslesions or fractures. There is anterior located distal right thighsubcutaneous small metallic foreign body. IMPRESSION Degenerative changes with no significant acute abnormalities. Eduardo Manuel MD IMG DIAGNOSTIC JANNA GING ORDERABLES * (ABNORMAL) Lactic acid, plasma (07/05/2025 8:43 AM CDT) Lactic Acid 3.81(HH) 0 - 2 mmol/L 07/05/2025 8:54 AM CDT [facility] Blood Venipuncture / Unknown 07/05/2025 8:43 AM CDT 07/05/2025 8:43 AM CDT Bakari Kline MD LAB BLOOD ORDERABLES [facility] [address] [place] [phone] * ECG 12 Lead (07/05/2025 5:48 AM CDT) 07/05/2025 5:4 8 AM CDT Impressions ECS - 07/05/2025 5:48 AM CDT Test Date: 2025-07-05 Test Time: 05:48:07 Pat Name: LEXI LOREDO Department: [facility] Room: [place] [address] Gender: M Candy Separator Enrobing: : 1955 Requested By: BAKARI KLINE Order Number: [id number] Reading MD: JONO HIGGINBOTHAM Measurements Intervals [place] Rate: 88 P: 62 IA: 176 QRS: 56 QRSD: 92 T: 59 QT: 352 QTc: 426 Interpretive Statements Sinus rhythm Probable anterolateral infarct, acute Minimal ST elevation, inferior leads Baseline wander in lead(s) V1,V2,V3,V4,V5,V6 Electronically Signed On 07-05-2025 11:29:13 CDT by JONO HIGGINBOTHAM Bakari Kline MD ECG ORDERABLES Performing Organization Address City/[facility]/ZIP Co de Phone Number ECS * (ABNORMAL) Hemoglobin A1c (07/05/2025 5:03 AM CDT) Hgb A1c 6.4(H) 4.0 - 5.6 % 07/05/2025 6:30 AM CDT [facility] Blood Venipuncture / Unknown 07/05/2025 5:03 AM CDT 07/05/2025 5:03 AM CDT Bakari Kline MD LAB BLOOD ORDERABLES Performing Organization Address City/[facility]/ZIP Co de Phone Number [facility] [address] [place] [phone] * (ABNORMAL) Lactic Acid w/ Reflex (07/05/2025 5:03 AM CDT) Lactic Acid 4.24(HH) 0 - 2 mmol/L 07/05/2025 5:26 AM CDT [facility] Blood Venipuncture / Unknown 07/05/2025 5:03 AM CDT 07/05/2025 5:10 AM CDT Bakari Kline MD LAB BLOOD ORDERABLES Performing Organization Address [facility] de Phone Number [facility] [address] [place] [phone] * (ABNORMAL) Calcium Ionized,Routine (07/05/2025 5:03 AM CDT) Calcium, Ion 3.9(L) 4.6 - 5.3 mg/dL 07/05/2025 5:23 AM CDT [facility] Blood Venipuncture / Unknown 07/05/2025 5:03 AM CDT 07/05/2025 5:10 AM CDT Bakari Kline MD LAB BLOOD ORDERABLES Performing Organization Address [facility] Co de Phone Number [facility] [address] [place] [phone] * (ABNORMAL) CBC, No Diff (Hemogram) (07/05/2025 5:03 AM CDT) WBC 15.71(H) 3.50 - 10.50 10*3/uL 07/05/2025 5:37 AM CDT [facility] RBC 3.90(L) 4.32 - 5.72 10*6/uL 07/05/2025 5:37 AM T [facility] Hemoglobin 11.4(L) 13.5 - 17.5 g/dL 07/05/2025 5:37 AM T [facility] Hematocrit 36.0(L) 38.8 - 50.0 % 07/05/2025 5:37 AM T [facility] MCV 92.3 81.2 - 95.1 fL 07/05/2025 5:37 AM T [facility] MCH 29.2 27.5 - 33.2 pg 07/05/2025 5:37 AM T [facility] MCHC 31.7(L) 33.4 - 35.5 g/dL 07/05/2025 5:37 AM T [facility] RDW 12.5 11.8 - 15.6 % 07/05/2025 5:37 AM [facility] Platelets 223 150 - 450 10*3/uL 07/05/2025 5:37 AM T [facility] MPV 10.1 7.4 - 11.0 fL 07/05/2025 5:37 AM T [facility] Blood Venipuncture / Unknown 07/05/2025 5:03 AM CDT 07/05/2025 5:03 AM CDT Ibrahima Good IV, MD LAB BLOOD ORDERABLES [facility] [address] [place] [phone] * (ABNORMAL) Osmolality (07/05/2025 4:59 AM CDT) SERUM OSMO 274(L) 278 - 305 mOsm/kg 07/05/2025 6:22 AM CDT [facility] Blood Venipuncture / Unknown 07/05/2025 4:59 AM CDT 07/05/2025 6:20 AM CDT Bakari Kline MD LAB BLOOD ORDERABLES [facility] [address] [id number] * (ABNORMAL) Phosphorus (07/05/2025 4:59 AM CDT) Pathologist [facility] Phosphorus 6.1(H) 2.1 - 4.3 mg/dL 07/05/2025 5:21 AM CDT [facility] Blood Venipuncture / Unknown 07/05/2025 4:59 AM CDT 07/05/2025 4:59 AM CDT Bakari Kline MD LAB BLOOD ORDERABLES Performing Organization Address City/[facility]/ZIP Co de Phone Number [facility] [address] [phone] * Troponin (07/05/2025 4:59 AM CDT) [facility] HS Troponin I 54 <76 ng/L 07/05/2025 5:40 AM CDT [facility] HS Troponin I % Change 575 % 07/05/2025 5:40 AM CDT [facility] HS Troponin I ABS Change 46 07/05/2025 5:40 AM CDT [facility] Blood Venipuncture / Unknown 07/05/2025 4:59 AM CDT 07/05/2025 4:59 AM CDT Narrative [facility] - 07/05/2025 5:40 AM CDT High-sensitivity Troponin I (hsTnI) assay can reliably detect low troponin concentrations relative to conventional troponin assays. It is the preferred marker of myocardial necrosis as recommended by the Fourth [place] Definition of Myocardial Infarction Guidelines. The diagnosis of acute myocardial infarction (AMI) is made based on a rise or fall of troponin with at least one measurement exceeding the laboratory's upper limit of normal(indicating myocardial injury), in the context of reasonable suspicion for coronary ischemia (e.g. typical symptoms, changes on ECG, evidence for loss of myocardial function or demonstration of obstructive coronary artery disease). NOTE: Although abnormal hsTnI values reflect INJURY to myocardial cells, an elevated hsTnI does not indicate the CAUSE of injury (i.e. ischemia versus non-ischemic disease). In some cases, myocardial injury is chronic and relatively stable such that hsTnI values remain elevated but do not change substantially over hours to days (examples include chronic kidney disease, heart failure or advanced patient age). When determining whether there has been a significant rise or fall of troponin on serial sampling, absolute change in troponin concentration has greater diagnostic accuracy for AMI than relative change criteria. A change of >7 ng/L over a 2- hour interval or a change of >10 ng/L over a 3-hour interval is suggested as a significant change. If the initial hsTnI is below or slightly above the 99th percentile upper reference limit, a 50% change from the baseline is considered significant. If the initial hsTnI is above the 99th percentile upper reference limit, a 20% change from the baseline value is considered significant. Bakari Kline MD LAB BLOOD ORDERABLES Performing Organization Address [facility] Co de Phone Number [facility] [address] [place] [phone] * Magnesium (07/05/2025 4:59 AM CDT) [facility] Magnesium 1.80 1.50 - 2.50 mg/dL 07/05/2025 5:21 AM CDT [facility] Blood Venipuncture / Unknown 07/05/2025 4:59 AM CDT 07/05/2025 4:59 AM CDT Ibrahima Good IV, MD LAB BLOOD ORDERABLES Performing Organization Address [facility]/ZIP Co de Phone Number [facility] [address] [place] [phone] * (ABNORMAL) Comprehensive Metabolic Panel (07/05/2025 4:59 AM CDT) [facility] Sodium 125(L) 136 - 145 mmol/L 07/05/2025 5:21 AM CDT [facility] Potassium 4.5 3.5 - 5.3 mmol/L 07/05/2025 5:21 AM [facility] Chloride 92(L) 98 - 110 mmol/L 07/05/2025 5:21 AM [facility] CO2 18.1(L) 20.0 - 31.0 mmol/L 07/05/2025 5:21 AM [facility] BUN 25.0(H) 6.0 - 24.0 mg/dL 07/05/2025 5:21 AM [facility] Creatinine 2.17(H) 0.60 - 1.20 mg/dL 07/05/2025 5:21 AM [facility] BUN/Creatinine Ratio 11.5 10.0 - 20.0 07/05/2025 5:21 AM [facility] Glucose 145(H) 70 - 140 mg/dL 07/05/2025 5:21 AM [facility] Calcium 8.6 8.6 - 10.4 mg/dL 07/05/2025 5:21 AM [facility] AST 26 10 - 36 U/L 07/05/2025 5:21 AM [facility] ALT 16 9 - 46 U/L 07/05/2025 5:21 AM [facility] Alkaline Phosphatase 91 40 - 115 U/L 07/05/2025 5:21 AM [facility] Total Protein 6.2(L) 6.4 - 8.4 g/dL 07/05/2025 5:21 AM [facility] Albumin 2.5(L) 3.6 - 5.1 g/dL 07/05/2025 5:21 AM [facility] Total Bilirubin 2.0(H) 0.2 - 1.2 mg/dL 07/05/2025 5:21 AM [facility] Glomerular Filtration Rate 31.6(L) >90.0 mL/min/1.7 3m*2 07/05/2025 5:21 AM [facility] A/G Ratio 0.7(L) 0.8 - 2.0 07/05/2025 5:21 AM [facility] Anion Gap 14.9 6 - 19 mmol/L 07/05/2025 5:21 AM CDT [facility] Blood Venipuncture / Unknown 07/05/2025 4:59 AM CDT 07/05/2025 4:59 AM CDT Ibrahima Good IV, MD LAB BLOOD ORDERABLES Performing Organization Address [facility] de Phone Number [facility] [address] [place] [phone] * POCT Glucose (07/04/2025 8:16 PM CDT) POC Glucose 102 70 - 110 mg/dL 07/04/2025 8:20 PM CDT [facility] Comment: Benoit Bishop Reference Range valid for Fasting Glucose Samples Blood 07/04/2025 8:1 6 PM CDT 07/04/2025 8:20 PM CDT Ibrahima Good IV, MD POINT OF CARE TEST O RDERABLES Performing Organization Address [facility] Co de Phone Number [facility] [address] [place] [phone] * ECG 12 Lead (07/04/2025 6:19 PM CDT) 07/04/2025 6:1 9 PM CDT Impressions ECS - 07/04/2025 6:19 PM CDT Test Date: 2025-07-04 Test Time: 18:19:54 Pat Name: LEXI LOREDO Department: [facility] Room: [place] [address] Gender: M Candy Separator Enrobing: : 1955 Requested By: NIXON GRIMES Order Number: [id number] Reading MD: JONO HIGGINBOTHAM Measurements Intervals [place] Rate: 97 P: 43 IA: 177 QRS: 28 QRSD: 96 T: 24 QT: 327 QTc: 416 Interpretive Statements Sinus rhythm Low voltage, extremity leads Borderline ST elevation, lateral leads Electronically Signed On 07-05-2025 11:28:15 CDT by JONO HIGGINBOTHAM Nixon Grimes STEWARD DISHWASHER ECG ORDERABLES [facility] * CT Abdomen Pelvis without Oral or IV Contrast (07/04/2025 5:14 PM CDT) Anatomical Region Laterality Modality Abdomen, Pelvis N/A Computed Tomogra phy 07/04/2025 5:2 3 PM CDT Impressions 07/04/2025 5:30 PM CDT Nonspecific right lower quadrant mesenteric inflammatory process having a nodular appearance as mentioned above. Suspect mild duodenal sweep duodenitis. Narrative 07/04/2025 5:30 PM CDT CLINICAL HISTORY:70-year-old male with generalized weakness. FINDINGS:CT scan of the abdomen and pelvis: The partially imaged lung bases shows minimal parenchymal scarring. In the partially imaged heart base there is minimal pericardial effusion. There is a nonspecific fluid-filled distended stomach. There is a punctate gallbladder stone. The remaining major intra-abdominal organs appear unremarkable. The visualized bowel appears unremarkable except for suspected possible mild duodenitis involving the second portion of the duodenal sweep. The appendix appears normal and there are small scattered mesenteric lymph nodes in there is a right lower quadrant 2.0 cm nodular lesion with surrounding inflammatory changes/mesenteric stranding with neighboring apparent tiny lymph nodes. This may represent an inflamed right lower quadrant lymph node but a carcinoid lesion cannot be completely excluded. Perhaps if necessary surgical evaluation may BE helpful. In the CT scan of the pelvis the bladder appear unremarkable so was the prostate and seminal vesicles. Reconstructed sagittal images of the lumbar spine show scattered degenerative changes. Procedure Note Jacinto Howell DO - 07/04/2025 CLINICAL HISTORY:70-year-old male with generalized weakness. FINDINGS:CT scan of the abdomen and pelvis: The partially imaged lung bases shows minimal parenchymal scarring. In the partially imaged heart base there is minimal pericardialeffusion. There is a nonspecific fluid-filled distended stomach. There is a punctate gallbladder stone. The remaining major intra-abdominal organs appear unremarkable. The visualized bowel appears unremarkable except for suspected possiblemild duodenitis involving the second portion of the duodenal sweep. The appendix appears normal and there are small scattered mesenteric lymphnodes in there is a right lower quadrant 2.0 cm nodular lesion withsurrounding inflammatory changes/mesenteric stranding with neighboringapparent tiny lymph nodes. This may represent an inflamed right lowerquadrant lymph node but a carcinoid lesion cannot be completely excluded.Perhaps if necessary surgical evaluation may BE helpful. In the CT scan of the pelvis the bladder appear unremarkable so was theprostate and seminal vesicles. Reconstructed sagittal images of the lumbar spine show scattereddegenerative changes. IMPRESSION Nonspecific right lower quadrant mesenteric inflammatory process having anodular appearance as mentioned above. Suspect mild duodenal sweep duodenitis. Ibrahima Good IV, MD IM CT ORDERABLES * Troponin (07/04/2025 4:50 PM CDT) HS Troponin I 8 <76 ng/L 07/04/2025 5:19 PM CDT [facility] HS Troponin I % Change 0 % 07/04/2025 5:19 PM CDT [facility] HS Troponin I ABS Change 0 07/04/2025 5:19 PM CDT [facility] Blood Venipuncture / Unknown 07/04/2025 4:50 PM CDT 07/04/2025 4:50 PM CDT Narrative [facility] - 07/04/2025 5:19 PM CDT High-sensitivity Troponin I (hsTnI) assay can reliably detect low troponin concentrations relative to conventional troponin assays. It is the preferred marker of myocardial necrosis as recommended by the Fourth [place] Definition of Myocardial Infarction Guidelines. The diagnosis of acute myocardial infarction (AMI) is made based on a rise or fall of troponin with at least one measurement exceeding the laboratory's upper limit of normal(indicating myocardial injury), in the context of reasonable suspicion for coronary ischemia (e.g. typical symptoms, changes on ECG, evidence for loss of myocardial function or demonstration of obstructive coronary artery disease). NOTE: Although abnormal hsTnI values reflect INJURY to myocardial cells, an elevated hsTnI does not indicate the CAUSE of injury (i.e. ischemia versus non-ischemic disease). In some cases, myocardial injury is chronic and relatively stable such that hsTnI values remain elevated but do not change substantially over hours to days (examples include chronic kidney disease, heart failure or advanced patient age). When determining whether there has been a significant rise or fall of troponin on serial sampling, absolute change in troponin concentration has greater diagnostic accuracy for AMI than relative change criteria. A change of >7 ng/L over a 2- hour interval or a change of >10 ng/L over a 3-hour interval is suggested as a significant change. If the initial hsTnI is below or slightly above the 99th percentile upper reference limit, a 50% change from the baseline is considered significant. If the initial hsTnI is above the 99th percentile upper reference limit, a 20% change from the baseline value is considered significant. Ibrahima Good IV, MD LAB BLOOD ORDERABLES [facility] [address] [id number] * X-ray Pelvis 1 View (07/04/2025 2:08 PM CDT) Anatomical Region Laterality Modality Pelvis N/A Radiographic Janna ging 07/04/2025 2:3 8 PM CDT Narrative 07/04/2025 2:39 PM CDT CLINICAL HISTORY:70-year-old male status post fall. FINDINGS:AP view of the pelvis: The osseous structures of the pelvis appear unremarkable and so does the hip joints with no significant surrounding acute abnormalities. Procedure Note Jacinto Howell DO - 07/04/2025 CLINICAL HISTORY:70-year-old male status post fall. FINDINGS:AP view of the pelvis: The osseous structures of the pelvis appear unremarkable and so does thehip joints with no significant surrounding acute abnormalities. Nixon Grimes NP IMG DIAGNOSTIC IMAGI NG ORDERABLES * X-ray Chest 1 View (07/04/2025 1:46 PM CDT) Anatomical Region Laterality Modality Chest N/A Radiographic Janna ging 07/04/2025 2:0 6 PM CDT Impressions 07/04/2025 2:08 PM CDT Suspect no significant acute cardiopulmonary disease. Narrative 07/04/2025 2:08 PM CDT CLINICAL HISTORY:70-year-old male with chest pain. FINDINGS: Single view of the chest: There is apparent cardiomegaly but this may be due to projectional magnification artifact in this AP view. The lungs are otherwise clear a possible left upper lobe calcified granuloma. This is projected over the clavicle and the left third rib and can also represent a benign bone island. There are no prior studies for comparison. Procedure Note Jacinto Howell DO - 07/04/2025 CLINICAL HISTORY:70-year-old male with chest pain. FINDINGS: Single view of the chest: There is apparent cardiomegaly but this may be due to projectionalmagnification artifact in this AP view. The lungs are otherwise clear apossible left upper lobe calcified granuloma. This is projected over theclavicle and the left third rib and can also represent a benign boneisland. There are no prior studies for comparison. IMPRESSION Suspect no significant acute cardiopulmonary disease. Nixon Grimes NP IMG DIAGNOSTIC IMAGI NG ORDERABLES * (ABNORMAL) BASIC METABOLIC PANEL (07/04/2025 1:31 PM CDT) Sodium 129(L) 136 - 145 mmol/L 07/04/2025 1:47 PM [facility] Potassium 4.0 3.5 - 5.3 mmol/L 07/04/2025 1:47 PM [facility] Chloride 94(L) 98 - 110 mmol/L 07/04/2025 1:47 PM [facility] CO2 27.5 20.0 - 31.0 mmol/L 07/04/2025 1:47 PM [facility] BUN 21.0 6.0 - 24.0 mg/dL 07/04/2025 1:47 PM [facility] Creatinine 1.18 0.60 - 1.20 mg/dL 07/04/2025 1:47 PM [facility] Glucose 92 70 - 140 mg/dL 07/04/2025 1:47 PM [facility] Calcium 8.9 8.6 - 10.4 mg/dL 07/04/2025 1:47 PM [facility] Glomerular Filtration Rate 65.6(L) >90.0 mL/min/1.7 3m*2 07/04/2025 1:47 PM CDT [facility] Anion Gap 7.5 6 - 19 mmol/L 07/04/2025 1:47 PM T [facility] Blood Venipuncture / Unknown 07/04/2025 1:31 PM CDT 07/04/2025 1:31 PM CDT Nixon Grimes NP LAB BLOOD ORDERABLES [facility] [address] [phone] * (ABNORMAL) CBC w/ Differential (07/04/2025 1:31 PM CDT) WBC 10.79(H) 3.50 - 10.50 10*3/uL 07/04/2025 1:43 PM T [facility] RBC 4.06(L) 4.32 - 5.72 10*6/uL 07/04/2025 1:43 PM [facility] Hemoglobin 11.9(L) 13.5 - 17.5 g/dL 07/04/2025 1:43 PM [facility] Hematocrit 35.6(L) 38.8 - 50.0 % 07/04/2025 1:43 PM [facility] MCV 87.7 81.2 - 95.1 fL 07/04/2025 1:43 PM [facility] MCH 29.3 27.5 - 33.2 pg 07/04/2025 1:43 PM [facility] MCHC 33.4 33.4 - 35.5 g/dL 07/04/2025 1:43 PM [facility] RDW 11.8 11.8 - 15.6 % 07/04/2025 1:43 PM [facility] Platelets 205 150 - 450 10*3/uL 07/04/2025 1:43 PM [facility] MPV 9.2 7.4 - 11.0 fL 07/04/2025 1:43 PM [facility] NRBC 0.0 0.0 - 1.0 /100 WBCs 07/04/2025 1:43 PM CDT [facility] Neutrophils (Relative) 48.7 % 07/04/2025 1:43 PM CDT [facility] Lymphocytes (Relative) 21.5 % 07/04/2025 1:43 PM CDT [facility] Monocytes (Relative) 18.2 % 07/04/2025 1:43 PM CDT [facility] Eosinophils (Relative) 10.4 % 07/04/2025 1:43 PM CDT [facility] Basophils (Relative) 1.0 % 07/04/2025 1:43 PM CDT [facility] Neutrophils (Absolute) 5.3 1.7 - 7.0 10*3/uL 07/04/2025 1:43 PM CDT [facility] Lymphocytes (Absolute) 2.3 0.9 - 2.9 10*3/uL 07/04/2025 1:43 PM CDT [facility] Monocytes (Absolute) 2.0(H) 0.3 - 0.9 10*3/uL 07/04/2025 1:43 PM CDT [facility] Eosinophils (Absolute) 1.1(H) 0.0 - 0.5 10*3/uL 07/04/2025 1:43 PM CDT [facility] Basophils (Absolute) 0.1 0.0 - 0.2 10*3/uL 07/04/2025 1:43 PM T [facility] Blood Venipuncture / Unknown 07/04/2025 1:31 PM CDT 07/04/2025 1:31 PM CDT Nixon Grimes NP LAB BLOOD ORDERABLES [facility] [address] [place] [id number] * Troponin I (07/04/2025 1:31 PM CDT) HS Troponin I 8 <76 ng/L 07/04/2025 1:57 PM CDT [facility] Blood Venipuncture / Unknown 07/04/2025 1:31 PM CDT 07/04/2025 1:31 PM CDT Narrative [facility] - 07/04/2025 1:57 PM CDT High-sensitivity Troponin I (hsTnI) assay can reliably detect low troponin concentrations relative to conventional troponin assays. It is the preferred marker of myocardial necrosis as recommended by the Fourth [place] Definition of Myocardial Infarction Guidelines. The diagnosis of acute myocardial infarction (AMI) is made based on a rise or fall of troponin with at least one measurement exceeding the laboratory's upper limit of normal(indicating myocardial injury), in the context of reasonable suspicion for coronary ischemia (e.g. typical symptoms, changes on ECG, evidence for loss of myocardial function or demonstration of obstructive coronary artery disease). NOTE: Although abnormal hsTnI values reflect INJURY to myocardial cells, an elevated hsTnI does not indicate the CAUSE of injury (i.e. ischemia versus non-ischemic disease). In some cases, myocardial injury is chronic and relatively stable such that hsTnI values remain elevated but do not change substantially over hours to days (examples include chronic kidney disease, heart failure or advanced patient age). When determining whether there has been a significant rise or fall of troponin on serial sampling, absolute change in troponin concentration has greater diagnostic accuracy for AMI than relative change criteria. A change of >7 ng/L over a 2- hour interval or a change of >10 ng/L over a 3-hour interval is suggested as a significant change. If the initial hsTnI is below or slightly above the 99th percentile upper reference limit, a 50% change from the baseline is considered significant. If the initial hsTnI is above the 99th percentile upper reference limit, a 20% change from the baseline value is considered significant. Nixon Grimes NP LAB BLOOD ORDERABLES [facility] [address] [id number] * ECG 12 Lead (07/04/2025 1:02 PM CDT) 07/04/2025 1:0 2 PM CDT Impressions ECS - 07/04/2025 1:02 PM CDT ED Test Date: 2025-07-04 Test Time: 13:02:29 Pat Name: LEXI LOREDO Department[place] [facility] [place]: [place] [address] Gender: M Candy Separator Enrobing: : 1955 Requested By: NIXON GRIMES Order Number: [id number] Reading MD: JUNITO DALEY Measurements Intervals [place] Rate: 82 P: 26 IA: 203 QRS: -2 QRSD: 106 T: 38 QT: 357 QTc: 417 Interpretive Statements Sinus rhythm Anteroseptal infarct, age indeterminate Borderline ST elevation, lateral leads Estimated ND size: 18% Electronically Signed On 07-07-2025 9:43:16 CDT by JUNITO DALEY Nixon Grimes [employer] ECG ORDERABLES ECS documented in this encounter Visit Diagnoses Diagnosis Hyponatremia- Primary Hyposmolality and/or hyponatremia Hyponatremia Hyposmolality and/or hyponatremia Hypochloremia Electrolyte and fluid disorders not elsewhere classified Dehydration Failure to thrive in adult Adult failure to thrive History of immunotherapy Acute hyponatremia Hyposmolality and/or hyponatremia documented in this encounter Administered Medications Inactive Administered Medications - up to 3 most recent administrations Medication Order MAR Action Action Date Dose Rate Site atorvastatin (LIPITOR) tablet 40 mg 40 mg, Oral, At bedtime, First dose on Linda 07/04/25 at 2100 Given 07/04/2025 10:24 PM CDT 40 mg calcium gluconate 2 g in sodium chloride (NS) 0.9 % 100 mL IVPB 2 g, Intravenous, at 100 mL/hr, Once, On Tue07/05/25 at 0715, For 1 dose, CENTRAL LINE preferred for administration New Bag 07/05/2025 11:03 AM CDT 2 g 100 mL/hr dextrose (D10W) 10% bolus 250 mL 250 mL, Intravenous, Administer over 15 Minutes, Every 15 minutes as needed, Severe Hypoglycemia (BG <50 OR any of the following: confusion, loss of consciousness, seizures) or if NPO, Starting on Linda 07/04/25 at 1637, Give if D50% is unavailable. Administer additional 250mL of D10% if blood glucose remains less than 50 mg/dL or if severe symptoms persist. If repeat BG is 50 - 70 mg/dL and patient has mild to moderate symptoms and can tolerate PO, follow mild to moderate hypoglycemia management order. dextrose 50 % solution 50 mL 50 mL, Intravenous, Every 15 minutes as needed, Severe Hypoglycemia (BG <50 OR any of the following: confusion, loss of consciousness, seizures) or if NPO, Starting on Linda 07/04/25 at 1637, Administer additional 50mL of D50% if blood glucose remains less than 50 mg/dL or if severe symptoms persist. If repeat BG is 50 - 70 mg/dL and patient has mild to moderate symptoms and can tolerate PO, follow mild to moderate hypoglycemia management order. diclofenac sodium (VOLTAREN) 1 % gel Topical, 4 times daily, First dose on Linda 07/04/25 at 1745, Apply to midsternum at point of tenderness Given 07/05/2025 4:31 PM CDT Given 07/05/2025 1:02 PM CDT Given 07/05/2025 9:00 AM CDT docusate sodium (COLACE) tablet/capsule 100 mg 100 mg, Oral, 2 times daily, First dose on Linda 07/04/25 at 2100 Given 07/05/2025 11:02 AM CDT 100 mg Given 07/04/2025 10:26 PM CDT 100 mg enoxaparin (LOVENOX) syringe 40 mg 40 mg, Subcutaneous, Every 24 hours scheduled, First dose on Linda 07/04/25 at 1645, Administer by deep subcutaneous injection. Inject into the left or right anterolateral or posterolateral abdominal wall. * * * BLACK BOX WARNING * * * SPINAL/EPIDURAL HEMATOMAS MAY RESULT AFTER NEURAXIAL ANESTHESIA (EPIDURAL/SPINAL ANESTHESIA) OR SPINAL PUNCTURE I, Indication: DVT Prophylaxis Given 07/05/2025 11:02 AM CDT 40 mg ABDOMEN (EXCLUDING 2INCH AREA AROUND UMBILICUS) famotidine (PEPCID) injection 20 mg 20 mg, Intravenous, Once, On Linda 07/04/25 at 1545, For 1 dose, Dilute 2 mL of famotidine 10 mg/mL solution with NS or other compatible solution to a total volume of 5 or 10 mL. Administer over at least 2 minutes., Indication: Gastric Ulcer Given 07/04/2025 3:42 PM CDT 20 mg glucagon (rDNA) injection 1 mg 1 mg, Intramuscular, Daily as needed, Severe Hypoglycemia (BG <50 OR any of the following: confusion, loss of consciousness, seizures) or if NPO, Starting on Linda 07/04/25 at 1637, If no IV access. lactated Ringer's infusion 100 mL/hr, Intravenous, Continuous, Starting on Linda 07/04/25 at 1645 New Bag 07/04/2025 4:52 PM CDT 100 mL/hr 100 mL/hr methylPREDNISolone Na Suc (PF) (SOLU-Medrol) injection 60 mg 60 mg, Intravenous, Daily, First dose on Tue07/05/25 at 1200, Administer over at least 2 minutes followed by a 10 mL 0.9% sodium chloride flush following the same rate. Given 07/05/2025 12:56 PM CDT 60 mg midodrine (PROAMATINE) tablet 20 mg 20 mg, Oral, 3 times daily as needed, hypotension, Starting on Linda 07/04/25 at 2216, For 3 doses, * * * BLACK BOX WARNING * * * CONTRAINDICATED IN PATIENTS WITH SEVERE ORGANIC CARDIAC DISEASE OR/AND EXCESSIVE SUPINE HYPERTENSION. Given 07/04/2025 10:24 PM CDT 20 mg multivitamin tablet 1 tablet 1 tablet, Oral, Daily, First dose on Tue07/06/25 at 0900 norepinephrine (LEVOPHED) 8 mg in 0.9% sodium chloride 250 mL (PREMIX) 0.01-1 mcg/kg/min 88.2 kg (1.6538-165.375 mL/hr, rounded to 1.7-165.4 mL/hr), Intravenous, Continuous, Starting on Tue07/05/25 at 0145, Initiate norepinephrine infusion at 0.1 mcg/kg/min. Titrate by 0.03 mcg/kg/min every 5 minutes to maintain MAP above 65 mmHg. Dose range: 0.01 1 mcg/kg/min. Maximum dose 1 mcg/kg/min. * * * BLACK BOX WARNING * * * MAY CAUSE SEVERE EXTRAVASATION Rate/Dose Change 07/05/2025 5:00 PM CDT 0.33 mcg/kg/min 54.6 mL/hr Right Arm New Bag 07/05/2025 4:28 PM CDT 0.36 mcg/kg/min 59.5 mL /hr Rate/Dose Change 07/05/2025 4:00 PM CDT 0.36 mcg/kg/min 5 9.5 mL/hr Right Arm ondansetron (ZOFRAN) injection 4 mg 4 mg, Intravenous, Every 4 hours as needed, nausea, vomiting, Starting on Tue07/04/25 at 1637, If patient is NPO or unable to tolerate PO Given 07/05/2025 9:00 AM CDT 4 mg Given 07/04/2025 6:53 PM CDT 4 mg pantoprazole (PROTONIX) injection 40 mg 40 mg, Intravenous, Before breakfast, First dose on Tue07/05/25 at 1215, Reconstitute 1 vial (40 mg) with 10 mL of NS injection to give a final concentration of approximately 4 mg/mL; administer over at least 2 minutes followed by a 10 mL 0.9% sodium chloride flush following the same rate., Indication: Stress Ulcer Prophylaxis Given 07/05/2025 12:56 PM CDT 40 mg piperacillin-tazobactam (ZOSYN) 3.375 g in sodium chloride (NS) 0.9 % 100 mL IVPB ADD-EASE 3.375 g, Intravenous, Once, On Tue07/04/25 at 1745, For 1 dose, STANDARD INFUSION - administer over 30 minutes, Indication: Intra-Abdominal Infection New Bag 07/04/2025 6:10 PM CDT 3.375 g piperacillin-tazobactam (ZOSYN) 3.375 g in sodium chloride (NS) 0.9 % 100 mL IVPB ADD-EASE 3.375 g, Intravenous, at 25 mL/hr, Every 8 hours, First dose on Tue07/04/25 at 2300, For 7 days, EXTENDED INFUSION - administer over 4 hours, Indication: Intra-Abdominal Infection New Bag 07/05/2025 6:02 AM CDT 3.375 g 25 mL/hr Left Arm New Bag 07/04/2025 10:31 PM CDT 3.375 g 25 mL/hr senna (SENOKOT) tablet 8.6 mg 8.6 mg (1 tablet), Oral, 2 times daily, First dose on Tue07/04/25 at 2100 Given 07/05/2025 11:02 AM CDT 8.6 mg Given 07/04/2025 10:26 PM CDT 8.6 mg sodium chloride 0.9% (NS) infusion 125 mL/hr, Intravenous, Continuous, Starting on Linda 07/04/25 at 1530, Indication for use: Dehydration New Bag 07/04/2025 3:40 PM CDT 125 mL/hr 125 mL/hr sodium chloride 0.9% (NS) infusion 125 mL/hr, Intravenous, Continuous, Starting on Linda 07/04/25 at 2030 New Bag 07/05/2025 7:52 AM CDT 125 mL/hr 125 mL/hr New Bag 07/05/2025 1:16 AM CDT 125 mL/hr 125 mL/hr New Bag 07/04/2025 10:29 PM CDT 125 mL/hr 125 mL/hr sodium chloride 0.9% 1,000 mL bolus 1,000 mL, Intravenous, Once, On Tue07/05/25 at 1200, For 1 dose, Reason for less than 30mL/kg bolus: Other New Bag 07/05/2025 12:50 PM CDT 1,000 mL 500 mL/hr sodium chloride 0.9% 500 mL bolus 500 mL, Intravenous, Administer over 30 Minutes, Once, On [facility] 07/04/25 at 1330, For 1 dose, Indication for use: Dehydration New Bag 07/04/2025 1:24 PM CDT 500 mL 1000 mL/hr sodium chloride 0.9% 500 mL bolus 500 mL, Intravenous, Administer over 30 Minutes, Once, On [facility] 07/04/25 at 1415, For 1 dose, Indication for use: Dehydration New Bag 07/04/2025 2:14 PM CDT 500 mL 1000 mL/hr sodium chloride 0.9% 500 mL bolus 500 mL, Intravenous, Administer over 60 Minutes, Once, On [facility] 07/04/25 at 2030, For 1 dose New 07/04/2025 8:23 PM CDT 500 mL 500 mL/hr sodium chloride tablet 1 g 1 g, Oral, 3 times daily with meals, First dose on Tue07/05/25 at 1200 Given 07/05/2025 12:57 PM CDT 1 g thiamine (VITAMIN B1) tablet 200 mg 200 mg, Oral, Daily, First dose on Tue07/06/25 at 0900, For 1 dose vasopressin (PITRESSIN) 20 Units in sodium chloride (NS) 0.9 % 100 mL infusion 0.01-0.03 Units/min (3-9 mL/hr), Intravenous, Continuous, Starting on Tue07/05/25 at 0430, Initiate vasopressin infusion at 0.03 units/min. Do not titrate above 0.03 units/min. Titrate to keep SBP above 90 mmHg Decrease if needed by 0.01 units/min every 30 minutes if MAP tolerates. Maximum dose: 0.03 units/minute New Bag 07/05/2025 2:16 PM CDT 0.03 Units/min 9 mL/hr New Bag 07/05/2025 4:31 AM CDT 0.03 Units/min 9 mL/hr Right Arm documented in this encounter Active and Recently Administered Medications Times are shown in CDT. Scheduled Medication Order 07/03/2025 07/04/2025 07/05/2025 atorvastatin (LIPITOR) tablet 40 mg 40 mg, Oral, At bedtime, First dose on Tue07/04/25 at 2100 2224 (Given - Provider: Benoit Bishop, BALWINDER) calcium gluconate 2 g in sodium chloride (NS) 0.9 % 100 mL IVPB (COMPLETED) 2 g, Intravenous, at 100 mL/hr, Once, On Tue07/05/25 at 0715, For 1 dose, CENTRAL LINE preferred for administration 1103 (New Bag - Provider: Ashwini Galeana, BALWINDER) diclofenac sodium (VOLTAREN) 1 % gel Topical, 4 times daily, First dose on Tue07/04/25 at 1745, Apply to midsternum at point of tenderness 1856 (Not Given - Provider: Al Gonzalez RN - Reason: Medication not available)2305 (Given - Provider: Benoit Bishop RN) 0900 (Given - Provider: Ashwini Galeana, BALWINDER)1302 (Given - Provider: Ashwini Galeana, BALWINDER)1631 (Given - Provider: Ashwini Galeana, RN) docusate sodium (COLACE) tablet/capsule 100 mg 100 mg, Oral, 2 times daily, First dose on Tue07/04/25 at 2100 2226 (Given - Provider: Benoit Bishop, BALWINDER) 1102 (Given - Provider: Ashwini Galeana, BALWINDER) enoxaparin (LOVENOX) syringe 40 mg (CANCELED) 40 mg, Subcutaneous, Every 24 hours scheduled, First dose on Tue07/04/25 at 1645, Administer by deep subcutaneous injection. Inject into the left or right anterolateral or posterolateral abdominal wall. * * * BLACK BOX WARNING * * * SPINAL/EPIDURAL HEMATOMAS MAY RESULT AFTER NEURAXIAL ANESTHESIA (EPIDURAL/SPINAL ANESTHESIA) OR SPINAL PUNCTURE I, Indication: DVT Prophylaxis 1654 (Not Given - Provider: Hu Foster RN - Reason: Patient/family refused) 1102 (Given - Provider: Ashwini Galeana RN) famotidine (PEPCID) injection 20 mg (COMPLETED) 20 mg, Intravenous, Once, On Linda 07/04/25 at 1545, For 1 dose, Dilute 2 mL of famotidine 10 mg/mL solution with NS or other compatible solution to a total volume of 5 or 10 mL. Administer over at least 2 minutes., Indication: Gastric Ulcer 1542 (Given - Provider: Jerri Singh RN) insulin lispro (humaLOG/admeLOG) injection sliding scale 1-6 Units (Low) 1-6 Units (Low), Subcutaneous, 3 times daily with meals and once at bedtime, First dose on [facility] 07/04/25 at 1800, Initiate if blood glucose is greater than 150 Follow hypoglycemia protocol if blood glucose is less than 70. If patient is NPO or on continuous feedings, change the frequency to q6h use the Daytime sliding scale Blood Glucose Supplemental Insulin Dose: Daytime 150 OR LESS 0 units 151 - 200 1 units 201 -250 2 units 251 -300 3 units 301 - 350 4 units 351 - 400 5 units GREATER THAN 400 6 units and call provider Bedtime insulin only to be administered if included in the order frequency Blood Glucose Supplemental Insulin Dose: Bedtime 150 OR LESS 0 units 151 - 200 0 units 201 -250 1 units 251 -300 2 units 301 - 350 3 units 351 - 400 4 units GREATER THAN 400 5 units and call provider 1715 (Hold - Provider: Hu Foster RN - Reason: Other (Specify reason in Hold Comments) - Comment: No meal intake at this time. Nursing judgement hold)2022 (Not Given - Provider: Benoit Bishop RN - Reason: Order parameters not met - Comment: latest BS = 102) 0748 (Not Given - Provider: Ashwini Galeana RN - Reason: Order parameters not met - Comment: bg 139)1119 (Not Given - Provider: Ashwini Galeana RN - Reason: Order parameters not met - Comment: pt not eating)1706 (Not Given - Provider: Ashwini Galeana RN - Reason: NPO) methylPREDNISolone Na Suc (PF) (SOLU-Medrol) injection 60 mg 60 mg, Intravenous, Daily, First dose on Tue07/05/25 at 1200, Administer over at least 2 minutes followed by a 10 mL 0.9% sodium chloride flush following the same rate. 1256 (Given - Provid er: Ashwini Galeana RN) multivitamin tablet 1 tablet 1 tablet, Oral, Daily, First dose on Tue07/06/25 at 0900 pantoprazole (PROTONIX) injection 40 mg 40 mg, Intravenous, Before breakfast, First dose on Tue07/05/25 at 1215, Reconstitute 1 vial (40 mg) with 10 mL of NS injection to give a final concentration of approximately 4 mg/mL; administer over at least 2 minutes followed by a 10 mL 0.9% sodium chloride flush following the same rate., Indication: Stress Ulcer Prophylaxis 1256 (Given - Provid er: Ashwini Galeana RN) piperacillin-tazobactam (ZOSYN) 3.375 g in sodium chloride (NS) 0.9 % 100 mL IVPB ADD-EASE (COMPLETED)(Linked Group 1) 3.375 g, Intravenous, Once, On Linda 07/04/25 at 1745, For 1 dose, STANDARD INFUSION - administer over 30 minutes, Indication: Intra-Abdominal Infection 181 (New Bag - Provider: Al Gonzalez RN) piperacillin-tazobactam (ZOSYN) 3.375 g in sodium chloride (NS) 0.9 % 100 mL IVPB ADD-EASE (CANCELED)(Linked Group 1) 3.375 g, Intravenous, at 25 mL/hr, Every 8 hours, First dose on Linda 07/04/25 at 2300, For 7 days, EXTENDED INFUSION - administer over 4 hours, Indication: Intra-Abdominal Infection 223 (New Bag - Provider: Benoit Bishop, BALWINDER) 0231 (Stopped - Provider: Cielo West, BALWINDER)0602 (New Bag - Provider: Cielo West RN) senna (SENOKOT) tablet 8.6 mg 8.6 mg (1 tablet), Oral, 2 times daily, First dose on Linda 07/04/25 at 2100 2226 (Given - Provider: Benoit Bishop, BALWINDER) 1102 (Given - Provider: Ashwini Galeana, BALWINDER) sodium chloride 0.9% 1,000 mL bolus (COMPLETED) 1,000 mL, Intravenous, Once, On Tue07/05/25 at 1200, For 1 dose, Reason for less than 30mL/kg bolus: Other 1250 (New Bag - Provider: Ashwini Galeana RN) sodium chloride 0.9% 500 mL bolus (COMPLETED) 500 mL, Intravenous, Administer over 30 Minutes, Once, On Linda 07/04/25 at 1330, For 1 dose, Indication for use: Dehydration 1324 (New Bag - Provider: Jerri Singh, BALWINDER)1412 (Stopped - Provider: Hu Foster, BALWINDER) sodium chloride 0.9% 500 mL bolus (COMPLETED) 500 mL, Intravenous, Administer over 30 Minutes, Once, On Linda 07/04/25 at 1415, For 1 dose, Indication for use: Dehydration 1414 (New Bag - Provider: Jerri Singh, BALWINDER)1516 (Stopped - Provider: Hu Foster, BALWINDER) sodium chloride 0.9% 500 mL bolus (COMPLETED) 500 mL, Intravenous, Administer over 60 Minutes, Once, On Linda 07/04/25 at 2030, For 1 dose 2022 (New Bag - Provider: Benoit Bishop, BALWINDER) sodium chloride tablet 1 g 1 g, Oral, 3 times daily with meals, First dose on Tue07/05/25 at 1200 1257 (Given - Provid er: Ashwini Galeana RN)1800 (Due) thiamine (VITAMIN B1) tablet 200 mg 200 mg, Oral, Daily, First dose on Tue07/06/25 at 0900, For 1 dose Continuous Medication Order 07/03/2025 07/04/2025 07/05/2025 lactated Ringer's infusion (CANCELED) 100 mL/hr, Intravenous, Continuous, Starting on Linda 07/04/25 at 1645 1652 (New Bag - Provider: Hu Foster RN) norepinephrine (LEVOPHED) 8 mg in 0.9% sodium chloride 250 mL (PREMIX) 0.01-1 mcg/kg/min 88.2 kg (1.6538-165.375 mL/hr, rounded to 1.7-165.4 mL/hr), Intravenous, Continuous, Starting on Tue07/05/25 at 0145, Initiate norepinephrine infusion at 0.1 mcg/kg/min. Titrate by 0.03 mcg/kg/min every 5 minutes to maintain MAP above 65 mmHg. Dose range: 0.01 1 mcg/kg/min. Maximum dose 1 mcg/kg/min. * * * BLACK BOX WARNING * * * MAY CAUSE SEVERE EXTRAVASATION 0145 (New Bag - Provider: Cielo West RN)0148 (Rate/Dose Change - Provider: Cielo West RN)0210 (Rate/Dose Change - Provider: Cielo West RN)0216 (Rate/Dose Change - Provider: Cielo West RN)0220 (Rate/Dose Change - Provider: Cielo West RN)0225 (Rate/Dose Change - Provider: Cielo West RN)0235 (Rate/Dose Change - Provider: Cielo West RN)0242 (Rate/Dose Change - Provider: Cielo West RN)0301 (Rate/Dose Change - Provider: Cielo West RN)0312 (Rate/Dose Change - Provider: Cielo West RN)0331 (Rate/Dose Change - Provider: Cielo West RN)0335 (Rate/Dose Change - Provider: Cielo West RN)0348 (Rate/Dose Change - Provider: Cielo West RN)0400 (Rate/Dose Change - Provider: Cielo West RN)0408 (Rate/Dose Change - Provider: Cielo West RN)0530 (New Bag - Provider: Cielo West RN)0532 (Rate/Dose Change - Provider: Cielo West RN)0744 (New Bag - Provider: Ashwini Galeana RN)1000 (New Bag - Provider: Ashwini Galeana RN - Comment: pulled in ER, patient was in IR for picc and unable to scan)1130 (Rate/Dose Change - Provider: Ashwini Galeana RN - Comment: changed back to dose running before IR)1312 (New Bag - Provider: Ashwini Galeana RN)1320 (Rate/Dose Change - Provider: Ashwini Galeana RN)1336 (Rate/Dose Change - Provider: Ashwini Galeana, BALWINDER)1400 (Rate/Dose Change - Provider: Ashwini Galeana, RN)1415 (Rate/Dose Change - Provider: Ashwini Galeana RN)1500 (Rate/Dose Change - Provider: Ashwini Galeana RN)1530 (Rate/Dose Change - Provider: Ashwini Galeana RN)1600 (Rate/Dose Change - Provider: Ashwini Galeana, BALWINDER)1628 (New Bag - Provider: Ashwini Galeana RN)1700 (Rate/Dose Change - Provider: Ashwini Galeana RN) sodium chloride 0.9% (NS) infusion (CANCELED) 125 mL/hr, Intravenous, Continuous, Starting on Tue07/04/25 at 1530, Indication for use: Dehydration 1540 (New Bag - Provider: Jerri Singh RN)1651 (Stopped - Provider: Hu Foster RN) sodium chloride 0.9% (NS) infusion (CANCELED) 125 mL/hr, Intravenous, Continuous, Starting on Tue07/04/25 at 2030 2229 (New Bag - Provider: Benoit Bishop, BALWINDER) 0116 (New Bag - Provider: Benoit Bishop, BALWINDER)0752 (New Bag - Provider: Ashwini Galeana, BALWINDER) vasopressin (PITRESSIN) 20 Units in sodium chloride (NS) 0.9 % 100 mL infusion 0.01-0.03 Units/min (3-9 mL/hr), Intravenous, Continuous, Starting on Tue07/05/25 at 0430, Initiate vasopressin infusion at 0.03 units/min. Do not titrate above 0.03 units/min. Titrate to keep SBP above 90 mmHg Decrease if needed by 0.01 units/min every 30 minutes if MAP tolerates. Maximum dose: 0.03 units/minute 0431 (New Bag - Provider: Cielo West RN)1416 (New Bag - Provider: Ashwini Galeana, BALWINDER) PRN Medication Order 07/03/2025 07/04/2025 07/05/2025 acetaminophen (TYLENOL) tablet 650 mg 650 mg, Oral, Every 4 hours as needed, mild pain (1-3), temp greater than 101 degrees Fahrenheit, Starting on Linda 07/04/25 at 1637, The max daily dose for patients less than 50 kg is 75 mg/kg/24 hours and for patients 50 kg or greater is 4000 mg/24 hours. Consider all source of Acetaminophen. dextrose (D10W) 10% bolus 250 mL(Linked Group 2) 250 mL, Intravenous, Administer over 15 Minutes, Every 15 minutes as needed, Severe Hypoglycemia (BG <50 OR any of the following: confusion, loss of consciousness, seizures) or if NPO, Starting on Linda 07/04/25 at 1637, Give if D50% is unavailable. Administer additional 250mL of D10% if blood glucose remains less than 50 mg/dL or if severe symptoms persist. If repeat BG is 50 - 70 mg/dL and patient has mild to moderate symptoms and can tolerate PO, follow mild to moderate hypoglycemia management order. dextrose 50 % solution 50 mL(Linked Group 2) 50 mL, Intravenous, Every 15 minutes as needed, Severe Hypoglycemia (BG <50 OR any of the following: confusion, loss of consciousness, seizures) or if NPO, Starting on Linda 07/04/25 at 1637, Administer additional 50mL of D50% if blood glucose remains less than 50 mg/dL or if severe symptoms persist. If repeat BG is 50 - 70 mg/dL and patient has mild to moderate symptoms and can tolerate PO, follow mild to moderate hypoglycemia management order. glucagon (rDNA) injection 1 mg(Linked Group 2) 1 mg, Intramuscular, Daily as needed, Severe Hypoglycemia (BG <50 OR any of the following: confusion, loss of consciousness, seizures) or if NPO, Starting on Linda 07/04/25 at 1637, If no IV access. glucose (GLUTOSE) 40 % oral gel 15 grams of glucose 15 grams of glucose, Oral, Every 15 minutes as needed, low blood sugar, Mild to Moderate hypoglycemia (BG 50 - 70 mg/dL with any of the following: shaking, sweating, anxiety, headache, visual changes, mood changes, drowsiness), Starting on Linda 07/04/25 at 1637, Notify physician if BG <70 and still symptomatic after 2 doses midodrine (PROAMATINE) tablet 20 mg 20 mg, Oral, 3 times daily as needed, hypotension, Starting on Linda 07/04/25 at 2216, For 3 doses, * * * BLACK BOX WARNING * * * CONTRAINDICATED IN PATIENTS WITH SEVERE ORGANIC CARDIAC DISEASE OR/AND EXCESSIVE SUPINE HYPERTENSION. 2224 (Given - Provider: Benoit Bishop, RN) ondansetron (ZOFRAN) injection 4 mg 4 mg, Intravenous, Every 4 hours as needed, nausea, vomiting, Starting on Linda 07/04/25 at 1637, If patient is NPO or unable to tolerate PO 1853 (Given - Provider: Al Gonzalez, RN) 0900 (Given - Provider: Tate Ascencio RN) Linked Groups Order Group 1: piperacillin-tazobactam (ZOSYN) 3.375 g in sodium chloride (NS) 0.9 % 100 mL IVPB ADD-EASE (COMPLETED)Jump to med 3.375 g, Intravenous, Once, On Linda 07/04/25 at 1745, For 1 dose, STANDARD INFUSION - administer over 30 minutes, Indication: Intra-Abdominal Infection Followed by piperacillin-tazobactam (ZOSYN) 3.375 g in sodium chloride (NS) 0.9 % 100 mL IVPB ADD-EASE (CANCELED)Jump to med 3.375 g, Intravenous, at 25 mL/hr, Every 8 hours, First dose on Linda 07/04/25 at 2300, For 7 days, EXTENDED INFUSION - administer over 4 hours, Indication: Intra- Abdominal Infection Group 2: dextrose 50 % solution 50 mLJump to med 50 mL, Intravenous, Every 15 minutes as needed, Severe Hypoglycemia (BG <50 OR any of the following: confusion, loss of consciousness, seizures) or if NPO, Starting on Linda 07/04/25 at 1637, Administer additional 50mL of D50% if blood glucose remains less than 50 mg/dL or if severe symptoms persist. If repeat BG is 50 - 70 mg/dL and patient has mild to moderate symptoms and can tolerate PO, follow mild to moderate hypoglycemia management order. Or dextrose (D10W) 10% bolus 250 mLJump to med 250 mL, Intravenous, Administer over 15 Minutes, Every 15 minutes as needed, Severe Hypoglycemia (BG <50 OR any of the following: confusion, loss of consciousness, seizures) or if NPO, Starting on Linda 07/04/25 at 1637, Give if D50% is unavailable. Administer additional 250mL of D10% if blood glucose remains less than 50 mg/dL or if severe symptoms persist. If repeat BG is 50 - 70 mg/dL and patient has mild to moderate symptoms and can tolerate PO, follow mild to moderate hypoglycemia management order. Or glucagon (rDNA) injection 1 mgJump to med 1 mg, Intramuscular, Daily as needed, Severe Hypoglycemia (BG <50 OR any of the following: confusion, loss of consciousness, seizures) or if NPO, Starting on Linda 07/04/25 at 1637, If no IV access. documented in this encounter Advance Directives * Full Code (Latest Code Status on File) Date Activated Date Inactivated Comments 07/04/2025 2:37 PM Care Teams [employer] Relationship Specialty Start Date End Date Lexi Lafleur MD [address] [place] [id number] PCP - General Internal Medicine 03/14/25 documented as of this encounter
--- NOTE | 2025-07-08 14:55 | CONS ---
CONSULT NOTE: teagan Chowdhury is 70 year old male that was seen and examined today on 07/05/25. Patient is a good historian of personal health patient was transfered from [facility] after being accepted by Dr. Jeff Weir. At [facility] patient was diagnosed with pericardial effusion with tamponade. Patient is also hypotensive and requiring vasopressor support. Patient has a history of hypertension, Diabetes mellitius type2, and melanoma with metastasis, most recently on Pembrolizumab (last dose 06/24/25). Who presented with a generalized weakness/fatigue, of five weeks' duration. The symptoms began in the setting of immune therapy, and over the last five weeks progressively worsened. The symptoms were constant, occurred on a daily basis, and were present throughout the day. The symptoms were exacerbated by physical activity and not alleviated by anything. The symptoms culminated in a mechanical fall, which occurred on 07/04/2025, and prompted the patient to come to the hospital for further evaluation and treatment. In the emergency department the patient was found to be hyponatremic, and with a lactic acid of 4.24. He was admitted to the floor and within 24 hours decompensated and went into shock, requiring ionotropic/chronotropic support with IV norepinephrine and vasopressin. He was subsequently transferred to the ICU and underwent an echocardiogram which identified a moderate size pericardial effusion measuring 1.1-1.5 cm, the mitral valve inspiratory variation of 40% and early diastolic collapse of the right ventricle and the late diastolic collapse of the right atrium and a dilated IVC. The findings confirmed the diagnosis of cardiac tamponade, causing obstructive shock. Cardiology was consulted for treatment recommendations regarding this issue. At the time of Cardiology evaluation the patient continued to complaint of generalized weakness/fatigue but denied any other active complaints including headache, dizziness, syncope, chest pain, chest pressure, palpitations, shortness of breath, abdominal pain or lower extremity swelling/edema. Patient was evaluated by cardiothoracic surgery status post pericardial window. It seems the patient is stable. Past Medical History ADDITIONAL PAST MEDICAL HISTORY: [Diabetes, hypertension, melanoma] SOCIAL HISTORY: [Negative for smoking, alcohol use, drug use. ] SURGICAL HISTORY: [IR PICC line placement] Review of Systems Review of Systems General: No Fever, No Chills, No Night Sweats, No Fatigue, No Malaise, No Appetite, No Other HEENT: No Head Aches, No Visual Changes, No Eye Pain, No Ear Pain, No Dysphasia, No Sinus Congestion, No Post Nasal Drip, No Sore Throat, No Other Pulmonary: No Dyspnea, No Cough, No Pleuritic Chest Pain, No Other Cardiovascular: Chest Pain; No: Palpitations, Orthopnea, Paroxysmal Noc. Dyspnea, Edema, Lt Headedness, Other Gastrointestinal: No: Nausea, Vomiting, Abdominal Pain, Diarrhea, Constipation, Melena, Hematochezia, Other Genitourinary: No Dysuria, No Frequency, No Incontinence, No Hematuria, No Retention, No Other Musculoskeletal: No: other, neck pain, shoulder pain, arm pain, back pain, hand pain, leg pain, foot pain Skin: No Urticaria, No Rash, No Other Neurological: No: Weakness, Numbness, Incoordination, Change in speech, Confusion, Seizures, Other Allergies: Coded Allergies: No Known Drug Allergies (Unverified Allergy, Unknown, 07/05/25) Scheduled Amlodipine Besylate (Amlodipine Besylate), 1 TAB PO DAILY, (Reported) Atorvastatin Calcium (Lipitor), 40 MG PO DAILY, (Reported) Empagliflozin (Jardiance), 1 TAB PO DAILY, (Reported) Olmesartan Medoxomil (Olmesartan Medoxomil), 40 MG PO DAILY, (Reported) Semaglutide (Rybelsus), 7 MG PO DAILY, (Reported) Scheduled PRN Ondansetron (Ondansetron Odt), 1 TAB PO Q8hprn PRN for NAUSEA/VOMITING, (Reported) Exam Exam General Appearance: Alert, Oriented X3, Cooperative, moderate distress, Other (Generally ill-appearing) HEENT: Atraumatic Respiratory: Other (Diminished air entry to bilateral lower lobes) Cardiovascular: Regular rate, Regular rhythm, Normal S1, Normal S2 Abdominal: Normal bowel sounds, Soft, No tenderness Extremities: No edema Skin: No significant lesion Neuro: Normal speech, Strength at 5/5 X4 ext, Sensation intact, Cranial nerves 3-12 NL Psych/Mental Status: Mental status NL, Mood NL, Thoughts/Content NL ASSESSMENT: [ History of melanoma with metastatic disease of the patient received Keytruda. Great job get infusion status post pericardial window by cardiothoracic surgery Obstructive shock, POA Hypotension, POA Cardiac tamponade, POA Diabetes mellitius type2 Hypertension] Plan 1. We will hold chemotherapy treatment on this patient at this time 2. Will need to follow-up with cytology. If the cytology showing metastatic disease this patient may be will need different treatment. There is a with cytology showing possible inflammatory this could be due to Keytruda and at that time maybe they should stop the treatment 3. It seems the patient looks stable. So this patient may be could be discharged to follow-up with his oncologist Dr. Mae in [facility]. 4. I have long discussion with the patient and family member regarding the plan of care. I answer all question and concern and I spent more than 35 minutes. There was 1 family member in the room. I answered all her question and concern LAB RESULTS 07/08/25 11:19: Whole Blood Glucose 74 07/08/25 03:21: White Blood Count 6.8#, Red Blood Count 3.60L, Hemoglobin 10.5L, Hematocrit 32.1L, Mean Corpuscular Volume 89.2, Mean Corpuscular Hemoglobin 29.2, Mean Corpuscular Hemoglobin Concent 32.7, Red Cell Distribution Width 12.5, Platelet Count 201, Mean Platelet Volume 9.4, Immature Granulocyte % (Auto) 0.3, Neutrophils (%) (Auto) 62.0, Lymphocytes (%) (Auto) 21.4, Monocytes (%) (Auto) 13.6H, Eosinophils (%) (Auto) 2.1, Basophils (%) (Auto) 0.6, Neutrophils # (Auto) 4.2, Lymphocytes # (Auto) 1.5, Monocytes # (Auto) 0.9, Eosinophils # (Auto) 0.14, Basophils # (Auto) 0.04, Absolute Immature Granulocyte (auto 0.02, Nucleated Red Blood Cells 0.0, Sodium Level 140, Potassium Level 3.5, Chloride Level 103, Carbon Dioxide Level 33H, Blood Urea Nitrogen 25H, Creatinine 0.6, Glomerular Filtration Rate Calc 103, Random Glucose 87, Total Calcium 8.7, Magnesium Level 1.70L, Total Bilirubin 0.7, Aspartate Amino Transf (AST/SGOT) 42H, Alanine Aminotransferase (ALT/SGPT) 48, Alkaline Phosphatase 68, Total Protein 5.9L, Albumin 2.0L LANCE ELI MD Jul 08, 2025 14:55
--- NOTE | 2025-07-08 15:49 | NUR ---
[facility] Consult: Patient assessed by wound healing team. Patient with low sam score with no wounds noted. Assessment and recommendations provided to primary nurse. Education provided. Addendum: 07/08/25 at 1551 by WONG NG RN RN/ Amended: Links added.
--- NOTE | 2025-07-08 18:53 | PN ---
[facility] PROGRESS NOTE Date of Service: Jul 08, 2025 Time of Service: 18:34 SUBJECTIVE: 07/06 70-year-old male, history of hypertension, diabetes mellitus type 2, and melanoma with metastases, most recently on Pembrolizumab (last dose 06/24/25), transferred from [facility] after the patient was found to have moderate size pericardial effusion with tamponade, measuring 1.1-1.5 cm, the mitral valve inspiratory variation of 40% and early diastolic collapse of the right ventricle and the late diastolic collapse of the right atrium and a dilated IVC. Patient hypotensive, requiring vasopressor support. Consultation with Cardiology and Cardiothoracic surgeon requested, follow input and recommendations. 07/07 70-year-old male, history of hypertension, diabetes mellitus type 2, and melanoma with metastases, most recently on Pembrolizumab (last dose 06/24/25), transferred from [facility] after the patient was found to have moderate size pericardial effusion with tamponade, measuring 1.1-1.5 cm, the mitral valve inspiratory variation of 40% and early diastolic collapse of the right ventricle and the late diastolic collapse of the right atrium and a dilated IVC. Patient hypotensive, requiring vasopressor support. Consultation with Cardiology and Cardiothoracic surgeon requested, underwent successful pericardial window 07/06/25, with the evacuation of 600 mL of fluid drained. At the time of my visit, comfortable, no acute events overnight per discussion with the RN. Chest tube in place. 07/08/25: Lying in bed at the time of the evaluation with sitter at bedside. Alert and oriented and in no obvious distress. Patient is status post pericardial window and right pleural drainage Post op Day 2. States that he feels a lot better. Denies any chest pain, shortness of breath or palpitations. Overnight drainage from chest tube was 40 cc. Vital signs: Temperature 98.8, pulse 82, respirations 20, BP 125/67, maintaining oxygen at 95% on 4 L via nasal cannula. Labs were unremarkable except for a magnesium of 1.7 which was replaced as per protocol . An oncology consult was placed due to patient's history of metastatic melanoma and the potential for malignant effusion. Pending their recommendations. Workup was done for potential causes of pericardial effusion . Pending results. We will continue to follow the recommendations of Cardiology and the critical care team. REVIEW OF SYSTEMS CONSTITUTIONAL: Denies fevers, chills, or night sweats. No unintentional weight loss reported. NEUROLOGICAL: Denies headache, amaurosis fugax, motor weakness, sensory deficit, vertigo/spinning sensation, gait abnormalities, or tremors. ENT: No hearing loss, otalgia, otorrhea, rhinitis, rhinorrhea, hoarseness, or sore throat. CARDIOVASCULAR: Denies any exertional angina, dyspnea on exertion, orthopnea, paroxysmal nocturnal dyspnea, palpitations, life-threatening arrhythmias, claudication. PULMONARY: Denies any shortness of breath, cough, phlegm/sputum, hemoptysis, pleuritic chest pain. SLEEP: Denies morning headaches, daytime somnolence or napping. Denies difficulty falling asleep, staying asleep, waking from sleep. Denies knowledge of snoring. GASTROINTESTINAL: Denies any type of dysphagia to either liquids or solids. Denies nausea, vomiting, pyrosis, early satiety, abdominal pain, diarrhea, constipation, or changes in stool consistency or caliber. Denies coffee-ground emesis, hematemesis, hematochezia, or melanotic stools. GENITOURINARY: Denies frequency, urgency, nocturia, hematuria or incontinence (Storage/Irritative symptoms.) Low urinary stream, straining to void, urinary intermittency or hesitancy, splitting of the voiding stream, terminal dribbling. DERMATOLOGIC: Denies rashes or pruritus. PSYCHIATRIC: Denies any suicidal or homicidal ideation. Denies hallucinations. PHYSICAL EXAM GENERAL APPEARANCE: The patient is awake, alert, and oriented, in no acute cardiopulmonary distress. NEUROLOGICAL: Cranial nerves II-XII grossly intact. Motor is 5/5 in bilateral upper and lower extremities proximal to distal. No sensory deficits. HEENT: Face is symmetric. Pupils are equal and reactive. Extraocular movements are intact. NECK: Supple. No JVD. No thyromegaly. No submental, submandibular, pre- /postauricular, occipital or supraclavicular lymphadenopathy. CHEST: Normal chest expansion. No Telemetry. LUNGS: Absence of any rales, rhonchi or any wheezing. Chest tube in place , On 4L oxygen via [place] CARDIOVASCULAR: Regular. S1 and S2 normal. No appreciable rubs, murmurs or gallops. ABDOMEN: Soft, nontender, and nondistended. There is no rebound, voluntary guarding, or rigidity. : Deferred. No Orozco. EXTREMITIES: Non-edematous and not cyanotic. No clubbing. Good capillary refill. SKIN: No skin breakdown. Vital Signs (last 8hr) Date Time Temp Pulse Resp B/P (MAP) Pulse Ox O2 Delivery O2 Flow Rate FiO2 07/08/25 17:08 98.4 85 20 117/60 97 Nasal Cannula 4.0 07/08/25 11:31 98.4 81 20 112/59 96 Nasal Cannula 4.0 07/08/25 10:52 81 22 N/Cannula Oximizer Hi LPM 4.0 36 LABS: Laboratory: Test 07/08/25 15:33 07/08/25 03:21 Range/Units Whole Blood Glucose 88 70-110 MG/DL White Blood Count 6.8 # 4.8-10.8 K/uL Red Blood Count 3.60 L 4.50-6.20 MIL/uL Hemoglobin 10.5 L 14.0-18.0 g/dL Hematocrit 32.1 L 42-54 % Mean Corpuscular Volume 89.2 79-99 fL Mean Corpuscular Hemoglobin 29.2 27.0-33.0 pg Mean Corpuscular Hemoglobin Concent 32.7 32.0-36.0 g/dL Red Cell Distribution Width 12.5 11.0-15.5 % Platelet Count 201 130-400 K/uL Mean Platelet Volume 9.4 7.5-10.5 fL Immature Granulocyte % (Auto) 0.3 0-1 % Neutrophils (%) (Auto) 62.0 40.0-77.0 % Lymphocytes (%) (Auto) 21.4 21.0-51.0 % Monocytes (%) (Auto) 13.6 H 3.0-13.0 % Eosinophils (%) (Auto) 2.1 0.0-8.0 % Basophils (%) (Auto) 0.6 0.0-5.0 % Neutrophils # (Auto) 4.2 1.8-7.7 K/uL Lymphocytes # (Auto) 1.5 1.0-4.8 K/uL Monocytes # (Auto) 0.9 0.1-1.0 K/uL Eosinophils # (Auto) 0.14 0.00-0.70 K/uL Basophils # (Auto) 0.04 0.00-0.20 K/uL Absolute Immature Granulocyte (auto 0.02 0-1 K/uL Nucleated Red Blood Cells 0.0 0.0-0.19 % Sodium Level 140 136-145 mmol/L Potassium Level 3.5 3.5-5.1 mmol/L Chloride Level 103 101-111 mmol/L Carbon Dioxide Level 33 H 21-32 mmol/L Blood Urea Nitrogen 25 H 7-18 mg/dL Creatinine 0.6 0.5-1.3 mg/dL Glomerular Filtration Rate Calc 103 >90 mL/min Random Glucose 87 70-105 mg/dL Total Calcium 8.7 8.5-10.1 mg/dL Magnesium Level 1.70 L 1.80-2.40 mg/dL Total Bilirubin 0.7 0.2-1.0 mg/dL Aspartate Amino Transf (AST/SGOT) 42 H 10-37 U/L Alanine Aminotransferase (ALT/SGPT) 48 12-78 U/L Alkaline Phosphatase 68 50-136 U/L Total Protein 5.9 L 6.0-8.3 g/dL Albumin 2.0 L 3.5-5.0 g/dL Current Medications Medications (Trade) Dose Ordered Sig/Dejah Route PRN Reason Start Time Stop Time Status Last Admin Dose Admin Acetaminophen (TYLenol 650MG SUPPOSITORY) 650 mg Q6H PRN RC MILD PAIN (1-3) 07/05/25 20:30 08/04/25 20:29 Enoxaparin Sodium (Lovenox) 30 mg DAILY SQ 07/08/25 09:00 08/07/25 08:59 07/08/25 09:07 30 MG Hydralazine HCl (APRESOLine 20MG INJ) 10 mg Q6H PRN IV For:SBP above 160;DBP above 90 07/05/25 20:30 07/06/25 01:04 DC Insulin Human Regular (humuLIN R 100 UNIT/ML 3ML) INSULIN SLIDING SCAL... ACHS SQ 07/06/25 07:30 08/05/25 07:29 Magnesium Sulfate 50 ml @ 0 mls/hr PROTOCOL PRN IV PROTOCOL 07/08/25 05:30 08/07/25 05:29 07/08/25 05:43 20 MLS/HR Morphine Sulfate (morPHINE 2MG SYG) 2 mg Q4H PRN IVP SEVERE PAIN (7-10) 07/05/25 20:30 07/12/25 20:29 07/06/25 13:08 2 MG Norepinephrine Bitartrate 250 ml @ 0 mls/hr AD PRN IV TITRATE 07/05/25 21:00 08/04/25 20:59 07/06/25 11:11 0 MLS/HR Ondansetron HCl (zoFRAN 4MG INJ) 4 mg Q6H PRN IV NAUSEA/VOMITING 07/05/25 20:30 08/04/25 20:29 07/07/25 02:56 4 MG Pantoprazole Sodium (PROTonix 40MG INJ) 40 mg DAILY IV 07/06/25 09:00 08/05/25 08:59 07/08/25 09:06 40 MG Potassium Chloride 100 ml @ 100 mls/hr AD PRN IV POTASSIUM PROTOCOL 07/08/25 05:30 08/07/25 05:29 07/08/25 05:43 100 MLS/HR Potassium Chloride (K-Dur/Klor-Con 20meq) 20 meq AD PRN PO POTASSIUM PROTOCOL 07/08/25 05:30 08/07/25 05:29 Potassium Chloride (KCl 10% Elixir 20meq/15ml) 20 meq AD PRN PO POTASSIUM PROTOCOL 07/08/25 05:30 08/07/25 05:29 Vasopressin 20 units/Sodium Chloride 100 ml @ 0 mls/hr AD PRN IV TITRATE 07/05/25 21:00 08/04/25 20:59 07/06/25 00:51 9 MLS/HR DIAGNOSTICS / RADIOLOGY: [ ] ASSESSMENT: Obstructive shock requiring vasopressor therapy (resolved) Hypotension (resolved) Pericardial effusion with tamponade physiology per 2D echo done at [facility] POA. s/p successful pericardial window 07/06/25 Hypertension. Diabetes mellitus type 2. Melanoma with metastasis most recently on Pembrolizumab (last dose 06/24/25) POA Anxiety. PLAN: *Oncology consult ordered. Pending recommendations. * Workup was done for potential causes of pericardial effusion: RAUL, Anti-dsDNA. Pending results. NEURO: Minimize central acting medications as possible. Fall Precautions. Well lighted room through the day and minimize interruptions through the night to prevent acute delirium. PULMONARY: Supplemental 02 as needed BiPAP as necessary, for respiratory distress Titrate Fio2 to keep Spo2 > or = 90% DuoNebs and CPT as needed IS hourly while awake for pulmonary hygiene prn Out of bed to chair as tolerated Maintain aspiration precautions at all times CARDIOVASCULAR: Follow hemodynamics. Vital signs per facility protocol GI & NUTRITION: Continue nutritional support Aspirations precautions Prokinetic agents and laxatives as needed KIDNEYS & ELECTROLYTES: Strict monitoring of intake and output Daily weights Avoid nephrotoxic agents Monitor electrolytes and replace as needed Goal urine output of 30mL/hr or 0.5mL/kg/hr Medications to be dosed according to renal function. Avoid contrast if possible ENDOCRINE: Maintain blood glucose between 100-180 at all times. Insulin sliding scale for blood glucose management Hypoglycemia and hyperglycemia protocol in place INFECTIOUS DISEASE: Trend temperature, WBC and procalcitonin level Follow cultures, deescalate antibiotics as soon as possible. Panculture if new onset fever HEMATOLOGY & COAGULATION: Monitor H&H. Keep Hgb > 7 Transfuse 1 unit of PRBC for Hgb < 7 Transfuse 1 pack of platelets of platelets < 20, 000 Watch for any signs and symptoms of bleeding SKIN: Pressure ulcer prevention per facility protocol Specialty mattress as needed ORTHO/REHAB Continue PT/OT PRN: MEDICATIONS Tylenol 650 mg po every 4 hrs for fever zofran 4 mg IV every 6 hrs for n/v Hydralazine 5 mg IV every 4 hrs systolic pressure > 160 bowel regiment: lactulose 20 gm PO BID PRN constipation Supportive measures: Continue GI and DVT prophylaxis Disposition: Pending improvement in clinical condition All questions answered time spent: > 35 min ATTESTATION BY PHYSICIAN I have seen and examined the patient. I reviewed the documentation, medical decision making, and treatment plan as noted by the resident provider above. I agree with the findings and plan of care. Nixon Otero MD OBI,DODIE Geronimo MD Jul 08, 2025 18:53
--- NOTE | 2025-07-08 18:55 | HMCIMG ---
EXAM: CR Chest, single view. CLINICAL HISTORY: pp (Hx) / pp (DICOM Hx) (DICOM Hx) COMPARISON: Prior chest radiograph dated 07 July 2025. FINDINGS: Moderate cardiomegaly with bilateral pulmonary congestion. Blunting of the left costophrenic angle, probable mild left-sided pleural effusion No evidence of pneumothorax. No acute osseous abnormality. IMPRESSION: Moderate cardiomegaly with bilateral pulmonary congestion. Blunting of the left costophrenic angle, probable mild left-sided pleural effusion No evidence of pneumothorax. Compared to the prior study, there is no significant interval change. /[place]
--- NOTE | 2025-07-08 18:57 | PN ---
Cardiology Progress Note Date of Service: 07/08/2025 Attending Maternity Nurse: Dr. Sampson Higginbotham Reason for Consult: Pericardial effusion Problem List: -Obstructive shock, resolved -Pericardial tamponade s/p pericardial window (600 mL) done on 07/06/2025 -Leukocytosis -FABRICIO, improved -Electrolyte derangement -Normal LV systolic function (LVEF: 60-65% by echo done on 07/06/2025) -Metastatic melanoma, on pembrolizumab (last dose 06/24/2025) -Normocytic normochromic anemia -HTN -DM2 Subjective: This is a 70y/o male who was seen and evaluated at the bedside today. The patient complains of pleuritic chest pain and right knee pain, but denies any cardiac chest pain, chest pressure, palpitations, or shortness of breath. As per the nurse, there were no overnight events Vitals/Labs Vital Signs Date Time Temp Pulse Resp B/P (MAP) Pulse Ox O2 Delivery O2 Flow Rate FiO2 07/08/25 17:08 98.4 85 20 117/60 97 Nasal Cannula 4.0 07/08/25 10:52 36 General: Awake. No acute distress. Chronically ill appearing. HEENT: Normocephalic, atraumatic. EOMI. Oral mucosa was moist. Neck: No masses, JVD, or carotid bruits. Lungs: No respiratory distress. SCM. Bilateral air entry. Diminished breath sounds noted to the bilateral lower lung [place]. Cardio: Regular rate. Normal S1 and S2, +S4. No murmurs, rubs, or gallops. Lower sternal dressing noted. Chest tube noted. Abdomen: Soft, nontender, nondistended. No organomegaly. Normoactive bowel sounds x 4 quadrants. Extremities. No edema, clubbing, or cyanosis. The right knee is warm to touch. +2 pulses noted throughout. Neuro: Cranial nerves II through XII are grossly intact. No focal deficits identified. Laboratory Tests 07/08/25 03:21 Assessment: -Obstructive shock, resolved -Pericardial tamponade s/p pericardial window (600 mL) done on 07/06/2025 -Leukocytosis -FABRICIO, improved -Electrolyte derangement -Normal LV systolic function (LVEF: 60-65% by echo done on 07/06/2025) -Metastatic melanoma, on pembrolizumab (last dose 06/24/2025) -Normocytic normochromic anemia -HTN -DM2 Plan: 1. Pericardial tamponade s/p pericardial window (600 mL) done on 07/06/2025 -Cytology is pending due to the high suspicion for malignancy -The timing of the removal of the chest tube will be deferred to CT surgery. -Further management per CT surgery We will be signing off of the case. Please have the patient follow up with Cardiology 2-3 weeks after discharge. This case was discussed with my Supervising Physician, Dr. Sampson Higginbotham, and the above mentioned plan was formulated and agreed upon. -Progress Note written by Sherrie Nunes, MSN, [place], AGACNP-BC SHERRIE NUNES NP Jul 08, 2025 18:57
[2025-07-09] VITALS (9 sets, daily range): BP systolic 96–128; BP diastolic 57–64; PULSE 80–95; RESP 20; TEMP 97.8–98.4; O2SAT 94–97
[2025-07-09 04:55] LABS: IMMATURE GRANULOCYTE ABSOLUTE 0.02 K/uL (0-1); NUCLEATED RED BLOOD CELLS 0.0 % (0.0-0.19); PLATELET COUNT (AUTO) 202 K/uL (130-400); RED BLOOD CELL COUNT(AUTO) 3.73 MIL/uL (4.50-6.20); RED CELL DISTRIBUTION WIDTH 11.9 % (11.0-15.5); WHITE BLOOD COUNT (AUTO) 7.5 K/uL (4.8-10.8)
[2025-07-09 05:31] LABS: ASPARTATE AMINOTRANSFERASE 32.0 U/L (10-37); CREATININE 0.6 mg/dL (0.5-1.3); GLOMERULAR FILTR. RATE CALC 103.0 mL/min (>90); GLUCOSE,RANDOM 82.0 mg/dL (70-105); SODIUM SERUM 132.0 mmol/L (136-145); TOTAL PROTEIN, SERUM 5.8 g/dL (6.0-8.3); UREA NITROGEN, BLOOD 15.0 mg/dL (7-18)
[2025-07-09] MEDS: PoTASSium chloRIDE 20MEQ ER 20 MEQ ERTAB PO PRN (06:40)
--- NOTE | 2025-07-09 12:36 | PN ---
[facility] PROGRESS NOTE Date of Service: Jul 09, 2025 Time of Service: 12:34 SUBJECTIVE: 07/06 70-year-old male, history of hypertension, diabetes mellitus type 2, and melanoma with metastases, most recently on Pembrolizumab (last dose 06/24/25), transferred from [facility] after the patient was found to have moderate size pericardial effusion with tamponade, measuring 1.1-1.5 cm, the mitral valve inspiratory variation of 40% and early diastolic collapse of the right ventricle and the late diastolic collapse of the right atrium and a dilated IVC. Patient hypotensive, requiring vasopressor support. Consultation with Cardiology and Cardiothoracic surgeon requested, follow input and recommendations. 07/07 70-year-old male, history of hypertension, diabetes mellitus type 2, and melanoma with metastases, most recently on Pembrolizumab (last dose 06/24/25), transferred from [facility] after the patient was found to have moderate size pericardial effusion with tamponade, measuring 1.1-1.5 cm, the mitral valve inspiratory variation of 40% and early diastolic collapse of the right ventricle and the late diastolic collapse of the right atrium and a dilated IVC. Patient hypotensive, requiring vasopressor support. Consultation with Cardiology and Cardiothoracic surgeon requested, underwent successful pericardial window 07/06/25, with the evacuation of 600 mL of fluid drained. At the time of my visit, comfortable, no acute events overnight per discussion with the RN. Chest tube in place. 07/08/25: Lying in bed at the time of the evaluation with sitter at bedside. Alert and oriented and in no obvious distress. Patient is status post pericardial window and right pleural drainage Post op Day 2. States that he feels a lot better. Denies any chest pain, shortness of breath or palpitations. Overnight drainage from chest tube was 40 cc. Vital signs: Temperature 98.8, pulse 82, respirations 20, BP 125/67, maintaining oxygen at 95% on 4 L via nasal cannula. Labs were unremarkable except for a magnesium of 1.7 which was replaced as per protocol . An oncology consult was placed due to patient's history of metastatic melanoma and the potential for malignant effusion. Pending their recommendations. Workup was done for potential causes of pericardial effusion . Pending results. We will continue to follow the recommendations of Cardiology and the critical care team. REVIEW OF SYSTEMS CONSTITUTIONAL: Denies fevers, chills, or night sweats. No unintentional weight loss reported. NEUROLOGICAL: Denies headache, amaurosis fugax, motor weakness, sensory deficit, vertigo/spinning sensation, gait abnormalities, or tremors. ENT: No hearing loss, otalgia, otorrhea, rhinitis, rhinorrhea, hoarseness, or sore throat. CARDIOVASCULAR: Denies any exertional angina, dyspnea on exertion, orthopnea, paroxysmal nocturnal dyspnea, palpitations, life-threatening arrhythmias, claudication. PULMONARY: Denies any shortness of breath, cough, phlegm/sputum, hemoptysis, pleuritic chest pain. SLEEP: Denies morning headaches, daytime somnolence or napping. Denies difficulty falling asleep, staying asleep, waking from sleep. Denies knowledge of snoring. GASTROINTESTINAL: Denies any type of dysphagia to either liquids or solids. Denies nausea, vomiting, pyrosis, early satiety, abdominal pain, diarrhea, constipation, or changes in stool consistency or caliber. Denies coffee-ground emesis, hematemesis, hematochezia, or melanotic stools. GENITOURINARY: Denies frequency, urgency, nocturia, hematuria or incontinence (Storage/Irritative symptoms.) Low urinary stream, straining to void, urinary intermittency or hesitancy, splitting of the voiding stream, terminal dribbling. DERMATOLOGIC: Denies rashes or pruritus. PSYCHIATRIC: Denies any suicidal or homicidal ideation. Denies hallucinations. PHYSICAL EXAM GENERAL APPEARANCE: The patient is awake, alert, and oriented, in no acute cardiopulmonary distress. NEUROLOGICAL: Cranial nerves II-XII grossly intact. Motor is 5/5 in bilateral upper and lower extremities proximal to distal. No sensory deficits. HEENT: Face is symmetric. Pupils are equal and reactive. Extraocular movements are intact. NECK: Supple. No JVD. No thyromegaly. No submental, submandibular, pre- /postauricular, occipital or supraclavicular lymphadenopathy. CHEST: Normal chest expansion. No Telemetry. LUNGS: Absence of any rales, rhonchi or any wheezing. Chest tube in place , On 4L oxygen via NC CARDIOVASCULAR: Regular. S1 and S2 normal. No appreciable rubs, murmurs or gallops. ABDOMEN: Soft, nontender, and nondistended. There is no rebound, voluntary guarding, or rigidity. : Deferred. No [place]. EXTREMITIES: Non-edematous and not cyanotic. No clubbing. Good capillary refill. SKIN: No skin breakdown. Vital Signs (last 8hr) Date Time Temp Pulse Resp B/P (MAP) Pulse Ox O2 Delivery O2 Flow Rate FiO2 07/09/25 08:00 97.9 91 20 96/57 96 Nasal Cannula 4.0 07/09/25 07:15 84 20 N/Cannula Oximizer Hi LPM 4.0 36 LABS: Laboratory: Test 07/09/25 12:24 07/09/25 04:29 07/08/25 03:21 Range/Units Whole Blood Glucose 110 70-110 MG/DL White Blood Count 7.5 4.8-10.8 K/uL Red Blood Count 3.73 L 4.50-6.20 MIL/uL Hemoglobin 11.0 L 14.0-18.0 g/dL Hematocrit 32.7 L 42-54 % Mean Corpuscular Volume 87.7 79-99 fL Mean Corpuscular Hemoglobin 29.5 27.0-33.0 pg Mean Corpuscular Hemoglobin Concent 33.6 32.0-36.0 g/dL Red Cell Distribution Width 11.9 11.0-15.5 % Platelet Count 202 130-400 K/uL Mean Platelet Volume 9.1 7.5-10.5 fL Immature Granulocyte % (Auto) 0.3 0-1 % Neutrophils (%) (Auto) 47.2 40.0-77.0 % Lymphocytes (%) (Auto) 24.0 21.0-51.0 % Monocytes (%) (Auto) 14.9 H 3.0-13.0 % Eosinophils (%) (Auto) 12.9 H 0.0-8.0 % Basophils (%) (Auto) 0.7 0.0-5.0 % Neutrophils # (Auto) 3.6 1.8-7.7 K/uL Lymphocytes # (Auto) 1.8 1.0-4.8 K/uL Monocytes # (Auto) 1.1 H 0.1-1.0 K/uL Eosinophils # (Auto) 0.97 H 0.00-0.70 K/uL Basophils # (Auto) 0.05 0.00-0.20 K/uL Absolute Immature Granulocyte (auto 0.02 0-1 K/uL Nucleated Red Blood Cells 0.0 0.0-0.19 % Sodium Level 132 L 136-145 mmol/L Potassium Level 3.5 3.5-5.1 mmol/L Chloride Level 95 L 101-111 mmol/L Carbon Dioxide Level 32 21-32 mmol/L Blood Urea Nitrogen 15 7-18 mg/dL Creatinine 0.6 0.5-1.3 mg/dL Glomerular Filtration Rate Calc 103 >90 mL/min Random Glucose 82 70-105 mg/dL Total Calcium 8.2 L 8.5-10.1 mg/dL Total Bilirubin 1.0 0.2-1.0 mg/dL Aspartate Amino Transf (AST/SGOT) 32 10-37 U/L Alanine Aminotransferase (ALT/SGPT) 39 12-78 U/L Alkaline Phosphatase 76 50-136 U/L Total Protein 5.8 L 6.0-8.3 g/dL Albumin 2.0 L 3.5-5.0 g/dL Magnesium Level 1.70 L 1.80-2.40 mg/dL Current Medications Medications (Trade) Dose Ordered Sig/Dejah Route PRN Reason Start Time Stop Time Status Last Admin Dose Admin Acetaminophen (TYLenol 325MG TAB) 650 mg Q4H PRN PO MILD PAIN (1-3) 07/08/25 22:30 08/07/25 22:29 07/09/25 06:48 650 MG Acetaminophen (TYLenol 650MG SUPPOSITORY) 650 mg Q6H PRN RC MILD PAIN (1-3) IF NPO 07/05/25 20:30 08/04/25 20:29 Enoxaparin Sodium (Lovenox) 30 mg DAILY SQ 07/08/25 09:00 08/07/25 08:59 07/09/25 11:59 30 MG Hydralazine HCl (APRESOLine 20MG INJ) 10 mg Q6H PRN IV For:SBP above 160;DBP above 90 07/05/25 20:30 07/06/25 01:04 DC Insulin Human Regular (humuLIN R 100 UNIT/ML 3ML) INSULIN SLIDING SCAL... ACHS SQ 07/06/25 07:30 08/05/25 07:29 Magnesium Sulfate 50 ml @ 0 mls/hr PROTOCOL PRN IV PROTOCOL 07/08/25 05:30 08/07/25 05:29 07/08/25 05:43 20 MLS/HR Morphine Sulfate (morPHINE 2MG SYG) 2 mg Q4H PRN IVP SEVERE PAIN (7-10) 07/05/25 20:30 07/12/25 20:29 07/06/25 13:08 2 MG Norepinephrine Bitartrate 250 ml @ 0 mls/hr AD PRN IV TITRATE 07/05/25 21:00 08/04/25 20:59 07/06/25 11:11 0 MLS/HR Ondansetron HCl (zoFRAN 4MG INJ) 4 mg Q6H PRN IV NAUSEA/VOMITING 07/05/25 20:30 08/04/25 20:29 07/07/25 02:56 4 MG Pantoprazole Sodium (PROTonix 40MG INJ) 40 mg DAILY IV 07/06/25 09:00 08/05/25 08:59 07/09/25 11:58 40 MG Potassium Chloride 100 ml @ 100 mls/hr AD PRN IV POTASSIUM PROTOCOL 07/08/25 05:30 08/07/25 05:29 07/08/25 05:43 100 MLS/HR Potassium Chloride (K-Dur/Klor-Con 20meq) 20 meq AD PRN PO POTASSIUM PROTOCOL 07/08/25 05:30 08/07/25 05:29 07/09/25 11:58 20 MEQ Potassium Chloride (KCl 10% Elixir 20meq/15ml) 20 meq AD PRN PO POTASSIUM PROTOCOL 07/08/25 05:30 08/07/25 05:29 Vasopressin 20 units/Sodium Chloride 100 ml @ 0 mls/hr AD PRN IV TITRATE 07/05/25 21:00 08/04/25 20:59 07/06/25 00:51 9 MLS/HR DIAGNOSTICS / RADIOLOGY: [ ] ASSESSMENT: Obstructive shock requiring vasopressor therapy (resolved) Hypotension (resolved) Pericardial effusion with tamponade physiology per 2D echo done at [facility] POA. s/p successful pericardial window 07/06/25 Hypertension. Diabetes mellitus type 2. Melanoma with metastasis most recently on Pembrolizumab (last dose 06/24/25) POA Anxiety. PLAN: *Oncology consult ordered. Pending recommendations. * Workup was done for potential causes of pericardial effusion: RAUL, Anti-dsDNA. Pending results. NEURO: Minimize central acting medications as possible. Fall Precautions. Well lighted room through the day and minimize interruptions through the night to prevent acute delirium. PULMONARY: Supplemental 02 as needed BiPAP as necessary, for respiratory distress Titrate Fio2 to keep Spo2 > or = 90% DuoNebs and CPT as needed IS hourly while awake for pulmonary hygiene prn Out of bed to chair as tolerated Maintain aspiration precautions at all times CARDIOVASCULAR: Follow hemodynamics. Vital signs per facility protocol GI & NUTRITION: Continue nutritional support Aspirations precautions Prokinetic agents and laxatives as needed KIDNEYS & ELECTROLYTES: Strict monitoring of intake and output Daily weights Avoid nephrotoxic agents Monitor electrolytes and replace as needed Goal urine output of 30mL/hr or 0.5mL/kg/hr Medications to be dosed according to renal function. Avoid contrast if possible ENDOCRINE: Maintain blood glucose between 100-180 at all times. Insulin sliding scale for blood glucose management Hypoglycemia and hyperglycemia protocol in place INFECTIOUS DISEASE: Trend temperature, WBC and procalcitonin level Follow cultures, deescalate antibiotics as soon as possible. Panculture if new onset fever HEMATOLOGY & COAGULATION: Monitor H&H. Keep Hgb > 7 Transfuse 1 unit of PRBC for Hgb < 7 Transfuse 1 pack of platelets of platelets < 20, 000 Watch for any signs and symptoms of bleeding SKIN: Pressure ulcer prevention per facility protocol Specialty mattress as needed ORTHO/REHAB Continue PT/OT PRN: MEDICATIONS Tylenol 650 mg po every 4 hrs for fever zofran 4 mg IV every 6 hrs for n/v Hydralazine 5 mg IV every 4 hrs systolic pressure > 160 bowel regiment: lactulose 20 gm PO BID PRN constipation Supportive measures: Continue GI and DVT prophylaxis Disposition: Pending improvement in clinical condition All questions answered time spent: > 35 min DODIE LOERA MD Jul 09, 2025 12:35
--- NOTE | 2025-07-09 13:42 | PN ---
Patient is also hypotensive and requiring vasopressor support. Patient has a history of hypertension, Diabetes mellitius type2, and melanoma with metastasis, most recently on Pembrolizumab (last dose 06/24/25). Who presented with a generalized weakness/fatigue, of five weeks' duration. The symptoms began in the setting of immune therapy, and over the last five weeks progressively worsened. The symptoms were constant, occurred on a daily basis, and were present throughout the day. The symptoms were exacerbated by physical activity and not alleviated by anything. The symptoms culminated in a mechanical fall, which occurred on 07/04/2025, and prompted the patient to come to the hospital for further evaluation and treatment. In the emergency department the patient was found to be hyponatremic, and with a lactic acid of 4.24. He was admitted to the floor and within 24 hours decompensated and went into shock, requiring ionotropic/chronotropic support with IV norepinephrine and vasopressin. He was subsequently transferred to the ICU and underwent an echocardiogram which identified a moderate size pericardial effusion measuring 1.1-1.5 cm, the mitral valve inspiratory variation of 40% and early diastolic collapse of the right ventricle and the late diastolic collapse of the right atrium and a dilated IVC. The findings confirmed the diagnosis of cardiac tamponade, causing obstructive shock. Cardiology was consulted for treatment recommendations regarding this issue. At the time of Cardiology evaluation the patient continued to complaint of generalized weakness/fatigue but denied any other active complaints including headache, dizziness, syncope, chest pain, chest pressure, palpitations, shortness of breath, abdominal pain or lower extremity swelling/edema. Patient was evaluated by cardiothoracic surgery status post pericardial window. We are waiting for the result of cytology It seems the patient is stable. There is plan to discharge this patient to rehab center Exam General Appearance: Alert, Oriented X3, Cooperative, moderate distress, Other (Generally ill-appearing) HEENT: Atraumatic Respiratory: Other (Diminished air entry to bilateral lower lobes) Cardiovascular: Regular rate, Regular rhythm, Normal S1, Normal S2 Abdominal: Normal bowel sounds, Soft, No tenderness Extremities: No edema Skin: No significant lesion Neuro: Normal speech, Strength at 5/5 X4 ext, Sensation intact, Cranial nerves 3-12 NL Psych/Mental Status: Mental status NL, Mood NL, Thoughts/Content NL ASSESSMENT: [ History of melanoma with metastatic disease of the patient received Keytruda. Great job get infusion status post pericardial window by cardiothoracic surgery Obstructive shock, POA Hypotension, POA Cardiac tamponade, POA Diabetes mellitius type2 Hypertension] Plan 1. We will hold chemotherapy treatment on this patient at this time 2. Will need to follow-up with cytology. If the cytology showing metastatic disease this patient may be will need different treatment. There is a with cytology showing possible inflammatory this could be due to Keytruda and at that time maybe they should stop the treatment 3. It seems the patient looks stable. So this patient may be could be discharged to follow-up with his oncologist Dr. Mae in [facility]. 4. I have long discussion with the patient and family member regarding the plan of care. I answer all question and concern and I spent more than 35 minutes. There was 1 family member in the room. I answered all her question and concern LAB RESULTS Vitals/Labs Vital Signs Date Time Temp Pulse Resp B/P (MAP) Pulse Ox O2 Delivery O2 Flow Rate FiO2 07/09/25 08:00 97.9 91 20 96/57 96 Nasal Cannula 4.0 07/09/25 07:15 36 Laboratory Tests 07/09/25 04:29 Medications Current Medications Acetaminophen 650 mg Q6H PRN RC; Start 07/05/25 at 20:30; Stop 08/04/25 at 20:29 Pantoprazole Sodium 40 mg DAILY IV Last administered on 07/09/25at 11:58; Start 07/06/25 at 09:00; Stop 08/05/25 at 08:59 Ondansetron HCl 4 mg Q6H PRN IV Last administered on 07/07/25at 02:56; Start 07/05/25 at 20:30; Stop 08/04/25 at 20:29 Morphine Sulfate 2 mg Q4H PRN IVP Last administered on 07/06/25at 13:08; Start 07/05/25 at 20:30; Stop 07/12/25 at 20:29 Hydralazine HCl 10 mg Q6H PRN IV; Start 07/05/25 at 20:30; Stop 07/06/25 at 01:04; Status DC Norepinephrine Bitartrate 250 ml @ 0 mls/hr AD PRN IV Last administered on 07/06/25at 11:11; Start 07/05/25 at 21:00; Stop 08/04/25 at 20:59 Vasopressin 20 units/Sodium Chloride 100 ml @ 0 mls/hr AD PRN IV Last administered on 07/06/25at 00:51; Start 07/05/25 at 21:00; Stop 08/04/25 at 20:59 Insulin Human Regular INSULIN SLIDING SCAL... ACHS SQ; Start 07/06/25 at 07:30; Stop 08/05/25 at 07:29 Sodium Bicarbonate 100 meq ONCE ONCE IV Last administered on 07/06/25at 08:34; Start 07/06/25 at 08:00; Stop 07/06/25 at 08:11; Status DC Etomidate 20 mg STK-MED ONCE .ROUTE; Start 07/06/25 at 09:35; Stop 07/06/25 at 09:36; Status DC Fentanyl Citrate 100 mcg STK-MED ONCE .ROUTE; Start 07/06/25 at 09:36; Stop 07/06/25 at 09:36; Status DC Cefazolin Sodium 1 gm STK-MED ONCE .ROUTE Last administered on 07/06/25at 11:45; Start 07/06/25 at 11:48; Stop 07/06/25 at 11:49; Status DC Lidocaine HCl 100 mg STK-MED ONCE .ROUTE; Start 07/06/25 at 11:49; Stop 07/06/25 at 11:49; Status DC Vasopressin 20 units STK-MED ONCE .ROUTE; Start 07/06/25 at 12:10; Stop 07/06/25 at 12:12; Status DC Vasopressin 20 units STK-MED ONCE .ROUTE; Start 07/06/25 at 12:10; Stop 07/06/25 at 12:12; Status DC Diphenhydramine HCl 25 mg ONCE ONCE PO Last administered on 07/07/25at 02:56; Start 07/06/25 at 21:30; Stop 07/06/25 at 21:31; Status DC Enoxaparin Sodium 30 mg DAILY SQ Last administered on 07/09/25at 11:59; Start 07/08/25 at 09:00; Stop 08/07/25 at 08:59 Magnesium Sulfate 50 ml @ 0 mls/hr PROTOCOL PRN IV Last administered on 07/08/25at 05:43; Start 07/08/25 at 05:30; Stop 08/07/25 at 05:29 Potassium Chloride 100 ml @ 100 mls/hr AD PRN IV Last administered on 07/08/25at 05:43; Start 07/08/25 at 05:30; Stop 08/07/25 at 05:29 Potassium Chloride 20 meq AD PRN PO; Start 07/08/25 at 05:30; Stop 08/07/25 at 05:29 Potassium Chloride 20 meq AD PRN PO Last administered on 07/09/25at 11:58; Start 07/08/25 at 05:30; Stop 08/07/25 at 05:29 Acetaminophen 650 mg Q4H PRN PO Last administered on 07/09/25at 06:48; Start 07/08/25 at 22:30; Stop 08/07/25 at 22:29 LANCE ELI MD Jul 09, 2025 13:42
--- NOTE | 2025-07-09 13:49 | PN ---
[facility] PROGRESS NOTE Date Patient Seen: Jul 09, 2025 Time of Visit: 13:29 Supervising Physician: Beulah Tate MD Primary Care Physician: PCP: (Cannot recall name) Outpatient Specialists: [ ] Inpatient Consults: [ ] PROBLEM LIST: Obstructive shock requiring vasopressor therapy POA., resolved Pericardial effusion with tamponade physiology, s/p pericardial window on 07/06/25 Acute delirium, likely ICU-induced History of mechanical fall (07/07) Hypoalbuminemia / protein-calorie malnutrition (albumin 2.1) Chronic Conditions: Hypertension. Diabetes mellitus type 2. Melanoma with metastasis most recently on Pembrolizumab (last dose 06/24/25) Anxiety INTERVAL HISTORY: Patient assessed in room 231. Awake alert and oriented x2-3. He is on [id number]. Per sitter therefore fall precautions and patient had previously attempted to remove IV tubing. At the time of my assessment he is calm and cooperative. He reports right knee pain. Otherwise denies any chest pain shortness of breaths. Chest tube drained 20 mL in the last 24 hours. No chest x-ray for this morning water 01:00. REVIEW OF SYSTEMS: General: No malaise or fever. Neurological: No fainting episodes or seizures. HEENT: No nasal congestion or nasal secretion. Respiratory: No cough, shortness of breath, or wheezing Cardiac: No chest pain or palpitations. Gastrointestinal: No vomiting or diarrhea. Genitourinary: No dysuria hematuria. Skin: No rashes or lesions. Hematological: No bruises or bleeding. Musculoskeletal: Reports right knee pain Psychiatric: No depression or panic attacks. PHYSICAL EXAM: GENERAL: Elderly male, resting in bed, calm, sitter at bedside. HEENT: EOMI, Sclera non icteric, moist mucosa NECK: Supple, no JVD, trachea midline LUNGS: Clear breath sounds bilaterally. No wheezes HEART: Regular rate and rhythm. Normal S1 and S2, without murmurs ABD: Abdomen soft, nontender. Bowel sounds present EXT: No clubbing cyanosis or edema Vital Signs (last 8hr) Date Time Temp Pulse Resp B/P (MAP) Pulse Ox O2 Delivery O2 Flow Rate FiO2 07/09/25 08:00 97.9 91 20 96/57 96 Nasal Cannula 4.0 07/09/25 07:15 84 20 N/Cannula Oximizer Hi LPM 4.0 36 LABS: Hematology Labs: Test 07/09/25 04:29 Range/Units White Blood Count 7.5 4.8-10.8 K/uL Red Blood Count 3.73 L 4.50-6.20 MIL/uL Hemoglobin 11.0 L 14.0-18.0 g/dL Hematocrit 32.7 L 42-54 % Mean Corpuscular Volume 87.7 79-99 fL Mean Corpuscular Hemoglobin 29.5 27.0-33.0 pg Mean Corpuscular Hemoglobin Concent 33.6 32.0-36.0 g/dL Red Cell Distribution Width 11.9 11.0-15.5 % Platelet Count 202 130-400 K/uL Mean Platelet Volume 9.1 7.5-10.5 fL Immature Granulocyte % (Auto) 0.3 0-1 % Neutrophils (%) (Auto) 47.2 40.0-77.0 % Lymphocytes (%) (Auto) 24.0 21.0-51.0 % Monocytes (%) (Auto) 14.9 H 3.0-13.0 % Eosinophils (%) (Auto) 12.9 H 0.0-8.0 % Basophils (%) (Auto) 0.7 0.0-5.0 % Neutrophils # (Auto) 3.6 1.8-7.7 K/uL Lymphocytes # (Auto) 1.8 1.0-4.8 K/uL Monocytes # (Auto) 1.1 H 0.1-1.0 K/uL Eosinophils # (Auto) 0.97 H 0.00-0.70 K/uL Basophils # (Auto) 0.05 0.00-0.20 K/uL Absolute Immature Granulocyte (auto 0.02 0-1 K/uL Nucleated Red Blood Cells 0.0 0.0-0.19 % Chemistry Labs: Test 07/09/25 12:24 07/09/25 04:29 07/08/25 03:21 Range/Units Whole Blood Glucose 110 70-110 MG/DL Sodium Level 132 L 136-145 mmol/L Potassium Level 3.5 3.5-5.1 mmol/L Chloride Level 95 L 101-111 mmol/L Carbon Dioxide Level 32 21-32 mmol/L Blood Urea Nitrogen 15 7-18 mg/dL Creatinine 0.6 0.5-1.3 mg/dL Glomerular Filtration Rate Calc 103 >90 mL/min Random Glucose 82 70-105 mg/dL Total Calcium 8.2 L 8.5-10.1 mg/dL Total Bilirubin 1.0 0.2-1.0 mg/dL Aspartate Amino Transf (AST/SGOT) 32 10-37 U/L Alanine Aminotransferase (ALT/SGPT) 39 12-78 U/L Alkaline Phosphatase 76 50-136 U/L Total Protein 5.8 L 6.0-8.3 g/dL Albumin 2.0 L 3.5-5.0 g/dL Magnesium Level 1.70 L 1.80-2.40 mg/dL DIAGNOSTICS / RADIOLOGY RESULTS: [ ] Plan: Follow CT surgeon postop recs monitor chest tube output Telemetry Daily labs Monitor Hgb Sitter INOs Chest x-ray BNP NEURO: Minimize central acting medications as possible. Maintain fall precautions, adequate lighting during the day PULMONARY: Supplemental 02 as needed. Maintain aspiration precautions at all times CARDIOVASCULAR: Follow hemodynamics. Vital signs per facility protocol GI & NUTRITION: Continue with nutritional support. Continue stool softeners and laxatives as needed. KIDNEYS & ELECTROLYTES: Strict monitoring of intake, output and overall fluid balance. Avoid nephrotoxic medications to the extent possible. Medications to be dosed according to renal function. Monitor electrolytes and replace as needed ENDOCRINE: Maintain blood glucose between 100-180 at all times. Hypoglycemia protocol in place INFECTIOUS DISEASE: Trend temperature, WBC and procalcitonin level Follow cultures, deescalate antibiotics as soon as possible. Panculture if new onset fever ONCOLOGY/HEMATOLOGY/COAGULATION: Monitor for s/s of bleeding Monitor hemoglobin, coagulation studies as needed SKIN: Pressure ulcer prevention per facility protocol Specialty mattress ORTHO/REHAB: Continue PT/OT Prophylaxis: Continue GI and DVT prophylaxis Code Status: Full Resuscitation Disposition: TBD Other: HYACINTH MAURO Jul 09, 2025 13:49
--- NOTE | 2025-07-09 14:57 | PN ---
[facility] PROGRESS NOTE Date of Service: Jul 09, 2025 Time of Service: 14:41 SUBJECTIVE: 07/06 70-year-old male, history of hypertension, diabetes mellitus type 2, and melanoma with metastases, most recently on Pembrolizumab (last dose 06/24/25), transferred from [facility] after the patient was found to have moderate size pericardial effusion with tamponade, measuring 1.1-1.5 cm, the mitral valve inspiratory variation of 40% and early diastolic collapse of the right ventricle and the late diastolic collapse of the right atrium and a dilated IVC. Patient hypotensive, requiring vasopressor support. Consultation with Cardiology and Cardiothoracic surgeon requested, follow input and recommendations. 07/07 70-year-old male, history of hypertension, diabetes mellitus type 2, and melanoma with metastases, most recently on Pembrolizumab (last dose 06/24/25), transferred from [facility] after the patient was found to have moderate size pericardial effusion with tamponade, measuring 1.1-1.5 cm, the mitral valve inspiratory variation of 40% and early diastolic collapse of the right ventricle and the late diastolic collapse of the right atrium and a dilated IVC. Patient hypotensive, requiring vasopressor support. Consultation with Cardiology and Cardiothoracic surgeon requested, underwent successful pericardial window 07/06/25, with the evacuation of 600 mL of fluid drained. At the time of my visit, comfortable, no acute events overnight per discussion with the RN. Chest tube in place. 07/08/25: Lying in bed at the time of the evaluation with sitter at bedside. Alert and oriented and in no obvious distress. Patient is status post pericardial window and right pleural drainage Post op Day 2. States that he feels a lot better. Denies any chest pain, shortness of breath or palpitations. Overnight drainage from chest tube was 40 cc. Vital signs: Temperature 98.8, pulse 82, respirations 20, BP 125/67, maintaining oxygen at 95% on 4 L via nasal cannula. Labs were unremarkable except for a magnesium of 1.7 which was replaced as per protocol . An oncology consult was placed due to patient's history of metastatic melanoma and the potential for malignant effusion. Pending their recommendations. Workup was done for potential causes of pericardial effusion . Pending results. We will continue to follow the recommendations of Cardiology and the critical care team. 07/09/25: Lying in bed at the time of the evaluation with sitter at bedside. Alert and oriented and in no obvious distress. Patient is status post pericardial window and right pleural drainage Post op Day 3. Denies any chest pain, shortness of breath or palpitations. Patient complains of right knee pain and swelling. Rates the pain as a 7/10. Ordered a CT of the right knee in order to rule out an effusion. If present an orthopedic consult will be placed for possible incision and drainage. Apply cold compress to the right knee. Chest tube is still in place and drained 20ml in the last 24hours. Pending cardiothoracic recommendation. Patient was seen by Dr Thorne (Hemo/Onco) who recommended a hold on chemotherapy at this time, pending results of cytology. If cytology shows metastatic disease, patient may need a different chemotherapy treatment. Still pending results for workup done for potential causes of pericardial effusion: RAUL, dsDNA .We will continue to follow the recommendations of Cardiology and the critical care team. REVIEW OF SYSTEMS CONSTITUTIONAL: Denies fevers, chills, or night sweats. No unintentional weight loss reported. NEUROLOGICAL: Denies headache, amaurosis fugax, motor weakness, sensory deficit, vertigo/spinning sensation, gait abnormalities, or tremors. ENT: No hearing loss, otalgia, otorrhea, rhinitis, rhinorrhea, hoarseness, or sore throat. CARDIOVASCULAR: Denies any exertional angina, dyspnea on exertion, orthopnea, paroxysmal nocturnal dyspnea, palpitations, life-threatening arrhythmias, claudication. PULMONARY: Denies any shortness of breath, cough, phlegm/sputum, hemoptysis, pleuritic chest pain. SLEEP: Denies morning headaches, daytime somnolence or napping. Denies difficulty falling asleep, staying asleep, waking from sleep. Denies knowledge of snoring. GASTROINTESTINAL: Denies any type of dysphagia to either liquids or solids. Denies nausea, vomiting, pyrosis, early satiety, abdominal pain, diarrhea, constipation, or changes in stool consistency or caliber. Denies coffee-ground emesis, hematemesis, hematochezia, or melanotic stools. GENITOURINARY: Denies frequency, urgency, nocturia, hematuria or incontinence (Storage/Irritative symptoms.) Low urinary stream, straining to void, urinary intermittency or hesitancy, splitting of the voiding stream, terminal dribbling. DERMATOLOGIC: Denies rashes or pruritus. PSYCHIATRIC: Denies any suicidal or homicidal ideation. Denies hallucinations. PHYSICAL EXAM GENERAL APPEARANCE: The patient is awake, alert, and oriented, in no acute cardiopulmonary distress. NEUROLOGICAL: Cranial nerves II-XII grossly intact. Motor is 5/5 in bilateral upper and lower extremities proximal to distal. No sensory deficits. HEENT: Face is symmetric. Pupils are equal and reactive. Extraocular movements are intact. NECK: Supple. No JVD. No thyromegaly. No submental, submandibular, pre- /postauricular, occipital or supraclavicular lymphadenopathy. CHEST: Normal chest expansion. No Telemetry. LUNGS: Absence of any rales, rhonchi or any wheezing. Chest tube in place , On 4L oxygen via NC CARDIOVASCULAR: Regular. S1 and S2 normal. No appreciable rubs, murmurs or gallops. ABDOMEN: Soft, nontender, and nondistended. There is no rebound, voluntary guarding, or rigidity. : Deferred. No Orozco. EXTREMITIES: Non-edematous and not cyanotic. No clubbing. Good capillary refill. SKIN: No skin breakdown. Vital Signs (last 8hr) Date Time Temp Pulse Resp B/P (MAP) Pulse Ox O2 Delivery O2 Flow Rate FiO2 07/09/25 12:00 98.2 83 20 119/60 97 Nasal Cannula 4.0 07/09/25 08:00 97.9 91 20 96/57 96 Nasal Cannula 4.0 07/09/25 07:15 84 20 N/Cannula Oximizer Hi LPM 4.0 36 LABS: Laboratory: Test 07/09/25 12:24 07/09/25 04:29 07/08/25 13:16 07/08/25 03:21 Range/Units Whole Blood Glucose 110 70-110 MG/DL White Blood Count 7.5 4.8-10.8 K/uL Red Blood Count 3.73 L 4.50-6.20 MIL/uL Hemoglobin 11.0 L 14.0-18.0 g/dL Hematocrit 32.7 L 42-54 % Mean Corpuscular Volume 87.7 79-99 fL Mean Corpuscular Hemoglobin 29.5 27.0-33.0 pg Mean Corpuscular Hemoglobin Concent 33.6 32.0-36.0 g/dL Red Cell Distribution Width 11.9 11.0-15.5 % Platelet Count 202 130-400 K/uL Mean Platelet Volume 9.1 7.5-10.5 fL Immature Granulocyte % (Auto) 0.3 0-1 % Neutrophils (%) (Auto) 47.2 40.0-77.0 % Lymphocytes (%) (Auto) 24.0 21.0-51.0 % Monocytes (%) (Auto) 14.9 H 3.0-13.0 % Eosinophils (%) (Auto) 12.9 H 0.0-8.0 % Basophils (%) (Auto) 0.7 0.0-5.0 % Neutrophils # (Auto) 3.6 1.8-7.7 K/uL Lymphocytes # (Auto) 1.8 1.0-4.8 K/uL Monocytes # (Auto) 1.1 H 0.1-1.0 K/uL Eosinophils # (Auto) 0.97 H 0.00-0.70 K/uL Basophils # (Auto) 0.05 0.00-0.20 K/uL Absolute Immature Granulocyte (auto 0.02 0-1 K/uL Nucleated Red Blood Cells 0.0 0.0-0.19 % Sodium Level 132 L 136-145 mmol/L Potassium Level 3.5 3.5-5.1 mmol/L Chloride Level 95 L 101-111 mmol/L Carbon Dioxide Level 32 21-32 mmol/L Blood Urea Nitrogen 15 7-18 mg/dL Creatinine 0.6 0.5-1.3 mg/dL Glomerular Filtration Rate Calc 103 >90 mL/min Random Glucose 82 70-105 mg/dL Uric Acid 4.4 2.6-7.2 mg/dL Total Calcium 8.2 L 8.5-10.1 mg/dL Total Bilirubin 1.0 0.2-1.0 mg/dL Aspartate Amino Transf (AST/SGOT) 32 10-37 U/L Alanine Aminotransferase (ALT/SGPT) 39 12-78 U/L Alkaline Phosphatase 76 50-136 U/L Total Protein 5.8 L 6.0-8.3 g/dL Albumin 2.0 L 3.5-5.0 g/dL Anti-Double Strand DNA Antibody <1 0-9 IU/mL Magnesium Level 1.70 L 1.80-2.40 mg/dL Current Medications Medications (Trade) Dose Ordered Sig/Dejah Route PRN Reason Start Time Stop Time Status Last Admin Dose Admin Acetaminophen (TYLenol 325MG TAB) 650 mg Q4H PRN PO MILD PAIN (1-3) 07/08/25 22:30 08/07/25 22:29 07/09/25 06:48 650 MG Acetaminophen (TYLenol 650MG SUPPOSITORY) 650 mg Q6H PRN RC MILD PAIN (1-3) IF NPO 07/05/25 20:30 08/04/25 20:29 Colchicine (COLCHicine 0.6mg TAB) 0.6 mg DAILY PO 07/09/25 14:00 08/08/25 13:59 Enoxaparin Sodium (Lovenox) 30 mg DAILY SQ 07/08/25 09:00 08/07/25 08:59 07/09/25 11:59 30 MG Hydralazine HCl (APRESOLine 20MG INJ) 10 mg Q6H PRN IV For:SBP above 160;DBP above 90 07/05/25 20:30 07/06/25 01:04 DC Insulin Human Regular (humuLIN R 100 UNIT/ML 3ML) INSULIN SLIDING SCAL... ACHS SQ 07/06/25 07:30 08/05/25 07:29 Magnesium Sulfate 50 ml @ 0 mls/hr PROTOCOL PRN IV PROTOCOL 07/08/25 05:30 08/07/25 05:29 07/08/25 05:43 20 MLS/HR Morphine Sulfate (morPHINE 2MG SYG) 2 mg Q4H PRN IVP SEVERE PAIN (7-10) 07/05/25 20:30 07/12/25 20:29 07/06/25 13:08 2 MG Norepinephrine Bitartrate 250 ml @ 0 mls/hr AD PRN IV TITRATE 07/05/25 21:00 08/04/25 20:59 07/06/25 11:11 0 MLS/HR Ondansetron HCl (zoFRAN 4MG INJ) 4 mg Q6H PRN IV NAUSEA/VOMITING 07/05/25 20:30 08/04/25 20:29 07/07/25 02:56 4 MG Pantoprazole Sodium (PROTonix 40MG INJ) 40 mg DAILY IV 07/06/25 09:00 08/05/25 08:59 07/09/25 11:58 40 MG Potassium Chloride 100 ml @ 100 mls/hr AD PRN IV POTASSIUM PROTOCOL 07/08/25 05:30 08/07/25 05:29 07/08/25 05:43 100 MLS/HR Potassium Chloride (K-Dur/Klor-Con 20meq) 20 meq AD PRN PO POTASSIUM PROTOCOL 07/08/25 05:30 08/07/25 05:29 07/09/25 11:58 20 MEQ Potassium Chloride (KCl 10% Elixir 20meq/15ml) 20 meq AD PRN PO POTASSIUM PROTOCOL 07/08/25 05:30 08/07/25 05:29 Vasopressin 20 units/Sodium Chloride 100 ml @ 0 mls/hr AD PRN IV TITRATE 07/05/25 21:00 08/04/25 20:59 07/06/25 00:51 9 MLS/HR DIAGNOSTICS / RADIOLOGY: [ ] ASSESSMENT: Obstructive shock requiring vasopressor therapy (resolved) Hypotension (resolved) Pericardial effusion with tamponade physiology per 2D echo done at [facility] POA. s/p successful pericardial window 07/06/25 Hypertension. Diabetes mellitus type 2. Melanoma with metastasis most recently on Pembrolizumab (last dose 06/24/25) POA Anxiety. PLAN: *Patient with right knee pain and swelling. Ordered a CT of the right knee in order to rule out an effusion. *If an effusion is present an orthopedic consult will be placed for possible incision and drainage. *Apply cold compress to the right knee. *Chest tube is still in place and drained 20ml in the last 24 hours. Pending cardiothoracic recommendation for removal. *Patient was seen by Dr Thorne (Hemo/Onco) who recommended a hold on chemotherapy at this time, pending results of cytology. If cytology shows metastatic disease, patient may need a different chemotherapy treatment. * Workup was done for potential causes of pericardial effusion: RAUL, Anti-dsDNA. Pending results. NEURO: Minimize central acting medications as possible. Fall Precautions. Well lighted room through the day and minimize interruptions through the night to prevent acute delirium. PULMONARY: Supplemental 02 as needed BiPAP as necessary, for respiratory distress Titrate Fio2 to keep Spo2 > or = 90% DuoNebs and CPT as needed IS hourly while awake for pulmonary hygiene prn Out of bed to chair as tolerated Maintain aspiration precautions at all times CARDIOVASCULAR: Follow hemodynamics. Vital signs per facility protocol GI & NUTRITION: Continue nutritional support Aspirations precautions Prokinetic agents and laxatives as needed KIDNEYS & ELECTROLYTES: Strict monitoring of intake and output Daily weights Avoid nephrotoxic agents Monitor electrolytes and replace as needed Goal urine output of 30mL/hr or 0.5mL/kg/hr Medications to be dosed according to renal function. Avoid contrast if possible ENDOCRINE: Maintain blood glucose between 100-180 at all times. Insulin sliding scale for blood glucose management Hypoglycemia and hyperglycemia protocol in place INFECTIOUS DISEASE: Trend temperature, WBC and procalcitonin level Follow cultures, deescalate antibiotics as soon as possible. Panculture if new onset fever HEMATOLOGY & COAGULATION: Monitor H&H. Keep Hgb > 7 Transfuse 1 unit of PRBC for Hgb < 7 Transfuse 1 pack of platelets of platelets < 20, 000 Watch for any signs and symptoms of bleeding SKIN: Pressure ulcer prevention per facility protocol Specialty mattress as needed ORTHO/REHAB Continue PT/OT PRN: MEDICATIONS Tylenol 650 mg po every 4 hrs for fever zofran 4 mg IV every 6 hrs for n/v Hydralazine 5 mg IV every 4 hrs systolic pressure > 160 bowel regiment: lactulose 20 gm PO BID PRN constipation Supportive measures: Continue GI and DVT prophylaxis Disposition: Pending improvement in clinical condition All questions answered time spent: > 35 min ATTESTATION BY PHYSICIAN I have seen and examined the patient. I reviewed the documentation, medical decision making, and treatment plan as noted by the resident provider above. I agree with the findings and plan of care. Shanna Alicea MD OBIDODIE MD Jul 09, 2025 14:57
--- NOTE | 2025-07-09 17:29 | PN ---
SUBJECTIVE: A 70-year-old gentleman with metastatic melanoma, who underwent a pulmonary window on July 06, course of postoperative day #3. OBJECTIVE: GENERAL: Awake, alert, afebrile, neurologically intact. VITAL SIGNS: Stable as recorded in medical record. CHEST: The midline incision is healing. No hernias. No drainage. Chest tube in place. Minimal drainage. Hemodynamically stable. CARDIOVASCULAR: Heart sounds are crisp to auscultation. PROBLEMS: * Malignant melanoma. Follow oncology recommendations. * Cardiac tamponade, status post drainage. Continue diuresis. Discontinue chest tube. * Deep vein thrombosis prophylaxis. Lovenox 40 mg twice a day. PLAN: Discontinue chest tube. Medical treatment as per oncology in ICU. TID: [id number] RECEIPT: [id number]
--- NOTE | 2025-07-09 20:30 | NUR ---
PT AWAKE AND ALERT, DENIES SOB OR LABORED RESPIRATIONS, O2 PER NC OXIMIZER AT 3 L. ICE PACK APPLIED TO RIGHT KNEE ORDERED. ASSISTANCE WITH ADLS, TELEMETRY MONITORING, CALL LIGHT WITHIN REACH.
--- NOTE | 2025-07-09 20:53 | NUR ---
CT ON HOLD AT THIS TIME, RN TOMI PT UNDER OBSERVATION S/P CHEST TUBE REMOVAL. WILL CALL BACK WHEN PT STABLE FOR CT SCAN.
[2025-07-10] VITALS (18 sets, daily range): BP systolic 83–133; BP diastolic 48–68; PULSE 68–92; RESP 16–24; TEMP 97–99.1; O2SAT 97–99
[2025-07-10 04:26] LABS: NUCLEATED RED BLOOD CELLS 0.0 % (0.0-0.19); PLATELET COUNT (AUTO) 228.0 K/uL (130-400); RED BLOOD CELL COUNT(AUTO) 3.83 MIL/uL (4.50-6.20); RED CELL DISTRIBUTION WIDTH 12.0 % (11.0-15.5); WHITE BLOOD COUNT (AUTO) 7.1 K/uL (4.8-10.8)
[2025-07-10 04:48] LABS: ASPARTATE AMINOTRANSFERASE 22.0 U/L (10-37); CREATININE 0.7 mg/dL (0.5-1.3); GLOMERULAR FILTR. RATE CALC 98.0 mL/min (>90); GLUCOSE,RANDOM 86.0 mg/dL (70-105); SODIUM SERUM 131.0 mmol/L (136-145); TOTAL PROTEIN, SERUM 5.8 g/dL (6.0-8.3); UREA NITROGEN, BLOOD 12.0 mg/dL (7-18)
--- NOTE | 2025-07-10 07:22 | HMCIMG ---
EXAM: CR right Knee, 3 views. CLINICAL HISTORY: Knee pain to rule out fracture. COMPARISON: Prior knee radiograph dated 05 July 2025. FINDINGS: No acute fracture or aggressively appearing osseous lesion. Mild osteopenia. Moderate tricompartmental osteoarthritic changes, more in the medial tibiofemoral joint compartment and the patellofemoral joint compartment. Lateral meniscal cartilage calcification is adequate. Moderate suprapatellar joint effusion. The soft tissues are unremarkable. IMPRESSION: No acute osseous abnormality. Mild osteopenia. Moderate tricompartmental osteoarthritic changes, more in the medial tibiofemoral joint compartment and the patellofemoral joint compartment. Lateral meniscal cartilage calcification is adequate. Moderate suprapatellar joint effusion. Compared to the prior study, there is an interval development of a large suprapatellar joint effusion. /[place]
--- NOTE | 2025-07-10 08:57 | PN ---
[facility] PROGRESS NOTE Date of Service: Jul 10, 2025 Time of Service: 08:57 SUBJECTIVE: 07/06 70-year-old male, history of hypertension, diabetes mellitus type 2, and melanoma with metastases, most recently on Pembrolizumab (last dose 06/24/25), transferred from [facility] after the patient was found to have moderate size pericardial effusion with tamponade, measuring 1.1-1.5 cm, the mitral valve inspiratory variation of 40% and early diastolic collapse of the right ventricle and the late diastolic collapse of the right atrium and a dilated IVC. Patient hypotensive, requiring vasopressor support. Consultation with Cardiology and Cardiothoracic surgeon requested, follow input and recommendations. 07/07 70-year-old male, history of hypertension, diabetes mellitus type 2, and melanoma with metastases, most recently on Pembrolizumab (last dose 06/24/25), transferred from [facility] after the patient was found to have moderate size pericardial effusion with tamponade, measuring 1.1-1.5 cm, the mitral valve inspiratory variation of 40% and early diastolic collapse of the right ventricle and the late diastolic collapse of the right atrium and a dilated IVC. Patient hypotensive, requiring vasopressor support. Consultation with Cardiology and Cardiothoracic surgeon requested, underwent successful pericardial window 07/06/25, with the evacuation of 600 mL of fluid drained. At the time of my visit, comfortable, no acute events overnight per discussion with the RN. Chest tube in place. 07/08/25: Lying in bed at the time of the evaluation with sitter at bedside. Alert and oriented and in no obvious distress. Patient is status post pericardial window and right pleural drainage Post op Day 2. States that he feels a lot better. Denies any chest pain, shortness of breath or palpitations. Overnight drainage from chest tube was 40 cc. Vital signs: Temperature 98.8, pulse 82, respirations 20, BP 125/67, maintaining oxygen at 95% on 4 L via nasal cannula. Labs were unremarkable except for a magnesium of 1.7 which was replaced as per protocol . An oncology consult was placed due to patient's history of metastatic melanoma and the potential for malignant effusion. Pending their recommendations. Workup was done for potential causes of pericardial effusion . Pending results. We will continue to follow the recommendations of Cardiology and the critical care team. 07/09/25: Lying in bed at the time of the evaluation with sitter at bedside. Alert and oriented and in no obvious distress. Patient is status post pericardial window and right pleural drainage Post op Day 3. Denies any chest pain, shortness of breath or palpitations. Patient complains of right knee pain and swelling. Rates the pain as a 7/10. Ordered a CT of the right knee in order to rule out an effusion. If present an orthopedic consult will be placed for possible incision and drainage. Apply cold compress to the right knee. Chest tube is still in place and drained 20ml in the last 24hours. Pending cardiothoracic recommendation. Patient was seen by Dr Thorne (Hemo/Onco) who recommended a hold on chemotherapy at this time, pending results of cytology. If cytology shows metastatic disease, patient may need a different chemotherapy treatment. Still pending results for workup done for potential causes of pericardial effusion: RAUL, dsDNA .We will continue to follow the recommendations of Cardiology and the critical care team. 07/10/25:Lying in bed at the time of the evaluation with sitter at bedside. Alert and oriented and in no obvious distress. Patient is status post pericardial window and right pleural drainage Post op Day 4. Denies any chest pain, shortness of breath or palpitations. Continues with pain and swelling of right knee joint. X ray of right knee showed mild osteopenia, moderate tricompartmental osteoarthritic changes and moderate supra-patella joint effusion. order placed for Orthopedic surgery for possible incision and drainage. Continue with cold compresses to the knee. Chest tube was removed yesterday. Orders placed for physical therapy to ambulate. dsDNA was negative. We will continue to follow the recommendations of Cardiology and the critical care team. REVIEW OF SYSTEMS CONSTITUTIONAL: Denies fevers, chills, or night sweats. No unintentional weight loss reported. NEUROLOGICAL: Denies headache, amaurosis fugax, motor weakness, sensory deficit, vertigo/spinning sensation, gait abnormalities, or tremors. ENT: No hearing loss, otalgia, otorrhea, rhinitis, rhinorrhea, hoarseness, or sore throat. CARDIOVASCULAR: Denies any exertional angina, dyspnea on exertion, orthopnea, paroxysmal nocturnal dyspnea, palpitations, life-threatening arrhythmias, claudication. PULMONARY: Denies any shortness of breath, cough, phlegm/sputum, hemoptysis, pleuritic chest pain. SLEEP: Denies morning headaches, daytime somnolence or napping. Denies difficulty falling asleep, staying asleep, waking from sleep. Denies knowledge of snoring. GASTROINTESTINAL: Denies any type of dysphagia to either liquids or solids. Denies nausea, vomiting, pyrosis, early satiety, abdominal pain, diarrhea, c onstipation, or changes in stool consistency or caliber. Denies coffee-ground emesis, hematemesis, hematochezia, or melanotic stools. GENITOURINARY: Denies frequency, urgency, nocturia, hematuria or incontinence (Storage/Irritative symptoms.) Low urinary stream, straining to void, urinary intermittency or hesitancy, splitting of the voiding stream, terminal dribbling. DERMATOLOGIC: Denies rashes or pruritus. MUSCULOSKELETAL: Right Knee pain and swelling PSYCHIATRIC: Denies any suicidal or homicidal ideation. Denies hallucinations. PHYSICAL EXAM GENERAL APPEARANCE: The patient is awake, alert, and oriented, in no acute card iopulmonary distress. NEUROLOGICAL: Cranial nerves II-XII grossly intact. Motor is 5/5 in bilateral upper and lower extremities proximal to distal. No sensory deficits. HEENT: Face is symmetric. Pupils are equal and reactive. Extraocular movements are intact. NECK: Supple. No JVD. No thyromegaly. No submental, submandibular, pre- /postauricular, occipital or supraclavicular lymphadenopathy. CHEST: Normal chest expansion. No Telemetry. LUNGS: Absence of any rales, rhonchi or any wheezing. CARDIOVASCULAR: Regular. S1 and S2 normal. No appreciable rubs, murmurs or gallops. ABDOMEN: Soft, nontender, and nondistended. There is no rebound, voluntary guarding, or rigidity. : Deferred. No Orozco. EXTREMITIES: Right knee joint edema and erythema SKIN: No skin breakdown. Vital Signs (last 8hr) Date Time Temp Pulse Resp B/P (MAP) Pulse Ox O2 Delivery O2 Flow Rate FiO2 07/10/25 08:24 98.1 85 16 108/60 95 Nasal Cannula 2.0 07/10/25 07:17 87 20 N/Cannula Oximizer Hi LPM 3.0 32 LABS: Laboratory: Test 07/10/25 06:24 07/10/25 04:09 07/09/25 04:29 07/08/25 13:16 Range/Units Whole Blood Glucose 90 70-110 MG/DL White Blood Count 7.1 4.8-10.8 K/uL Red Blood Count 3.83 L 4.50-6.20 MIL/uL Hemoglobin 11.2 L 14.0-18.0 g/dL Hematocrit 33.2 L 42-54 % Mean Corpuscular Volume 86.7 79-99 fL Mean Corpuscular Hemoglobin 29.2 27.0-33.0 pg Mean Corpuscular Hemoglobin Concent 33.7 32.0-36.0 g/dL Red Cell Distribution Width 12.0 11.0-15.5 % Platelet Count 228 130-400 K/uL Mean Platelet Volume 9.2 7.5-10.5 fL Nucleated Red Blood Cells 0.0 0.0-0.19 % Sodium Level 131 L 136-145 mmol/L Potassium Level 3.8 3.5-5.1 mmol/L Chloride Level 95 L 101-111 mmol/L Carbon Dioxide Level 31 21-32 mmol/L Blood Urea Nitrogen 12 7-18 mg/dL Creatinine 0.7 0.5-1.3 mg/dL Glomerular Filtration Rate Calc 98 >90 mL/min Random Glucose 86 70-105 mg/dL Total Calcium 8.1 L 8.5-10.1 mg/dL Total Bilirubin 0.7 # 0.2-1.0 mg/dL Aspartate Amino Transf (AST/SGOT) 22 10-37 U/L Alanine Aminotransferase (ALT/SGPT) 29 # 12-78 U/L Alkaline Phosphatase 77 50-136 U/L Total Protein 5.8 L 6.0-8.3 g/dL Albumin 1.9 L 3.5-5.0 g/dL Immature Granulocyte % (Auto) 0.3 0-1 % Neutrophils (%) (Auto) 47.2 40.0-77.0 % Lymphocytes (%) (Auto) 24.0 21.0-51.0 % Monocytes (%) (Auto) 14.9 H 3.0-13.0 % Eosinophils (%) (Auto) 12.9 H 0.0-8.0 % Basophils (%) (Auto) 0.7 0.0-5.0 % Neutrophils # (Auto) 3.6 1.8-7.7 K/uL Lymphocytes # (Auto) 1.8 1.0-4.8 K/uL Monocytes # (Auto) 1.1 H 0.1-1.0 K/uL Eosinophils # (Auto) 0.97 H 0.00-0.70 K/uL Basophils # (Auto) 0.05 0.00-0.20 K/uL Absolute Immature Granulocyte (auto 0.02 0-1 K/uL Uric Acid 4.4 2.6-7.2 mg/dL Anti-Double Strand DNA Antibody <1 0-9 IU/mL Current Medications Medications (Trade) Dose Ordered Sig/Dejah Route PRN Reason Start Time Stop Time Status Last Admin Dose Admin Acetaminophen (TYLenol 325MG TAB) 650 mg Q4H PRN PO MILD PAIN (1-3) 07/08/25 22:30 08/07/25 22:29 07/10/25 06:40 650 MG Acetaminophen (TYLenol 650MG SUPPOSITORY) 650 mg Q6H PRN RC MILD PAIN (1-3) IF NPO 07/05/25 20:30 08/04/25 20:29 Colchicine (COLCHicine 0.6mg TAB) 0.6 mg DAILY PO 07/09/25 14:00 07/09/25 18:31 DC 07/09/25 17:34 0.6 MG Enoxaparin Sodium (Lovenox) 30 mg DAILY SQ 07/08/25 09:00 08/07/25 08:59 07/09/25 11:59 30 MG Hydralazine HCl (APRESOLine 20MG INJ) 10 mg Q6H PRN IV For:SBP above 160;DBP above 90 07/05/25 20:30 07/06/25 01:04 DC Insulin Human Regular (humuLIN R 100 UNIT/ML 3ML) INSULIN SLIDING SCAL... ACHS SQ 07/06/25 07:30 08/05/25 07:29 Magnesium Sulfate 50 ml @ 0 mls/hr PROTOCOL PRN IV PROTOCOL 07/08/25 05:30 08/07/25 05:29 07/08/25 05:43 20 MLS/HR Morphine Sulfate (morPHINE 2MG SYG) 2 mg Q4H PRN IVP SEVERE PAIN (7-10) 07/05/25 20:30 07/12/25 20:29 07/06/25 13:08 2 MG Norepinephrine Bitartrate 250 ml @ 0 mls/hr AD PRN IV TITRATE 07/05/25 21:00 07/09/25 16:06 DC 07/06/25 11:11 0 MLS/HR Ondansetron HCl (zoFRAN 4MG INJ) 4 mg Q6H PRN IV NAUSEA/VOMITING 07/05/25 20:30 08/04/25 20:29 07/07/25 02:56 4 MG Pantoprazole Sodium (PROTonix 40MG INJ) 40 mg DAILY IV 07/06/25 09:00 08/05/25 08:59 07/09/25 11:58 40 MG Potassium Chloride 100 ml @ 100 mls/hr AD PRN IV POTASSIUM PROTOCOL 07/08/25 05:30 08/07/25 05:29 07/08/25 05:43 100 MLS/HR Potassium Chloride (K-Dur/Klor-Con 20meq) 20 meq AD PRN PO POTASSIUM PROTOCOL 07/08/25 05:30 08/07/25 05:29 07/10/25 06:39 20 MEQ Potassium Chloride (KCl 10% Elixir 20meq/15ml) 20 meq AD PRN PO POTASSIUM PROTOCOL 07/08/25 05:30 08/07/25 05:29 Vasopressin 20 units/Sodium Chloride 100 ml @ 0 mls/hr AD PRN IV TITRATE 07/05/25 21:00 07/09/25 16:07 DC 07/06/25 00:51 9 MLS/HR DIAGNOSTICS / RADIOLOGY: PATIENT: LEXI CUELLAR MR#: [id number] : 1955 SEX: M AGE: 70 LOCATION: 2AH ORDER 29 STATUS: ADM IN REPORT#: [id number] SERVICE 28 REASON: knee pain rule out fracture ORDERING PHYSICIAN: HYACINTH MAURO PROCEDURE: KNEE 3V RT - KNEE 3VWS RT EXAM: CR right Knee, 3 views. CLINICAL HISTORY: Knee pain to rule out fracture. COMPARISON: Prior knee radiograph dated 05 July 2025. FINDINGS: No acute fracture or aggressively appearing osseous lesion. Mild osteopenia. Moderate tricompartmental osteoarthritic changes, more in the medial tibiofemoral joint compartment and the patellofemoral joint compartment. Lateral meniscal cartilage calcification is adequate. Moderate suprapatellar joint effusion. The soft tissues are unremarkable. IMPRESSION: No acute osseous abnormality. Mild osteopenia. Moderate tricompartmental osteoarthritic changes, more in the medial tibiofemoral joint compartment and the patellofemoral joint compartment. Lateral meniscal cartilage calcification is adequate. Moderate suprapatellar joint effusion. Compared to the prior study, there is an interval development of a large suprapatellar joint effusion. /[employer] DICTATED BY: MARIA ESTHER VAZQUEZ MD DATE: 07/10/25820 ELECTRONICALLY SIGNED BY: MARIA ESTHER VAZQUEZ MD DATE: 07/10/25820 ASSESSMENT: Obstructive shock requiring vasopressor therapy (resolved) Hypotension (resolved) Pericardial effusion with tamponade physiology per 2D echo done at [facility] POA s/p successful pericardial window 07/06/25 Hypertension. Diabetes mellitus type 2. Melanoma with metastasis most recently on Pembrolizumab (last dose 06/24/25) POA Anxiety. PLAN: *X ray of right knee showed mild osteopenia, moderate tricompartmental osteoarthritic changes and moderate supra-patella joint effusion. *Order placed for Orthopedic surgery for possible incision and drainage. *Continue with cold compresses to the knee. *Chest tube was removed yesterday. *Orders placed for physical therapy to ambulate. NEURO: Minimize central acting medications as possible. Fall Precautions. Well lighted room through the day and minimize interruptions through the night to prevent acute delirium. PULMONARY: Supplemental 02 as needed BiPAP as necessary, for respiratory distress Titrate Fio2 to keep Spo2 > or = 90% DuoNebs and CPT as needed IS hourly while awake for pulmonary hygiene prn Out of bed to chair as tolerated Maintain aspiration precautions at all times CARDIOVASCULAR: Follow hemodynamics. Vital signs per facility protocol GI & NUTRITION: Continue nutritional support Aspirations precautions Prokinetic agents and laxatives as needed KIDNEYS & ELECTROLYTES: Strict monitoring of intake and output Daily weights Avoid nephrotoxic agents Monitor electrolytes and replace as needed Goal urine output of 30mL/hr or 0.5mL/kg/hr Medications to be dosed according to renal function. Avoid contrast if possible ENDOCRINE: Maintain blood glucose between 100-180 at all times. Insulin sliding scale for blood glucose management Hypoglycemia and hyperglycemia protocol in place INFECTIOUS DISEASE: Trend temperature, WBC and procalcitonin level Follow cultures, deescalate antibiotics as soon as possible. Panculture if new onset fever HEMATOLOGY & COAGULATION: Monitor H&H. Keep Hgb > 7 Transfuse 1 unit of PRBC for Hgb < 7 Transfuse 1 pack of platelets of platelets < 20, 000 Watch for any signs and symptoms of bleeding SKIN: Pressure ulcer prevention per facility protocol Specialty mattress as needed ORTHO/REHAB Continue PT/OT PRN: MEDICATIONS Tylenol 650 mg po every 4 hrs for fever zofran 4 mg IV every 6 hrs for n/v Hydralazine 5 mg IV every 4 hrs systolic pressure > 160 bowel regiment: lactulose 20 gm PO BID PRN constipation Supportive measures: Continue GI and DVT prophylaxis Disposition: Pending improvement in clinical condition All questions answered time spent: > 35 min ATTESTATION BY PHYSICIAN I have seen and examined the patient. I reviewed the documentation, medical decision making, and treatment plan as noted by the resident provider above. I agree with the findings and plan of care. Nixon Otero MD OBI,DODIE Geronimo MD Jul 10, 2025 08:57
--- NOTE | 2025-07-10 10:48 | NUR ---
PT'S CONSULT CALLED TO DR. BIRD'S OFFICE
--- NOTE | 2025-07-10 13:01 | CONS ---
CONSULTATION NOTE Date of Service: Jul 10, 2025 Reason for Consultation: [ right knee effusion] Requesting Physician: [ Dr. Kirkland ] HISTORY OF PRESENT ILLNESS: [ ] 70 year old male with history of cardiac tamponade s/p surgical drain has complaints of right knee pain and effusion. He also has sistory of melanoma with last chemo session on Jun 25. Patient reports that since then he has been having right knee pain and swelling. REVIEW OF SYSTEMS CONSTITUTIONAL: Denies fever, chills, or fatigue. HEAD/FACE: No signs of trauma. EENT: Denies eye pain, blurred vision, double vision, or light sensitivity. RESPIRATORY: Denies shortness of breath, cough, wheezing CARDIOVASCULAR: Denies chest pain, palpitation, syncope GASTROINTESTINAL/ABDOMINAL: Denies abdominal pain, constipation, diarrhea, nausea or vomiting GENITOURINARY: Denies dysuria or hematuria. MUSCULOSKELETAL: right knee effusion, warm to touch. ROM 0-30 degrees INTEGUMENTARY: Denies rash or itchiness NEUROLOGICAL/PSYCH: Denies anxiety, depression, heat or cold intolerance. refer to h&P Coded Allergies: No Known Drug Allergies (Unverified Allergy, Unknown, 07/05/25) PHYSICAL EXAM EYES: Anicteric. Pupils equal and reactive. HENT: No oral thrush seen, moist Oral mucosa NECK: Supple, no JVD or thyromegaly. LUNGS: Good air entry. No rales, no rhonchi. CARDIOVASCULAR: S1, S2 regular. No murmur heard. ABDOMEN: Soft, non tender, bowel sounds present, no organomegaly CENTRAL NERVOUS SYSTEM: Awake, alert, oriented x 3. No focal deficits. SKIN: No rashes, no swelling. LYMPHATICS: No peripheral lymphadenopathy MUSCULOSKELETAL: right knee effusion, warm to touch EXTREMITIES: No cyanosis or clubbing BACK: No deformity, no pressure ulcer. GENITOURINARY: No dysuria or hematuria Vital Sign (Last 24 Hours) 07/10/25 07/10/25 07:17 12:18 Temp 98.1 Pulse 88 Resp 16 B/P (MAP) 83/48 Pulse Ox 97 O2 Delivery Nasal Cannula O2 Flow Rate 2.0 FiO2 32 Intake & Output (last 24hrs) 07/09/25 07/09/25 07/10/25 15:00 23:00 07:00 Output Total 1300 ml Balance -1300 ml LABS: Laboratory: Test 07/10/25 11:57 07/10/25 04:09 07/09/25 04:29 07/08/25 13:16 Range/Units Whole Blood Glucose 90 70-110 MG/DL White Blood Count 7.1 4.8-10.8 K/uL Red Blood Count 3.83 L 4.50-6.20 MIL/uL Hemoglobin 11.2 L 14.0-18.0 g/dL Hematocrit 33.2 L 42-54 % Mean Corpuscular Volume 86.7 79-99 fL Mean Corpuscular Hemoglobin 29.2 27.0-33.0 pg Mean Corpuscular Hemoglobin Concent 33.7 32.0-36.0 g/dL Red Cell Distribution Width 12.0 11.0-15.5 % Platelet Count 228 130-400 K/uL Mean Platelet Volume 9.2 7.5-10.5 fL Nucleated Red Blood Cells 0.0 0.0-0.19 % Sodium Level 131 L 136-145 mmol/L Potassium Level 3.8 3.5-5.1 mmol/L Chloride Level 95 L 101-111 mmol/L Carbon Dioxide Level 31 21-32 mmol/L Blood Urea Nitrogen 12 7-18 mg/dL Creatinine 0.7 0.5-1.3 mg/dL Glomerular Filtration Rate Calc 98 >90 mL/min Random Glucose 86 70-105 mg/dL Total Calcium 8.1 L 8.5-10.1 mg/dL Total Bilirubin 0.7 # 0.2-1.0 mg/dL Aspartate Amino Transf (AST/SGOT) 22 10-37 U/L Alanine Aminotransferase (ALT/SGPT) 29 # 12-78 U/L Alkaline Phosphatase 77 50-136 U/L Total Protein 5.8 L 6.0-8.3 g/dL Albumin 1.9 L 3.5-5.0 g/dL Immature Granulocyte % (Auto) 0.3 0-1 % Neutrophils (%) (Auto) 47.2 40.0-77.0 % Lymphocytes (%) (Auto) 24.0 21.0-51.0 % Monocytes (%) (Auto) 14.9 H 3.0-13.0 % Eosinophils (%) (Auto) 12.9 H 0.0-8.0 % Basophils (%) (Auto) 0.7 0.0-5.0 % Neutrophils # (Auto) 3.6 1.8-7.7 K/uL Lymphocytes # (Auto) 1.8 1.0-4.8 K/uL Monocytes # (Auto) 1.1 H 0.1-1.0 K/uL Eosinophils # (Auto) 0.97 H 0.00-0.70 K/uL Basophils # (Auto) 0.05 0.00-0.20 K/uL Absolute Immature Granulocyte (auto 0.02 0-1 K/uL Uric Acid 4.4 2.6-7.2 mg/dL Anti-Double Strand DNA Antibody <1 0-9 IU/mL DIAGNOSTICS / RADIOLOGY: [ ] Pending CT, images reviewed, has advanced arthritis and large fluid collection to suprapatellar pouch. ASSESSMENT: right knee effusion PLAN: IR to drain right knee effusion, collect GS, aerobic and anaerobic cultures, and cell count. will f/u with results. EDUAR FERNÁNDEZ READING INSTRUCTOR Jul 10, 2025 13:01
--- NOTE | 2025-07-10 13:30 | PN ---
[facility] PROGRESS NOTE Date Patient Seen: Jul 10, 2025 Time of Visit: 13:08 Supervising Physician: Norman Meeks MD Primary Care Physician: PCP: (Cannot recall name) Outpatient Specialists: [ ] Inpatient Consults: [ ] PROBLEM LIST: Cardiac tamponade, POA s/p pericardial window on 07/06/25 pending cytology suspected pericardial effusion from Keytruda (pembrolizumab) Recent History of mechanical fall (07/07) Hypoalbuminemia / protein-calorie malnutrition (albumin 2.1) Right knee pain 2/2 moderate suprapatellar joint effusion Chronic Conditions: Hypertension. Diabetes mellitus type 2. History of melanoma with metastatic disease of the patient received Keytruda (pembrolizumab) 06/24/25 Anxiety INTERVAL HISTORY: Patient is awake alert and oriented times three. Sitting up on hospital bed. Denies any chest pain palpitations or shortness for breath. Continues with pain to right knee. Knee x-ray shows no acute osseous abnormality with a mild osteopenia. Moderate tricompartmental osteoarthritic changes, more in the medial tibiofemoral joint compartment and the patellofemoral joint compartment. Lateral mesenteric physical cartilage calcification is adequate. Moderate suprapatellar joint effusion. Compared to the prior study there is an interval development of large suprapatellar joint effusion. Orthopedic Dr Hathaway has been consulted by primary team. We will follow his recommendations. Pericardial fluid culture showing no anaerobes in 60-71 hours, no acid-fast bacilli seen, g stain with no growth in 60s 71 hours. Pending pathology of pericardial fluid and pericardial biopsy. REVIEW OF SYSTEMS: General: No malaise or fever. Neurological: No fainting episodes or seizures. HEENT: No nasal congestion or nasal secretion. Respiratory: No cough, shortness of breath, or wheezing Cardiac: No chest pain or palpitations. Gastrointestinal: No vomiting or diarrhea. Genitourinary: No dysuria hematuria. Skin: No rashes or lesions. Hematological: No bruises or bleeding. Musculoskeletal: Reports right knee pain Psychiatric: No depression or panic attacks. PHYSICAL EXAM: GENERAL: Elderly male, resting in bed, calm, sitter at bedside. HEENT: EOMI, Sclera non icteric, moist mucosa NECK: Supple, no JVD, trachea midline LUNGS: Clear breath sounds bilaterally. No wheezes HEART: Regular rate and rhythm. Normal S1 and S2, without murmurs ABD: Abdomen soft, nontender. Bowel sounds present EXT: No clubbing cyanosis, pain swelling and tenderness to RT Knee Vital Signs (last 8hr) Date Time Temp Pulse Resp B/P (MAP) Pulse Ox O2 Delivery O2 Flow Rate FiO2 07/10/25 12:18 98.1 88 16 83/48 97 Nasal Cannula 2.0 07/10/25 08:24 98.1 85 16 108/60 95 Nasal Cannula 2.0 07/10/25 07:17 87 20 N/Cannula Oximizer Hi LPM 3.0 32 07/10/25 07:15 97 Nasal Cannula* 3 N/A N/C Oxymizer Hi LPM* LABS: Hematology Labs: Test 07/10/25 04:09 07/09/25 04:29 Range/Units White Blood Count 7.1 4.8-10.8 K/uL Red Blood Count 3.83 L 4.50-6.20 MIL/uL Hemoglobin 11.2 L 14.0-18.0 g/dL Hematocrit 33.2 L 42-54 % Mean Corpuscular Volume 86.7 79-99 fL Mean Corpuscular Hemoglobin 29.2 27.0-33.0 pg Mean Corpuscular Hemoglobin Concent 33.7 32.0-36.0 g/dL Red Cell Distribution Width 12.0 11.0-15.5 % Platelet Count 228 130-400 K/uL Mean Platelet Volume 9.2 7.5-10.5 fL Nucleated Red Blood Cells 0.0 0.0-0.19 % Immature Granulocyte % (Auto) 0.3 0-1 % Neutrophils (%) (Auto) 47.2 40.0-77.0 % Lymphocytes (%) (Auto) 24.0 21.0-51.0 % Monocytes (%) (Auto) 14.9 H 3.0-13.0 % Eosinophils (%) (Auto) 12.9 H 0.0-8.0 % Basophils (%) (Auto) 0.7 0.0-5.0 % Neutrophils # (Auto) 3.6 1.8-7.7 K/uL Lymphocytes # (Auto) 1.8 1.0-4.8 K/uL Monocytes # (Auto) 1.1 H 0.1-1.0 K/uL Eosinophils # (Auto) 0.97 H 0.00-0.70 K/uL Basophils # (Auto) 0.05 0.00-0.20 K/uL Absolute Immature Granulocyte (auto 0.02 0-1 K/uL Chemistry Labs: Test 07/10/25 11:57 07/10/25 04:09 07/09/25 04:29 Range/Units Whole Blood Glucose 90 70-110 MG/DL Sodium Level 131 L 136-145 mmol/L Potassium Level 3.8 3.5-5.1 mmol/L Chloride Level 95 L 101-111 mmol/L Carbon Dioxide Level 31 21-32 mmol/L Blood Urea Nitrogen 12 7-18 mg/dL Creatinine 0.7 0.5-1.3 mg/dL Glomerular Filtration Rate Calc 98 >90 mL/min Random Glucose 86 70-105 mg/dL Total Calcium 8.1 L 8.5-10.1 mg/dL Total Bilirubin 0.7 # 0.2-1.0 mg/dL Aspartate Amino Transf (AST/SGOT) 22 10-37 U/L Alanine Aminotransferase (ALT/SGPT) 29 # 12-78 U/L Alkaline Phosphatase 77 50-136 U/L Total Protein 5.8 L 6.0-8.3 g/dL Albumin 1.9 L 3.5-5.0 g/dL Uric Acid 4.4 2.6-7.2 mg/dL DIAGNOSTICS / RADIOLOGY RESULTS: [[facility] [address] [place] [id number] IMAGING REPORT Signed PATIENT: LEXI CUELLAR MR#: [id number] : 1955 SEX: M AGE: 70 LOCATION: 2AH ORDER 29 STATUS: ADM IN REPORT#: [id number] SERVICE 28 REASON: knee pain rule out fracture ORDERING PHYSICIAN: HYACINTH MAURO PROCEDURE: KNEE 3V RT - KNEE 3VWS RT EXAM: CR right Knee, 3 views. CLINICAL HISTORY: Knee pain to rule out fracture. COMPARISON: Prior knee radiograph dated 05 July 2025. FINDINGS: No acute fracture or aggressively appearing osseous lesion. Mild osteopenia. Moderate tricompartmental osteoarthritic changes, more in the medial tibiofemoral joint compartment and the patellofemoral joint compartment. Lateral meniscal cartilage calcification is adequate. Moderate suprapatellar joint effusion. The soft tissues are unremarkable. IMPRESSION: No acute osseous abnormality. Mild osteopenia. Moderate tricompartmental osteoarthritic changes, more in the medial tibiofemoral joint compartment and the patellofemoral joint compartment. Lateral meniscal cartilage calcification is adequate. Moderate suprapatellar joint effusion. Compared to the prior study, there is an interval development of a large suprapatellar joint effusion. /[place] DICTATED BY: MARIA ESTHER VAZQUEZ MD DATE: 07/10/25820 ELECTRONICALLY SIGNED BY: MARIA ESTHER VAZQUEZ MD DATE: 07/10/25820 ] Plan: Chest x-ray Orthopedic consult per primary team follow recommendations Pending IR right knee fluid aspiration Continue physical therapy Telemetry Daily labs Monitor Hgb Sitter INOs Follow pericardial fluid and biopsy pathology Follow pericardial fluid cultures Follow oncology recommendations NEURO: Minimize central acting medications as possible. Maintain fall precautions, adequate lighting during the day PULMONARY: Supplemental 02 as needed. Maintain aspiration precautions at all times CARDIOVASCULAR: Follow hemodynamics. Vital signs per facility protocol GI & NUTRITION: Continue with nutritional support. Continue stool softeners and laxatives as needed. KIDNEYS & ELECTROLYTES: Strict monitoring of intake, output and overall fluid balance. Avoid nephrotoxic medications to the extent possible. Medications to be dosed according to renal function. Monitor electrolytes and replace as needed ENDOCRINE: Maintain blood glucose between 100-180 at all times. Hypoglycemia protocol in place INFECTIOUS DISEASE: Trend temperature, WBC and procalcitonin level Follow cultures, deescalate antibiotics as soon as possible. Panculture if new onset fever ONCOLOGY/HEMATOLOGY/COAGULATION: Monitor for s/s of bleeding Monitor hemoglobin, coagulation studies as needed SKIN: Pressure ulcer prevention per facility protocol Specialty mattress ORTHO/REHAB: Continue PT/OT Prophylaxis: Continue GI and DVT prophylaxis Code Status: Full Resuscitation Disposition: TBD Other: ATTESTATION BY PHYSICIAN The patient has been seen and evaluated, the case has been discussed with the SUPERVISOR PHOTOSTAT, I agree with the clinical findings and plan of care. Norman Meeks MD, NELLY J [facility] Jul 10, 2025 13:30
--- NOTE | 2025-07-10 14:10 | NUR ---
ULTRASOUND GUIDED RIGHT KNEE JOINT ASPIRATION PROCEDURE PERFORMED BY DR. CINTHIA KEEN. PUNCTURE SITE RIGHT KNEE AND PATIENT TOLERATED PROCEDURE WELL. SPECIMEN X1 (50CC) COLLECTED AND SENT TO LAB. END OF PROCEDURE AT 1340. BIOPSY NEEDLE REMOVED AND DRESSING APPLIED- NO BLEEDING NOTED. REPORT GIVEN TO KATARZYNA KUO RN AND PATIENT TRANSPORTED BACK TO ROOM 231 VIA BED. PATIENT IS ALERT AND ORIENTED AND STATES NO C/O PAIN.
[2025-07-10 14:13] LABS: ANTI-SCLERODERMA 70 <0.2 AI (0.0-0.9)
--- NOTE | 2025-07-10 14:49 | HMCIMG ---
DIAGNOSTIC ARTHROCENTESIS, ULTRASOUND GUIDANCE HISTORY:Right knee joint effusion PROCEDURE: 1. Right knee arthrocentesis, ultrasound guidance. PROCEDURE DESCRIPTION: The risks, benefits and alternatives of the procedure were discussed with the patient and all questions answered. Informed consent was obtained and documented in the medical record. Skin overlying the right knee was cleaned using facility protocol for maximum sterile preparation. 1% lidocaine was used for local anesthesia. Under direct guidance, an 18-gauge needle was advanced into the joint space and 50 cc of yellowish tinged fluid was aspirated. Patient tolerated the procedure well. No evidence of immediate complication. Fluid sent to the lab for analysis per referring physician orders. FINDINGS: Right knee joint effusion effusion. IMPRESSION: Technically successful ultrasound-guided right knee arthrocentesis. No immediate complication.
[2025-07-10 15:12] LABS: BODY FLUID RBC 16723 /cu. mm.; BODY FLUID WBC 4559 /cu. mm.
--- NOTE | 2025-07-10 16:32 | PN ---
SUBJECTIVE: A 70-year-old with melanoma and pericardial effusion status post cardiac tamponade, status post window. OBJECTIVE: GENERAL: The patient is awake, alert, and in no acute distress. VITAL SIGNS: Stable as recorded in the medical record. CHEST: Incision site healing, sealed. CARDIOVASCULAR: Heart sounds are crisp. LUNGS: Discontinued chest tube. EXTREMITIES: With pulses. ASSESSMENT: * Fluid overload. Lasix 20 mg twice a day. * DVT prophylaxis. Lovenox 30 mg twice a day. SCDs while in bed. DISCHARGE PLANNING: Follow up as an outpatient. TID: [id number] RECEIPT: [id number]
--- NOTE | 2025-07-10 16:46 | HMCIMG ---
EXAM: CR Chest, 1 View. CLINICAL HISTORY: chest tube removal COMPARISON: None provided. FINDINGS: LUNGS: Left lower lobe infiltrate. PLEURAL SPACES: Chest tube has been removed. No pneumothorax Left pleural effusion MEDIASTINUM: Cardiac silhouette prominent BONES: No acute osseous abnormality. MISCELLANEOUS: Right venous line middle third SVC IMPRESSION: 1. Cardiac silhouette prominent 2. Right venous line middle third SVC 3. Chest tube has been removed. No pneumothorax 4. Left lower lobe infiltrate. 5. Left pleural effusion /[place]
[2025-07-10 16:52] LABS: APPEARANCE BODY FLUID CLOUDY (CLEAR); SPECIMENTYPE,BODY FLUID SYNOVIAL
[2025-07-10 16:53] LABS: COLOR,BODY FLUID ORANGE (LT YELLOW); TOTAL VOLUME,BODY FLUID 45 mL
[2025-07-10 16:56] LABS: BF LYMPHOCYTE 1 %; BF MONOCYTE 3 %; BF NEUTROPHIL 96.0 %; BF TOTAL CELLS COUNTED 100
[2025-07-11] VITALS (10 sets, daily range): BP systolic 93–140; BP diastolic 52–73; PULSE 58–88; RESP 16–20; TEMP 97.5–98.7; O2SAT 95–99
[2025-07-11 04:52] LABS: NUCLEATED RED BLOOD CELLS 0.0 % (0.0-0.19); PLATELET COUNT (AUTO) 242.0 K/uL (130-400); RED BLOOD CELL COUNT(AUTO) 4.0 MIL/uL (4.50-6.20); RED CELL DISTRIBUTION WIDTH 12.1 % (11.0-15.5); WHITE BLOOD COUNT (AUTO) 6.3 K/uL (4.8-10.8)
[2025-07-11 05:01] LABS: CREATININE 0.5 mg/dL (0.5-1.3); GLOMERULAR FILTR. RATE CALC 108.0 mL/min (>90); GLUCOSE,RANDOM 90.0 mg/dL (70-105); SODIUM SERUM 132.0 mmol/L (136-145); UREA NITROGEN, BLOOD 10.0 mg/dL (7-18)
--- NOTE | 2025-07-11 09:20 | HMCIMG ---
EXAM: CT right Knee without IV contrast CLINICAL HISTORY: Right knee swelling TECHNIQUE: Axial images were acquired through the right knee without IV contrast. Reformatted images were reviewed. COMPARISON: CR RT Knee dated 07/09/2025 FINDINGS: Bones: Multiple periarticular osteophytes along joint margins. Subchondral sclerosis and joint space narrowing are most pronounced in the medial tibiofemoral compartment. No acute fracture or bone marrow abnormality. No lytic or sclerotic lesions. Joints: Medial tibiofemoral compartment with significant joint space narrowing. Meniscal calcification involving both medial and lateral menisci. Multiple tiny loose bodies in the intercondylar notch. There is a moderate joint effusions. No evidence of joint subluxation or dislocation. Soft Tissue: Patellar tendon appears thickened and wavy, suspicious for tendon injury. Atherosclerotic changes in the form of vessel wall calcification of lower limb arteries. No evidence of soft tissue mass or abnormal calcification apart from those described. No significant muscle atrophy or edema. IMPRESSION: 1. Moderate to severe osteoarthritis of the right knee, most pronounced in the medial compartment. 2. Thickened and wavy patellar tendon, suspicious for tendon injury. 3. Multiple tiny loose bodies in the intercondylar notch. 4. Moderate joint effusion. 5. No acute fracture or dislocation. Suggested MRI KNEE for soft tissue evaluation. /[place]
--- NOTE | 2025-07-11 11:07 | PN ---
[facility] PROGRESS NOTE Date Patient Seen: Jul 11, 2025 Time of Visit: 11:07 Supervising Physician: Norman Meeks MD Primary Care Physician: PCP: (Cannot recall name) Outpatient Specialists: [ ] Inpatient Consults: [ ] PROBLEM LIST: Cardiac tamponade, POA s/p pericardial window on 07/06/25 pending cytology suspected pericardial effusion from Keytruda (pembrolizumab) Right Knee effusion, status post right knee arthrocentesis by IR on 07/10/2025. Recent History of mechanical fall (07/07) Hypoalbuminemia / protein-calorie malnutrition (albumin 2.1) Chronic Conditions: Hypertension. Diabetes mellitus type 2. History of melanoma with metastatic disease of the patient received Keytruda (pembrolizumab) 06/24/25 Anxiety INTERVAL HISTORY: No major overnight events. Chest XR is stable no pneumothorax , no pleural effusion noted. S/P right knee arthrocentesis by IR on 07/10/2025. Following synovial fluid culture at this time. Pt reports [id number] pain to Rt Knee improvement to ROM. Cleared by CV surgery to follow up as outpatient. Dispo per primary team. REVIEW OF SYSTEMS: General: No malaise or fever. Neurological: No fainting episodes or seizures. HEENT: No nasal congestion or nasal secretion. Respiratory: No cough, shortness of breath, or wheezing Cardiac: No chest pain or palpitations. Gastrointestinal: No vomiting or diarrhea. Genitourinary: No dysuria hematuria. Skin: No rashes or lesions. Hematological: No bruises or bleeding. Musculoskeletal: Reports right knee pain Psychiatric: No depression or panic attacks. PHYSICAL EXAM: GENERAL: Elderly male, resting in bed, calm, sitter at bedside. HEENT: EOMI, Sclera non icteric, moist mucosa NECK: Supple, no JVD, trachea midline LUNGS: Clear breath sounds bilaterally. No wheezes HEART: Regular rate and rhythm. Normal S1 and S2, without murmurs ABD: Abdomen soft, nontender. Bowel sounds present EXT: No clubbing cyanosis, pain swelling and tenderness to RT Knee Vital Signs (last 8hr) Date Time Temp Pulse Resp B/P (MAP) Pulse Ox O2 Delivery O2 Flow Rate FiO2 07/11/25 08:00 98.8 84 16 116/67 96 Nasal Cannula 1.0 07/11/25 07:33 88 20 N/Cannula Oximizer Hi LPM 2.0 28 07/11/25 03:40 98.4 84 18 124/73 96 Nasal Cannula 2.0 LABS: Hematology Labs: Test 07/11/25 04:31 Range/Units White Blood Count 6.3 4.8-10.8 K/uL Red Blood Count 4.00 L 4.50-6.20 MIL/uL Hemoglobin 11.8 L 14.0-18.0 g/dL Hematocrit 34.9 L 42-54 % Mean Corpuscular Volume 87.3 79-99 fL Mean Corpuscular Hemoglobin 29.5 27.0-33.0 pg Mean Corpuscular Hemoglobin Concent 33.8 32.0-36.0 g/dL Red Cell Distribution Width 12.1 11.0-15.5 % Platelet Count 242 130-400 K/uL Mean Platelet Volume 9.0 7.5-10.5 fL Nucleated Red Blood Cells 0.0 0.0-0.19 % Chemistry Labs: Test 07/11/25 06:20 07/11/25 04:31 07/10/25 04:09 Range/Units Whole Blood Glucose 100 70-110 MG/DL Sodium Level 132 L 136-145 mmol/L Potassium Level 4.0 3.5-5.1 mmol/L Chloride Level 96 L 101-111 mmol/L Carbon Dioxide Level 28 21-32 mmol/L Blood Urea Nitrogen 10 7-18 mg/dL Creatinine 0.5 0.5-1.3 mg/dL Glomerular Filtration Rate Calc 108 >90 mL/min Random Glucose 90 70-105 mg/dL Total Calcium 8.3 L 8.5-10.1 mg/dL Magnesium Level 1.60 L 1.80-2.40 mg/dL Total Bilirubin 0.7 # 0.2-1.0 mg/dL Aspartate Amino Transf (AST/SGOT) 22 10-37 U/L Alanine Aminotransferase (ALT/SGPT) 29 # 12-78 U/L Alkaline Phosphatase 77 50-136 U/L Total Protein 5.8 L 6.0-8.3 g/dL Albumin 1.9 L 3.5-5.0 g/dL DIAGNOSTICS / RADIOLOGY RESULTS: [[facility] [place] [address] [place] [id number] IMAGING REPORT Signed PATIENT: LEXI CUELLAR MR#: [id number] : 1955 SEX: M AGE: 70 LOCATION: 2AH ORDER 44 STATUS: ADM IN REPORT#: [id number] SERVICE 44 REASON: RIGHT KNEE ASPIRATION ORDERING PHYSICIAN: STEFANI SMILEY MD PROCEDURE: ASP - US FINE NDL ASP IR DIAGNOSTIC ARTHROCENTESIS, ULTRASOUND GUIDANCE HISTORY:Right knee joint effusion PROCEDURE: 1. Right knee arthrocentesis, ultrasound guidance. PROCEDURE DESCRIPTION: The risks, benefits and alternatives of the procedure were discussed with the patient and all questions answered. Informed consent was obtained and documented in the medical record. Skin overlying the right knee was cleaned using facility protocol for maximum sterile preparation. 1% lidocaine was used for local anesthesia. Under direct guidance, an 18-gauge needle was advanced into the joint space and 50 cc of yellowish tinged fluid was aspirated. Patient tolerated the procedure well. No evidence of immediate complication. Fluid sent to the lab for analysis per referring physician orders. FINDINGS: Right knee joint effusion effusion. IMPRESSION: Technically successful ultrasound-guided right knee arthrocentesis. No immediate complication. DICTATED BY: CINTHIA KEEN MD DATE: 07/10/251444 ELECTRONICALLY SIGNED BY: CINTHIA KEEN MD DATE: 07/10/251448 ] Plan: Chest x-ray Continue physical therapy Telemetry Daily labs Monitor Hgb Sitter INOs Follow pericardial fluid and biopsy pathology Follow pericardial fluid cultures Follow oncology recommendations Follow synovial fluid cultures. NEURO: Minimize central acting medications as possible. Maintain fall precautions, adequate lighting during the day PULMONARY: Supplemental 02 as needed. Maintain aspiration precautions at all times CARDIOVASCULAR: Follow hemodynamics. Vital signs per facility protocol GI & NUTRITION: Continue with nutritional support. Continue stool softeners and laxatives as needed. KIDNEYS & ELECTROLYTES: Strict monitoring of intake, output and overall fluid balance. Avoid nephrotoxic medications to the extent possible. Medications to be dosed according to renal function. Monitor electrolytes and replace as needed ENDOCRINE: Maintain blood glucose between 100-180 at all times. Hypoglycemia protocol in place INFECTIOUS DISEASE: Trend temperature, WBC and procalcitonin level Follow cultures, deescalate antibiotics as soon as possible. Panculture if new onset fever ONCOLOGY/HEMATOLOGY/COAGULATION: Monitor for s/s of bleeding Monitor hemoglobin, coagulation studies as needed SKIN: Pressure ulcer prevention per facility protocol Specialty mattress ORTHO/REHAB: Continue PT/OT Prophylaxis: Continue GI and DVT prophylaxis Code Status: Full Resuscitation Disposition: TBD Other: ATTESTATION BY PHYSICIAN The patient has been seen and evaluated, the case has been discussed with the COMMUNITY ENGAGEMENT SPECIALIST, I agree with the clinical findings and plan of care. Norman Meeks MD, NELLY J [facility] Jul 11, 2025 11:07
--- NOTE | 2025-07-11 11:22 | PN ---
[facility] PROGRESS NOTE Date of Service: Jul 11, 2025 Time of Service: 11:22 SUBJECTIVE: 07/06 70-year-old male, history of hypertension, diabetes mellitus type 2, and melanoma with metastases, most recently on Pembrolizumab (last dose 06/24/25), transferred from [facility] after the patient was found to have moderate size pericardial effusion with tamponade, measuring 1.1-1.5 cm, the mitral valve inspiratory variation of 40% and early diastolic collapse of the right ventricle and the late diastolic collapse of the right atrium and a dilated IVC. Patient hypotensive, requiring vasopressor support. Consultation with Cardiology and Cardiothoracic surgeon requested, follow input and recommendations. 07/07 70-year-old male, history of hypertension, diabetes mellitus type 2, and melanoma with metastases, most recently on Pembrolizumab (last dose 06/24/25), transferred from [facility] after the patient was found to have moderate size pericardial effusion with tamponade, measuring 1.1-1.5 cm, the mitral valve inspiratory variation of 40% and early diastolic collapse of the right ventricle and the late diastolic collapse of the right atrium and a dilated IVC. Patient hypotensive, requiring vasopressor support. Consultation with Cardiology and Cardiothoracic surgeon requested, underwent successful pericardial window 07/06/25, with the evacuation of 600 mL of fluid drained. At the time of my visit, comfortable, no acute events overnight per discussion with the RN. Chest tube in place. 07/08/25: Lying in bed at the time of the evaluation with sitter at bedside. Alert and oriented and in no obvious distress. Patient is status post pericardial window and right pleural drainage Post op Day 2. States that he feels a lot better. Denies any chest pain, shortness of breath or palpitations. Overnight drainage from chest tube was 40 cc. Vital signs: Temperature 98.8, pulse 82, respirations 20, BP 125/67, maintaining oxygen at 95% on 4 L via nasal cannula. Labs were unremarkable except for a magnesium of 1.7 which was replaced as per protocol . An oncology consult was placed due to patient's history of metastatic melanoma and the potential for malignant effusion. Pending their recommendations. Workup was done for potential causes of pericardial effusion . Pending results. We will continue to follow the recommendations of Cardiology and the critical care team. 07/09/25: Lying in bed at the time of the evaluation with sitter at bedside. Alert and oriented and in no obvious distress. Patient is status post pericardial window and right pleural drainage Post op Day 3. Denies any chest pain, shortness of breath or palpitations. Patient complains of right knee pain and swelling. Rates the pain as a 7/10. Ordered a CT of the right knee in order to rule out an effusion. If present an orthopedic consult will be placed for possible incision and drainage. Apply cold compress to the right knee. Chest tube is still in place and drained 20ml in the last 24hours. Pending cardiothoracic recommendation. Patient was seen by Dr Thorne (Hemo/Onco) who recommended a hold on chemotherapy at this time, pending results of cytology. If cytology shows metastatic disease, patient may need a different chemotherapy treatment. Still pending results for workup done for potential causes of pericardial effusion: RAUL, dsDNA .We will continue to follow the recommendations of Cardiology and the critical care team. 07/10/25:Lying in bed at the time of the evaluation with sitter at bedside. Alert and oriented and in no obvious distress. Patient is status post pericardial window and right pleural drainage Post op Day 4. Denies any chest pain, shortness of breath or palpitations. Continues with pain and swelling of right knee joint. X ray of right knee showed mild osteopenia, moderate tricompartmental osteoarthritic changes and moderate supra-patella joint effusion. order placed for Orthopedic surgery for possible incision and drainage. Continue with cold compresses to the knee. Chest tube was removed yesterday. Orders placed for physical therapy to ambulate. dsDNA was negative. We will continue to follow the recommendations of Cardiology and the critical care team. 07/11/25: Lying in bed at the time of the evaluation with sitter at bedside. A lert and oriented and in no obvious distress. Patient is status post pericardial window and right pleural drainage Post op Day 5. Denies any chest pain, shortness of breath or palpitations. Vital signs were unremarkable. Labs showed a WBC 6.3, hemoglobin 11.8, hematocrit 34.9. Right knee effusion was drained yesterday by Ortho. Gram stain, anaerobic and aerobic cultures and cell count was sent. Gram stain of joint aspirate showed rare Gram-positive cocci. This is most likely a septic arthritis. Placed a consult for Infectious Disease. Pending their recommendations. Patient has been accepted in [facility]. This has been deferred for now due to the new diagnosis of Septic arthritis. Dr Vizcarra has signed off the case. Will see the patient as an out patient. REVIEW OF SYSTEMS CONSTITUTIONAL: Denies fevers, chills, or night sweats. No unintentional weight loss reported. NEUROLOGICAL: Denies headache, amaurosis fugax, motor weakness, sensory deficit, vertigo/spinning sensation, gait abnormalities, or tremors. ENT: No hearing loss, otalgia, otorrhea, rhinitis, rhinorrhea, hoarseness, or sore throat. CARDIOVASCULAR: Denies any exertional angina, dyspnea on exertion, orthopnea, paroxysmal nocturnal dyspnea, palpitations, life-threatening arrhythmias, claudication. PULMONARY: Denies any shortness of breath, cough, phlegm/sputum, hemoptysis, pleuritic chest pain. SLEEP: Denies morning headaches, daytime somnolence or napping. Denies difficulty falling asleep, staying asleep, waking from sleep. Denies knowledge of snoring. GASTROINTESTINAL: Denies any type of dysphagia to either liquids or solids. Denies nausea, vomiting, pyrosis, early satiety, abdominal pain, diarrhea, constipation, or changes in stool consistency or caliber. Denies coffee-ground emesis, hematemesis, hematochezia, or melanotic stools. GENITOURINARY: Denies frequency, urgency, nocturia, hematuria or incontinence (Storage/Irritative symptoms.) Low urinary stream, straining to void, urinary intermittency or hesitancy, splitting of the voiding stream, terminal dribbling. DERMATOLOGIC: Denies rashes or pruritus. MUSCULOSKELETAL: Right Knee pain and swelling PSYCHIATRIC: Denies any suicidal or homicidal ideation. Denies hallucinations. PHYSICAL EXAM GENERAL APPEARANCE: The patient is awake, alert, and oriented, in no acute cardiopulmonary distress. NEUROLOGICAL: Cranial nerves II-XII grossly intact. Motor is 5/5 in bilateral upper and lower extremities proximal to distal. No sensory deficits. HEENT: Face is symmetric. Pupils are equal and reactive. Extraocular movements are intact. NECK: Supple. No JVD. No thyromegaly. No submental, submandibular, pre- /postauricular, occipital or supraclavicular lymphadenopathy. CHEST: Normal chest expansion. No Telemetry. LUNGS: Absence of any rales, rhonchi or any wheezing. CARDIOVASCULAR: Regular. S1 and S2 normal. No appreciable rubs, murmurs or gallops. ABDOMEN: Soft, nontender, and nondistended. There is no rebound, voluntary guarding, or rigidity. : Deferred. No Orozco. EXTREMITIES: Right knee joint edema and erythema SKIN: No skin breakdown. Vital Signs (last 8hr) Date Time Temp Pulse Resp B/P (MAP) Pulse Ox O2 Delivery O2 Flow Rate FiO2 07/11/25 08:00 98.8 84 16 116/67 96 Nasal Cannula 1.0 07/11/25 07:33 88 20 N/Cannula Oximizer Hi LPM 2.0 07/11/25 03:40 98.4 84 18 124/73 96 Nasal Cannula 2.0 LABS: Laboratory: Test 07/11/25 06:20 07/11/25 04:31 07/10/25 13:45 07/10/25 04:09 Range/Units Whole Blood Glucose 100 70-110 MG/DL White Blood Count 6.3 4.8-10.8 K/uL Red Blood Count 4.00 L 4.50-6.20 MIL/uL Hemoglobin 11.8 L 14.0-18.0 g/dL Hematocrit 34.9 L 42-54 % Mean Corpuscular Volume 87.3 79-99 fL Mean Corpuscular Hemoglobin 29.5 27.0-33.0 pg Mean Corpuscular Hemoglobin Concent 33.8 32.0-36.0 g/dL Red Cell Distribution Width 12.1 11.0-15.5 % Platelet Count 242 130-400 K/uL Mean Platelet Volume 9.0 7.5-10.5 fL Nucleated Red Blood Cells 0.0 0.0-0.19 % Sodium Level 132 L 136-145 mmol/L Potassium Level 4.0 3.5-5.1 mmol/L Chloride Level 96 L 101-111 mmol/L Carbon Dioxide Level 28 21-32 mmol/L Blood Urea Nitrogen 10 7-18 mg/dL Creatinine 0.5 0.5-1.3 mg/dL Glomerular Filtration Rate Calc 108 >90 mL/min Random Glucose 90 70-105 mg/dL Total Calcium 8.3 L 8.5-10.1 mg/dL Magnesium Level 1.60 L 1.80-2.40 mg/dL Body Fluid Source SYNOVIAL Body Fluid Volume 45 mL Body Fluid Color ORANGE H LT YELLOW Body Fluid Supernatant Appearance CLOUDY H CLEAR Body Fluid WBC 4559 /cu. mm. Body Fluid RBC 94414 /cu. mm. Body Fluid Neutrophils 96.0 % Body Fluid Lymphocytes 1 % Body Fluid Monocytes % 3 % Total Bilirubin 0.7 # 0.2-1.0 mg/dL Aspartate Amino Transf (AST/SGOT) 22 10-37 U/L Alanine Aminotransferase (ALT/SGPT) 29 # 12-78 U/L Alkaline Phosphatase 77 50-136 U/L Total Protein 5.8 L 6.0-8.3 g/dL Albumin 1.9 L 3.5-5.0 g/dL Current Medications Medications (Trade) Dose Ordered Sig/Dejah Route PRN Reason Start Time Stop Time Status Last Admin Dose Admin Acetaminophen (TYLenol 325MG TAB) 650 mg Q4H PRN PO MILD PAIN (1-3) 07/08/25 22:30 07/10/25 13:28 DC 07/10/25 06:40 650 MG Acetaminophen (TYLenol 650MG SUPPOSITORY) 650 mg Q6H PRN RC MILD PAIN (1-3) IF NPO 07/05/25 20:30 08/04/25 20:29 Colchicine (COLCHicine 0.6mg TAB) 0.6 mg DAILY PO 07/09/25 14:00 07/09/25 18:31 DC 07/09/25 17:34 0.6 MG Enoxaparin Sodium (Lovenox) 30 mg DAILY SQ 07/08/25 09:00 08/07/25 08:59 07/11/25 08:45 30 MG Hydralazine HCl (APRESOLine 20MG INJ) 10 mg Q6H PRN IV For:SBP above 160;DBP above 90 07/05/25 20:30 07/06/25 01:04 DC Insulin Human Regular (humuLIN R 100 UNIT/ML 3ML) INSULIN SLIDING SCAL... ACHS SQ 07/06/25 07:30 08/05/25 07:29 Magnesium Sulfate 50 ml @ 0 mls/hr PROTOCOL PRN IV PROTOCOL 07/08/25 05:30 08/07/25 05:29 07/08/25 05:43 20 MLS/HR Morphine Sulfate (morPHINE 2MG SYG) 2 mg Q4H PRN IVP SEVERE PAIN (7-10) 07/05/25 20:30 07/12/25 20:29 07/06/25 13:08 2 MG Naproxen (Naprosyn) 500 mg BID PRN PO PAIN LEVEL 1 TO 3 07/10/25 13:30 08/09/25 13:29 Norepinephrine Bitartrate 250 ml @ 0 mls/hr AD PRN IV TITRATE 07/05/25 21:00 07/09/25 16:06 DC 07/06/25 11:11 0 MLS/HR Ondansetron HCl (zoFRAN 4MG INJ) 4 mg Q6H PRN IV NAUSEA/VOMITING 07/05/25 20:30 08/04/25 20:29 07/07/25 02:56 4 MG Pantoprazole Sodium (PROTonix 40MG INJ) 40 mg DAILY IV 07/06/25 09:00 08/05/25 08:59 07/11/25 08:48 40 MG Potassium Chloride 100 ml @ 100 mls/hr AD PRN IV POTASSIUM PROTOCOL 07/08/25 05:30 08/07/25 05:29 07/08/25 05:43 100 MLS/HR Potassium Chloride (K-Dur/Klor-Con 20meq) 20 meq AD PRN PO POTASSIUM PROTOCOL 07/08/25 05:30 08/07/25 05:29 07/10/25 06:39 20 MEQ Potassium Chloride (KCl 10% Elixir 20meq/15ml) 20 meq AD PRN PO POTASSIUM PROTOCOL 07/08/25 05:30 08/07/25 05:29 Vasopressin 20 units/Sodium Chloride 100 ml @ 0 mls/hr AD PRN IV TITRATE 07/05/25 21:00 07/09/25 16:07 DC 07/06/25 00:51 9 MLS/HR DIAGNOSTICS / RADIOLOGY: [ ] ASSESSMENT: Right Knee effusion, status post right knee arthrocentesis by IR on 07/10/2025. Obstructive shock requiring vasopressor therapy (resolved) Hypotension (resolved) Pericardial effusion with tamponade physiology per 2D echo done at [facility] POA s/p successful pericardial window 07/06/25 Hypertension. Diabetes mellitus type 2. Melanoma with metastasis most recently on Pembrolizumab (last dose 06/24/25) POA Anxiety. PLAN: *,status post right knee arthrocentesis by IR on 07/10/2025. *Gram stain of joint aspirate showed rare Gram-positive cocci, 2+ WBC, 3+ RBC and no fungal hyphea. This is most likely a septic arthritis. *Placed a consult for Infectious Disease. Pending their recommendations. *Patient has been accepted in [facility]. This has been deferred for now due to the new diagnosis of Septic arthritis. *Dr Vizcarra has signed off the case. Will see the patient as an out patient. NEURO: Minimize central acting medications as possible. Fall Precautions. Well lighted room through the day and minimize interruptions through the night to prevent acute delirium. PULMONARY: Supplemental 02 as needed BiPAP as necessary, for respiratory distress Titrate Fio2 to keep Spo2 > or = 90% DuoNebs and CPT as needed IS hourly while awake for pulmonary hygiene prn Out of bed to chair as tolerated Maintain aspiration precautions at all times CARDIOVASCULAR: Follow hemodynamics. Vital signs per facility protocol GI & NUTRITION: Continue nutritional support Aspirations precautions Prokinetic agents and laxatives as needed KIDNEYS & ELECTROLYTES: Strict monitoring of intake and output Daily weights Avoid nephrotoxic agents Monitor electrolytes and replace as needed Goal urine output of 30mL/hr or 0.5mL/kg/hr Medications to be dosed according to renal function. Avoid contrast if possible ENDOCRINE: Maintain blood glucose between 100-180 at all times. Insulin sliding scale for blood glucose management Hypoglycemia and hyperglycemia protocol in place INFECTIOUS DISEASE: Trend temperature, WBC and procalcitonin level Follow cultures, deescalate antibiotics as soon as possible. Panculture if new onset fever HEMATOLOGY & COAGULATION: Monitor H&H. Keep Hgb > 7 Transfuse 1 unit of PRBC for Hgb < 7 Transfuse 1 pack of platelets of platelets < 20, 000 Watch for any signs and symptoms of bleeding SKIN: Pressure ulcer prevention per facility protocol Specialty mattress as needed ORTHO/REHAB Continue PT/OT PRN: MEDICATIONS Tylenol 650 mg po every 4 hrs for fever zofran 4 mg IV every 6 hrs for n/v Hydralazine 5 mg IV every 4 hrs systolic pressure > 160 bowel regiment: lactulose 20 gm PO BID PRN constipation Supportive measures: Continue GI and DVT prophylaxis Disposition: Pending improvement in clinical condition All questions answered time spent: > 35 min ATTESTATION BY PHYSICIAN I have seen and examined the patient. I reviewed the documentation, medical decision making, and treatment plan as noted by the resident provider above. I agree with the findings and plan of care. Nixon Otero MD OBI,DODIE Geronimo MD Jul 11, 2025 11:22
--- NOTE | 2025-07-11 12:21 | CONS ---
INFECTIOUS DISEASE CONSULTATION NOTE Date of Service: Jul 11, 2025 Reason for Consultation: Suspected Right knee septic arthritis. Requesting Physician: Dr. Rodriguez HISTORY OF PRESENT ILLNESS: This is a 70-year-old male patient with history of diabetes, hypertension and melanoma with metastases who was transferred from [facility] for evaluation of pericardial effusion with tamponade for which patient underwent a pericardial window on 07/06/2025. Patient's daughter reported that patient had an assisted fall at home on 07/04/2025 where patient fell on his buttocks. An x- ray of the right knee done at [facility] on 07/05/2025 showed degenerative changes but no acute significant abnormalities. Patient continues with right knee pain and a repeat right knee x-ray done on 07/09/2025 showed a large suprapatellar joint effusion for which orthopedic surgeon was consulted and patient underwent a right knee arthrocentesis by IR yesterday. The synovial fluid was sent for cultures with concern of infection and the reason for this consult. We will follow up on the culture results. No antibiotics needed at this time. REVIEW OF SYSTEMS CONSTITUTIONAL: Denies fever, chills, or fatigue. HEAD/FACE: No signs of trauma. EENT: Denies eye pain, blurred vision, double vision, or light sensitivity. RESPIRATORY: Denies shortness of breath, cough, wheezing CARDIOVASCULAR: Denies chest pain, palpitation, syncope GASTROINTESTINAL/ABDOMINAL: Denies abdominal pain, constipation, diarrhea, nausea or vomiting GENITOURINARY: Denies dysuria or hematuria. MUSCULOSKELETAL: Denies joint pain, tenderness, or trauma. Weakness. INTEGUMENTARY: Denies rash or itchiness NEUROLOGICAL/PSYCH: Denies anxiety, depression, heat or cold intolerance. PAST MEDICAL HISTORY: Diabetes mellitus. Hypertension. Hypercholesterolemia. Right ankle fracture. PAST SURGICAL HISTORY: Right ankle surgery with rods and pins which has been removed. PAST SOCIAL HISTORY: Denied current use of tobacco, alcohol or any other illicit drug. FAMILY HISTORY: Father had diabetes. Coded Allergies: No Known Drug Allergies (Unverified Allergy, Unknown, 07/05/25) PHYSICAL EXAM EYES: Anicteric. Pupils equal and reactive. HENT: No oral thrush seen, moist Oral mucosa. NECK: Supple, no JVD or thyromegaly. LUNGS: Good air entry. No rales, no rhonchi. CARDIOVASCULAR: S1, S2 regular. No murmur heard. ABDOMEN: Soft, non tender, bowel sounds present, no organomegaly. CENTRAL NERVOUS SYSTEM: Awake, alert, oriented x 3. SKIN: No rashes, no swelling. LYMPHATICS: No peripheral lymphadenopathy. MUSCULOSKELETAL: No joint swelling, erythema or tenderness. EXTREMITIES: No cyanosis or clubbing. Right knee swelling and pain. BACK: No deformity, no pressure ulcer. GENITOURINARY: No dysuria or hematuria. Vital Sign (Last 24 Hours) 07/11/25 07/11/25 07:33 08:00 Temp 98.8 Pulse 84 Resp 16 B/P (MAP) 116/67 Pulse Ox 96 O2 Delivery Nasal Cannula O2 Flow Rate 1.0 FiO2 28 Intake & Output (last 24hrs) 07/10/25 07/10/25 07/11/25 14:59 22:59 06:59 Output Total 600 ml 1100 ml Balance -600 ml -1100 ml LABS: Laboratory: Test 07/11/25 11:39 07/11/25 04:31 07/10/25 13:45 07/10/25 04:09 Range/Units Whole Blood Glucose 115 H 70-110 MG/DL White Blood Count 6.3 4.8-10.8 K/uL Red Blood Count 4.00 L 4.50-6.20 MIL/uL Hemoglobin 11.8 L 14.0-18.0 g/dL Hematocrit 34.9 L 42-54 % Mean Corpuscular Volume 87.3 79-99 fL Mean Corpuscular Hemoglobin 29.5 27.0-33.0 pg Mean Corpuscular Hemoglobin Concent 33.8 32.0-36.0 g/dL Red Cell Distribution Width 12.1 11.0-15.5 % Platelet Count 242 130-400 K/uL Mean Platelet Volume 9.0 7.5-10.5 fL Nucleated Red Blood Cells 0.0 0.0-0.19 % Sodium Level 132 L 136-145 mmol/L Potassium Level 4.0 3.5-5.1 mmol/L Chloride Level 96 L 101-111 mmol/L Carbon Dioxide Level 28 21-32 mmol/L Blood Urea Nitrogen 10 7-18 mg/dL Creatinine 0.5 0.5-1.3 mg/dL Glomerular Filtration Rate Calc 108 >90 mL/min Random Glucose 90 70-105 mg/dL Total Calcium 8.3 L 8.5-10.1 mg/dL Magnesium Level 1.60 L 1.80-2.40 mg/dL Body Fluid Source SYNOVIAL Body Fluid Volume 45 mL Body Fluid Color ORANGE H LT YELLOW Body Fluid Supernatant Appearance CLOUDY H CLEAR Body Fluid WBC 4559 /cu. mm. Body Fluid RBC 41010 /cu. mm. Body Fluid Neutrophils 96.0 % Body Fluid Lymphocytes 1 % Body Fluid Monocytes % 3 % Total Bilirubin 0.7 # 0.2-1.0 mg/dL Aspartate Amino Transf (AST/SGOT) 22 10-37 U/L Alanine Aminotransferase (ALT/SGPT) 29 # 12-78 U/L Alkaline Phosphatase 77 50-136 U/L Total Protein 5.8 L 6.0-8.3 g/dL Albumin 1.9 L 3.5-5.0 g/dL ASSESSMENT: Right Knee effusion, status post right knee arthrocentesis by IR on 07/10/2025. Suspected septic arthritis of the right knee. S/p assisted fall at home on 07/04/2024. Immunosuppression. Pericardial effusion with tamponade, status post pericardial window on 07/06/2025. Diabetes mellitus. Melanoma with metastasis. Hx of Right ankle surgery. PLAN: We will follow up on the synovial fluid culture results. No antibiotics needed at this time. Continue pain management. Continue antidiabetics. Thank you for allowing [facility] to participate in the care of this patient. This case was reviewed and discussed with my supervising physician Dr. Schrader and the above assessment and plan was formulated and agreed upon. ATTESTATION BY PHYSICIAN I have seen and examined the patient. I reviewed the documentation, medical decision making, and treatment plan as noted by the mid-level provider above. I agree with the findings and plan of care. CHAO SCHRADER MD, [facility] Jul 11, 2025 12:21
--- NOTE | 2025-07-11 14:06 | PN ---
Patient is also hypotensive and requiring vasopressor support. Patient has a history of hypertension, Diabetes mellitius type2, and melanoma with metastasis, most recently on Pembrolizumab (last dose 06/24/25). Who presented with a generalized weakness/fatigue, of five weeks' duration. The symptoms began in the setting of immune therapy, and over the last five weeks progressively worsened. The symptoms were constant, occurred on a daily basis, and were present throughout the day. The symptoms were exacerbated by physical activity and not alleviated by anything. The symptoms culminated in a mechanical fall, which occurred on 07/04/2025, and prompted the patient to come to the hospital for further evaluation and treatment. In the emergency department the patient was found to be hyponatremic, and with a lactic acid of 4.24. He was admitted to the floor and within 24 hours decompensated and went into shock, requiring ionotropic/chronotropic support with IV norepinephrine and vasopressin. He was subsequently transferred to the ICU and underwent an echocardiogram which identified a moderate size pericardial effusion measuring 1.1-1.5 cm, the mitral valve inspiratory variation of 40% and early diastolic collapse of the right ventricle and the late diastolic collapse of the right atrium and a dilated IVC. The findings confirmed the diagnosis of cardiac tamponade, causing obstructive shock. Cardiology was consulted for treatment recommendations regarding this issue. At the time of Cardiology evaluation the patient continued to complaint of generalized weakness/fatigue but denied any other active complaints including headache, dizziness, syncope, chest pain, chest pressure, palpitations, shortness of breath, abdominal pain or lower extremity swelling/edema. Patient was evaluated by cardiothoracic surgery status post pericardial window. We are waiting for the result of cytology It seems the patient is stable. There is plan to discharge this patient to rehab center Patient was found to have swelling to the right knee. Aspiration of the fluid possibly growing bacteria but we do not have the results final yet Exam General Appearance: Alert, Oriented X3, Cooperative, moderate distress, Other (Generally ill-appearing) HEENT: Atraumatic Respiratory: Other (Diminished air entry to bilateral lower lobes) Cardiovascular: Regular rate, Regular rhythm, Normal S1, Normal S2 Abdominal: Normal bowel sounds, Soft, No tenderness Extremities: No edema Skin: No significant lesion Neuro: Normal speech, Strength at 5/5 X4 ext, Sensation intact, Cranial nerves 3-12 NL Psych/Mental Status: Mental status NL, Mood NL, Thoughts/Content NL ASSESSMENT: [ History of melanoma with metastatic disease of the patient received Keytruda. Great job get infusion status post pericardial window by cardiothoracic surgery Obstructive shock, POA Hypotension, POA Cardiac tamponade, POA Diabetes mellitius type2 Hypertension] Patient was found to have swelling to the right knee. Aspiration of the fluid possibly growing bacteria but we do not have the results final yet Plan 1. We will hold chemotherapy treatment on this patient at this time 2. Will need to follow-up with cytology. If the cytology showing metastatic disease this patient may be will need different treatment. There is a with cytology showing possible inflammatory this could be due to Keytruda and at that time maybe they should stop the treatment 3. Type we will follow-up with the result of culture and sensitivity DVT of the fluid from the right knee. If it is not bacterial and its only inflammatory I think is this could be due to Keytruda and Keytruda should not be used on this patient again for his the treatment of melanoma. Vitals/Labs Vital Signs Date Time Temp Pulse Resp B/P (MAP) Pulse Ox O2 Delivery O2 Flow Rate FiO2 07/11/25 12:00 98.8 85 16 93/52 96 Nasal Cannula 1.0 07/11/25 07:35 N/A Laboratory Tests 07/11/25 04:31 Medications Current Medications Acetaminophen 650 mg Q6H PRN RC; Start 07/05/25 at 20:30; Stop 08/04/25 at 20:29 Pantoprazole Sodium 40 mg DAILY IV Last administered on 07/11/25at 08:48; Start 07/06/25 at 09:00; Stop 08/05/25 at 08:59 Ondansetron HCl 4 mg Q6H PRN IV Last administered on 07/07/25at 02:56; Start 07/05/25 at 20:30; Stop 08/04/25 at 20:29 Morphine Sulfate 2 mg Q4H PRN IVP Last administered on 07/06/25at 13:08; Start 07/05/25 at 20:30; Stop 07/12/25 at 20:29 Hydralazine HCl 10 mg Q6H PRN IV; Start 07/05/25 at 20:30; Stop 07/06/25 at 01:04; Status DC Norepinephrine Bitartrate 250 ml @ 0 mls/hr AD PRN IV Last administered on 07/06/25at 11:11; Start 07/05/25 at 21:00; Stop 07/09/25 at 16:06; Status DC Vasopressin 20 units/Sodium Chloride 100 ml @ 0 mls/hr AD PRN IV Last administered on 07/06/25at 00:51; Start 07/05/25 at 21:00; Stop 07/09/25 at 16:07; Status DC Insulin Human Regular INSULIN SLIDING SCAL... ACHS SQ; Start 07/06/25 at 07:30; Stop 08/05/25 at 07:29 Sodium Bicarbonate 100 meq ONCE ONCE IV Last administered on 07/06/25at 08:34; Start 07/06/25 at 08:00; Stop 07/06/25 at 08:11; Status DC Etomidate 20 mg STK-MED ONCE .ROUTE; Start 07/06/25 at 09:35; Stop 07/06/25 at 09:36; Status DC Fentanyl Citrate 100 mcg STK-MED ONCE .ROUTE; Start 07/06/25 at 09:36; Stop 07/06/25 at 09:36; Status DC Cefazolin Sodium 1 gm STK-MED ONCE .ROUTE Last administered on 07/06/25at 11:45; Start 07/06/25 at 11:48; Stop 07/06/25 at 11:49; Status DC Lidocaine HCl 100 mg STK-MED ONCE .ROUTE; Start 07/06/25 at 11:49; Stop 07/06/25 at 11:49; Status DC Vasopressin 20 units STK-MED ONCE .ROUTE; Start 07/06/25 at 12:10; Stop 07/06/25 at 12:12; Status DC Vasopressin 20 units STK-MED ONCE .ROUTE; Start 07/06/25 at 12:10; Stop 07/06/25 at 12:12; Status DC Diphenhydramine HCl 25 mg ONCE ONCE PO Last administered on 07/07/25at 02:56; Start 07/06/25 at 21:30; Stop 07/06/25 at 21:31; Status DC Enoxaparin Sodium 30 mg DAILY SQ Last administered on 07/11/25at 08:45; Start 07/08/25 at 09:00; Stop 08/07/25 at 08:59 Magnesium Sulfate 50 ml @ 0 mls/hr PROTOCOL PRN IV Last administered on 07/08/25at 05:43; Start 07/08/25 at 05:30; Stop 08/07/25 at 05:29 Potassium Chloride 100 ml @ 100 mls/hr AD PRN IV Last administered on 07/08/25at 05:43; Start 07/08/25 at 05:30; Stop 08/07/25 at 05:29 Potassium Chloride 20 meq AD PRN PO; Start 07/08/25 at 05:30; Stop 08/07/25 at 05:29 Potassium Chloride 20 meq AD PRN PO Last administered on 07/10/25at 06:39; Start 07/08/25 at 05:30; Stop 08/07/25 at 05:29 Acetaminophen 650 mg Q4H PRN PO Last administered on 07/10/25at 06:40; Start 07/08/25 at 22:30; Stop 07/10/25 at 13:28; Status DC Colchicine 0.6 mg DAILY PO Last administered on 07/09/25at 17:34; Start 07/09/25 at 14:00; Stop 07/09/25 at 18:31; Status DC Naproxen 500 mg BID PRN PO; Start 07/10/25 at 13:30; Stop 08/09/25 at 13:29 LANCE ELI MD Jul 11, 2025 14:06
[2025-07-11] MEDS: NAPROXEN 500 MG TABLET PO PRN (21:11)
[2025-07-12] VITALS (7 sets, daily range): BP systolic 103–121; BP diastolic 59–70; PULSE 70–88; RESP 18–20; TEMP 97.3–98.3; O2SAT 94–96
[2025-07-12 05:17] LABS: NUCLEATED RED BLOOD CELLS 0.0 % (0.0-0.19); PLATELET COUNT (AUTO) 310.0 K/uL (130-400); RED BLOOD CELL COUNT(AUTO) 3.94 MIL/uL (4.50-6.20); RED CELL DISTRIBUTION WIDTH 12.1 % (11.0-15.5); WHITE BLOOD COUNT (AUTO) 6.2 K/uL (4.8-10.8)
[2025-07-12 05:34] LABS: ASPARTATE AMINOTRANSFERASE 35.0 U/L (10-37); CREATININE 0.6 mg/dL (0.5-1.3); GLOMERULAR FILTR. RATE CALC 103.0 mL/min (>90); GLUCOSE,RANDOM 89.0 mg/dL (70-105); SODIUM SERUM 131.0 mmol/L (136-145); TOTAL PROTEIN, SERUM 5.9 g/dL (6.0-8.3); UREA NITROGEN, BLOOD 10.0 mg/dL (7-18)
--- NOTE | 2025-07-12 11:29 | PN ---
[facility] PROGRESS NOTE Date of Service: Jul 12, 2025 Time of Service: 11:02 SUBJECTIVE: 07/06 70-year-old male, history of hypertension, diabetes mellitus type 2, and melanoma with metastases, most recently on Pembrolizumab (last dose 06/24/25), transferred from [facility] after the patient was found to have moderate size pericardial effusion with tamponade, measuring 1.1-1.5 cm, the mitral valve inspiratory variation of 40% and early diastolic collapse of the right ventricle and the late diastolic collapse of the right atrium and a dilated IVC. Patient hypotensive, requiring vasopressor support. Consultation with Cardiology and Cardiothoracic surgeon requested, follow input and recommendations. 07/07 70-year-old male, history of hypertension, diabetes mellitus type 2, and melanoma with metastases, most recently on Pembrolizumab (last dose 06/24/25), transferred from [facility] after the patient was found to have moderate size pericardial effusion with tamponade, measuring 1.1-1.5 cm, the mitral valve inspiratory variation of 40% and early diastolic collapse of the right ventricle and the late diastolic collapse of the right atrium and a dilated IVC. Patient hypotensive, requiring vasopressor support. Consultation with Cardiology and Cardiothoracic surgeon requested, underwent successful pericardial window 07/06/25, with the evacuation of 600 mL of fluid drained. At the time of my visit, comfortable, no acute events overnight per discussion with the RN. Chest tube in place. 07/08/25: Lying in bed at the time of the evaluation with sitter at bedside. Alert and oriented and in no obvious distress. Patient is status post pericardial window and right pleural drainage Post op Day 2. States that he feels a lot better. Denies any chest pain, shortness of breath or palpitations. Overnight drainage from chest tube was 40 cc. Vital signs: Temperature 98.8, pulse 82, respirations 20, BP 125/67, maintaining oxygen at 95% on 4 L via nasal cannula. Labs were unremarkable except for a magnesium of 1.7 which was replaced as per protocol . An oncology consult was placed due to patient's history of metastatic melanoma and the potential for malignant effusion. Pending their recommendations. Workup was done for potential causes of pericardial effusion . Pending results. We will continue to follow the recommendations of Cardiology and the critical care team. 07/09/25: Lying in bed at the time of the evaluation with sitter at bedside. Alert and oriented and in no obvious distress. Patient is status post pericardial window and right pleural drainage Post op Day 3. Denies any chest pain, shortness of breath or palpitations. Patient complains of right knee pain and swelling. Rates the pain as a 7/10. Ordered a CT of the right knee in order to rule out an effusion. If present an orthopedic consult will be placed for possible incision and drainage. Apply cold compress to the right knee. Chest tube is still in place and drained 20ml in the last 24hours. Pending cardiothoracic recommendation. Patient was seen by Dr Thorne (Hemo/Onco) who recommended a hold on chemotherapy at this time, pending results of cytology. If cytology shows metastatic disease, patient may need a different chemotherapy treatment. Still pending results for workup done for potential causes of pericardial effusion: RAUL, dsDNA .We will continue to follow the recommendations of Cardiology and the critical care team. 07/10/25:Lying in bed at the time of the evaluation with sitter at bedside. Alert and oriented and in no obvious distress. Patient is status post pericardial window and right pleural drainage Post op Day 4. Denies any chest pain, shortness of breath or palpitations. Continues with pain and swelling of right knee joint. X ray of right knee showed mild osteopenia, moderate tricompartmental osteoarthritic changes and moderate supra-patella joint effusion. order placed for Orthopedic surgery for possible incision and drainage. Continue with cold compresses to the knee. Chest tube was removed yesterday. Orders placed for physical therapy to ambulate. dsDNA was negative. We will continue to follow the recommendations of Cardiology and the critical care team. 07/11/25: Lying in bed at the time of the evaluation with sitter at bedside. A lert and oriented and in no obvious distress. Patient is status post pericardial window and right pleural drainage Post op Day 5. Denies any chest pain, shortness of breath or palpitations. Vital signs were unremarkable. Labs showed a WBC 6.3, hemoglobin 11.8, hematocrit 34.9. Right knee effusion was drained yesterday by Ortho. Gram stain, anaerobic and aerobic cultures and cell count was sent. Gram stain of joint aspirate showed rare Gram-positive cocci. This is most likely a septic arthritis. Placed a consult for Infectious Disease. Pending their recommendations. Patient has been accepted in [facility]. This has been deferred for now due to the new diagnosis of Septic arthritis. Dr Vizcarra has signed off the case. Will see the patient as an out patient. 07/12/25: Lying in bed at the time of the evaluation with sitter at bedside. Alert and oriented and in no obvious distress. Patient is status post pericardial window and right pleural drainage Post op Day 6. Denies any chest pain, shortness of breath or palpitations. Patient remains afebrile. Labs showed a WBC 6.2, Hb 11.4, Hct 34.1. Preliminary synovial fluid culture showed no growth at 24-35hrs and no anaerobes at 24- 35hrs. Patient was seen by Infectious disease yesterday. No antibiotics needed at this time . They will follow up with culture results. REVIEW OF SYSTEMS CONSTITUTIONAL: Denies fevers, chills, or night sweats. No unintentional weight loss reported. NEUROLOGICAL: Denies headache, amaurosis fugax, motor weakness, sensory defi cit, vertigo/spinning sensation, gait abnormalities, or tremors. ENT: No hearing loss, otalgia, otorrhea, rhinitis, rhinorrhea, hoarseness, or sore throat. CARDIOVASCULAR: Denies any exertional angina, dyspnea on exertion, orthopnea, paroxysmal nocturnal dyspnea, palpitations, life-threatening arrhythmias, claudication. PULMONARY: Denies any shortness of breath, cough, phlegm/sputum, hemoptysis, pleuritic chest pain. SLEEP: Denies morning headaches, daytime somnolence or napping. Denies difficulty falling asleep, staying asleep, waking from sleep. Denies knowledge of snoring. GASTROINTESTINAL: Denies any type of dysphagia to either liquids or solids. Denies nausea, vomiting, pyrosis, early satiety, abdominal pain, diarrhea, constipation, or changes in stool consistency or caliber. Denies coffee-ground emesis, hematemesis, hematochezia, or melanotic stools. GENITOURINARY: Denies frequency, urgency, nocturia, hematuria or incontinence (Storage/Irritative symptoms.) Low urinary stream, straining to void, urinary intermittency or hesitancy, splitting of the voiding stream, terminal dribbling. DERMATOLOGIC: Denies rashes or pruritus. MUSCULOSKELETAL Tight knee pain PSYCHIATRIC: Denies any suicidal or homicidal ideation. Denies hallucinations. PHYSICAL EXAM GENERAL APPEARANCE: The patient is awake, alert, and oriented, in no acute cardiopulmonary distress. NEUROLOGICAL: Cranial nerves II-XII grossly intact. Motor is 5/5 in bilateral upper and lower extremities proximal to distal. No sensory deficits. HEENT: Face is symmetric. Pupils are equal and reactive. Extraocular movements are intact. NECK: Supple. No JVD. No thyromegaly. No submental, submandibular, pre- /postauricular, occipital or supraclavicular lymphadenopathy. CHEST: Normal chest expansion. No Telemetry. LUNGS: Absence of any rales, rhonchi or any wheezing. CARDIOVASCULAR: Regular. S1 and S2 normal. No appreciable rubs, murmurs or gallops. ABDOMEN: Soft, nontender, and nondistended. There is no rebound, voluntary guarding, or rigidity. : Deferred. No Orozco. EXTREMITIES: Right knee joint erythema SKIN: No skin breakdown. Vital Signs (last 8hr) Date Time Temp Pulse Resp B/P (MAP) Pulse Ox O2 Delivery O2 Flow Rate FiO2 07/12/25 08:20 88 18 N/A Room Air 21 07/12/25 07:20 96 Nasal Cannula* 1 N/A N/C Oxymizer Hi LPM* 07/12/25 07:00 97.5 71 20 116/59 98 Nasal Cannula 1.0 LABS: Laboratory: Test 07/12/25 10:58 07/12/25 04:46 07/11/25 04:31 07/10/25 13:45 Range/Units Whole Blood Glucose 111 H 70-110 MG/DL Bedside Glucose Comment Notified Nurse White Blood Count 6.2 4.8-10.8 K/uL Red Blood Count 3.94 L 4.50-6.20 MIL/uL Hemoglobin 11.4 L 14.0-18.0 g/dL Hematocrit 34.1 L 42-54 % Mean Corpuscular Volume 86.5 79-99 fL Mean Corpuscular Hemoglobin 28.9 27.0-33.0 pg Mean Corpuscular Hemoglobin Concent 33.4 32.0-36.0 g/dL Red Cell Distribution Width 12.1 11.0-15.5 % Platelet Count 310 # 130-400 K/uL Mean Platelet Volume 9.3 7.5-10.5 fL Nucleated Red Blood Cells 0.0 0.0-0.19 % Sodium Level 131 L 136-145 mmol/L Potassium Level 3.9 3.5-5.1 mmol/L Chloride Level 98 L 101-111 mmol/L Carbon Dioxide Level 29 21-32 mmol/L Blood Urea Nitrogen 10 7-18 mg/dL Creatinine 0.6 0.5-1.3 mg/dL Glomerular Filtration Rate Calc 103 >90 mL/min Random Glucose 89 70-105 mg/dL Total Calcium 8.3 L 8.5-10.1 mg/dL Total Bilirubin 0.4 0.2-1.0 mg/dL Aspartate Amino Transf (AST/SGOT) 35 10-37 U/L Alanine Aminotransferase (ALT/SGPT) 30 12-78 U/L Alkaline Phosphatase 119 50-136 U/L Total Protein 5.9 L 6.0-8.3 g/dL Albumin 2.1 L 3.5-5.0 g/dL Magnesium Level 1.60 L 1.80-2.40 mg/dL Body Fluid Source SYNOVIAL Body Fluid Volume 45 mL Body Fluid Color ORANGE H LT YELLOW Body Fluid Supernatant Appearance CLOUDY H CLEAR Body Fluid WBC 4559 /cu. mm. Body Fluid RBC 47592 /cu. mm. Body Fluid Neutrophils 96.0 % Body Fluid Lymphocytes 1 % Body Fluid Monocytes % 3 % Current Medications Medications (Trade) Dose Ordered Sig/Dejah Route PRN Reason Start Time Stop Time Status Last Admin Dose Admin Acetaminophen (TYLenol 325MG TAB) 650 mg Q4H PRN PO MILD PAIN (1-3) 07/08/25 22:30 07/10/25 13:28 DC 07/10/25 06:40 650 MG Acetaminophen (TYLenol 650MG SUPPOSITORY) 650 mg Q6H PRN RC MILD PAIN (1-3) IF NPO 07/05/25 20:30 08/04/25 20:29 Colchicine (COLCHicine 0.6mg TAB) 0.6 mg DAILY PO 07/09/25 14:00 07/09/25 18:31 DC 07/09/25 17:34 0.6 MG Enoxaparin Sodium (Lovenox) 30 mg DAILY SQ 07/08/25 09:00 08/07/25 08:59 07/12/25 08:31 30 MG Hydralazine HCl (APRESOLine 20MG INJ) 10 mg Q6H PRN IV For:SBP above 160;DBP above 90 07/05/25 20:30 07/06/25 01:04 DC Insulin Human Regular (humuLIN R 100 UNIT/ML 3ML) INSULIN SLIDING SCAL... ACHS SQ 07/06/25 07:30 08/05/25 07:29 Magnesium Sulfate 50 ml @ 0 mls/hr PROTOCOL PRN IV PROTOCOL 07/08/25 05:30 08/07/25 05:29 07/08/25 05:43 20 MLS/HR Morphine Sulfate (morPHINE 2MG SYG) 2 mg Q4H PRN IVP SEVERE PAIN (7-10) 07/05/25 20:30 07/12/25 20:29 07/06/25 13:08 2 MG Naproxen (Naprosyn) 500 mg BID PRN PO PAIN LEVEL 1 TO 3 07/10/25 13:30 08/09/25 13:29 07/11/25 21:11 500 MG Norepinephrine Bitartrate 250 ml @ 0 mls/hr AD PRN IV TITRATE 07/05/25 21:00 07/09/25 16:06 DC 07/06/25 11:11 0 MLS/HR Ondansetron HCl (zoFRAN 4MG INJ) 4 mg Q6H PRN IV NAUSEA/VOMITING 07/05/25 20:30 08/04/25 20:29 07/07/25 02:56 4 MG Pantoprazole Sodium (PROTonix 40MG INJ) 40 mg DAILY IV 07/06/25 09:00 08/05/25 08:59 07/12/25 08:31 40 MG Potassium Chloride 100 ml @ 100 mls/hr AD PRN IV POTASSIUM PROTOCOL 07/08/25 05:30 08/07/25 05:29 07/08/25 05:43 100 MLS/HR Potassium Chloride (K-Dur/Klor-Con 20meq) 20 meq AD PRN PO POTASSIUM PROTOCOL 07/08/25 05:30 08/07/25 05:29 07/10/25 06:39 20 MEQ Potassium Chloride (KCl 10% Elixir 20meq/15ml) 20 meq AD PRN PO POTASSIUM PROTOCOL 07/08/25 05:30 08/07/25 05:29 Vasopressin 20 units/Sodium Chloride 100 ml @ 0 mls/hr AD PRN IV TITRATE 07/05/25 21:00 07/09/25 16:07 DC 07/06/25 00:51 9 MLS/HR DIAGNOSTICS / RADIOLOGY: [ ] ASSESSMENT: Right Knee effusion, status post right knee arthrocentesis by IR on 07/10/2025. Obstructive shock requiring vasopressor therapy (resolved) Hypotension (resolved) Pericardial effusion with tamponade physiology per 2D echo done at [facility] POA s/p successful pericardial window 07/06/25 Hypertension. Diabetes mellitus type 2. Melanoma with metastasis most recently on Pembrolizumab (last dose 06/24/25) POA Anxiety. PLAN: *Preliminary synovial fluid culture showed no growth at 24-35hrs and no anaerobes at 24-35hrs. *Patient was seen by Infectious disease yesterday. No antibiotics needed at this time . They will follow up with culture results. *Status post right knee arthrocentesis by IR on 07/10/2025. *Gram stain of joint aspirate showed rare Gram-positive cocci, 2+ WBC, 3+ RBC and no fungal hyphea. This is most likely a septic arthritis. *Placed a consult for Infectious Disease. Pending their recommendations. *Patient has been accepted in [facility]. This has been deferred for now due to the new diagnosis of Septic arthritis. *Dr Vizcarra has signed off the case. Will see the patient as an out patient. NEURO: Minimize central acting medications as possible. Fall Precautions. Well lighted room through the day and minimize interruptions through the night to prevent acute delirium. PULMONARY: Supplemental 02 as needed BiPAP as necessary, for respiratory distress Titrate Fio2 to keep Spo2 > or = 90% DuoNebs and CPT as needed IS hourly while awake for pulmonary hygiene prn Out of bed to chair as tolerated Maintain aspiration precautions at all times CARDIOVASCULAR: Follow hemodynamics. Vital signs per facility protocol GI & NUTRITION: Continue nutritional support Aspirations precautions Prokinetic agents and laxatives as needed KIDNEYS & ELECTROLYTES: Strict monitoring of intake and output Daily weights Avoid nephrotoxic agents Monitor electrolytes and replace as needed Goal urine output of 30mL/hr or 0.5mL/kg/hr Medications to be dosed according to renal function. Avoid contrast if possible ENDOCRINE: Maintain blood glucose between 100-180 at all times. Insulin sliding scale for blood glucose management Hypoglycemia and hyperglycemia protocol in place INFECTIOUS DISEASE: Trend temperature, WBC and procalcitonin level Follow cultures, deescalate antibiotics as soon as possible. Panculture if new onset fever HEMATOLOGY & COAGULATION: Monitor H&H. Keep Hgb > 7 Transfuse 1 unit of PRBC for Hgb < 7 Transfuse 1 pack of platelets of platelets < 20, 000 Watch for any signs and symptoms of bleeding SKIN: Pressure ulcer prevention per facility protocol Specialty mattress as needed ORTHO/REHAB Continue PT/OT PRN: MEDICATIONS Tylenol 650 mg po every 4 hrs for fever zofran 4 mg IV every 6 hrs for n/v Hydralazine 5 mg IV every 4 hrs systolic pressure > 160 bowel regiment: lactulose 20 gm PO BID PRN constipation Supportive measures: Continue GI and DVT prophylaxis Disposition: Pending improvement in clinical condition All questions answered time spent: > 35 min ATTESTATION BY PHYSICIAN I have seen and examined the patient. I reviewed the documentation, medical decision making, and treatment plan as noted by the resident provider above. I agree with the findings and plan of care. Nixon Otero MD OBI,DODIE Geronimo MD Jul 12, 2025 11:29
--- NOTE | 2025-07-12 14:32 | DS ---
Discharge Summary Hospital Course Summary: Patient Information: *Name:Jose Loredo *Date of : 51 *Admission Date:07/06/25 *Discharge Date: 07/12/25 Attending Physician: Dr Nayan Otero Discharge Diagnosis: 1. Pericardial effusion with tamponade requiring pressors status post emergent pericardial window 2. Metastatic melanoma 3. Diabetes mellitus type 2 4. Hypertension 5. Dyslipidemia Course in Hospital: 70-year-old male, history of hypertension, diabetes mellitus type 2, and melanoma with metastases, most recently on Pembrolizumab (last dose 06/24/25), transferred from [facility] after the patient was found to have moderate size pericardial effusion with tamponade, measuring 1.1-1.5 cm, the mitral valve inspiratory variation of 40% and early diastolic collapse of the right ventricle and the late diastolic collapse of the right atrium and a dilated IVC. Patient hypotensive, requiring vasopressor support. Consultation with Cardiology and Cardiothoracic surgeon was requested. Preoperative echo showed moderate concentric left ventricular hypertrophy, LVEF 60-65%, grade 2 diastolic left ventricular dysfunction with small to moderate pericardial effusion and compression of the right ventricle in the subcostal views consistent with tamponade. Patient was taken to the operating room by Dr Vizcarra the cardiothoracic surgeon for an emergent pericardial window placement on 07/06/25, with the evacuation of 600 mL of fluid. Patient tolerated the procedure well. Patient was also seen by the piece worker. Stated that he will hold chemotherapy treatment on this patient at this time and will follow-up with cytology. If the cytology shows metastatic disease the patient may need a different treatment since Keytruda has the potential of causing pericardial effusion as a side effect.Cytology showed possible inflammation this could also be due to Keytruda and medication was stopped. Pericardial fluid culture was negative and showed no growth. Patient also complained of pain and swelling to the right knee. An x ray and a CT scan of the right knee showed a moderate effusion. Orthopedic surgeons were consulted and an atherocentesis was done. Joint fluid aspirate showed no anaerobes. Patient was seen by Dr Anton who stated that patient should be discharged at this time without any antibiotics since there is no growth. Throughout patient's hospital stay, his symptoms improved tremendously. States that he feels a lot better. Patient was then discharged to [facility] fo cardiac rehabilitation. Procedures performed: Pericardial window Athrocentesis Discharge Instructions: *Follow up with your primary care physician in 2 - 3 days after discharge. *Continue all medications as prescribed. Do not discontinue or change dosages without consulting your PCP. *Gradually resume normal activities as tolerated. *Continue a balanced diet . Reduce salt intake to help manage BP. *Seek immediate medical attention if you experience chest pain, SOB or severe headache. *Smoking cessation is strongly advised. Resources for quitting smoking are available upon request. Discharged to: Inpatient Rehab ([facility]) Condition on Discharge: Stable Security Operations Specialist(s): Cardiothoracic HISTORY OF PRESENT ILLNESS: A 70-year-old admitted to the hospital, was found to have a pericardial effusion and is recommended for drainage. I had the opportunity to review the films, review the medical record, and had discussed with the patient the indications for surgery as well as the potential complications of the operation including, but not limited to, postoperative bleeding, infection, stroke, and/or . He understands this as well as associated morbidity and mortality of procedure as it relates to his own comorbidities and wishes to proceed with pericardial window. PLAN: Continue antibiotics. Plan for pericardial window. Hematology/Oncology Plan 1. We will hold chemotherapy treatment on this patient at this time 2. Will need to follow-up with cytology. If the cytology showing metastatic disease this patient may be will need different treatment. There is a with cytology showing possible inflammatory this could be due to Keytruda and at that time maybe they should stop the treatment 3. It seems the patient looks stable. So this patient may be could be discha rged to follow-up with his oncologist Dr. Mae in [facility]. 4. I have long discussion with the patient and family member regarding the plan of care. Infectious Disease Plan: We will follow up on the synovial fluid culture results. No antibiotics needed at this time. Continue pain management. Continue antidiabetics. Procedure(s): *Pericardial window *Athrocentesis Assessment/Plan: ASSESSMENT: Right Knee effusion, status post right knee arthrocentesis by IR on 07/10/2025. Obstructive shock requiring vasopressor therapy (resolved) Hypotension (resolved) Pericardial effusion with tamponade physiology per 2D echo done at [facility] POA s/p successful pericardial window 07/06/25 Hypertension. Diabetes mellitus type 2. Melanoma with metastasis most recently on Pembrolizumab (last dose 06/24/25) POA Anxiety. PLAN: *As per Dr Anton, patient can be discharged at this time without any antibiotics. *Discharge patient to [facility] for cardiac rehabilitation *Follow up with PCP in 2-3 days after discharge Discharge Instructions: Discharge Instructions: *Follow up with your primary care physician in 2 - 3 days after discharge. *Continue all medications as prescribed. Do not discontinue or change dosages without consulting your PCP. *Gradually resume normal activities as tolerated. *Continue a balanced diet . Reduce salt intake to help manage BP. *Seek immediate medical attention if you experience chest pain, SOB or severe headache. *Smoking cessation is strongly advised. Resources for quitting smoking are available upon request. Pinprick beta-elvira Home Medications: Reported Medications Atorvastatin Calcium (LIPITOR) 40 Mg Tablet, 40 MG PO DAILY, TAB 07/05/25 Ondansetron (Ondansetron Odt) 8 Mg Tab.rapdis, 1 TAB PO Q8hprn PRN for NAUSEA/VO MITING for 3 Days, #12 TAB 0 Refills 07/05/25 Discontinued Reported Medications Empagliflozin (Jardiance) 25 Mg Tablet, 1 TAB PO DAILY for 30 Days, #30 TAB 0 Refills 07/05/25 Amlodipine Besylate (Amlodipine Besylate) 10 Mg Tablet, 1 TAB PO DAILY for 30 Days, #30 TAB 0 Refills 07/05/25 Semaglutide (Rybelsus) 7 Mg Tablet, 7 MG PO DAILY, TAB 07/05/25 Olmesartan Medoxomil (Olmesartan Medoxomil) 40 Mg Tablet, 40 MG PO DAILY, TAB 07/05/25 Time spent arranging discharge: 1-30 minutes ATTESTATION BY PHYSICIAN I have seen and examined the patient. I reviewed the documentation, medical decision making, and treatment plan as noted by the resident provider above. I agree with the findings and plan of care. Shanna Alicea MD OBIDODIE MD Jul 12, 2025 14:32
--- NOTE | 2025-07-12 14:53 | PN ---
INFECTIOUS DISEASE PROGRESS NOTE Date of Service: Jul 12, 2025 SUBJECTIVE: This 70 year old male patient is being seen today. No fever or chills. No nausea or vomiting. Patient denies chest pain or shortness of breath at this time. No growth noted to any cultures at this time. WBC 6.2 No over night events reported by nurse at this visit. PHYSICAL EXAM EYES: Anicteric. Pupils equal and reactive. HENT: No oral thrush seen, moist Oral mucosa. NECK: Supple, no JVD or thyromegaly. LUNGS: Good air entry. No rales, no rhonchi. CARDIOVASCULAR: S1, S2 regular. No murmur heard. ABDOMEN: Soft, non tender, bowel sounds present, no organomegaly. CENTRAL NERVOUS SYSTEM: Awake, alert, oriented x 3. SKIN: No rashes, no swelling. LYMPHATICS: No peripheral lymphadenopathy. MUSCULOSKELETAL: No joint swelling, erythema or tenderness. EXTREMITIES: No cyanosis or clubbing. Right knee swelling and pain. BACK: No deformity, no pressure ulcer. GENITOURINARY: No dysuria or hematuria. Vital Sign (Last 12 Hours) 07/12/25 07/12/25 07/12/25 07/12/25 03:00 07:00 07:20 08:20 Temp 98.2 97.5 Pulse 73 71 88 Resp 18 20 18 B/P (MAP) 121/70 116/59 Pulse Ox 98 98 96 O2 Delivery Nasal Cannula Nasal Cannula Nasal Cannula* N/A Room Air N/C Oxymizer Hi LPM* O2 Flow Rate 2.0 1.0 1 FiO2 N/A 21 07/12/25 11:00 Temp 98.1 Pulse 77 Resp 20 B/P (MAP) 103/63 Pulse Ox 98 O2 Delivery Nasal Cannula O2 Flow Rate 1.0 Intake & Output (last 24hrs) 07/11/25 07/11/25 07/12/25 15:00 23:00 07:00 Output Total 1000 ml 1100 ml Balance -1000 ml -1100 ml LABS: Laboratory: Test 07/12/25 10:58 07/12/25 04:46 07/11/25 04:31 Range/Units Whole Blood Glucose 111 H 70-110 MG/DL Bedside Glucose Comment Notified Nurse White Blood Count 6.2 4.8-10.8 K/uL Red Blood Count 3.94 L 4.50-6.20 MIL/uL Hemoglobin 11.4 L 14.0-18.0 g/dL Hematocrit 34.1 L 42-54 % Mean Corpuscular Volume 86.5 79-99 fL Mean Corpuscular Hemoglobin 28.9 27.0-33.0 pg Mean Corpuscular Hemoglobin Concent 33.4 32.0-36.0 g/dL Red Cell Distribution Width 12.1 11.0-15.5 % Platelet Count 310 # 130-400 K/uL Mean Platelet Volume 9.3 7.5-10.5 fL Nucleated Red Blood Cells 0.0 0.0-0.19 % Sodium Level 131 L 136-145 mmol/L Potassium Level 3.9 3.5-5.1 mmol/L Chloride Level 98 L 101-111 mmol/L Carbon Dioxide Level 29 21-32 mmol/L Blood Urea Nitrogen 10 7-18 mg/dL Creatinine 0.6 0.5-1.3 mg/dL Glomerular Filtration Rate Calc 103 >90 mL/min Random Glucose 89 70-105 mg/dL Total Calcium 8.3 L 8.5-10.1 mg/dL Total Bilirubin 0.4 0.2-1.0 mg/dL Aspartate Amino Transf (AST/SGOT) 35 10-37 U/L Alanine Aminotransferase (ALT/SGPT) 30 12-78 U/L Alkaline Phosphatase 119 50-136 U/L Total Protein 5.9 L 6.0-8.3 g/dL Albumin 2.1 L 3.5-5.0 g/dL Magnesium Level 1.60 L 1.80-2.40 mg/dL ASSESSMENT: Right Knee effusion, status post right knee arthrocentesis by IR on 07/10/2025. Suspected septic arthritis of the right knee. S/p assisted fall at home on 07/04/2024. Immunosuppression. Pericardial effusion with tamponade, status post pericardial window on 07/06/2025. Diabetes mellitus. Melanoma with metastasis. Hx of Right ankle surgery. PLAN: We will follow up on the synovial fluid culture results. No antibiotics needed at this time. Continue pain management. Continue antidiabetics. Thank you for allowing ID to participate in the care of this patient. This case was reviewed and discussed with my supervising physician Dr. Anton and the above assessment and plan was formulated and agreed upon. MEGGAN CÁRDENAS HELICOPTER PILOT INSTRUCTOR Jul 12, 2025 14:53
--- NOTE | 2025-07-12 17:40 | NUR ---
REPORT CALLED TO [facility] AND GAVE REPORT TO [facility]J RN NURSE TO RECEIVE PT. PT IS GOING TO ROOM 106B DAUGHTER WAS ADVISED OF ROOM NUMBER. PT HAS VOIDED AFTER DC THOMASON. PT VOIDED WHEN HE ALSO HAD A BM, UNABLE TO MEASURE.
--- NOTE | 2025-07-12 18:03 | PN ---
Patient is also hypotensive and requiring vasopressor support. Patient has a history of hypertension, Diabetes mellitius type2, and melanoma with metastasis, most recently on Pembrolizumab (last dose 06/24/25). Who presented with a generalized weakness/fatigue, of five weeks' duration. The symptoms began in the setting of immune therapy, and over the last five weeks progressively worsened. The symptoms were constant, occurred on a daily basis, and were present throughout the day. The symptoms were exacerbated by physical activity and not alleviated by anything. The symptoms culminated in a mechanical fall, which occurred on 07/04/2025, and prompted the patient to come to the hospital for further evaluation and treatment. In the emergency department the patient was found to be hyponatremic, and with a lactic acid of 4.24. He was admitted to the floor and within 24 hours decompensated and went into shock, requiring ionotropic/chronotropic support with IV norepinephrine and vasopressin. He was subsequently transferred to the ICU and underwent an echocardiogram which identified a moderate size pericardial effusion measuring 1.1-1.5 cm, the mitral valve inspiratory variation of 40% and early diastolic collapse of the right ventricle and the late diastolic collapse of the right atrium and a dilated IVC. The findings confirmed the diagnosis of cardiac tamponade, causing obstructive shock. Cardiology was consulted for treatment recommendations regarding this issue. At the time of Cardiology evaluation the patient continued to complaint of generalized weakness/fatigue but denied any other active complaints including headache, dizziness, syncope, chest pain, chest pressure, palpitations, shortness of breath, abdominal pain or lower extremity swelling/edema. Patient was evaluated by cardiothoracic surgery status post pericardial window. We are waiting for the result of cytology It seems the patient is stable. There is plan to discharge this patient to rehab center Patient was found to have swelling to the right knee. Aspiration of the fluid possibly growing bacteria but we do not have the results final yet Exam General Appearance: Alert, Oriented X3, Cooperative, moderate distress, Other (Generally ill-appearing) HEENT: Atraumatic Respiratory: Other (Diminished air entry to bilateral lower lobes) Cardiovascular: Regular rate, Regular rhythm, Normal S1, Normal S2 Abdominal: Normal bowel sounds, Soft, No tenderness Extremities: No edema Skin: No significant lesion Neuro: Normal speech, Strength at 5/5 X4 ext, Sensation intact, Cranial nerves 3-12 NL Psych/Mental Status: Mental status NL, Mood NL, Thoughts/Content NL ASSESSMENT: [ History of melanoma with metastatic disease of the patient received Keytruda. Great job get infusion status post pericardial window by cardiothoracic surgery Obstructive shock, POA Hypotension, POA Cardiac tamponade, POA Diabetes mellitius type2 Hypertension] Patient was found to have swelling to the right knee. Aspiration of the fluid possibly growing bacteria but we do not have the results final yet Plan 1. We will hold chemotherapy treatment on this patient at this time 2. Will need to follow-up with cytology. If the cytology showing metastatic disease this patient may be will need different treatment. There is a with cytology showing possible inflammatory this could be due to Keytruda and at that time maybe they should stop the treatment 3. Type we will follow-up with the result of culture and sensitivity of the fluid from the right knee. With look like infected. With the patient to receive antibiotic treatment as per infectious disease specialist. Vitals/Labs Vital Signs Date Time Temp Pulse Resp B/P (MAP) Pulse Ox O2 Delivery O2 Flow Rate FiO2 07/12/25 16:00 97.3 70 20 117/60 98 Nasal Cannula 1.0 07/12/25 08:20 21 Laboratory Tests 07/12/25 04:46 Medications Current Medications Acetaminophen 650 mg Q6H PRN RC; Start 07/05/25 at 20:30; Stop 08/04/25 at 20:29 Pantoprazole Sodium 40 mg DAILY IV Last administered on 07/12/25at 08:31; Start 07/06/25 at 09:00; Stop 08/05/25 at 08:59 Ondansetron HCl 4 mg Q6H PRN IV Last administered on 07/07/25at 02:56; Start 07/05/25 at 20:30; Stop 08/04/25 at 20:29 Morphine Sulfate 2 mg Q4H PRN IVP Last administered on 07/06/25at 13:08; Start 07/05/25 at 20:30; Stop 07/12/25 at 20:29 Hydralazine HCl 10 mg Q6H PRN IV; Start 07/05/25 at 20:30; Stop 07/06/25 at 01:04; Status DC Norepinephrine Bitartrate 250 ml @ 0 mls/hr AD PRN IV Last administered on 07/06/25at 11:11; Start 07/05/25 at 21:00; Stop 07/09/25 at 16:06; Status DC Vasopressin 20 units/Sodium Chloride 100 ml @ 0 mls/hr AD PRN IV Last administered on 07/06/25at 00:51; Start 07/05/25 at 21:00; Stop 07/09/25 at 16:07; Status DC Insulin Human Regular INSULIN SLIDING SCAL... ACHS SQ; Start 07/06/25 at 07:30; Stop 08/05/25 at 07:29 Sodium Bicarbonate 100 meq ONCE ONCE IV Last administered on 07/06/25at 08:34; Start 07/06/25 at 08:00; Stop 07/06/25 at 08:11; Status DC Etomidate 20 mg STK-MED ONCE .ROUTE; Start 07/06/25 at 09:35; Stop 07/06/25 at 09:36; Status DC Fentanyl Citrate 100 mcg STK-MED ONCE .ROUTE; Start 07/06/25 at 09:36; Stop 07/06/25 at 09:36; Status DC Cefazolin Sodium 1 gm STK-MED ONCE .ROUTE Last administered on 07/06/25at 11:45; Start 07/06/25 at 11:48; Stop 07/06/25 at 11:49; Status DC Lidocaine HCl 100 mg STK-MED ONCE .ROUTE; Start 07/06/25 at 11:49; Stop 07/06/25 at 11:49; Status DC Vasopressin 20 units STK-MED ONCE .ROUTE; Start 07/06/25 at 12:10; Stop 07/06/25 at 12:12; Status DC Vasopressin 20 units STK-MED ONCE .ROUTE; Start 07/06/25 at 12:10; Stop 07/06/25 at 12:12; Status DC Diphenhydramine HCl 25 mg ONCE ONCE PO Last administered on 07/07/25at 02:56; Start 07/06/25 at 21:30; Stop 07/06/25 at 21:31; Status DC Enoxaparin Sodium 30 mg DAILY SQ Last administered on 07/12/25at 08:31; Start 07/08/25 at 09:00; Stop 08/07/25 at 08:59 Magnesium Sulfate 50 ml @ 0 mls/hr PROTOCOL PRN IV Last administered on 07/08/25at 05:43; Start 07/08/25 at 05:30; Stop 08/07/25 at 05:29 Potassium Chloride 100 ml @ 100 mls/hr AD PRN IV Last administered on 07/08/25at 05:43; Start 07/08/25 at 05:30; Stop 08/07/25 at 05:29 Potassium Chloride 20 meq AD PRN PO; Start 07/08/25 at 05:30; Stop 08/07/25 at 05:29 Potassium Chloride 20 meq AD PRN PO Last administered on 07/10/25at 06:39; Start 07/08/25 at 05:30; Stop 08/07/25 at 05:29 Acetaminophen 650 mg Q4H PRN PO Last administered on 07/10/25at 06:40; Start 07/08/25 at 22:30; Stop 07/10/25 at 13:28; Status DC Colchicine 0.6 mg DAILY PO Last administered on 07/09/25at 17:34; Start 07/09/25 at 14:00; Stop 07/09/25 at 18:31; Status DC Naproxen 500 mg BID PRN PO Last administered on 07/11/25at 21:11; Start 07/10/25 at 13:30; Stop 08/09/25 at 13:29 LANCE LEI MD Jul 12, 2025 18:03
--- NOTE | 2025-07-12 18:29 | PN ---
[facility] INPATIENT SERVICES PROGRESS NOTE Date Patient Seen: Jul 12, 2025 Time of Visit: 12:00 Supervising Physician: Honorio Murillo MD Primary Care Physician: PCP: (Cannot recall name) Outpatient Specialists: [ ] Inpatient Consults: [ ] PROBLEM LIST: Cardiac tamponade, POA s/p pericardial window on 07/06/25 pending cytology suspected pericardial effusion from Keytruda (pembrolizumab) Right Knee effusion, status post right knee arthrocentesis by IR on 07/10/2025. Recent History of mechanical fall (07/07) Hypoalbuminemia / protein-calorie malnutrition (albumin 2.1) Chronic Conditions: Hypertension. Diabetes mellitus type 2. History of melanoma with metastatic disease of the patient received Keytruda (pembrolizumab) 06/24/25 Anxiety INTERVAL HISTORY: No major overnight events. Laboratory unremarkable. Currently saturating 98% on 1 L via nasal cannula. He is hemodynamically stable. Denies any chest pain palpitations or shortness for breath. Has been accepted at [facility]. On behalf of [facility] thank you for given us the opportunity to participate in the care of this patient. From pulmonary standpoint patient is stable at this time. We will sign off. Please reach to us should the need arise. On [facility] we are thankful for your team to let us participate in the care of this patient. We will be available if assistance in pulmonary critical care needed. REVIEW OF SYSTEMS: General: No malaise or fever. Neurological: No fainting episodes or seizures. HEENT: No nasal congestion or nasal secretion. Respiratory: No cough, shortness of breath, or wheezing Cardiac: No chest pain or palpitations. Gastrointestinal: No vomiting or diarrhea. Genitourinary: No dysuria hematuria. Skin: No rashes or lesions. Hematological: No bruises or bleeding. Musculoskeletal: No joint pains or arthralgias. Psychiatric: No depression or panic attacks. PHYSICAL EXAM: GENERAL: Elderly male, resting in bed, calm, sitter at bedside. HEENT: EOMI, Sclera non icteric, moist mucosa NECK: Supple, no JVD, trachea midline LUNGS: Clear breath sounds bilaterally. No wheezes HEART: Regular rate and rhythm. Normal S1 and S2, without murmurs ABD: Abdomen soft, nontender. Bowel sounds present EXT: No clubbing cyanosis, pain swelling and tenderness to RT Knee Vital Signs (last 8hr) Date Time Temp Pulse Resp B/P (MAP) Pulse Ox O2 Delivery O2 Flow Rate FiO2 07/12/25 16:00 97.3 70 20 117/60 98 Nasal Cannula 1.0 07/12/25 11:00 98.1 77 20 103/63 98 Nasal Cannula 1.0 LABS: Hematology Labs: Test 07/12/25 04:46 Range/Units White Blood Count 6.2 4.8-10.8 K/uL Red Blood Count 3.94 L 4.50-6.20 MIL/uL Hemoglobin 11.4 L 14.0-18.0 g/dL Hematocrit 34.1 L 42-54 % Mean Corpuscular Volume 86.5 79-99 fL Mean Corpuscular Hemoglobin 28.9 27.0-33.0 pg Mean Corpuscular Hemoglobin Concent 33.4 32.0-36.0 g/dL Red Cell Distribution Width 12.1 11.0-15.5 % Platelet Count 310 # 130-400 K/uL Mean Platelet Volume 9.3 7.5-10.5 fL Nucleated Red Blood Cells 0.0 0.0-0.19 % Chemistry Labs: Test 07/12/25 16:21 07/12/25 10:58 07/12/25 04:46 07/11/25 04:31 Range/Units Whole Blood Glucose 99 70-110 MG/DL Bedside Glucose Comment Notified Nurse Sodium Level 131 L 136-145 mmol/L Potassium Level 3.9 3.5-5.1 mmol/L Chloride Level 98 L 101-111 mmol/L Carbon Dioxide Level 29 21-32 mmol/L Blood Urea Nitrogen 10 7-18 mg/dL Creatinine 0.6 0.5-1.3 mg/dL Glomerular Filtration Rate Calc 103 >90 mL/min Random Glucose 89 70-105 mg/dL Total Calcium 8.3 L 8.5-10.1 mg/dL Total Bilirubin 0.4 0.2-1.0 mg/dL Aspartate Amino Transf (AST/SGOT) 35 10-37 U/L Alanine Aminotransferase (ALT/SGPT) 30 12-78 U/L Alkaline Phosphatase 119 50-136 U/L Total Protein 5.9 L 6.0-8.3 g/dL Albumin 2.1 L 3.5-5.0 g/dL Magnesium Level 1.60 L 1.80-2.40 mg/dL DIAGNOSTICS / RADIOLOGY RESULTS: [ ] Plan: Follow pericardial fluid and biopsy pathology Follow pericardial fluid cultures Follow oncology recommendations Follow synovial fluid cultures. Disposition per primary team NEURO: Minimize central acting medications as possible. Maintain fall precautions, adequate lighting during the day PULMONARY: Supplemental 02 as needed. Maintain aspiration precautions at all times CARDIOVASCULAR: Follow hemodynamics. Vital signs per facility protocol GI & NUTRITION: Continue with nutritional support. Continue stool softeners and laxatives as needed. KIDNEYS & ELECTROLYTES: Strict monitoring of intake, output and overall fluid balance. Avoid nephrotoxic medications to the extent possible. Medications to be dosed according to renal function. Monitor electrolytes and replace as needed ENDOCRINE: Maintain blood glucose between 100-180 at all times. Hypoglycemia protocol in place INFECTIOUS DISEASE: Trend temperature, WBC and procalcitonin level Follow cultures, deescalate antibiotics as soon as possible. Panculture if new onset fever ONCOLOGY/HEMATOLOGY/COAGULATION: Monitor for s/s of bleeding Monitor hemoglobin, coagulation studies as needed SKIN: Pressure ulcer prevention per facility protocol Specialty mattress ORTHO/REHAB: Continue PT/OT Prophylaxis: Continue GI and DVT prophylaxis Code Status: Full Resuscitation Disposition: TBD Other: ATTESTATION BY PHYSICIAN I have evaluated the patient chart, medical records, and spoke with appropriate staff. I reviewed the documentation, medical decision making, and treatment plan as noted by the mid-level provider above. I agree with the findings and plan of care. Honorio Murillo MD, [facility] Jul 12, 2025 18:29
--- NOTE | 2025-07-12 19:11 | NUR ---
STILL WAITING FOR PT TO BE PICKED UP BY FACILITY.
--- NOTE | 2025-07-12 20:57 | NUR ---
DR ANNETTE BIRD ROUNDED WITH PATIENT. ASSESSED PATIENT RIGHT KNEE. ORDERED TO CANCEL IRRIGATION AND DEBRIDEMENT ORDER. STATED NO NEED FOR SUCH PROCEDURE. STATED HE DOES NOT THINK THERE IS INFECTION GOING ON.
--- NOTE | 2025-07-12 21:19 | NUR ---
@2113PM EMS PERSONNEL TRANSFERRED PATIENT TO [facility] PATIENT D/C TO [facility]. AM NURSE LOUIE MCINTOSH RN ALREADY PROVIDER ACCEPTING FACILITY WITH PATIENT REPORT. DISCHARGE PAPERWORK GIVEN TO EMS PERSONNEL. AT BEDSIDE TOOK ALL PERSONAL BELONGINGS. PATIENT [id number], RESPIRATIONS EVEN AND UNLABORED. DENIES ANY CHEST PAIN.
--- NOTE | 2025-07-12 22:17 | PN ---
TIME: Approximately 9 p.m. REASON FOR VISIT: Rule out septic knee, right side. This is a followup to the consult done on 07/11 that I reviewed with my nurse practitioner. Aspiration was performed per my instructions and came back with rare gram-positive cocci, 4000 white cells in the knee with a white count in his blood of 6 and I went in to see him today. He is sitting in bed. He is in no acute distress. He does not complain of any pain. OBJECTIVE: VITAL SIGNS: He is afebrile and vital signs stable. EXTREMITIES: His right knee has no effusion. He goes from full extension to about 90 degrees of flexion with no pain. He is minimally tender to palpation about the knee. SKIN: Intact. NEUROLOGIC: Sensation is intact. He is neurovascularly intact. LABORATORY DATA: The cell count came back with 4000 white cells and rare gram-positive cocci; cultures to this point are negative. IMPRESSION: Sympathetic effusion. PLAN: This is not a septic knee. Even though he is a little immunocompromised due to his chemotherapy, he still has no white count in his knee nor does he have his peripheral white count. With that in mind, I think the better part of ____ from a clinical standpoint he is a normal arthritic knee. No septic knee seen. I think we hold off for now and see how he goes. The gram-positive cocci could be a contaminant, so we will follow him. As he gets discharged, he can come back and see me in 1 week. TID: [id number] RECEIPT: [id number]
--- NOTE | 2025-07-13 20:42 | PN ---
CARDIOLOGY PROGRESS NOTE HISTORY OF PRESENT ILLNESS: The patient is coursing postoperative day #7 after a pericardial effusion, drainage via pericardial window for a malignant melanoma. The patient has done well. The catheter has been removed and his incision is healing. PLAN: We will follow as needed. Recommended to follow up with Oncology. We will follow up in the office. TID: [id number] RECEIPT: [id number]
== END 2025-07-12 21:16 | DRG 270 ==
LOC: 2BH 19:36 → 2AH 07-07 15:30
PROVIDERS: ADMIT Internal Medicine; ATTEND Internal Medicine
PROC: 0W9D00Z Drainage of Pericardial Cavity with Drainage Device, Open Approach (ICD-10-PCS; principal; 2025-07-06 11:10)
PROC: 0S9C3ZZ Drainage of Right Knee Joint, Percutaneous Approach (ICD-10-PCS; 2025-07-10)
DX: I31.39 Other pericardial effusion (noninflammatory) (principal); R57.8 Other shock; N17.9 Acute kidney failure, unspecified; D84.9 Immunodeficiency, unspecified; E44.0 Moderate protein-calorie malnutrition; E87.1 Hypo-osmolality and hyponatremia; M00.9 Pyogenic arthritis, unspecified; I31.4 Cardiac tamponade; E87.70 Fluid overload, unspecified; D64.9 Anemia, unspecified; I10 Essential (primary) hypertension; F41.9 Anxiety disorder, unspecified; E11.9 Type 2 diabetes mellitus without complications; E78.00 Pure hypercholesterolemia, unspecified; Z51.5 Encounter for palliative care; Z79.899 Other long term (current) drug therapy; Z83.3 Family history of diabetes mellitus; Z85.820 Personal history of malignant melanoma of skin; Z68.28 Body mass index [BMI] 28.0-28.9, adult; T50.995A Adverse effect of other drugs, medicaments and biological substances, initial encounter
CPT/HCPCS: 10005; 36415; 36600; 70450; 71045; 73562; 73700; 76942; 80048; 80053; 81001; 82150; 82435; 82803; 82945; 82947; 82948; 83036; 83605; 83615; 83735; 83986; 84100; 84132; 84157; 84295; 84550; 85018; 85025; 85027; 85610; 85730; 86038; 86215; 86235; 86850; 86900; 86901; 87040; 87071; 87076; 87086; 87116; 87186; 87205; 87206; 88108; 88305; 89051; 93306; A4450; A7048; G0378; J0690; J1650; J2003; J2270; J2405; J2470; J3010; J3475; J3480; J3490; A4649